=== PATIENT | female | born 1975 | race Caucasian/White ===

== ENCOUNTER 2016-11-08 09:23 | Emergency (ER) | payer MEDICAID ==
[~2016-11-08] VITALS: Ht 160 cm; Wt 104.8 kg
[~2016-11-08 09:23] MED LIST: ACTOS 15MG TABL15 MG PO; ACTOS30 MG PO; AMITRIPTYLINE 225 MG PO; AUGMENTIN XR 101 TER PO; AUGMENTIN1 TA2 PO; AVPAK AZITHROM250 MG PO; BACTRIM DS 8001 TA1 PO; BACTRIM DS 8001 TAB PO; BACTROBAN2% TP; BACTROBAN23 TP; CIPRO 500MG TA500 MG PO; CYCLOBENZAPRINE10 M2 OR; CYCLOBENZAPRINE10 MG PO; CYMBALTA30 MG PO; DICLOFENAC 50MG50 MG PO; DIPHENHYDRAMINE TP; DOXYCYCLINE HY100 M4 PO; ETODOLAC400 MG PO; FLEXERIL10 MG PO; FUROSEMIDE 20MG20 MG PO; GABAPENTIN300 MG PO; HUMALOG MIX75/253 ML SC; HUMULIN R100 UNITS/ SC; HYDROCODONE BIT PO; HYDROCODONE-APA1 TA1 PO; IBU800 M1 PO; K-DUR 20MEQ TA20 MEQ PO; LANTUS INS100 UNITS/ SC; LASIX20 MG PO; LEVAQUIN 750 M750 MG PO; LEVOTHYROXIN0.125 M2 PO; LEVOTHYROXIN0.125 MG PO; LEVOTHYROXINE0.05 MG PO; LIDOCAINE51 TP; LIDODERM 5% PA1 EACH TD; LIPITOR20 MG PO; LISINOPRIL 10MG10 MG PO; LYRICA50 MG PO; MINOCYCLINE 10100 MG PO; NAPROSYN500 M1 PO; NATURE'S BLEND160 MG PO; NICOTINE21 MG/24 H TD; NOVOLIN 70/30 710 ML SC; NOVOLOG MIX 70/10 M1 SC; NYSTATIN SU60 ML/BOT PO; OMEPRAZOLE40 MG PO; PANTOPRAZOLE SO40 M1 PO; PHENERGAN W/CO473 ML PO; POTASSIUM CHLO20 ME2 PO; PRAVACHOL 40MG40 MG PO; PRAVASTATIN 20M20 MG PO; PREDNISONE 20MG20 MG PO; PRILOSEC20 M1 PO; PROTONIX 40MG T40 MG PO; ROBAXIN-750750 MG PO; SEPTRA DS 800 M1 TAB PO; SULFACETAMI15 ML/BO1 OP; TESSALON PERLE100 M1 PO; TOPIRAMATE 100100 M1 PO; TOPIRAMATE100 MG PO; TORADOL10 M2 PO; TYLENOL W/CODEI1 TA2 PO; ULTRAM50 MG PO; VIGAMOX 5 ML5 ML OP; VISTARIL25 MG PO; VISTARIL50 MG PO; ZINC SULFATE 2220 MG PO; ZITHROMAX Z-PA250 M2 PO; ZOFRAN ODT4 MG PO; ZOFRAN4 MG PO; [UNRECOGNIZED DRUG - OTHER] TP
[2016-11-08 09:57] LABS: URINE BILIRUBIN - DIPSTICK NEGATIVE (NEG)
[2016-11-08 09:58] LABS: URINE BLOOD MODERATE (NEG)
[2016-11-08] MEDS ORDERED: PYRIDIUM200 M2 PO (10:01)
[2016-11-08] MEDS ORDERED: BACTRIM DS 8001 TA1 PO (10:01)
--- NOTE | 2016-11-08 10:03 | [facility]gent Treatment Center Report ---
History of Present Issue Date/Time Seen by Provider 11/08/16 0949 Visit Reason Pt arrived:Walked Presenting Problem:PT STATES FLANK PAIN, FREQUENT URINATION, URINARY PRESSURE, URGE TO VOID WHEN FINISHED, AND ODOR TO URINE FOR PAST COUPLE OF DAYS. STATES HISTORY OF UTI/BLADDER INFECTIONS Location if Accident: Onset of symptoms date/time:/ or onset unknown for:MEDICAL HX UNKNOWN Have you (or family members/close friends) recently traveled outside the [place]? N If Yes, where/when: Have you had exposure to infectious disease within the past month? TB? Other? Specify: c/o "I know I have a UTI". Started w/ dysuria and frequency 4 days ago. Since then that has worsened and now low back pain bilaterally, bladder pressure, urgency, hesitancy, nausea, urine darker and cloudier w/ foul odor. Denies fevers, chills, vomiting, vaginal discharge or pain other than burning while urinating. Hasn't taken or tried anything for symptoms. Hx of UTIs but last one last year. "I get one a year". Hx of DM. Not sure of A1C. Reporting [facility]SB[facility] "are good. Around 130-[address] Zabala. Does take insulin. Source patient Exam Limitations no limitations ALLERGIES Coded Allergies: cephalexin (From KEFLEX) (Intermediate, I-HIVES 04/05/16) erythromycin base (Intermediate, I-HIVES 04/05/16) butorphanol (From STADOL) (11/08/16) metformin (NA-DIARRHEA 04/05/16) Home Medications Active Scripts Pantoprazole Sodium (Protonix 40MG TAB) 40 MG PO DAILY #30 TAB Prov: 04/30/14 Cyclobenzaprine Hcl (Flexeril) 10 MG PO TID #30 TAB Prov: 04/05/16 Reported Medications DULOXETINE HCL (Cymbalta 30MG) 60 MG PO QHS POTASSIUM CHL (Potassium Chloride) 20 MEQ PO DAILY Hydroxyzine Pamoate (Vistaril) 50 MG PO QHSP PRN ANXIETY Atorvastatin Calcium (Lipitor 20MG) 20 MG PO DAILY Levothyroxine Sodium (Levothyroxine 0.125MG) 0.125 MG PO DAILY Amitriptyline Hcl (Amitriptyline) 25 MG PO QHS Furosemide (Lasix) 40 MG PO DAILYP PRN FLUID Gabapentin (Gabapentin 300MG) 600 MG PO TID INSULIN NPL/INSULIN LISPRO (Humalog Mix 75-25 Kwikpen) 76 UNITS SC AC History Medical History General CAD? No Angina: No PR: No Hypertension? Yes Hyperlipidemia? Yes CHF? No DVT? No PE? No COPD? No Asthma? Yes Anemia? No GERD? Yes Gastric ulcers? No GI Bleed? No Hernia? No Thyroid Problems? Yes Hypothyroidism? Yes CVA? No Seizures? No Diabetes? Yes Insulin Dependent: Yes Insulin Pump: No Home FSBS? Yes Renal Insuffiency? No UTI? Yes Stones? No BPH? No GB Disease: Yes Nephritic Syndrome? No Asplenia? No Hepatitis? No Sickle Cell Disease? No Arthritis? Yes Migraines? No Cataracts? No Glaucoma? No MRSA? Yes HIV? No TB? No Anxiety? Yes Depression? Yes Cancer? No More? 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 Psychiatric/Neurological denies headache Physical Exam Vital Signs Vital Signs Date Time Temp Pulse Resp B/P Pulse O2 O2 Flow FiO2 Ox Delivery Rate 11/08 937 98.1 85 18 121/83 99 General Appearance no apparent distress, obese Respiratory Status No: respiratory distress. Cardiovascular no peripheral edema Gastrointestinal normal bowel sounds, non tender, soft, no bladder distention, moderate suprapubic bladder pressure Back CVA tenderness (R), CVA tenderness (L) Neurologic alert Skin normal color, warm/dry Medical Decision Making LABS/Meds/Orders Pt receiving controlled substance in ED? No Results/Orders Laboratory Tests 11/08/16 0942: Urine Color YELLOW, Urine Appearance CLEAR, Urine pH 6.0, Ur Specific [place] 1.015, Urine Protein 30, Urine Ketones NEGATIVE, Urine Blood MODERATE, Urine Nitrate POSITIVE H, Urine Bilirubin NEGATIVE, Urine Urobilinogen 0.2, Ur Leukocyte Esterase TRACE H, Urine Glucose 1000 Orders Procedure Date/time Status CULTURE, URINE 11/08 1002 Active [facility] URINE DIPSTICK 11/08 0942 Complete Departure Departure Time of Disposition 0955 Disposition DC Home or Self Care(routine) Clinical Impression Primary Impression: UTI (urinary tract infection) Qualifiers: Urinary tract infection type: site unspecified Hematuria presence: with hematuria Qualified Code: N39.0 - Urinary tract infection, site not specified Secondary Impressions: Diabetes Qualifiers: Diabetes mellitus type: type 2 Diabetes mellitus complication status: with unspecified complications 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 You have too much glucose in your urine to suspect your DM is not well controlled OR no noticeable improvement over the next 48-72 hours. Be sure to let him know we sent a urine culture so he can review those results AND 10-14 days for repeat U/A to ensure blood and infection resolved Patient Instructions DI for Hematuria, DI for Urinary Tract Infection (UTI), Urine Glucose Additional Instructions increase fluids. Water and NOT soda or tea Start antibiotic pyridium as needed, Remember this will turn your urine ORANGE, this is normal but will stain whatever it gets on You should not need the pyridium longer than 48 hours. If so, follow up with primary care to review urine culture and ensure antibiotic is adequate Be SURE to follow up anytime for new or worsening symptoms, if no improvement in 48 hours AND in 10-14 days to repeat UA and ensure infection resolved and blood no longer present. Be sure to let your PCP (or whoever you follow up with) know we sent urine culture so they can request records and ensure you are on the appropriate antbiotic if you are not getting better or getting worse!!!!!!!!!!!!! Discharge Counseling Counseled pt/family regarding diagnosis, test results, medications/RX, home care, follow up needs Prescriptions Current Visit Scripts SULFAMETHOXAZOLE W/TRIMETHOPRI (Bactrim Ds Tab) 1 TABLET PO BID #14 TAB Phenazopyridine HCl (Pyridium) 200 MG PO TIDP PRN dysuria #6 TAB at 1007
[2016-11-08 10:07] VITALS: BP 121/83
== END 2016-11-08 10:07 | disposition home or self-care (01) ==
LOC: UTC 09:23
PROVIDERS: Nurse Practitioner Family
DX: N39.0 Urinary tract infection, site not specified (principal); E11.8 Type 2 diabetes mellitus with unspecified complications; Z79.4 Long term (current) use of insulin; I10 Essential (primary) hypertension; K21.9 Gastro-esophageal reflux disease without esophagitis

== ENCOUNTER 2017-01-27 15:31 | Emergency (ER) | payer MEDICAID ==
[~2017-01-27] VITALS: Ht 160 cm; Wt 93.0 kg
[~2017-01-27 15:31] MED LIST changes: +NAPROXEN250 MG PO; +PENICILLIN VK500 M1 PO; +PYRIDIUM200 M2 PO
--- OUTSIDE RECORDS SUMMARY | 2017-01-27 16:32 | External Medical Summary Rpt ---
Author Author , Organization [employer] Address Unknown Phone Unavailable Care Team Providers Care Receivable Manager Name Role Phone LIDIA, LIDIA Unavailable Unavailable [employer] Unavailable Unavailable INC, [employer] Unavailable Unavailable INC, [employer] ALFARIS MOH, ALFARIS Unavailable Unavailable MOH JOSE M FELIX MD, PSC, Unavailable Unavailable JOSE M FELIX MD, PSC ARNOLD, ARNNURY Unavailable Unavailable JAIN BRO, JAIN Unavailable Unavailable BRO JOY FRA, JOY Unavailable Unavailable FRA BEINEKE NARINDER, BEINEKE Unavailable Unavailable NARINDER BEAU, YANEZ Unavailable Unavailable BESSON WILMER, BESSON Unavailable Unavailable WILMER HERNÁNDEZ ALL, HERNÁNDEZ ALL Unavailable Unavailable [facility] Unavailable Unavailable HOSPITAL, [facility] [employer] Unavailable Unavailable BRIDGES, BRIDGES Unavailable Unavailable [facility] Unavailable Unavailable SERVICE, [facility] Unavailable Unavailable SERVICE, [facility] ABIMAEL KAYODE, ABIMAEL Unavailable Unavailable KAYODE CASE JUS, CASE JUS Unavailable Unavailable TAINA RYA, TAINA Unavailable Unavailable RYA CELLAROSI - YORBA Unavailable Unavailable PAT, CELLAROSI - YORBA PAT CELLAROSI - YORBA Unavailable Unavailable PAT, CELLAROSI - YORBA [facility] Un[facility] CHANDEL, CHANDEL Unavailable Unavailable LUTZ, LUTZ Unavailable Unavailable ONEILL, ONEILL Unavailable Unavailable [facility], Unavailable Unavailable [facility] JAMIE GAR, JAMIE Unavailable Unavailable GAR COLTON SHAYNE, Unavailable Unavailable [facility] SH[facility] # [id number], Unavailable Unavailable [facility] # [id number] [place] [facility] TENORIO MAT, TENORIO Unavailable Unavailable MAT [facility], [facility] Unavailable Unavailable [facility], [facility] Unavailable Unavailable DUFF, DUFF Unavailable Unavailable DUFF MARIJA, DUFF MARIJA Unavailable Unavailable FARAGASSO DEV, Unavailable Unavailable FARAGASSO DEV FAUGHN DEL VALLE, FAUGHN Unavailable Unavailable [facility] FEE DOM, FEE DOM Unavailable Unavailable PIÑA MATI, PIÑA Unavailable Unavailable MATI PIÑA MATI, PIÑA Unavailable Unavailable MATI FRYMAN, FRYMAN Unavailable Unavailable FRYMAN EUG, FRYMAN Unavailable Unavailable EUG ELSIE MERARY, ELSIE Unavailable Unavailable MERARY [facility] Unavailable Unavailable HOSPITA, [facility] Unavailable Unavailable HOSPITA, [facility] Unavailable Unavailable PHYS PSC, [facility] PSC [facility] Unavailable Unavailable PRACTICE, [facility], Unavailable Unavailable [facility] GINGER, GINGER Unavailable Unavailable TELLEZ MERARY, TELLEZ Unavailable Unavailable MERARY JAMES, JAMES Unavailable Unavailable JAMES RHO, JAMES Unavailable Unavailable RHO GROVES MATI, GROVES Unavailable Unavailable MATI CARPIO, CARPIO Unavailable Unavailable FORBES GAR, FORBES Unavailable Unavailable GAR FORBES GAR, FORBES Unavailable Unavailable GAR [facility] Unavailable Unavailable INC, [facility] Unavailable Unavailable HOSPITAL, [facility] Unavailable Unavailable HOSPITAL P, [facility] P [facility], Unavailable Unavailable [facility] BOWIE AMA, BOWIE Unavailable Unavailable AMA ALDANA ROSALINA, ALDANA ROSALINA Unavailable Unavailable TEE TRA, TEE TRA Unavailable Unavailable [facility] Unavailable Unavailable E[facility], [facility] RENE III NORMA, Unavailable Unavailable RENE III NORMA [facility] Unavailable GROUP PS, [facility] Unavailable Unavailable [facility], [facility] Unavailable Unavailable MEDICAL G, [facility] G [facility] NURSE Unavailable Unavailable PRACTITIONER GR, [facility] NURSE PRACTITIONER GR KOSTELIC, KOSTELIC Unavailable Unavailable KOSTELIC YEN, Unavailable Unavailable KOSTELIC YEN [facility], [facility] Unavailable Unavailable HOLDINGS, [facility], Unavailable Unavailable [facility], Unavailable Unavailable [facility] DENA CRI, DENA CRI Unavailable Unavailable KATHRYN JR DWI, KATHRYN Unavailable Unavailable JR DWI [facility] Unavailable Unavailable INTER[facility] MED, [facility] ELIOT WILMER, ELIOT WILMER Unavailable Unavailable TIAN GRUPO, TIAN Unavailable Unavailable GRUPO DORINDA GRE, Unavailable Unavailable DORINDA GRE DORINDA GRE, Unavailable Unavailable DORINDA GRE [facility] Unavailable Unavailable SERVICES, [facility] Unavailable [facility] Unavailable Unavailable [facility], Unavailable Unavailable PLLC, [facility] PETTEY JAM, PETTEY Unavailable Unavailable JAM PICKLESIMER JR BARBARA, Unavailable Unavailable PICKLESIMER JR BARBARA MARGARETTE HEN, MARGARETTE Unavailable Unavailable HEN [facility], Unavailable Unavailable [facility], Unavailable Unavailable [facility], Unavailable Unavailable [facility] RADMANESH, RADMANESH Unavailable Unavailable RADMANESH SHA, Unavailable Unavailable RADMANESH SHA RECHTIN COMMUTATOR OPERATOR, RECHTIN Unavailable Unavailable COMMUTATOR OPERATOR NIHARIKA TOD, Unavailable Unavailable NIHARIKA TOD NIHARIKA TOD, Unavailable Unavailable NIHARIKA TOD RENUSCH CLARICE, RENUSCH Unavailable Unavailable CLARICE [facility], Unavailable Unavailable [facility], Unavailable Unavailable [facility] ROME C, ROME C Unavailable Unavailable SADEK MOH, SADEK MOH Unavailable Unavailable FLORES MEHTA, FLORES Unavailable Unavailable MEHTA GILBERT, GILBERT Unavailable Unavailable LAM ANAIS, LAM ANAIS Unavailable Unavailable [facility] Unavailable Unavailable [facility], [facility] Unavailable Unavailable EQUIPME, [facility] SOTINGEANU NARINDER, Unavailable Unavailable SOTINGEANU NARINDER [facility], Unavailable Unavailable [facility], Unavailable Unavailable [facility] MONTILLA, MONTILLA Unavailable Unavailable [facility], Unavailable Unavailable [facility], [facility]ERY AND Unavailable Unavailable LUKAS WILMER, LUKAS Unavailable Unavailable WILMER [id number] # Unavailable Unavailable [id number], [id number] # [id number] WALKER FOR, WALKER Unavailable Unavailable FOR [place], [place] Unavailable Unavailable WECHMAN JR RAY, Unavailable Unavailable WECHMAN JR RAY WEHRMAN III DUANE, Unavailable Unavailable WEHRMAN III DUANE WELLS SHA, WELLS SHA Unavailable Unavailable BRAD ELIAS, BRAD Unavailable Unavailable ELIAS EM DUANE, EM DUANE Unavailable Unavailable BAILEY MAT, BAILEY MAT Unavailable Unavailable Purpose Continuity of Care Document - 03-05-2010 through 2016 Problems Code Diagnosis DOS Provider Status E039 HYPOTHYROID 12-25-2016 [facility] ISM PHYSICIANS UNSPECIFIED GROUP E119 TYPE 2 12-25-2016 [facility] DIABETES PHYSICIANS MELLITUS GROUP WITHOUT COMPLICATIO NS E785 HYPERLIPIDE 12-25-2016 [facility] REBECCA PHYSICIANS UNSPECIFIED GROUP G629 POLYNEUROPA 12-25-2016 [facility] THY PHYSICIANS UNSPECIFIED GROUP I10 ESSENTIAL 12-25-2016 [facility] PRIMARY PHYSICIANS HYPERTENSIO GROUP N I639 CEREBRAL 12-25-2016 [facility] INFARCTION PHYSICIANS UNSPECIFIED GROUP J449 CHRONIC 12-25-2016 [facility] OBSTRUCTIVE PHYSICIANS PULMONARY GROUP DISEASE UNS L239 ALLERGIC 12-25-2016 [facility] CONTACT PHYSICIANS DERMATITIS GROUP UNSPECIFIED CAUSE L602 ONYCHOGRYPH 11-27-2016 [facility] OSIS PHYSICIANS GROUP G459 TRANSIENT 11-23-2016 [facility] CEREBRAL [facility] ISCHEMIC MEDICAL G ATTACK UNSPECIFIED Z9282 S/P ADMN 11-23-2016 [facility] TPA DIFF HEALTH FACL LAST MEDICAL G 24 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 G8191 HEMIPLEGIA 11-22-2016 [facility] AFFECTING RIGHT DOMINANT SIDE R200 ANESTHESIA 11-22-2016 [facility] OF SKIN [facility] R4781 SLURRED 11-22-2016 [facility] SPEECH [facility] R531 WEAKNESS 11-22-2016 [facility] [employer] MEDICAL G Z8673 PERSONAL HX 11-22-2016 [facility] TIA & HEALTH CEREB MEDICAL G INFARCT NO RESID DEFICIT E1122 TYPE 2 11-21-2016 [facility] MELLITUS W/DIAB CHRON KIDNEY DZ E1142 TYPE 2 11-21-2016 [facility] MELLITUS W/DIAB POLYNEUROPA THY E1165 TYPE 2 11-21-2016 [facility] MELLITUS [place]PERGLYCEM IA E6601 MORBID 11-21-2016 [facility] OBESITY DUE TO EXCESS CALORIES E871 HYPO-OSMOLA 11-21-2016 [facility] HYPONATREMI A M6281 MUSCLE 11-21-2016 [facility] WEAKNESS N EMERGENCY GENERALIZED PHYS 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 R0789 OTHER CHEST 11-21-2016 [facility] PAIN N EMERGENCY PHYS R209 UNSPECIFIED 11-21-2016 [facility] DISTURBANCE MEDICAL G S OF SKIN SENSATION R9431 ABNORMAL 11-21-2016 [facility] [employer] [facility] IOGRAM MEDICAL G E118 TYPE 2 11-08-2016 [facility]ES [facility] MELLITUS INC W/UNS COMPLICATIO NS K219 GASTRO-ESOP 11-08-2016 [facility] H REFLUX [facility] DISEASE INC WITHOUT ESOPHAGITIS N390 URINARY 11-08-2016 [facility] TRACT [facility] INFECTION INC SITE NOT SPECIFIED Z794 PENITENTIARY 11-08-2016 [facility] CURRENT USE [facility] OF INSULIN INC E07.9 DISORDER OF 11-05-2016 THYROID, UNSPECIFIED E10.40 TYPE 1 11-05-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, UNSPECIFIED F17.210 NICOTINE 11-05-2016 DEPENDENCE, CIGARETTES, UNCOMPLICAT ED G89.29 OTHER 11-05-2016 CHRONIC PAIN M79.671 PAIN IN 11-05-2016 RIGHT FOOT M79.672 PAIN IN 11-05-2016 LEFT FOOT Z79.4 PENITENTIARY 11-05-2016 (CURRENT) USE OF INSULIN Z79.899 OTHER LONG 11-05-2016 TERM (CURRENT) DRUG THERAPY Z88.1 ALLERGY 11-05-2016 STATUS TO OTHER ANTIBIOTIC AGENTS STATUS Z88.8 ALLERGY 11-05-2016 STATUS TO OTHER DRUGS, MEDICAMENTS AND BIOLOGICAL SUBSTANCES STATUS E1121 TYPE 2 11-02-2016 [facility] DIABETES N EMERGENCY MELLITUS PHYS W/DIABETIC NEPHROPATHY O04694 PAIN IN 11-02-2016 [facility] RIGHT FOOT N EMERGENCY PHYS W42345 PAIN IN 11-02-2016 [facility] LEFT FOOT N EMERGENCY PHYS L600 INGROWING 09-09-2016 [facility] NAIL PHYSICIANS GROUP J9811 ATELECTASIS 08-30-2016 [facility] M940 CHONDROCOST 08-30-2016 [facility] AL JUNCTION N EMERGENCY SYNDROME PHYS TIETZE R079 CHEST PAIN 08-30-2016 [facility] [place] UNSPECIFIED RADIOLOGY Z94970 PAIN IN 08-07-2016 [facility] LEFT TOES N EMERGENCY PHYS J069 ACUTE UPPER 07-08-2016 [facility] N EMERGENCY RESPIRATORY PHYS INFECTION UNSPECIFIED R51 HEADACHE 07-08-2016 [facility] N EMERGENCY PHYS E079 DISORDER OF 07-05-2016 [facility] U[facility]PEC[facility] J209 ACUTE 07-05-2016 [facility] BRONCHITIS N EMERGENCY UNSPECIFIED PHYS V34027 OTHER LONG 07-05-2016 [facility] TERM [facility] CURRENT HOSPITAL DRUG THERAPY Z881 ALLERGY 07-05-2016 [facility] STATUS TO COMMUNITY OTHER HOSPITAL ANTIBIOTIC AGENTS STATUS I872 VENOUS 05-13-2016 [facility] CY CHRONIC MEDICAL G PERIPHERAL R609 EDEMA 05-13-2016 [facility] UNSPECIFIED HEALTH MEDICAL G Y65560 SPONDYLOSIS 05-07-2016 JOSE M FELIX, W/O , PSC MYELOPATH/R ADICULOPATH Y LUMB RGN M5136 OTH 05-07-2016 ISADORA SELBY MD, PSC RAL DISC DEGEN LUMBAR REGION R0600 DYSPNEA 04-23-2016 [facility] UNSPECIFIED HEALTH MEDICAL G E1140 TYPE 2 DM 04-19-2016 [facility] NURSE WITH PRACTITIONE DIABETIC R GR NEUROPATHY UNSPECIFIED M5406 PANNICULITI 04-16-2016 [facility] S AFFCT [facility] REGIONS NCK INC BACK LUMB REGION I350 NONRHEUMATI 04-08-2016 [facility] AORTIC [place] [facility]UMAN RESOURCE SSD VALVE STENOSIS I5189 OTHER 04-08-2016 [facility] DISEASES M545 LOW BACK 04-08-2016 [facility] PAIN [facility] INC Q311 CONGENITAL 04-08-2016 [facility] STENOSIS M542 CERVICALGIA 04-05-2016 [facility] H08076 OTHER 04-05-2016 [facility] MUSCLE PHYSICIANS, SPASM PLLC M5417 RADICULOPAT 04-03-2016 [facility] VENEGAS CHIROPRACT[facility] LUMBOSACRAL C CENTE REGION C69897 MIGRAINE 03-26-2016 [place] W/O AURA NEUROLOGY INTRACT W/O STAT MIGRAINOSUS G7864HV CONTUSION 03-24-2016 [facility] OF RIGHT PHYSICIANS, FOREARM PLLC INITIAL ENCOUNTER W57608E CONTUSION 03-24-2016 [facility] OF RIGHT PHYSICIANS, WRIST PLLC INITIAL ENCOUNTER V41841 PAIN IN 03-21-2016 [facility]ICAL FOREARM IMAGING ASS C85875 PAIN IN 03-21-2016 [place] HAND [facility]ICAL [facility] R42 DIZZINESS 03-21-2016 [place] AND MEDICAL GIDDINESS IMAGING ASS Q31378W UNSPECIFIED 03-21-2016 [place] INJURY MEDICAL RIGHT IMAGING ASS FOREARM INITIAL ENCNTR S0662XS UNSPECIFIED 03-21-2016 [place] INJURY RT MEDICAL WRIST HAND IMAGING ASS FINGERS INITIAL T41458 MIGRAINE 03-19-2016 [facility] INTRACT W/O HOSPITAL STATUS MIGRAINOSUS M4726 OTH 03-12-2016 [facility] SPONDYLOSIS [facility] INC W/RADICULOP ATHY LUMBAR REGION R202 PARESTHESIA 02-29-2016 [place] OF SKIN MEDICAL IMAGING ASS M5126 OTH 02-27-2016 ISADORA SELBY MD, PSC RAL DISC DISPLACEMEN T LUMBAR RGN M5416 RADICULOPAT 02-27-2016 [facility] LUMBAR MEM HOSP REGION INC Z0100 ENCOUNTER 02-23-2016 [place] EXAM EYES & GRE VISION W/O ABNORMAL FIND M5116 INTERVERTEB 02-02-2016 [facility] RAL DISC [facility] D/O INC W/RADICULOP ATHY LUMB RGN E876 HYPOKALEMIA 01-19-2016 [facility] PHYSICIANS GROUP E1065 TYPE 1 01-18-2016 [place] DIABETES MEDICAL MELLITUS IMAGING ASS WITH HYPERGLYCEM IA E1100 TYPE 2 DM 01-18-2016 [facility] W/HYPEROSMO PHYSICIANSBRIDGET W/O PLLC NKHC Q34568 TYPE 2 01-18-2016 [facility] P W/HYPOGLYCE REBECCA W/O COMA Z1231 ENCOUNTER 01-17-2016 [place] SCREENING MEDICAL MAMMO MALIG IMAGING ASS NEOPLASM BREAST E669 OBESITY 01-04-2016 [facility] L259 UNSPECIFIED 01-04-2016 [facility]TACT [facility] UNSPECIFIED CAUSE Z1239 ENCOUNTER 12-21-2015 PSYCHIATRIC MALIG NEOPLASM BREAST H9209 OTALGIA 12-11-2015 [facility] E1151 TYPE 2 DM 12-07-2015 [facility] W/DIAB PODIATRY PERIPH ANGIOPATHY W/O GANGRENE M2570 OSTEOPHYTE 12-07-2015 PRO[facility] UNSPECIFIED PODIATRY JOINT R05 COUGH 2015 [facility] R1084 GENERALIZED 2015 [place] ABDOMINAL MEDICAL PAIN IMAGING ASS R109 UNSPECIFIED 2015 [facility] ABDOMINAL PHYSICIANS, PAIN PLLC R319 HEMATURIA 2015 [place] UNSPECIFIED MEDICAL IMAGING ASS R509 FEVER 2015 [place] UNSPECIFIED MEDICAL IMAGING ASS Z720 TOBACCO USE 2015 [facility] INC B370 CANDIDAL 11-30-2015 [facility] STOMATITIS [facility] I739 PERIPHERAL 10-27-2015 [facility] DISEASE MEDICAL UNSPECIFIED EQUIPME M179 OSTEOARTHRI 08-11-2015 [facility] TIS OF KNEE [facility] UNSPECIFIED M549 DORSALGIA 07-31-2015 [facility] M5127 OTH 07-07-2015 [place] INTERVERTEB MEDICAL RAL DISC IMAGING ASS DISPLACEMEN T LS REGION N764 ABSCESS OF 07-07-2015 [facility] VULVA PHYSICIANS GROUP X91860 CUTANEOUS 07-06-2015 [facility] ABSCESS OF MEM HOSP TRUNK INC UNSPECIFIED W19306 CELLULITIS 07-04-2015 [facility] OF OTHER PHYSICIANS, SITES [facility] K35779 ENCOUNTER 06-19-2015 [facility] CREATIVE SERVICES WR[employer]AM [facility] GENERAL RTN W/O ABNORMAL FIND M1612 UNILATERAL 06-13-2015 [place] PRIMARY MEDICAL OSTEOARTHRI IMAGING ASS TIS LEFT HIP L67943 PAIN IN 06-13-2015 [place] LEFT HIP MEDICAL IMAGING ASS U60726 HORDEOLUM 05-15-2015 [facility] EXTERNUM PHYSICIANS, RIGHT UPPER [facility] EYELID 462 ACUTE 04-12-2015 [facility] PHARYNGITIS PHYSICIANS, [facility] 7862 COUGH 04-12-2015 [facility] 83166 DIAB W/O 03-23-[address] [facility] [address] [facility] II/UNS NOT HOSPITAL STATED UNCNTRL 3559 MONONEURITI 03-23-2015 [facility] S [facility] SITE 05012 OTHER SIGN 03-09-2015 [facility] AND SYMPTOM [facility] IN BREAST INC 2724 OTHER AND 02-28-2015 [facility] UNSPECIFIED HEALTH MEDICAL G HYPERLIPIDE REBECCA 66723 MASTODYNIA 02-01-2015 [facility] 65967 LUMP OR 02-01-2015 [place] MASS IN MEDICAL BREAST IMAGING ASS 72257 DIAB W/OTH 01-12-2015 [facility] MANIFESTS PHYSICIANS, TYPE II/UNS [facility] NOT UNCNTRL 67622 PRESSURE 01-12-2015 [facility] ULCER OTHER PHYSICIANS, SITE [facility] 6822 CELLULITIS 12-25-2014 [facility] AND ABSCESS PHYSICIANS, OF TRUNK PLL 4660 ACUTE 12-18-2014 [facility] BRONCHITIS PHYSICIANS, [facility] 7869 OTH 12-18-2014 [place] SYMPTOMS MEDICAL INVOLVING IMAGING ASS RESPIRATORY SYSTEM&CHES T 39958 CHRONIC 11-23-2014 [facility] VENOUS HEALTH HYPERTENSIO MEDICAL G N WITHOUT COMPS 7823 EDEMA 11-23-2014 [facility] HEALTH MEDICAL G 38924 OBESITY, 11-15-2014 [facility] 37658 CHRONIC 11-15-2014 [facility] VENOUS HEALTH HYPERTENSIO MEDICAL G N WITH INFLAMMATIO N 4019 UNSPECIFIED 11-11-2014 [facility] HYPERTENSIO HOSPITAL P N 41013 ASTHMA, 11-11-2014 [facility] P UNSPECIFIED STATUS 6110 INFLAMMATOR 11-11-2014 [facility] DISEASE [facility] [place] HUMAN RESOURCE SSD P 98556 SHORTNESS 11-04-2014 [facility] MEDICAL G 13074 OSTEOARTHRO 11-02-2014 [facility] SIS UNSPEC PHYSICIANS WHETHER GROUP GEN/LOC LOWER LEG V7612 OTHER 11-02-2014 [place] SCREENING COMMUNTIY MAMMOGRAM HOSPITA 2768 HYPOPOTASSE 10-24-2014 [facility] P V5869 LONG-TERM 10-24-2014 [facility] (CURRENT) [facility] USE OF HOSPITAL P OTHER MEDICATIONS 5693 HEMORRHAGE 10-17-2014 [place] OF RECTUM COMMUNTIY AND ANUS HOSPITA 5789 UNSPECIFIED 10-17-2014 [facility] HEMORRHAGE ANESTHESIA OF GROUP PS GASTROINTES TINAL TRACT V7651 SPECIAL 10-17-2014 [facility] S[facility] FOR MALIGNANT NEOPLASMS COLON 68978 PAIN IN 09-30-2014 [place] JOINT, MEDICAL LOWER LEG IMAGING ASS V571 OTHER 09-25-2014 [facility] PHYSICAL [facility] THERAPY INC 35591 OTHER 09-22-2014 [place] [facility]AISE AND FAMILY FATIGUE PRACTICE 61197 MORBID 09-15-2014 [place]ESITY [facility] INTERNAL MED 2449 UNSPECIFIED 09-14-2014 [facility] HYPOTHYROID INC ISM 496 CHRONIC 09-14-2014 [facility]WAY [facility] OBSTRUCTION INC NEC 5718 OTHER 09-14-2014 [place] CHRONIC MEDICAL NONALCOHOLI IMAGING ASS C LIVER DISEASE 64167 DIARRHEA 09-14-2014 [facility] 25754 ABDOMINAL 09-14-2014 [place] PAIN, MEDICAL UNSPECIFIED IMAGING ASS SITE 7891 HEPATOMEGAL 09-14-2014 [place] Y MEDICAL IMAGING ASS V8542 BODY MASS 09-14-2014 [facility] 45.0-49.9 HOSPITAL P ADULT 97186 UNSPECIFIED 08-27-2014 [place] SLEEP COMMUNTIY APNEA HOSPITA 7177 CHONDROMALA 08-19-2014 [facility] SHAY OF PHYSICIANS PATELLA GROUP 14749 OTHER 08-19-2014 [facility] SYNOVITIS PHYSICIANS AND GROUP TENOSYNOVIT IS V4589 OTHER 08-19-2014 [facility] POSTSURGICA PHYSICIANS L STATUS GROUP OTHER 14489 EFFUSION OF 08-12-2014 [facility] LOWER LEG MEDICAL JOINT IMAGING ASS 26209 PATELLAR 08-12-2014 [facility] TENDINITIS MEDICAL IMAGING ASS 8363 CLOSED 08-12-2014 [facility] DISLOCATION MEDICAL OF PATELLA IMAGING ASS 31270 PRIMARY 07-26-2014 [facility] LOCALIZED TECHNOLOGIE OSTEOARTHRO S INC SIS LOWER LEG 52235 EFFUSION OF 07-26-2014 [facility] JOINT, TECHNOLOGIE SITE S INC UNSPECIFIED 42115 SWELLING OF 07-20-2014 [facility] [place] MEDICAL IMAGING ASS 60874 OTHER 06-28-2014 [facility] DISORDER OF MEM HOS[facility] MUSCLE INC LIGAMENT AND FASCIA 76779 HYPERSOMNIA 06-28-2014 [facility] UNSPECIFIED PRACTICE 72949 OTHER 06-24-2014 [place] DISEASES OF MEDICAL LUNG NOT IMAGING ASS ELSEWHERE CLASSIFIED 486 PNEUMONIA, 06-22-2014 [facility] ORGANISM N EMERGENCY UNSPECIFIED PHYS 87204 ABDOMINAL 06-21-2014 [place] PAIN OTHER MEDICAL SPECIFIED IMAGING ASS SITE 22244 MIGRAINE 06-16-2014 [facility] UNSP W/O DIAGNOSTICS INTRACT W/O STATUS MIGRAINOSUS 7079 CHRONIC 06-16-2014 [place] ULCER OF FAMILY UNSPECIFIED PRACTICE SITE 2469 UNSPECIFIED 06-06-2014 [place] DISORDER COMMUNITY OF THYROID HOSPITA 2720 PURE 06-06-2014 [place] HYPERCHOLES [facility] TEROLEMIA HOSPITA 55845 OTHER ACUTE 06-06-2014 [place] PAIN [facility] HOSPITA 7840 HEADACHE 06-06-2014 [facility] N EMERGENCY PHYS 93227 NAUSEA 06-06-2014 [place] ALONE [facility] HOSPITA V5867 LONG-TERM 06-06-2014 [place] USE OF [facility] INSULIN HOSPITA 4241 AORTIC 05-30-2014 [facility] DISORD[facility] MEDICAL G 5180 PULMONARY 05-30-2014 [facility] 43325 DIAB 05-20-2014 [place] W/[facility] MANIFESTS PRACTICE TYPE II/UNS NOT UNCNTRL 32611 ESOPHAGEAL 05-20-2014 [place] [facility] 56354 CHEST PAIN 04-30-2014 [facility] UNSPEC[facility] EMERGENCY PHYS 7464 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 [facility] CY OF AORTIC VALVE 34676 PRECORDIAL 04-26-2014 [facility] 4139 OTHER AND 04-25-2014 [facility] UNSPECIFIED N EMERGENCY ANGINA PHYS [place] 07975 UNSPECIFIED 04-18-2014 [facility] [place]IVI [place]YS [place] 81629 HORDEOLUM 04-16-2014 [facility] INTERNUM N EMERGENCY PHYS 4611 ACUTE 04-15-2014 [facility] 7812 ABNORMALITY 04-05-2014 [facility] 35693 PAIN IN 03-28-2014 [place] [facility] FOOT 7295 PAIN IN 03-28-2014 [place] [facility] TISSUES OF IMAGING ASS LIMB 8449 SPRAIN&STRA 03-28-2014 [facility] IN OF N EMERGENCY UNSPECIFIED PHYS SITE OF KNEE&LEG E9279 UNS 03-28-2014 [facility] OVEREXERT& N EMERGENCY STRENUOUS&R PHYS EPETITIVE MVMNTS/LOAD S 2722 MIXED 03-10-2014 [facility] 4011 ESSENTIAL 03-10-2014 [place] [facility] N, BENIGN PRACTICE 7242 LUMBAGO 03-10-2014 [facility] 7213 LUMBOSACRAL 02-21-2014 [facility] SPONDYLOS[facility] FOUNDATIO WITHOUT MYELOPATHY 7292 UNSPECIFIED 02-21-2014 [facility] NEURITIS FOUNDATIO AND RADICULITIS 3572 POLYNEUROPA 02-20-2014 [facility] THY IN N EMERGENCY DIABETES PHYS 7820 DISTURBANCE 02-20-2014 [facility] OF [facility] N EMERGENCY SENSATION PHYS 3569 UNSPEC 02-08-2014 [facility] OPATHI PERIPHERAL NEUROPATHY 46866 DEHYDRATION 01-12-2014 [facility] PHYS 5589 OTH&UNSPEC 01-12-2014 [facility] NONINFECTIO N EMERGENCY US PHYS [facility] ITIS&COLITI S 7906 OTHER 01-12-2014 [facility] ABNORMAL N EMERGENCY BLOOD PHYS CHEMISTRY 2440 POSTSURGICA 01-11-2014 [facility] HYPOTHYROID PRACTICE ISM 26962 OTHER 12-29-2013 [facility] PAIN 7379 UNSPECIFIED 12-16-2013 [facility] SPINE 41401 DIAB W/O 11-18-2013 [facility] MENTION N EMERGENCY COMP TYPE PHYS II/UNS TYPE UNCNTRL 7804 DIZZINESS 11-18-2013 [facility] EMERGENCY GIDDINESS PHYS 7245 UNSPECIFIED 11-17-2013 [place] PRACTICE 7821 RASH AND 10-07-2013 [facility] NONSPECIFIC INC SKIN ERUPTION 4658 ACUTE URIS 12-04-2011 [facility] OF OTHER TOD MULTIPLE SITES 8472 LUMBAR 11-01-2011 [facility] [place] SPRAIN AND STRAIN E8889 UNSPECIFIED 11-01-2011 [facility] [place] FALL 65784 UNSPECIFIED 08-09-2011 [facility] DRAPER SITE OF ANKLE SPRAIN AND STRAIN 9597 INJURY 08-09-2011 [facility] [place] OTHER&UNSPE RADIOLOGY CIFIED KNEE LEG ANKLE&FOOT E9270 OVEREXERTIO 08-09-2011 [facility] DRAPER N FROM SUDDEN STRENUOUS MOVEMENT 4619 ACUTE 08-08-2011 [facility] SINUSITIS, TOD UNSPECIFIED 59971 OTHER CHEST 06-01-2011 [facility] - PAIN YORBA PAT 22410 GENERALIZED 05-01-2011 [facility] DISORDER PSC 7241 PAIN IN 05-01-2011 [facility] SPINE PSC 5259 UNSPECIFIED 02-19-2011 [facility] EMERGENCY TEETH&SUPPO SERVICES RTING STRUCTURES 41168 TOOTH 02-19-2011 [facility] BROKEN FX EMERGENCY DUE TO SERVICES TRAUMA W/O MENTION COMP 6926 CONTACT 02-14-2011 [facility] OTHER PSC ECZEMA DUE TO PLANTS 6929 CONTACT 11-19-2010 [place] OTHER PSC ECZEMA DUE UNSPEC CAUSE 7291 UNSPECIFIED 11-19-2010 [facility] [facility]ALGIA [facility] AND PSC MYOSITIS 52323 UNSPECIFIED 10-10-2010 [facility] [place] [facility] FRACTURE S [facility] LOWER END FOREARM 99767 SLOWING OF 10-09-2010 [facility] URINARY [place] [facility] STREAM 2448 OTHER 10-05-2010 [facility] SPECIFIED [place] [facility] ACQUIRED HYPOTHYROID ISM 82278 CLOSED 09-10-2010 [place] [facility] HEAD OF HOSPITA RADIUS 76868 PAIN IN 08-27-2010 [facility] JOINT, SHOULDER REGION 9249 CONTUSION 08-27-2010 [place] OF FAMILY PHYS UNSPECIFIED PSC SITE E8881 FALL 08-25-2010 [facility] RESULTING EMERGENCY IN STRIKING SERVICES AGAINST OTHER OBJECT 8474 SPRAIN AND 07-06-2010 [place] STRAIN OF FAMILY PHYS COCCYX PSC 3671 MYOPIA 05-10-2010 [facility] 54006 OTHER 05-10-2010 [facility] CHRONIC [facility] ALLERGIC CONJUNCTIVI TIS 78389 OPTIC NERVE 05-10-2010 [facility] HYPOPLASIA [facility] 34512 MONOCULAR 05-10-2010 [facility] EXOTROPIA [facility] 6959 UNSPECIFIED 05-04-2010 [facility] S CONDITION 9995 OTHER SERUM 05-04-2010 [place] [facility] NOT SERVICES ELSEWHERE CLASSIFIED V0382 NEED PROPH 05-03-2010 [place] VACCINATION [facility] AGAINST PSC STREP PNEUMONE 6278 OTHER SPEC 03-22-2010 [place] [facility]ENOPAUSAL& [facility]ILY PHYS POSTMENOPAU PSC [place] DISORDER 36586 ACUT 03-19-2010 [place] SUPPRATV [facility] PHYS OTITIS PSC MEDIA W/O SPONT RUP EARDRUM E11.00 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-HYP ROS COMA ([facility]) E11.40 TYPE 2 DIABETES MELLITUS WITH DIABETIC NEUROPATHY, UNSP E11.42 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 THY E11.65 TYPE 2 DIABETES MELLITUS WITH HYPERGLYCEM IA E11.9 TYPE 2 DIABETES MELLITUS WITHOUT COMPLICATIO NS E86.0 DEHYDRATION E87.6 HYPOKALEMIA G62.9 POLYNEUROPA THY, UNSPECIFIED H00.019 HORDEOLUM EXTERNUM UNSPECIFIED EYE, UNSPECIFIED EYELID H00.029 HORDEOLUM INTERNUM UNSPECIFIED EYE, UNSPECIFIED EYELID H10.9 UNSPECIFIED CONJUNCTIVI TIS I20.9 ANGINA PECTORIS, UNSPECIFIED J02.9 ACUTE PHARYNGITIS , UNSPECIFIED J18.9 PNEUMONIA, UNSPECIFIED ORGANISM J20.9 ACUTE BRONCHITIS, UNSPECIFIED J40 BRONCHITIS, NOT SPECIFIED ACUTE OR CHRONIC K52.9 NONINFECTIV E [facility]ENTER ITIS AND COLITIS, UNSPECIFIED K92.2 GASTROINTES TINAL HEMORRHAGE, UNSPECIFIED L03.90 CELLULITIS, UNSPECIFIED L73.2 HIDRADENITI S SUPPURATIVA L89.95 PRESSURE ULCER OF UNSPECIFIED SITE, UNSTAGEABLE M25.569 PAIN IN UNSPECIFIED KNEE M54.2 CERVICALGIA M62.838 OTHER MUSCLE SPASM M77.52 OTHER ENTHESOPATH Y OF LEFT FOOT N39.0 URINARY TRACT INFECTION, SITE NOT SPECIFIED N61.0 MASTITIS WITHOUT ABSCESS N62 HYPERTROPHY OF BREAST N64.4 MASTODYNIA R07.9 CHEST PAIN, UNSPECIFIED R10.9 UNSPECIFIED ABDOMINAL PAIN R11.0 NAUSEA R20.2 PARESTHESIA OF SKIN R21 RASH AND OTHER NONSPECIFIC SKIN ERUPTION R42 DIZZINESS AND GIDDINESS R51 HEADACHE R60.9 EDEMA, UNSPECIFIED R73.9 HYPERGLYCEM IA, UNSPECIFIED R94.5 ABNORMAL RESULTS OF LIVER FUNCTION STUDIES S39.012A STRAIN OF MUSCLE, FASCIA AND TENDON OF LOWER BACK, INIT S50.11XA CONTUSION OF RIGHT FOREARM, INITIAL ENCOUNTER S60.221A CONTUSION OF RIGHT HAND, INITIAL ENCOUNTER S83.90XA SPRAIN OF UNSPECIFIED SITE OF UNSPECIFIED KNEE, INIT ENCNTR Allergies, Adverse Reactions, Alerts Clinical Alert Notifications Alert 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 30 00 KE Ac OA 31 -3 -2 50 00 NT ti IR 00 1- 3- 0 01 UC ve 57 20 20 03 [place] HF 92 17 17 31 A 2 68 CV 90 S PH MC AR G MA IN CY ROBB LE LL R C, DB A CV S PH AR MA CY #3 01 6 TR 45 05 06 15 15 00 KE Ac IA 80 -3 -2 .0 00 NT ti MC 20 1- 3- 00 01 UC ve IN 06 20 20 03 [place] OL 33 17 17 31 ON 5 69 CV E S 0. PH 02 AR 5% MA CY CR EA LL M C, DB A CV S PH AR MA CY #3 01 6 AT 00 05 06 30 30 00 KE Ac OR 37 -3 -2 .0 00 NT ti VA 83 1- 3- [address] 95 20 20 03 [place] AT 27 17 17 31 IN 7 70 CV S 40 PH AR MG MA CY TA BL LL ET C, DB A CV S PH AR MA CY #3 01 6 LI 68 05 06 30 30 00 KE Ac SI 18 -3 -2 .0 00 NT ti NO 00 1- 3- 00 01 UC ve AL 51 20 20 03 [place] 20 17 17 31 1 71 CV 2. S 5 PH MG AR MA TA CY BL ET LL C, DB A CV S PH AR MA CY #3 01 6 DU 66 05 06 30 30 00 KE Ac LO 99 -3 -2 .0 00 NT ti XE 30 1- 3- 00 01 UC ve TI 66 20 20 03 [place] NE 43 17 17 30 0 13 CV HC S L PH DR AR MA 60 CY MG LL C, CA P DB A CV S PH AR MA CY #3 01 6 HU 00 05 06 10 30 00 KE Ac MU 00 -3 -2 .0 00 NT ti LI 28 0- 3- 00 01 UC ve N 21 20 20 02 [place] R 50 17 17 52 10 1 89 CV 0 S UN PH IT AR S/ MA ML CY LL AL C, DB A CV S PH AR MA CY #3 01 6 AC 65 05 06 10 25 00 KE Ac CU 70 -2 -2 0. 00 NT ti -C 20 6- 3- 00 01 UC ve HE 40 20 20 0 03 [place] K 81 17 17 20 AV 0 73 CV IV S A PH PL AR US MA CY TE ST LL C, ST RP DB A CV S PH AR ROMAN CY #3 01 6 PA 59 05 06 30 30 00 KE Ac NT 74 -2 -1 .0 00 NT ti OP 60 1- 6- 00 01 UC ve RA 28 20 20 02 [place] ZO 49 17 17 39 LE 0 04 CV S SO PH D AR DR ROMAN CY 40 LL MG C, TA DB B A CV S PH AR ROMAN CY #3 01 6 CA 00 05 06 60 30 00 KE Ac RV 37 -1 -0 .0 00 NT ti ED 83 4- 9- 00 01 UC ve IL 63 20 20 00 [place] OL 20 17 17 92 5 53 CV 6. S 25 PH AR MG MA CY TA BL LL ET C, DB A CV S PH AR MA CY #3 01 6 GA 69 05 06 18 30 00 KE Ac BA 09 -1 -0 0. 00 NT ti PE 70 0- 2- 00 01 UC ve NT 81 20 20 0 02 [place] IN 41 17 17 70 2 79 CV 30 S 0 PH MG AR MA CA CY PS UL LL E C, DB A CV S PH AR MA CY #3 01 6 AM 00 05 06 30 30 00 KE Ac IT 37 -0 -0 .0 00 NT ti RI 82 9- 2- 00 01 UC ve PT 65 20 20 02 [place] YL 00 17 17 74 IN 1 27 CV E S HC PH L AR 50 MA CY MG LL TA C, B DB A CV S PH AR MA CY #3 01 6 DU 66 05 06 30 30 00 KE Ac LO 99 -0 -0 .0 00 NT ti XE 30 4- 2- 00 01 UC ve TI 66 20 20 02 [place] NE 43 17 17 62 0 66 CV HC S L PH DR AR MA 60 CY MG LL C, CA P DB A CV S PH AR MA CY #3 01 6 AC 65 05 06 10 25 00 KE Ac CU 70 -0 -0 0. 00 NT ti -C 20 5- 2- 00 01 UC ve HE 40 20 20 0 02 [place] K 81 17 17 13 AV 0 23 CV IV S A PH PL AR US MA CY TE ST LL C, ST RP DB A CV S PH AR MA CY #3 01 6 HU 00 05 05 10 30 00 KE Ac MU 00 -0 -2 .0 00 NT ti LI 28 1- 6- 00 01 UC ve N 21 20 20 02 [place] R 50 17 17 52 10 1 89 CV 0 S UN PH IT AR S/ MA ML CY LL AL C, DB A CV S PH AR MA CY #3 01 6 LE 00 05 05 30 30 00 KE Ac VO 37 -0 -2 .0 00 NT ti TH 81 3- 6- 00 01 UC ve YR 81 20 20 02 [place] OX 37 17 17 61 IN 7 47 CV E S 12 PH 5 AR MC MA G CY TA BL LL ET C, DB A CV S PH AR MA CY #3 01 6 AL 59 05 05 8. 30 00 KE Ac OA 31 -0 -2 50 00 NT ti IR 00 3- 6- 0 01 UC ve 57 20 20 02 [place] HF 92 17 17 61 A 2 49 CV 90 S PH MC AR G MA IN CY ROBB LE LL R C, DB A CV S PH AR MA CY #3 01 6 LI 68 05 05 30 30 00 KE Ac SI 18 -0 -2 .0 00 NT ti NO 00 3- 6- 00 01 UC ve AL 51 20 20 02 [place] IL 20 17 17 61 1 51 CV 2. S 5 PH MG AR MA TA CY BL ET LL C, DB A CV S PH AR MA CY #3 01 6 TR 45 05 05 15 14 00 KE Ac IA 80 -0 -2 .0 00 NT ti MC 20 3- 6- 00 01 UC ve IN 05 20 20 02 [place] OL 43 17 17 61 ON 5 53 CV E S 0. PH 02 AR 5% MA CY OI NT LL C, DB A CV S PH AR MA CY #3 01 6 FU 00 05 05 30 30 00 KE Ac RO 37 -0 -2 .0 00 NT ti SE 80 3- 6- 00 01 UC ve OR 21 20 20 02 [place] DE 61 17 17 61 0 54 CV 40 S PH MG AR MA TA CY BL ET LL C, DB A CV S PH AR ROMAN CY #3 01 6 AT 00 05 05 30 30 00 KE Ac OR 37 -0 -2 .0 00 NT ti VA 83 3- 6- [address] 95 20 20 02 [place] AT 27 17 17 61 IN 7 55 CV S 40 PH AR MG MA CY TA BL LL ET C, DB A CV S PH AR ROMAN CY #3 01 6 PA 59 04 05 30 30 00 KE Ac NT 74 -2 -1 .0 00 NT ti OP 60 5- 9- 00 01 UC ve RA 28 20 20 02 KY ZO 49 17 17 39 LE 0 04 CV S SO PH D AR DR MA CY 40 LL MG C, TA DB B A CV S PH AR ROMAN CY #3 01 6 AT 00 04 05 30 30 00 KE Ac OR 37 -2 -1 .0 00 NT ti VA 83 5- 9- [address] 95 20 20 99 [place] AT 17 17 17 41 IN 7 41 CV S 20 PH AR MG MA CY TA BL LL ET C, DB A CV S PH AR ROMAN CY #3 01 6 CA 00 04 05 60 30 00 KE Ac RV 37 -1 -1 .0 00 NT ti ED 83 7- 2- 00 01 UC ve IL 63 20 20 00 [place] OL 20 17 17 92 5 53 CV 6. S 25 PH AR MG MA CY TA BL LL ET C, DB A CV S PH AR ROMAN CY #3 01 6 LE 00 04 05 30 30 00 KE Ac VO 37 -1 -1 .0 00 NT ti TH 81 8- 2- 00 01 UC ve YR 81 20 20 00 [place] OX 51 17 17 72 IN 0 20 CV E S 15 PH 0 AR MC MA G CY TA BL LL ET C, DB A CV S PH AR MA CY #3 01 6 DIMAS 65 04 05 14 7 00 KE Ac LF 86 -1 -1 .0 00 NT ti AM 20 4- 2- 00 01 UC ve ET 42 20 20 02 [place] HO 00 17 17 13 XA 5 40 CV ZO S LE PH -T AR MP MA CY DS LL TA C, BL ET DB A CV S PH AR MA CY #3 01 6 PH 75 04 05 6. 2 00 KE Ac EN 82 -1 -1 00 00 NT ti AZ 60 4- 2- 0 01 UC ve OP 11 20 20 02 KY YR 51 17 17 13 ID 0 41 CV IN S E PH 20 AR 0 MA MG CY TA LL B C, DB A CV S PH AR MA CY #3 01 6 AC 65 04 05 10 25 00 KE Ac CU 70 -1 -1 0. 00 NT ti -C 20 4- 2- 00 01 UC ve HE 40 20 20 0 02 KY K 81 17 17 13 AV 0 23 CV IV S A PH PL AR US MA CY TE ST LL C, ST RP DB A CV S PH AR MA CY #3 01 6 AM 00 04 05 30 30 00 KE Ac IT 37 -1 -0 .0 00 NT ti RI 82 2- 5- 00 01 UC ve PT 65 20 20 02 [place] YL 00 17 17 07 IN 1 16 CV E S HC PH L AR 50 MA CY MG LL TA C, B DB A CV S PH AR MA CY #3 01 6 GA 69 04 05 18 30 00 KE Ac BA 09 -1 -0 0. 00 NT ti PE 70 1- 5- 00 01 UC ve NT 81 20 20 0 01 [place] IN 41 17 17 21 2 27 CV 30 S 0 PH MG AR MA CA CY PS UL LL E C, DB A CV S PH AR MA CY #3 01 6 AC 65 03 04 10 25 00 KE Ac CU 70 -2 -2 0. 00 NT ti -C 20 3- 8- 00 01 UC ve HE 40 20 20 0 00 [place] K 81 17 17 84 AV 0 92 CV IV S A PH PL AR US MA CY TE ST LL C, ST RP DB A CV S PH AR MA CY #3 01 6 LI 68 04 04 30 30 00 KE Ac SI 18 -0 -2 .0 00 NT ti NO 00 3- 8- 00 01 UC ve AL 51 20 20 01 [place] IL 20 17 17 81 1 98 CV 2. S 5 PH MG AR MA TA CY BL ET LL C, DB A CV S PH AR MA CY #3 01 6 DU 66 04 04 30 30 00 KE Ac LO 99 -0 -2 .0 00 NT ti XE 30 3- 8- 00 01 UC ve TI 66 20 20 01 [place] NE 43 17 17 81 0 99 CV HC S L PH DR AR MA 60 CY MG LL C, CA P DB A CV S PH AR MA CY #3 01 6 HU 00 04 04 10 30 00 KE Ac MU 00 -0 -2 .0 00 NT ti LI 28 1- 8- 00 01 UC ve N 21 20 20 00 [place] R 50 17 17 84 10 1 98 CV 0 S UN PH IT AR S/ MA ML CY LL AL C, DB A CV S PH AR MA CY #3 01 6 AT 00 03 04 30 30 00 KE Ac OR 37 -2 -2 .0 00 NT ti VA 83 8- 1- [address] 95 20 20 99 [place] AT 17 17 17 41 IN 7 41 CV S 20 PH AR MG MA CY TA BL LL ET C, DB A CV S PH AR MA CY #3 01 6 PA 59 03 04 30 30 00 KE Ac NT 74 -2 -2 .0 00 NT ti OP 60 8- - 01 UC ve RA 28 20 20 00 [place] ZO 49 17 17 92 LE 0 39 CV S SO PH D AR DR MA CY 40 LL MG C, TA DB B A CV S PH AR MA CY #3 01 6 LE 00 03 04 30 30 00 KE Ac VO 37 -2 -1 .0 00 NT ti TH 81 0- 4- 00 01 UC ve YR 81 20 20 00 [place] OX 51 17 17 72 IN 0 20 CV E S 15 PH 0 AR MC MA G CY TA BL LL ET C, DB A CV S PH AR MA CY #3 01 6 AM 00 03 04 30 30 00 KE Ac IT 37 -1 -0 .0 00 NT ti RI 82 3- 7- 00 01 UC ve PT 65 20 20 01 [place] YL 00 17 17 21 IN 1 26 CV E S HC PH L AR 50 MA CY MG LL TA C, B DB A CV S PH AR MA CY #3 01 6 GA 69 03 04 18 30 00 KE Ac BA 09 -1 -0 0. 00 NT ti PE 70 3- 7- 00 01 UC ve NT 81 20 20 0 01 [place] IN 41 17 17 21 2 27 CV 30 S 0 PH MG AR MA CA CY PS UL LL E C, DB A CV S PH AR MA CY #3 01 6 NA 65 03 04 30 15 00 KE Ac AL 16 -1 -0 .0 00 NT ti OX 20 3- 7- 00 01 UC ve EN 18 20 20 01 [place] 81 17 17 21 25 0 28 CV 0 S MG PH AR TA MA BL CY ET LL C, DB A CV S PH AR ROMAN CY #3 01 6 FU 00 03 04 30 30 00 KE Ac RO 37 -1 -0 .0 00 NT ti SE 80 1- 7- 00 00 UC ve OR 21 20 20 99 [place] DE 61 17 17 74 0 32 CV 40 S PH MG AR MA TA CY BL ET LL C, DB A CV S PH AR ROMAN CY #3 01 6 DU 66 03 03 30 30 00 KE Ac LO 99 -0 -3 .0 00 NT ti XE 30 6- 1- 00 01 UC ve TI 66 20 20 01 [place] NE 43 17 17 00 0 87 CV HC S L PH DR AR MA 60 CY MG LL C, CA P DB A CV S PH AR ROMAN CY #3 01 6 LI 68 03 03 30 30 00 KE Ac SI 18 -0 -3 .0 00 NT ti NO 00 2- 1- 00 UC ve AL 51 20 20 99 [place] IL 20 17 17 74 1 31 CV 2. S 5 PH MG AR MA TA CY BL ET LL C, DB A CV S PH AR ROMAN CY #3 01 6 PA 59 03 03 30 30 00 KE Ac NT 74 -0 -3 .0 00 NT ti OP 60 2- 1- 00 01 UC ve RA 28 20 20 00 [place] ZO 49 17 17 92 LE 0 39 CV S SO PH D AR DR MA CY 40 LL MG C, TA DB B A CV S PH AR ROMAN CY #3 01 6 CA 00 03 03 60 30 00 KE Ac RV 37 -0 -3 .0 00 NT ti ED 83 2- 1- 00 01 UC ve IL 63 20 20 00 [place] OL 20 17 17 92 5 53 CV 6. S 25 PH AR MG MA CY TA BL LL ET C, DB A CV S PH AR ROMAN CY #3 01 6 AT 00 03 03 30 30 00 KE Ac OR 37 -0 -2 .0 00 NT ti VA 83 2- 4- [address] 95 20 20 99 [place] AT 17 17 17 41 IN 7 41 CV S 20 PH AR MG MA CY TA BL LL ET C, DB A CV S PH AR ROMAN CY #3 01 6 AC 65 02 03 10 25 00 KE Ac CU 70 -2 -2 0. 00 NT ti -C 20 7- 4- 01 UC ve HE 40 20 20 0 00 [place] K 81 17 17 84 AV 0 92 CV IV S A PH PL AR US MA CY TE ST LL C, ST RP DB A CV S PH AR MA CY #3 01 6 HU 00 02 03 10 30 00 KE Ac MU 00 -2 -2 .0 00 NT ti LI 28 7- 4- 00 01 UC ve N 21 20 20 00 [place] R 50 17 17 84 10 1 98 CV 0 S UN PH IT AR S/ MA ML CY LL AL C, DB A CV S PH AR MA CY #3 01 6 DIMAS 86 02 03 10 30 00 KE Ac RE 22 -2 -2 0. 00 NT ti 70 7- 4- 00 01 UC ve CO 90 20 20 0 00 [place] MF 10 17 17 84 OR 5 99 CV T S 1 PH ML AR MA SY CY RI NG LL E C, DB A CV S PH AR MA CY #3 01 6 NA 65 03 03 30 15 00 KE Ac AL 16 -0 -2 .0 00 NT ti OX 20 1- 4- 00 01 UC ve EN 18 20 20 00 [place] 81 17 17 89 25 0 63 CV 0 S MG PH AR TA MA BL CY ET LL C, DB A CV S PH AR MA CY #3 01 6 KL 66 03 03 30 15 00 KE Ac OR 75 -0 -2 .0 00 NT ti -C 80 1- 4- 00 01 UC ve ON 16 20 20 00 [place] 00 17 17 89 10 5 64 CV S ME PH Q AR TA MA BL CY ET LL C, DB A CV S PH AR MA CY #3 01 6 LE 00 02 03 30 30 00 KE Ac VO 37 -2 -1 .0 00 NT ti TH 81 2- 7- 00 01 UC ve YR 81 20 20 00 [place] OX 51 17 17 72 IN 0 20 CV E S 15 PH 0 AR MC MA G CY TA BL LL ET C, DB A CV S PH AR MA CY #3 01 6 VE 00 02 03 18 25 00 KE Ac NT 17 -1 -1 .0 00 NT ti OL 30 3- 0- 00 01 UC ve IN 68 20 20 00 [place] 22 17 17 44 HF 0 62 CV A S 90 PH AR MC MA G CY IN ROBB LL LE C, R DB A CV S PH AR MA CY #3 01 6 BE 67 02 03 6. 3 00 KE Ac NZ 87 -1 -1 00 00 NT ti ON 70 3- 0- 0 01 UC ve AT 10 20 20 00 [place] AT 50 17 17 44 E 5 01 CV 10 S 0 PH MG AR MA CA CY PS UL LL E C, DB A CV S PH AR MA CY #3 01 6 DIMAS 65 02 03 20 10 00 KE Ac LF 86 -1 -1 .0 00 NT ti AM 20 3- 0- 00 01 UC ve ET 42 20 20 00 [place] HO 00 17 17 43 XA 5 99 CV ZO S LE PH -T AR MP MA CY DS LL TA C, BL ET DB A CV S PH AR MA CY #3 01 6 FU 00 02 03 30 30 00 KE Ac RO 37 -1 -1 .0 00 NT ti SE 80 3- 0- 00 00 UC ve OR 21 20 20 99 [place] DE 61 17 17 74 0 32 CV 40 S PH MG AR MA TA CY BL ET LL C, DB A CV S PH AR MA CY #3 01 6 AM 00 02 03 30 30 00 KE Ac IT 37 -1 -1 .0 00 NT ti RI 82 3- 0- 00 01 UC ve PT 65 20 20 00 [place] YL 00 17 17 43 IN 1 91 CV E S HC PH L AR 50 MA CY MG LL TA C, B DB A CV S PH AR MA CY #3 01 6 LE 00 02 03 30 30 00 KE Ac VO 37 -1 -1 .0 00 NT ti TH 81 3- 0- 00 01 UC ve YR 81 20 20 00 [place] OX 37 17 17 43 IN 7 90 CV E S 12 PH 5 AR MC MA G CY TA BL LL ET C, DB A CV S PH AR MA CY #3 01 6 GA 69 02 03 18 30 00 KE Ac BA 09 -1 -1 0. 00 NT ti PE 70 1- 0- 00 00 UC ve NT 81 20 20 0 99 [place] IN 41 17 17 47 2 62 CV 30 S 0 PH MG AR MA CA CY PS UL LL E C, DB A CV S PH AR MA CY #3 01 6 NA 65 02 03 30 15 00 KE Ac AL 16 -0 -0 .0 00 NT ti OX 20 4- 3- 00 01 UC ve EN 18 20 20 00 [place] 81 17 17 21 25 0 06 CV 0 S MG PH AR TA MA BL CY ET LL C, DB A CV S PH AR MA CY #3 01 6 KL 66 02 03 30 15 00 KE Ac OR 75 -0 -0 .0 00 NT ti -C 80 4- 3- 00 01 UC ve ON 16 20 20 00 [place] 00 17 17 21 10 5 07 CV S ME PH Q AR TA MA BL CY ET LL C, DB A CV S PH AR MA CY #3 01 6 AC 65 01 02 10 25 00 KE Ac CU 70 -2 -2 0. 00 NT ti -C 20 8- 4- 00 00 UC ve HE 40 20 20 0 99 [place] K 81 17 17 41 AV 0 39 CV IV S A PH PL AR US MA CY TE ST LL C, ST RP DB A CV S PH AR MA CY #3 01 6 PA 59 02 02 30 30 00 KE Ac NT 74 -0 -2 .0 00 NT ti OP 60 2- 4- 00 00 UC ve RA 28 20 20 99 [place] ZO 49 17 17 41 LE 0 38 CV S SO PH D AR DR MA CY 40 LL MG C, TA DB B A CV S PH AR ROMAN CY #3 01 6 AT 00 02 02 30 30 00 KE Ac OR 37 -0 -2 .0 00 NT ti VA 83 2- 4- [address] 95 20 20 99 [place] AT 17 17 17 41 IN 7 41 CV S 20 PH AR MG MA CY TA BL LL ET C, DB A CV S PH AR ROMAN CY #3 01 6 LI 68 02 02 30 30 00 KE Ac SI 18 -0 -2 .0 00 NT ti NO 00 2- 4- 00 00 UC ve AL 51 20 20 99 [place] 20 17 17 41 1 40 CV 2. S 5 PH MG AR MA TA CY BL ET LL C, DB A CV S PH AR MA CY #3 01 6 CA 00 02 02 60 30 00 KE Ac RV 37 -0 -2 .0 00 NT ti ED 83 2- 4- 00 00 UC ve IL 63 20 20 99 [place] OL 20 17 17 40 5 72 CV 6. S 25 PH AR MG MA CY TA BL LL ET C, DB A CV S PH AR MA CY #3 01 6 HU 00 01 02 30 30 00 KE Ac MA 00 -2 -1 .0 00 NT ti LO 28 3- 7- 00 00 UC ve G 79 20 20 99 [place] OR 75 17 17 87 X 9 10 CV 75 S -2 PH 5 AR KW MA IK CY PE N LL C, DB A CV S PH AR MA CY #3 01 6 VE 00 01 02 18 25 00 KE Ac NT 17 -1 -1 .0 00 NT ti OL 30 8- 0- 00 00 UC ve IN 68 20 20 99 [place] 22 17 17 74 HF 0 65 CV A S 90 PH AR MC MA G CY IN ROBB LL LE C, R DB A CV S PH AR ROMAN CY #3 01 6 DIMAS 65 01 02 20 10 00 KE Ac LF 86 -1 -1 .0 00 NT ti AM 20 8- 0- 00 00 UC ve ET 42 20 20 99 [place] HO 00 17 17 74 XA 5 33 CV ZO S LE PH -T AR MP MA CY DS LL TA C, BL ET DB A CV S PH AR ROMAN CY #3 01 6 FU 00 01 02 30 30 00 KE Ac RO 37 -1 -1 .0 00 NT ti SE 80 8- 0- 00 00 UC ve OR 21 20 20 99 [place] DE 61 17 17 74 0 32 CV 40 S PH MG AR MA TA CY BL ET LL C, DB A CV S PH AR ROMAN CY #3 01 6 AM 00 01 02 30 30 00 KE Ac IT 37 -1 -1 .0 00 NT ti RI 82 8- 0- 00 00 UC ve PT 65 20 20 99 [place] YL 00 17 17 59 IN 1 11 CV E S HC PH L AR 50 MA CY MG LL TA C, B DB A CV S PH AR ROMAN CY #3 01 6 LE 00 01 02 30 30 00 KE Ac VO 37 -1 -1 .0 00 NT ti TH 81 8- 0- 00 00 UC ve YR 81 20 20 98 [place] OX 37 17 17 99 IN 7 91 CV E S 12 PH 5 AR MC MA G CY TA BL LL ET C, DB A CV S PH AR ROMAN CY #3 01 6 CA 00 01 02 60 30 00 KE Ac RV 37 -0 -0 .0 00 NT ti ED 83 6- 3- 00 00 UC ve IL 63 20 20 99 [place] OL 20 17 17 40 5 72 CV 6. S 25 PH AR MG MA CY TA BL LL ET C, DB A CV S PH AR MA CY #3 01 6 BD 08 01 02 10 30 00 KE Ac 29 -0 -0 0. 00 NT ti UL 03 6- 3- 00 00 UC ve TR 20 20 20 0 99 [place] A- 12 17 17 41 FI 2 37 CV NE S PH PE AR N MA ND CY L 4M LL MX C, 32 G DB A CV S PH AR MA CY #3 01 6 PA 59 01 02 30 30 00 KE Ac NT 74 -0 -0 .0 00 NT ti OP 60 6- 3- 00 00 UC ve RA 28 20 20 99 [place] ZO 49 17 17 41 LE 0 38 CV S SO PH D AR DR MA CY 40 LL MG C, TA DB B A CV S PH AR MA CY #3 01 6 AC 65 01 02 10 25 00 KE Ac CU 70 -0 -0 0. 00 NT ti -C 20 6- 3- 00 00 UC ve HE 40 20 20 0 99 [place] K 81 17 17 41 AV 0 39 CV IV S A PH PL AR US MA CY TE ST LL C, ST RP DB A CV S PH AR MA CY #3 01 6 LI 68 01 02 30 30 00 KE Ac SI 18 -0 -0 .0 00 NT ti NO 00 6- 3 00 UC ve AL 51 20 20 99 [place] IL 20 17 17 41 1 40 CV 2. S 5 PH MG AR MA TA CY BL ET LL C, DB A CV S PH AR MA CY #3 01 6 AT 00 01 02 30 30 00 KE Ac OR 37 -0 -0 .0 00 NT ti VA 83 6- [address] 95 20 20 99 [place] AT 17 17 17 41 IN 7 41 CV S 20 PH AR MG MA CY TA BL LL ET C, DB A CV S PH AR MA CY #3 01 6 GA 69 01 02 18 30 00 KE Ac BA 09 -0 -0 0. 00 NT ti PE 70 9- 3- 00 00 UC ve NT 81 20 20 0 99 [place] IN 41 17 17 47 2 62 CV 30 S 0 PH MG AR MA CA CY PS UL LL E C, DB A CV S PH AR MA CY #3 01 6 DU 66 01 02 30 30 00 KE Ac LO 99 -0 -0 .0 00 NT ti XE 30 9- 3- 00 00 UC ve TI 66 20 20 99 [place] NE 43 17 17 47 0 63 CV HC S L PH DR AR MA 60 CY MG LL C, CA P DB A CV S PH AR MA CY #3 01 6 AM 00 12 01 30 30 00 KE Ac IT 37 -1 -1 .0 00 NT ti RI 82 8- 3- 00 00 UC ve PT 65 20 20 98 [place] YL 00 16 17 87 IN 1 98 CV E S HC PH L AR 50 MA CY MG LL TA C, B DB A CV S PH AR MA CY #3 01 6 LE 00 12 01 30 30 00 KE Ac VO 37 -2 -1 .0 00 NT ti TH 81 1- 3- 00 00 UC ve YR 81 20 20 98 KY OX 37 16 17 99 IN 7 91 CV E S 12 PH 5 AR MC MA G CY TA BL LL ET C, DB A CV S PH AR MA CY #3 01 6 AZ 00 12 01 4. 4 00 RI Ac IT 09 -1 -0 00 00 TE ti HR 37 0- 9- 0 00 ve OM 14 20 20 74 AI YC 65 16 17 58 D IN 6 79 PH AR 25 M 0 #3 MG 91 4 TA BL ET VE 00 12 01 18 25 00 RI Ac NT 17 -1 -0 .0 00 TE ti OL 30 0- 9- 00 00 ve IN 68 20 20 74 AI 22 16 17 58 D HF 0 80 PH A AR 90 M #3 MC 91 G 4 IN ROBB LE R AL 00 12 01 15 5 00 KE Ac ED 14 -1 -0 .0 00 NT ti NI 39 2- 9- 00 00 UC ve SO 73 20 20 98 [place] NE 80 16 17 70 5 25 CV 20 S PH MG AR MA TA CY BL ET LL C, DB A CV S PH AR MA CY #3 01 6 LE 65 12 01 7. 7 00 KE Ac VO 86 -1 -0 00 00 NT ti FL 20 2- 9- 0 00 UC ve OX 53 20 20 98 [place] AC 75 16 17 70 IN 0 23 CV S 50 PH 0 AR MG MA CY TA BL LL ET C, DB A CV S PH AR MA CY #3 01 6 PA 65 12 01 30 30 00 RI Ac NT 86 -1 -0 .0 00 TE ti OP 20 2- 9- 00 00 ve RA 56 20 20 74 AI ZO 09 16 17 61 D LE 0 01 PH AR SO M D #3 DR 91 4 40 MG TA B AC 65 12 01 10 25 00 RI Ac CU 70 -0 -0 0. 00 TE ti -C 20 8- 9- 00 00 ve HE 40 20 20 0 74 AI K 81 16 17 55 D AV 0 79 PH IV AR A M PL #3 US [address] RP HU 00 12 01 45 28 00 RI Ac MA 00 -0 -0 .0 00 TE ti LO 28 7- 9- 00 00 ve G 79 20 20 74 AI OR 75 16 17 56 D X 9 15 PH 75 AR -2 M 5 #3 KW 91 IK 4 PE N ME 68 10 10 0 30 30 CV 54 RE Ac LO 18 -2 -2 .0 S 71 IN ti XI 00 7- 7- 00 PH 16 ROBB ve CA 50 20 20 AR RT M 20 11 11 MA 15 1 CY TO # DD MG D 02 TA 33 BL 2 ET CY 00 10 10 1 30 30 CV 54 RE Ac CL 37 -2 -2 .0 S 73 IN ti OB 80 7- 7- 00 PH 00 ROBB ve EN 75 20 20 AR RT ZA 11 11 11 MA AL 0 CY TO IN # DD E D 10 02 33 MG 2 TA BL ET CI 13 08 10 2 15 30 CV 52 RE Ac TA 66 -2 -2 .0 S 31 IN ti LO 80 2- 1- 00 PH 66 ROBB ve AL 01 20 20 AR RT AM 10 11 11 MA 5 CY TO HB # DD R D 40 02 33 MG 2 TA BL ET LI 68 09 10 2 30 30 CV 53 RE Ac SI 18 -1 -1 .0 S 21 IN ti NO 00 6- 8- 00 PH 11 ROBB ve AL 52 20 20 AR RT IL 00 11 11 MA -H [address] # DD Z D 20 02 -2 33 5 2 MG TA B AL 00 09 10 2 30 30 CV 53 RE Ac AV 09 -1 -1 .0 S 21 IN ti 37 6- 8- 00 PH 12 ROBB ve TA 20 20 20 AR RT TI 29 11 11 MA N 8 CY TO SO # DD DI D UM 02 33 40 2 MG TA B LE 00 09 10 2 30 30 CV 53 RE Ac VO 37 -1 -1 .0 S 21 IN ti TH 81 6- 8- 00 PH 13 ROBB ve YR 81 20 20 AR RT OX 30 11 11 MA IN 1 CY TO E # DD 12 D 5 02 MC 33 G 2 TA BL ET AL 00 10 10 2 30 30 CV 54 RE Ac EM 04 -1 -1 .0 S 37 IN ti AR 61 8- 8- 00 PH 53 ROBB ve IN 10 20 20 AR RT 08 11 11 MA 0. 1 CY TO 3 # DD MG D 02 TA 33 BL 2 ET AT 68 08 10 2 30 30 CV 52 RE Ac EN 38 -1 -0 .0 S 04 IN ti OL 20 5- 5- 00 PH 18 ROBB ve OL 02 20 20 AR RT 21 11 11 MA 25 0 CY TO # DD MG D 02 TA 33 BL 2 ET CI 13 08 10 0 15 30 CV 52 RE Ac TA 66 -2 -0 .0 S 55 IN ti LO 80 9- 5- 00 PH 35 ROBB ve AL 01 20 20 AR RT AM 00 11 11 MA 5 CY TO HB # DD R D 20 02 33 MG 2 TA BL ET ME 59 10 10 0 21 6 CV 53 RE Ac TH 74 -0 -0 .0 S 92 IN ti YL 60 5- 5- 00 PH 24 ROBB ve AL 00 20 20 AR RT ED 10 11 11 MA NI 3 CY TO SO # DD LO D NE 02 4 33 2 MG DO SE PK AC 00 10 10 0 12 6 CV 53 RE Ac ET 09 -0 -0 .0 S 92 IN ti AM 30 5- 5- 00 PH 25 ROBB ve IN 15 20 20 AR RT OP 01 11 11 MA HE 0 CY TO N- # DD CO D D 02 #3 33 2 TA BL ET ME 68 06 09 3 30 30 CV 50 RE Ac LO 18 -2 -2 .0 S 45 IN ti XI 00 4- 8- 00 PH 05 ROBB ve CA 50 20 20 AR RT M 20 11 11 MA 15 1 CY TO # DD MG D 02 TA 33 BL 2 ET RA 68 09 09 2 60 30 CV 53 RE Ac NI 46 -2 -2 .0 S 63 IN ti TI 20 8- 8- 00 PH 30 ROBB ve DI 24 20 20 AR RT NE 80 11 11 MA 5 CY TO 15 # DD 0 D MG 02 33 TA 2 BL ET CY 00 09 09 0 21 21 CV 53 RE Ac CL 37 -2 -2 .0 S 43 IN ti OB 80 2- 2- 00 PH 28 ROBB ve EN 75 20 20 AR RT ZA 11 11 11 MA AL 0 CY TO IN # DD E D 10 02 33 MG 2 TA BL ET AL 00 07 09 2 30 30 CV 51 RE Ac EM 04 -2 -2 .0 S 39 IN ti AR 61 5- 0- 00 PH 98 ROBB ve IN 10 20 20 AR RT 08 11 11 MA 0. 1 CY TO 3 # DD MG D 02 TA 33 BL 2 ET LI 68 09 09 2 30 30 CV 53 RE Ac SI 18 -1 -1 .0 S 21 IN ti NO 00 6- 6- 00 PH 11 ROBB ve AL 52 20 20 AR RT IL 00 11 11 MA -H [address] # DD Z D 20 02 -2 33 5 2 MG TA B AL 00 09 09 2 30 30 CV 53 RE Ac AV 09 -1 -1 .0 S 21 IN ti 37 6- 6- 00 PH 12 ROBB ve TA 20 20 20 AR RT TI 29 11 11 MA N 8 CY TO SO # DD DI D UM 02 33 40 2 MG TA B LE 00 09 09 2 30 30 CV 53 RE Ac VO 37 -1 -1 .0 S 21 IN ti TH 81 6- 6- 00 PH 13 ROBB ve YR 81 20 20 AR RT OX 30 11 11 MA IN 1 CY TO E # DD 12 D 5 02 MC 33 G 2 TA BL ET GA 31 08 09 3 12 30 CV 51 RE Ac BA 72 -0 -1 0. S 81 IN ti PE 20 8- 1- 00 PH 05 ROBB ve NT 22 20 20 0 AR RT IN 20 11 11 MA 1 CY TO 30 # DD 0 D MG 02 33 CA 2 PS UL E RA 64 06 09 2 60 30 CV 50 RE Ac NI 67 -2 -0 .0 S 45 IN ti TI 90 4- 1- 00 PH 02 ROBB ve DI 90 20 20 AR RT NE 60 11 11 MA 3 CY TO 15 # DD 0 D MG 02 33 TA 2 BL ET HY 00 06 08 3 60 20 CV [address] 55 -2 -3 .0 S 31 IN ti OX 50 1- 1- 00 PH 61 ROBB ve YZ 30 20 20 AR RT IN 20 11 11 MA E 2 CY TO PA # DD M D 50 02 33 MG 2 CA P ME 68 06 08 3 30 30 CV 50 RE Ac LO 18 -2 -3 .0 S 45 IN ti XI 00 4- 1- 00 PH 05 ROBB ve CA 50 20 20 AR RT M 20 11 11 MA 15 1 CY TO # DD MG D 02 TA 33 BL 2 ET AL 00 07 08 2 30 30 CV 51 RE Ac EM 04 -2 -2 .0 S 39 IN ti AR 61 5- 2- 00 PH 98 ROBB ve IN 10 20 20 AR RT 08 11 11 MA 0. 1 CY TO 3 # DD MG D 02 TA 33 BL 2 ET CI 13 08 08 2 15 30 CV 52 RE Ac TA 66 -2 -2 .0 S 31 IN ti LO 80 2- 2- 00 PH 66 ROBB ve AL 01 20 20 AR RT AM 10 11 11 MA 5 CY TO HB # DD R D 40 02 33 MG 2 TA BL ET AT 68 08 08 2 30 30 CV 52 RE Ac EN 38 -1 -1 .0 S 04 IN ti OL 20 5- 5- 00 PH 18 ROBB ve OL 02 20 20 AR RT 21 11 11 MA 25 0 CY TO # DD MG D 02 TA 33 BL 2 ET CI 13 08 08 2 15 30 CV 52 RE Ac TA 66 -1 -1 .0 S 05 IN ti LO 80 5- 5- 00 PH 11 ROBB ve AL 01 20 20 AR RT AM 00 11 11 MA 5 CY TO HB # DD R D 20 02 33 MG 2 TA BL ET LI 68 06 08 2 30 30 CV 50 RE Ac SI 18 -1 -1 .0 S 03 IN ti NO 00 3- 4- 00 PH 26 ROBB ve AL 52 20 20 AR RT IL 00 11 11 MA -H [address] # DD Z D 20 02 -2 33 5 2 MG TA B AL 00 06 08 2 30 30 CV 50 RE Ac AV 09 -1 -1 .0 S 03 IN ti 37 3- 4- 00 PH 27 ROBB ve TA 20 20 20 AR RT TI 29 11 11 MA N 8 CY TO SO # DD DI D UM 02 33 40 2 MG TA B LE 00 06 08 2 30 30 CV 50 RE Ac VO 37 -1 -1 .0 S 03 IN ti TH 81 3- 4- 00 PH 28 ROBB ve YR 81 20 20 AR RT OX 30 11 11 MA IN 1 CY TO E # DD 12 D 5 02 MC 33 G 2 TA BL ET CY 00 08 08 0 30 30 CV 51 RE Ac CL 37 -1 -1 .0 S 90 IN ti OB 80 0- 0- 00 PH 88 ROBB ve EN 75 20 20 AR RT ZA 11 11 11 MA AL 0 CY TO IN # DD E D 10 02 33 MG 2 TA BL ET 55 06 08 0 9. 9 CV 50 RE Ac 25 -2 -0 00 S 45 IN ti 30 4- 9- 0 PH 01 ROBB ve 27 20 20 AR RT 66 11 11 MA 0 CY TO # DD D 02 33 2 GA 31 08 08 3 12 30 CV 51 RE Ac BA 72 -0 -0 0. S 81 IN ti PE 20 8- 8- 00 PH 05 ROBB ve NT 22 20 20 0 AR RT IN 20 11 11 MA 1 CY TO 30 # DD 0 D MG 02 33 CA 2 PS UL E 59 07 07 2 8. 25 CV 51 RE Ac 31 -2 -2 50 S 41 IN ti 00 6- 6- 0 PH 11 ROBB ve 57 20 20 AR RT 92 11 11 MA 0 CY TO # DD D 02 33 2 ET 51 07 07 0 20 5 CV 51 FA Ac OD 67 -2 -2 .0 S 43 RA ti OL 24 6- 6- 00 PH 34 GA ve AC 01 20 20 AR SS 60 11 11 MA O 20 1 CY DE 0 # MG N 02 CA 33 PS 2 UL E PE 00 07 07 0 40 10 CV 51 FA Ac NI 09 -2 -2 .0 S 43 RA ti CI 31 6- 6- 00 PH 35 GA ve LL 17 20 20 AR SS IN 41 11 11 MA O 0 CY DE VK # N 50 02 0 33 MG 2 TA BL ET TR 00 07 07 0 10 3 CV 51 RE Ac AM 09 -2 -2 .0 S 43 IN ti AD 30 6- 6- 00 PH 63 ROBB ve OL 05 20 20 AR RT 80 11 11 MA HC 5 CY TO L # DD 50 D 02 MG 33 2 TA BL ET GA 31 04 07 2 90 30 CV 47 RE Ac BA 72 -0 -2 .0 S 67 IN ti PE 20 4- 5- 00 PH 24 ROBB ve NT 22 20 20 AR RT IN 20 11 11 MA 1 CY TO 30 # DD 0 D MG 02 33 CA 2 PS UL E HY 00 06 07 3 60 20 CV [address] 55 -2 -2 .0 S 31 IN ti OX 50 1- 5- 00 PH 61 ROBB ve YZ 30 20 20 AR RT IN 20 11 11 MA E 2 CY TO PA # DD M D 50 02 33 MG 2 CA P RA 00 06 07 2 60 30 CV 50 RE Ac NI 78 -2 -2 .0 S 45 IN ti TI 11 4- 5- 00 PH 02 ROBB ve DI 88 20 20 AR RT NE 31 11 11 MA 0 CY TO 15 # DD 0 D MG 02 33 TA 2 BL ET ME 68 06 07 3 30 30 CV 50 RE Ac LO 18 -2 -2 .0 S 45 IN ti XI 00 4- 5- 00 PH 05 ROBB ve CA 50 20 20 AR RT M 20 11 11 MA 15 1 CY TO # DD MG D 02 TA 33 BL 2 ET AL 00 07 07 2 30 30 CV 51 RE Ac EM 04 -2 -2 .0 S 39 IN ti AR 61 5- 5- 00 PH 98 ROBB ve IN 10 20 20 AR RT 08 11 11 MA 0. 1 CY TO 3 # DD MG D 02 TA 33 BL 2 ET 55 06 07 0 9. 9 CV 50 RE Ac 25 -2 -2 00 S 45 IN ti 30 4- 5- 0 PH 01 ROBB ve 27 20 20 AR RT 66 11 11 MA 0 CY TO # DD D 02 33 2 AL 00 07 07 0 18 9 CV 51 AL Ac ED 59 -2 -2 .0 S 27 ES ti NI 15 1- 1- 00 PH 56 TO ve SO 44 20 20 AR N NE 30 11 11 MA HE 1 CY NR 20 # Y R MG 02 33 TA 2 BL ET AT 68 04 07 3 30 30 CV 48 RE Ac EN 38 -1 -1 .0 S 13 IN ti OL 20 8- 8- 00 PH 98 ROBB ve OL 02 20 20 AR RT 21 11 11 MA 25 0 CY TO # DD MG D 02 TA 33 BL 2 ET LI 68 06 07 2 30 30 CV 50 RE Ac SI 18 -1 -1 .0 S 03 IN ti NO 00 3- 8- 00 PH 26 ROBB ve AL 52 20 20 AR RT IL 00 11 11 MA -H [address] # DD Z D 20 02 -2 33 5 2 MG TA B AL 00 06 07 2 30 30 CV 50 RE Ac AV 09 -1 -1 .0 S 03 IN ti 37 3- 8- 00 PH 27 ROBB ve TA 20 20 20 AR RT TI 29 11 11 MA N 8 CY TO SO # DD DI D UM 02 33 40 2 MG TA B LE 00 06 07 2 30 30 CV 50 RE Ac VO 37 -1 -1 .0 S 03 IN ti TH 81 3- 8- 00 PH 28 ROBB ve YR 81 20 20 AR RT OX 30 11 11 MA IN 1 CY TO E # DD 12 D 5 02 MC 33 G 2 TA BL ET BU 00 07 07 0 60 30 CV 51 WE Ac AL 37 -1 -1 .0 S 13 CH ti OP 83 8- 8- 00 PH 76 MA ve IO 41 20 20 AR N N 20 11 11 MA JR HC 1 CY L # RA SR YM 02 ON 15 33 D 0 2 MG TA BL ET TR 45 04 07 2 15 10 CV 48 RE Ac IA 80 -2 -1 .0 S 39 IN ti MC 20 5- 7- 00 PH 39 ROBB ve IN 06 20 20 AR RT OL 43 11 11 MA ON 5 CY TO E # DD 0. D 1% 02 33 CR 2 EA M 55 06 06 0 12 12 CV 50 RE Ac 25 -2 -2 .0 S 45 IN ti 30 4- 9- 00 PH 01 ROBB ve 27 20 20 AR RT 66 11 11 MA 0 CY TO # DD D 02 33 2 AC 00 06 06 0 12 3 CV 50 RE Ac ET 09 -2 -2 .0 S 55 IN ti AM 30 8- 8- 00 PH 98 ROBB ve IN 15 20 20 AR RT OP 01 11 11 MA HE 0 CY TO N- # DD CO D D 02 #3 33 2 TA BL ET AL 00 06 06 0 18 9 CV 50 RE Ac ED 59 -2 -2 .0 S 44 IN ti NI 15 4- 4- 00 PH 99 ROBB ve SO 44 20 20 AR RT NE 30 11 11 MA 1 CY TO 20 # DD D MG 02 33 TA 2 BL ET RA 68 06 06 2 60 30 CV 50 RE Ac NI 46 -2 -2 .0 S 45 IN ti TI 20 4- 4- 00 PH 02 ROBB ve DI 24 20 20 AR RT NE 80 11 11 MA 5 CY TO 15 # DD 0 D MG 02 33 TA 2 BL ET ME 68 06 06 3 30 30 CV 50 RE Ac LO 18 -2 -2 .0 S 45 IN ti XI 00 4- 4- 00 PH 05 ROBB ve CA 50 20 20 AR RT M 20 11 11 MA 15 1 CY TO # DD MG D 02 TA 33 BL 2 ET AL 00 04 06 2 30 30 CV 48 RE Ac EM 04 -2 -2 .0 S 25 IN ti AR 61 1- 3- 00 PH 71 ROBB ve IN 10 20 20 AR RT 08 11 11 MA 0. 1 CY TO 3 # DD MG D 02 TA 33 BL 2 ET HY 00 06 06 3 60 20 CV [address] 55 -2 -2 .0 S 31 IN ti OX 50 1- 1- 00 PH 61 ORBB ve YZ 30 20 20 AR RT IN 20 11 11 MA E 2 CY TO PA # DD M D 50 02 33 MG 2 CA P 55 05 06 0 9. 9 CV 49 RE Ac 25 -1 -1 00 S 12 IN ti 30 6- 6- 0 PH 90 ROBB ve 27 20 20 AR RT 66 11 11 MA 0 CY TO # DD D 02 33 2 59 04 06 2 8. 25 CV 47 RE Ac 31 -0 -1 50 S 70 IN ti 00 4- 3- 0 PH 21 ROBB ve 57 20 20 AR RT 92 11 11 MA 0 CY TO # DD D 02 33 2 LI 68 06 06 2 30 30 CV 50 RE Ac SI 18 -1 -1 .0 S 03 IN ti NO 00 3- 3- 00 PH 26 ROBB ve AL 52 20 20 AR RT IL 00 11 11 MA -H [address] # DD Z D 20 02 -2 33 5 2 MG TA B AL 00 06 06 2 30 30 CV 50 RE Ac AV 09 -1 -1 .0 S 03 IN ti 37 3- 3- 00 PH 27 ROBB ve TA 20 20 20 AR RT TI 29 11 11 MA N 8 CY TO SO # DD DI D UM 02 33 40 2 MG TA B LE 00 06 06 2 30 30 CV 50 RE Ac VO 37 -1 -1 .0 S 03 IN ti TH 81 3- 3- 00 PH 28 ROBB ve YR 81 20 20 AR RT OX 30 11 11 MA IN 1 CY TO E # DD 12 D 5 02 MC 33 G 2 TA BL ET AT 68 04 06 3 30 30 CV 48 RE Ac EN 38 -1 -1 .0 S 13 IN ti OL 20 8- 2- 00 PH 98 ROBB ve OL 02 20 20 AR RT 21 11 11 MA 25 0 CY TO # DD MG D 02 TA 33 BL 2 ET TR 45 04 06 2 15 10 CV 48 RE Ac IA 80 -2 -1 .0 S 39 IN ti MC 20 5- 0- 00 PH 39 ROBB ve IN 06 20 20 AR RT OL 43 11 11 MA ON 5 CY TO E # DD 0. D 1% 02 33 CR 2 EA M BU 00 04 06 2 60 30 CV 47 RE Ac AL 37 -0 -0 .0 S 67 IN ti OP 83 4- 9- 00 PH 25 ROBB ve IO 41 20 20 AR RT N 20 11 11 MA HC 1 CY TO L # DD SR D 02 15 33 0 2 MG TA BL ET ME 68 04 05 1 30 30 CV 48 RE Ac LO 18 -2 -2 .0 S 35 IN ti XI 00 5- 7- 00 PH 89 ROBB ve CA 50 20 20 AR RT M 20 11 11 MA 15 1 CY TO # DD MG D 02 TA 33 BL 2 ET GA 31 04 05 2 90 30 CV 47 RE Ac BA 72 -0 -2 .0 S 67 IN ti PE 20 4- 1- 00 PH 24 ROBB ve NT 22 20 20 AR RT IN 20 11 11 MA 1 CY TO 30 # DD 0 D MG 02 33 CA 2 PS UL E AL 00 04 05 2 30 30 CV 48 RE Ac EM 04 -2 -2 .0 S 25 IN ti AR 61 1- 1- 00 PH 71 ROBB ve IN 10 20 20 AR RT 08 11 11 MA 0. 1 CY TO 3 # DD MG D 02 TA 33 BL 2 ET AM 63 05 05 0 21 21 CV 49 RE Ac RI 45 -1 -1 .0 S 12 IN ti X 90 6- 6- 00 PH 90 ROBB ve ER 70 20 20 AR RT 06 11 11 MA 15 0 CY TO # DD MG D 02 CA 33 PS 2 UL E LI 68 12 05 5 30 30 CV 43 RE Ac SI 18 -2 -1 .0 S 77 IN ti NO 00 0- 5- 00 PH 68 ROBB ve AL 52 20 20 AR RT IL 00 10 11 MA -H [address] # DD Z D 20 02 -2 33 5 2 MG TA B AL 00 12 05 5 30 30 CV 43 RE Ac AV 09 -2 -1 .0 S 77 IN ti 37 0- 5- 00 PH 70 ROBB ve TA 20 20 20 AR RT TI 29 10 11 MA N 8 CY TO SO # DD DI D UM 02 33 40 2 MG TA B LE 00 12 05 5 30 30 CV 43 RE Ac VO 37 -2 -1 .0 S 77 IN ti TH 81 0- 5- 00 PH 71 ROBB ve YR 81 20 20 AR RT OX 30 10 11 MA IN 1 CY TO E # DD 12 D 5 02 MC 33 G 2 TA BL ET AT 68 04 05 3 30 30 CV 48 RE Ac EN 38 -1 -1 .0 S 13 IN ti OL 20 8- 5- 00 PH 98 ROBB ve OL 02 20 20 AR RT 21 11 11 MA 25 0 CY TO # DD MG D 02 TA 33 BL 2 ET BU 00 04 05 2 60 30 CV 47 RE Ac AL 37 -0 -0 .0 S 67 IN ti OP 83 4- 7- 00 PH 25 ROBB ve IO 41 20 20 AR RT N 20 11 11 MA HC 1 CY TO L # DD SR D 02 15 33 0 2 MG TA BL ET 59 04 04 2 8. 25 CV 47 RE Ac 31 -0 -2 50 S 70 IN ti 00 4- 7- 0 PH 21 ROBB ve 57 20 20 AR RT 92 11 11 MA 0 CY TO # DD D 02 33 2 ME 68 04 04 1 30 30 CV 48 RE Ac LO 18 -2 -2 .0 S 35 IN ti XI 00 5- 5- 00 PH 89 ROBB ve CA 50 20 20 AR RT M 20 11 11 MA 15 1 CY TO # DD MG D 02 TA 33 BL 2 ET TR 00 04 04 0 15 7 CV 48 RE Ac AM 09 -2 -2 .0 S 39 IN ti AD 30 5- 5- 00 PH 38 ROBB ve OL 05 20 20 AR RT 80 11 11 MA HC 5 CY TO L # DD 50 D 02 MG 33 2 TA BL ET TR 45 04 04 2 15 10 CV 48 RE Ac IA 80 -2 -2 .0 S 39 IN ti MC 20 5- 5- 00 PH 39 ROBB ve IN 06 20 20 AR RT OL 43 11 11 MA ON 5 CY TO E # DD 0. D 1% 02 33 CR 2 EA M PA 00 01 04 2 5. 15 CV 45 RI Ac TA 06 -2 -2 00 S 06 CH ti NO 50 6- 3- 0 PH 39 AR ve L 27 20 20 AR DS 0. 10 11 11 MA ON 1% 5 CY # WI EY LL E [address] 33 M OP 2 W S CY 00 04 04 0 20 7 CV 48 CE Ac CL 37 -2 -2 .0 S 34 LL ti OB 80 3- 3- 00 PH 49 AR ve EN 75 20 20 AR OS ZA 11 11 11 MA I AL 0 CY - IN # YO E RB 10 02 A 33 PA MG 2 TR IC TA K BL M ET TR 00 04 04 0 12 2 CV 48 CE Ac AM 09 -2 -2 .0 S 34 LL ti AD 30 3- 3- 00 PH 50 AR ve OL 05 20 20 AR OS 80 11 11 MA I HC 5 CY - L # YO 50 RB 02 A MG 33 PA 2 TR TA IC BL K ET M AL 00 04 04 2 30 30 CV 48 RE Ac EM 04 -2 -2 .0 S 25 IN ti AR 61 1- 1- 00 PH 71 ROBB ve IN 10 20 20 AR RT 08 11 11 MA 0. 1 CY TO 3 # DD MG D 02 TA 33 BL 2 ET LI 68 12 04 5 30 30 CV 43 RE Ac SI 18 -2 -1 .0 S 77 IN ti NO 00 0- 8- 00 PH 68 ROBB ve AL 52 20 20 AR RT IL 00 10 11 MA -H [address] # DD Z D 20 02 -2 33 5 2 MG TA B AL 00 12 04 5 30 30 CV 43 RE Ac AV 09 -2 -1 .0 S 77 IN ti 37 0- 8- 00 PH 70 ROBB ve TA 20 20 20 AR RT TI 29 10 11 MA N 8 CY TO SO # DD DI D UM 02 33 40 2 MG TA B LE 00 12 04 5 30 30 CV 43 RE Ac VO 37 -2 -1 .0 S 77 IN ti TH 81 0- 8- 00 PH 71 ROBB ve YR 81 20 20 AR RT OX 30 10 11 MA IN 1 CY TO E # DD 12 D 5 02 MC 33 G 2 TA BL ET AT 68 04 04 3 30 30 CV 48 RE Ac EN 38 -1 -1 .0 S 13 IN ti OL 20 8- 8- 00 PH 98 ROBB ve OL 02 20 20 AR RT 21 11 11 MA 25 0 CY TO # DD MG D 02 TA 33 BL 2 ET GA 59 04 04 2 90 30 CV 47 RE Ac BA 76 -0 -0 .0 S 67 IN ti PE 25 4- 7- 00 PH 24 ROBB ve NT 02 20 20 AR RT IN 70 11 11 MA 1 CY TO 30 # DD 0 D MG 02 33 CA 2 PS UL E BU 00 04 04 2 60 30 CV 47 RE Ac AL 37 -0 -0 .0 S 67 IN ti OP 83 4- 4- 00 PH 25 ROBB ve IO 41 20 20 AR RT N 20 11 11 MA HC 1 CY TO L # DD SR D 02 15 33 0 2 MG TA BL ET 59 04 04 2 8. 25 CV 47 RE Ac 31 -0 -0 50 S 70 IN ti 00 4- 4- 0 PH 21 ROBB ve 57 20 20 AR RT 92 11 11 MA 0 CY TO # DD D 02 33 2 ME 68 11 03 5 30 30 CV 42 RE Ac LO 18 -0 -2 .0 S 11 IN ti XI 00 3- 8- 00 PH 25 ROBB ve CA 50 20 20 AR RT M 20 10 11 MA 15 1 CY TO # DD MG D 02 TA 33 BL 2 ET AT 68 10 03 5 30 30 CV 41 RE Ac EN 38 -1 -2 .0 S 44 IN ti OL 20 4- 2- 00 PH 41 ROBB ve OL 02 20 20 AR RT 21 10 11 MA 25 0 CY TO # DD MG D 02 TA 33 BL 2 ET LI 68 12 03 5 30 30 CV 43 RE Ac SI 18 -2 -2 .0 S 77 IN ti NO 00 0- 2- 00 PH 68 ROBB ve AL 52 20 20 AR RT IL 00 10 11 MA -H [address] # DD Z D 20 02 -2 33 5 2 MG TA B AL 00 12 03 5 30 30 CV 43 RE Ac AV 09 -2 -2 .0 S 77 IN ti 37 0- 2- 00 PH 70 ROBB ve TA 20 20 20 AR RT TI 29 10 11 MA N 8 CY TO SO # DD DI D UM 02 33 40 2 MG TA B LE 00 12 03 5 30 30 CV 43 RE Ac VO 37 -2 -2 .0 S 77 IN ti TH 81 0- 2- 00 PH 71 ROBB ve YR 81 20 20 AR RT OX 30 10 11 MA IN 1 CY TO E # DD 12 D 5 02 MC 33 G 2 TA BL ET AL 00 01 03 2 30 30 CV 44 RE Ac EM 04 -1 -2 .0 S 78 IN ti AR 61 8- 2- 00 PH 19 ROBB ve IN 10 20 20 AR RT 08 11 11 MA 0. 1 CY TO 3 # DD MG D 02 TA 33 BL 2 ET AC 00 03 03 0 40 8 CV 46 WI Ac ET 09 -1 -1 .0 S 96 LS ti AM 30 6- 6- 00 PH 58 ON ve IN 15 20 20 AR OP 01 11 11 MA TI HE 0 CY MO N- # TH CO Y D 02 C #3 33 2 TA BL ET AV 00 03 03 0 10 10 CV 46 RE Ac EL 08 -1 -1 .0 S 97 IN ti OX 51 6- 6- 00 PH 60 ROBB ve 73 20 20 AR RT 40 30 11 11 MA 0 1 CY TO MG # DD D TA 02 BL 33 ET 2 AL 00 03 03 0 10 5 CV 46 RE Ac ED 59 -1 -1 .0 S 94 IN ti NI 15 5- 5- 00 PH 24 ROBB ve SO 44 20 20 AR RT NE 30 11 11 MA 1 CY TO 20 # DD D MG 02 33 TA 2 BL ET 59 05 03 1 8. 25 CV 41 No Ac 31 -1 -1 50 S 13 t ti 00 3- 1- 0 PH 73 Av ve 57 20 20 AR ai 92 10 11 MA la 0 CY bl # e 02 33 2 GA 59 12 03 2 90 30 CV 43 RE Ac BA 76 -2 -1 .0 S 87 IN ti PE 25 2- 1- 00 PH 29 ROBB ve NT 02 20 20 AR RT IN 70 10 11 MA 1 CY TO 30 # DD 0 D MG 02 33 CA 2 PS UL E PA 00 01 03 2 5. 15 CV 45 RI Ac TA 06 -2 -1 00 S 06 CH ti NO 50 6- 1- 0 PH 39 AR ve L 27 20 20 AR DS 0. 10 11 11 MA ON 1% 5 CY # WI EY LL E [address] 33 M OP 2 W S AZ 59 03 03 0 6. 5 CV 46 RE Ac IT 76 -1 -1 00 S 78 IN ti HR 23 1- 1- 0 PH 59 ROBB ve OM 06 20 20 AR RT YC 00 11 11 MA IN 1 CY TO # DD 25 D 0 02 MG 33 2 TA BL ET BA 00 03 03 0 30 10 CV 46 RE Ac CL 60 -1 -1 .0 S 78 IN ti OF 32 1- 1- 00 PH 62 ROBB ve EN 40 20 20 AR RT 62 11 11 MA 10 8 CY TO # DD MG D 02 TA 33 BL 2 ET BU 00 12 02 2 60 30 CV 43 RE Ac AL 37 -0 -2 .0 S 13 IN ti OP 83 1- 7- 00 PH 37 ROBB ve IO 41 20 20 AR RT N 20 10 11 MA HC 1 CY TO L # DD SR D 02 15 33 0 2 MG TA BL ET ME 68 11 02 5 30 30 CV 42 RE Ac LO 18 -0 -2 .0 S 11 IN ti XI 00 3- 5- 00 PH 25 ROBB ve CA 50 20 20 AR RT M 20 10 11 MA 15 1 CY TO # DD MG D 02 TA 33 BL 2 ET 00 02 02 0 30 7 WA 99 WI Ac 59 -2 -2 .0 LG 24 LS ti 10 3- 3- 00 RE 4 ON ve 38 20 20 EN 50 11 11 S TI 5 #1 MO 20 TH 75 Y # C 12 07 5 AT 68 10 02 5 30 30 CV 41 RE Ac EN 38 -1 -1 .0 S 44 IN ti OL 20 4- 7- 00 PH 41 ROBB ve OL 02 20 20 AR RT 21 10 11 MA 25 0 CY TO # DD MG D 02 TA 33 BL 2 ET LI 68 12 02 5 30 30 CV 43 RE Ac SI 18 -2 -1 .0 S 77 IN ti NO 00 0- 7- 00 PH 68 ROBB ve AL 52 20 20 AR RT IL 00 10 11 MA -H [address] # DD Z D 20 02 -2 33 5 2 MG TA B AL 00 12 02 5 30 30 CV 43 RE Ac AV 09 -2 -1 .0 S 77 IN ti 37 0- 7- 00 PH 70 ROBB ve TA 20 20 20 AR RT TI 29 10 11 MA N 8 CY TO SO # DD DI D UM 02 33 40 2 MG TA B LE 00 12 02 5 30 30 CV 43 RE Ac VO 37 -2 -1 .0 S 77 IN ti TH 81 0- 7- 00 PH 71 ROBB ve YR 81 20 20 AR RT OX 30 10 11 MA IN 1 CY TO E # DD 12 D 5 02 MC 33 G 2 TA BL ET AL 00 01 02 2 30 30 CV 44 RE Ac EM 04 -1 -1 .0 S 78 IN ti AR 61 8- 7- 00 PH 19 ROBB ve IN 10 20 20 AR RT 08 11 11 MA 0. 1 CY TO 3 # DD MG D 02 TA 33 BL 2 ET AL 00 02 02 0 15 4 CV 45 RE Ac OM 78 -1 -1 .0 S 85 IN ti ET 11 5- 5- 00 PH 16 ROBB ve ROBB 83 20 20 AR RT ZI 00 11 11 MA NE 1 CY TO # DD 25 D 02 MG 33 2 TA BL ET GA 59 12 02 2 90 30 CV 43 RE Ac BA 76 -2 -1 .0 S 87 IN ti PE 25 2- 0- 00 PH 29 ROBB ve NT 02 20 20 AR RT IN 70 10 11 MA 1 CY TO 30 # DD 0 D MG 02 33 CA 2 PS UL E AL 00 01 01 0 20 5 CV 45 RE Ac OM 78 -3 -3 .0 S 22 IN ti ET 11 1- 1- 00 PH 27 ROBB ve ROBB 83 20 20 AR RT ZI 00 11 11 MA NE 1 CY TO # DD 25 D 02 MG 33 2 TA BL ET OX 00 01 01 0 40 10 CV 45 WI Ac YC 40 -3 -3 .0 S 24 LS ti OD 60 1- 1- 00 PH 42 ON ve ON 51 20 20 AR E- 20 11 11 MA TI AC 1 CY MO ET # TH AM Y IN 02 C OP 33 HE 2 N 5- 32 5 00 01 01 0 15 2 CV 45 SA Ac 40 -2 -2 .0 S 20 VA ti 60 9- 9- 00 PH 37 GE ve 35 20 20 AR 70 11 11 MA SA 5 CY ND # RA L 02 33 2 ME 68 11 01 5 30 30 CV 42 RE Ac LO 18 -0 -2 .0 S 11 IN ti XI 00 3- 8- 00 PH 25 ROBB ve CA 50 20 20 AR RT M 20 10 11 MA 15 1 CY TO # DD MG D 02 TA 33 BL 2 ET AM 00 01 01 0 20 10 CV 45 RE Ac OX 78 -2 -2 .0 S 16 IN ti -C 11 8- 8- 00 PH 76 ROBB ve LA 85 20 20 AR RT V 22 11 11 MA 87 0 CY TO 5- # DD 12 D 5 02 MG 33 2 TA BL ET ME 59 01 01 0 21 6 CV 45 RE Ac TH 74 -2 -2 .0 S 16 IN ti YL 60 8- 8- 00 PH 78 ROBB ve AL 00 20 20 AR RT ED 10 11 11 MA NI 3 CY TO SO # DD LO D NE 02 4 33 2 MG DO SE PK PA 00 01 01 2 5. 15 CV 45 RI Ac TA 06 -2 -2 00 S 06 CH ti NO 50 6- 6- 0 PH 39 AR ve L 27 20 20 AR DS 0. 10 11 11 MA ON 1% 5 CY # WI EY LL E [address] 33 M OP 2 W S ME 00 03 01 0 60 20 CV 45 No Ac TH 14 -1 -2 .0 S 05 t ti OC 31 8- 5- 00 PH 33 Av ve AR 29 20 20 AR ai BA 20 10 11 MA la MO 1 CY bl L # e 75 0 02 MG 33 2 TA BL ET AT 68 10 01 5 30 30 CV 41 RE Ac EN 38 -1 -1 .0 S 44 IN ti OL 20 4- 8- 00 PH 41 ROBB ve OL 02 20 20 AR RT 21 10 11 MA 25 0 CY TO # DD MG D 02 TA 33 BL 2 ET LI 68 12 01 5 30 30 CV 43 RE Ac SI 18 -2 -1 .0 S 77 IN ti NO 00 0- 8- 00 PH 68 ROBB ve AL 52 20 20 AR RT IL 00 10 11 MA -H [address] # DD Z D 20 02 -2 33 5 2 MG TA B AL 00 12 01 5 30 30 CV 43 RE Ac AV 09 -2 -1 .0 S 77 IN ti 37 0- 8- 00 PH 70 ROBB ve TA 20 20 20 AR RT TI 29 10 11 MA N 8 CY TO SO # DD DI D UM 02 33 40 2 MG TA B LE 00 12 01 5 30 30 CV 43 RE Ac VO 37 -2 -1 .0 S 77 IN ti TH 81 0- 8- 00 PH 71 ROBB ve YR 81 20 20 AR RT OX 30 10 11 MA IN 1 CY TO E # DD 12 D 5 02 MC 33 G 2 TA BL ET AL 00 01 01 2 30 30 CV 44 RE Ac EM 04 -1 -1 .0 S 78 IN ti AR 61 8- 8- 00 PH 19 ROBB ve IN 10 20 20 AR RT 08 11 11 MA 0. 1 CY TO 3 # DD MG D 02 TA 33 BL 2 ET GA 59 12 01 2 90 30 CV 43 RE Ac BA 76 -2 -0 .0 S 87 IN ti PE 25 2- 2- 00 PH 29 ROBB ve NT 02 20 20 AR RT IN 70 10 11 MA 1 CY TO 30 # DD 0 D MG 02 33 CA 2 PS UL E ME 68 11 12 5 30 30 CV 42 RE Ac LO 18 -0 -2 .0 S 11 IN ti XI 00 3- 9- 00 PH 25 ROBB ve CA 50 20 20 AR RT M 20 10 10 MA 15 1 CY TO # DD MG D 02 TA 33 BL 2 ET BA 00 12 12 0 90 30 CV 44 RE Ac CL 60 -2 -2 .0 S 09 IN ti OF 32 9- 9- 00 PH 88 ROBB ve EN 40 20 20 AR RT 62 10 10 MA 10 8 CY TO # DD MG D 02 TA 33 BL 2 ET BU 00 12 12 2 60 30 CV 43 RE Ac AL 37 -0 -2 .0 S 13 IN ti OP 83 1- 8- 00 PH 37 ROBB ve IO 41 20 20 AR RT N 20 10 10 MA HC 1 CY TO L # DD SR D 02 15 33 0 2 MG TA BL ET 59 11 12 1 8. 25 CV 42 No Ac 31 -1 -2 50 S 47 t ti 00 2- 6- 0 PH 61 Av ve 57 20 20 AR ai 92 10 10 MA la 0 CY bl # e 02 33 2 TR 00 12 12 0 30 8 CV 43 RE Ac AM 09 -2 -2 .0 S 87 IN ti AD 30 2- 2- 00 PH 31 ROBB ve OL 05 20 20 AR RT 80 10 10 MA HC 5 CY TO L # DD 50 D 02 MG 33 2 TA BL ET AT 68 10 12 5 30 30 CV 41 RE Ac EN 38 -1 -2 .0 S 44 IN ti OL 20 4- 0- 00 PH 41 ROBB ve OL 02 20 20 AR RT 21 10 10 MA 25 0 CY TO # DD MG D 02 TA 33 BL 2 ET AL 00 10 12 2 30 30 CV 41 RE Ac EM 04 -2 -2 .0 S 79 IN ti AR 61 5- 0- 00 PH 53 ROBB ve IN 10 20 20 AR RT 08 10 10 MA 0. 1 CY TO 3 # DD MG D 02 TA 33 BL 2 ET LI 68 12 12 5 30 30 CV 43 RE Ac SI 18 -2 -2 .0 S 77 IN ti NO 00 0- 0- 00 PH 68 ROBB ve AL 52 20 20 AR RT IL 00 10 10 MA -H [address] # DD Z D 20 02 -2 33 5 2 MG TA B AL 00 12 12 5 30 30 CV 43 RE Ac AV 09 -2 -2 .0 S 77 IN ti 37 0- 0- 00 PH 70 ROBB ve TA 20 20 20 AR RT TI 29 10 10 MA N 8 CY TO SO # DD DI D UM 02 33 40 2 MG TA B LE 00 12 12 5 30 30 CV 43 RE Ac VO 37 -2 -2 .0 S 77 IN ti TH 81 0- 0- 00 PH 71 ROBB ve YR 81 20 20 AR RT OX 30 10 10 MA IN 1 CY TO E # DD 12 D 5 02 MC 33 G 2 TA BL ET TR 00 12 12 0 30 7 CV 43 RE Ac AM 09 -1 -1 .0 S 48 IN ti AD 30 0- 0- 00 PH 64 ROBB ve OL 05 20 20 AR RT 80 10 10 MA HC 5 CY TO L # DD 50 D 02 MG 33 2 TA BL ET BA 00 11 12 1 90 30 CV 42 RE Ac CL 60 -0 -0 .0 S 11 IN ti OF 32 3- 2- 00 PH 28 ROBB ve EN 40 20 20 AR RT 62 10 10 MA 10 8 CY TO # DD MG D 02 TA 33 BL 2 ET ME 68 11 12 5 30 30 CV 42 RE Ac LO 18 -0 -0 .0 S 11 IN ti XI 00 3- 2- 00 PH 25 ROBB ve CA 50 20 20 AR RT M 20 10 10 MA 15 1 CY TO # DD MG D 02 TA 33 BL 2 ET GA 59 12 12 0 90 30 CV 43 RE Ac BA 76 -0 -0 .0 S 13 IN ti PE 25 1- 1- 00 PH 36 ROBB ve NT 02 20 20 AR RT IN 70 10 10 MA 1 CY TO 30 # DD 0 D MG 02 33 CA 2 PS UL E BU 00 12 12 2 60 30 CV 43 RE Ac AL 37 -0 -0 .0 S 13 IN ti OP 83 1- 1- 00 PH 37 ROBB ve IO 41 20 20 AR RT N 20 10 10 MA HC 1 CY TO L # DD SR D 02 15 33 0 2 MG TA BL ET LI 68 08 11 3 30 30 CV 39 RE Ac SI 18 -2 -2 .0 S 76 IN ti NO 00 6- 3- 00 PH 21 ROBB ve AL 52 20 20 AR RT IL 00 10 10 MA -H [address] # DD Z D 20 02 -2 33 5 2 MG TA B AL 00 08 11 3 30 30 CV 39 RE Ac AV 09 -2 -2 .0 S 76 IN ti 37 6- 3- 00 PH 22 ROBB ve TA 20 20 20 AR RT TI 29 10 10 MA N 8 CY TO SO # DD DI D UM 02 33 40 2 MG TA B LE 00 08 11 3 30 30 CV 39 RE Ac VO 37 -2 -2 .0 S 76 IN ti TH 81 6- 3- 00 PH 24 ROBB ve YR 81 20 20 AR RT OX 30 10 10 MA IN 1 CY TO E # DD 12 D 5 02 MC 33 G 2 TA BL ET AL 00 10 11 2 30 30 CV 41 RE Ac EM 04 -2 -2 .0 S 79 IN ti AR 61 5- 3- 00 PH 53 ROBB ve IN 10 20 20 AR RT 08 10 10 MA 0. 1 CY TO 3 # DD MG D 02 TA 33 BL 2 ET AT 68 10 11 5 30 30 CV 41 RE Ac EN 38 -1 -2 .0 S 44 IN ti OL 20 4- 0- 00 PH 41 ROBB ve OL 02 20 20 AR RT 21 10 10 MA 25 0 CY TO # DD MG D 02 TA 33 BL 2 ET AC 00 11 11 0 60 30 CV 42 RE Ac ET 09 -1 -1 .0 S 47 IN ti AM 30 2- 2- 00 PH 10 ROBB ve IN 15 20 20 AR RT OP 01 10 10 MA HE 0 CY TO N- # DD CO D D 02 #3 33 2 TA BL ET 59 11 11 1 8. 25 CV 42 No Ac 31 -1 -1 50 S 47 t ti 00 2- 2- 0 PH 61 Av ve 57 20 20 AR ai 92 10 10 MA la 0 CY bl # e 02 33 2 HY 00 09 11 1 60 20 CV [address] 55 -1 -0 .0 S 37 IN ti OX 50 4- 5- 00 PH 68 ROBB ve YZ 30 20 20 AR RT IN 20 10 10 MA E 2 CY TO PA # DD M D 50 02 33 MG 2 CA P ME 68 11 11 5 30 30 CV 42 RE Ac LO 18 -0 -0 .0 S 11 IN ti XI 00 3- 3- 00 PH 25 ROBB ve CA 50 20 20 AR RT M 20 10 10 MA 15 1 CY TO # DD MG D 02 TA 33 BL 2 ET BA 00 11 11 1 90 30 CV 42 RE Ac CL 60 -0 -0 .0 S 11 IN ti OF 32 3- 3- 00 PH 28 ROBB ve EN 40 20 20 AR RT 62 10 10 MA 10 8 CY TO # DD MG D 02 TA 33 BL 2 ET ME 68 10 10 2 30 30 CV 41 RE Ac LO 18 -2 -2 .0 S 83 IN ti XI 00 6- 6- 00 PH 43 ROBB ve CA 50 20 20 AR RT M 10 10 10 MA 7. 1 CY TO 5 # DD MG D 02 TA 33 BL 2 ET AL 00 10 10 2 30 30 CV 41 RE Ac EM 04 -2 -2 .0 S 79 IN ti AR 61 5- 5- 00 PH 53 ROBB ve IN 10 20 20 AR RT 08 10 10 MA 0. 1 CY TO 3 # DD MG D 02 TA 33 BL 2 ET LI 68 08 10 3 30 30 CV 39 RE Ac SI 18 -2 -2 .0 S 76 IN ti NO 00 6- 2- 00 PH 21 ROBB ve AL 52 20 20 AR RT IL 00 10 10 MA -H [address] # DD Z D 20 02 -2 33 5 2 MG TA B AL 00 08 10 3 30 30 CV 39 RE Ac AV 09 -2 -2 .0 S 76 IN ti 37 6- 2- 00 PH 22 ROBB ve TA 20 20 20 AR RT TI 29 10 10 MA N 8 CY TO SO # DD DI D UM 02 33 40 2 MG TA B LE 00 08 10 3 30 30 CV 39 RE Ac VO 37 -2 -2 .0 S 76 IN ti TH 81 6- 2- 00 PH 24 ROBB ve YR 81 20 20 AR RT OX 30 10 10 MA IN 1 CY TO E # DD 12 D 5 02 MC 33 G 2 TA BL ET AM 00 10 10 0 20 10 CV 41 RE Ac OX 78 -2 -2 .0 S 64 IN ti -C 11 0- 0- 00 PH 02 ROBB ve LA 85 20 20 AR RT V 22 10 10 MA 87 0 CY TO 5- # DD 12 D 5 02 MG 33 2 TA BL ET AT 68 10 10 5 30 30 CV 41 RE Ac EN 38 -1 -1 .0 S 44 IN ti OL 20 4- 4- 00 PH 41 ROBB ve OL 02 20 20 AR RT 21 10 10 MA 25 0 CY TO # DD MG D 02 TA 33 BL 2 ET DIMAS 53 10 10 0 20 3 CV 41 BU Ac LF 74 -0 -0 .0 S 24 LL ti AM 60 8- 8- 00 PH 55 OC ve ET 27 20 20 AR K HO 20 10 10 MA RA XA 5 CY CH ZO # EL LE -T 02 MP 33 2 DS TA BL ET 59 05 10 1 8. 25 CV 41 No Ac 31 -1 -0 50 S 13 t ti 00 3- 6- 0 PH 73 Av ve 57 20 20 AR ai 92 10 10 MA la 0 CY bl # e 02 33 2 BA 00 08 10 2 90 30 CV 39 RE Ac CL 60 -0 -0 .0 S 16 IN ti OF 32 9- 5- 00 PH 92 ROBB ve EN 40 20 20 AR RT 62 10 10 MA 10 8 CY TO # DD MG D 02 TA 33 BL 2 ET ME 68 08 10 2 30 30 CV 39 RE Ac LO 18 -0 -0 .0 S 16 IN ti XI 00 9- 5- 00 PH 93 ROBB ve CA 50 20 20 AR RT M 20 10 10 MA 15 1 CY TO # DD MG D 02 TA 33 BL 2 ET AC 00 07 10 2 90 30 CV 39 No Ac ET 09 -1 -0 .0 S 26 t ti AM 30 5- 5- 00 PH 29 Av ve IN 15 20 20 AR ai OP 01 10 10 MA la HE 0 CY bl N- # e CO D 02 #3 33 2 TA BL ET ME 59 09 09 0 21 6 CV 40 RE Ac TH 74 -2 -2 .0 S 87 IN ti YL 60 8- 8- 00 PH 48 ROBB ve AL 00 20 20 AR RT ED 10 10 10 MA NI 3 CY TO SO # DD LO D NE 02 4 33 2 MG DO SE PK AL 00 08 09 1 30 30 CV 39 RE Ac EM 04 -2 -2 .0 S 76 IN ti AR 61 6- 5- 00 PH 26 ROBB ve IN 10 20 20 AR RT 08 10 10 MA 0. 1 CY TO 3 # DD MG D 02 TA 33 BL 2 ET LE 00 08 09 3 30 30 CV 39 RE Ac VO 37 -2 -2 .0 S 76 IN ti TH 81 6- 5- 00 PH 24 ROBB ve YR 81 20 20 AR RT OX 30 10 10 MA IN 1 CY TO E # DD 12 D 5 02 MC 33 G 2 TA BL ET AL 00 08 09 3 30 30 CV 39 RE Ac AV 09 -2 -2 .0 S 76 IN ti 37 6- 5- 00 PH 22 ROBB ve TA 20 20 20 AR RT TI 29 10 10 MA N 8 CY TO SO # DD DI D UM 02 33 40 2 MG TA B LI 68 08 09 3 30 30 CV 39 RE Ac SI 18 -2 -2 .0 S 76 IN ti NO 00 6- 5- 00 PH 21 ROBB ve AL 52 20 20 AR RT IL 00 10 10 MA -H [address] # DD Z D 20 02 -2 33 5 2 MG TA B ME 59 09 09 0 21 6 CV 40 RE Ac TH 74 -1 -1 .0 S 37 IN ti YL 60 4- 4- 00 PH 69 ROBB ve AL 00 20 20 AR RT ED 10 10 10 MA NI 3 CY TO SO # DD LO D NE 02 4 33 2 MG DO SE PK HY 00 09 09 1 60 20 CV [address] 55 -1 -1 .0 S 37 IN ti OX 50 4- 4- 00 PH 68 ROBB ve YZ 30 20 20 AR RT IN 20 10 10 MA E 2 CY TO PA # DD M D 50 02 33 MG 2 CA P AC 00 07 09 2 90 30 CV 39 No Ac ET 09 -1 -0 .0 S 26 t ti AM 30 5- 7- 00 PH 29 Av ve IN 15 20 20 AR ai OP 01 10 10 MA la HE 0 CY bl N- # e CO D 02 #3 33 2 TA BL ET AT 68 04 09 1 30 30 CV 39 No Ac EN 38 -0 -0 .0 S 26 t ti OL 20 6- 7- 00 PH 28 Av ve OL 02 20 20 AR ai 21 10 10 MA la 25 0 CY bl # e MG 02 TA 33 BL 2 ET ME 68 08 09 2 30 30 CV 39 RE Ac LO 18 -0 -0 .0 S 16 IN ti XI 00 9- 7- PH 93 ROBB ve CA 50 20 20 AR RT M 20 10 10 MA 15 1 CY TO # DD MG D 02 TA 33 BL 2 ET BA 00 08 09 2 90 30 CV 39 RE Ac CL 60 -0 -0 .0 S 16 IN ti OF 32 9- 7- 00 PH 92 ROBB ve EN 40 20 20 AR RT 62 10 10 MA 10 8 CY TO # DD MG D 02 TA 33 BL 2 ET LI 68 08 08 3 30 30 CV 39 RE Ac SI 18 -2 -2 .0 S 76 IN ti NO 00 6- 6- 00 PH 21 ROBB ve AL 52 20 20 AR RT IL 00 10 10 MA -H [address] # DD Z D 20 02 -2 33 5 2 MG TA B AL 00 08 08 3 30 30 CV 39 RE Ac AV 09 -2 -2 .0 S 76 IN ti 37 6- 6- 00 PH 22 ROBB ve TA 20 20 20 AR RT TI 29 10 10 MA N 8 CY TO SO # DD DI D UM 02 33 40 2 MG TA B LE 00 08 08 3 30 30 CV 39 RE Ac VO 37 -2 -2 .0 S 76 IN ti TH 81 6- 6- 00 PH 24 ROBB ve YR 81 20 20 AR RT OX 30 10 10 MA IN 1 CY TO E # DD 12 D 5 02 MC 33 G 2 TA BL ET AL 00 08 08 1 30 30 CV 39 RE Ac EM 04 -2 -2 .0 S 76 IN ti AR 61 6- 6- 00 PH 26 ROBB ve IN 10 20 20 AR RT 08 10 10 MA 0. 1 CY TO 3 # DD MG D 02 TA 33 BL 2 ET LE 00 02 08 0 30 30 CV 39 No Ac VO 37 -2 -1 .0 S 26 t ti TH 81 5- 1- 00 PH 26 Av ve YR 80 20 20 AR ai OX 50 10 10 MA la IN 1 CY bl E # e 75 02 MC 33 G 2 TA BL ET AT 68 04 08 1 30 30 CV 39 No Ac EN 38 -0 -1 .0 S 26 t ti OL 20 6- 1- 00 PH 28 Av ve OL 02 20 20 AR ai 21 10 10 MA la 25 0 CY bl # e MG 02 TA 33 BL 2 ET AC 00 07 08 2 90 30 CV 39 No Ac ET 09 -1 -1 .0 S 26 t ti AM 30 5- 1- 00 PH 29 Av ve IN 15 20 20 AR ai OP 01 10 10 MA la HE 0 CY bl N- # e CO D 02 #3 33 2 TA BL ET BA 00 08 08 2 90 30 CV 39 RE Ac CL 60 -0 -0 .0 S 16 IN ti OF 32 9- 9- 00 PH 92 ROBB ve EN 40 20 20 AR RT 62 10 10 MA 10 8 CY TO # DD MG D 02 TA 33 BL 2 ET ME 68 08 08 2 30 30 CV 39 RE Ac LO 18 -0 -0 .0 S 16 IN ti XI 00 PH 93 ROBB ve CA 50 20 20 AR RT M 20 10 10 MA 15 1 CY TO # DD MG D 02 TA 33 BL 2 ET HY 00 08 08 0 30 10 CV [address] 55 -0 -0 .0 S 16 IN ti OX 50 9 9 PH 94 ROBB ve YZ 30 20 20 AR RT IN 20 10 10 MA E 2 CY TO PA # DD M D 50 02 33 MG 2 CA P Immunization Name Date Route CVX Reacti Commen Provid Is Given on t er Refuse d IIV3 FRYMAN No VACCIN 2017 E SPLIT VIRUS 0.5 ML DOSAGE IM USE Procedures Procedure DOS Code Location Performer Comment INJECTION J1100 [facility] 7 PHYSICIAN DEXAMETHO S GROUP SONE SODIUM PHOSPHATE 1 MG THERAPEUT 69850 [facility] IC 7 PHYSICIAN PROPHYLAC S GROUP TIC/DX INJECTION SUBQ/IM SBSQ 47540 [facility] 7 NE HEALTH CARE/DAY MEDICAL 25 G MINUTES DUPLEX 43677 [facility] SCAN 7 NE [facility] EXTRACRAN MEDICAL IAL ART G COMPL BI STUDY SBSQ 41770 [facility] 7 SD HEALTH CARE/[place] [address] [place] [address] [facility] [place] HEAD/BRAI 7 RADIOLOGY N W/O CONTRAST MATERIAL MRI BRAIN 91362 [facility] [place] CARPIO BRAIN 7 RADIOLOGY STEM W/[place] [address] [facility] [place] ANGIOGRAP 7 RADIOLOGY HY NECK W/CONTRAS T/[place] [address] [facility] [place] ANGIOGRAP 7 RADIOLOGY HY HEAD W/CONTRAS T/NONCONT RAST RADIOLOGI 10564 [facility] [place] KOSTELIC C 7 RADIOLOGY EXAMINATI [place] [address] [facility] [place] HEAD/BRAI 7 RADIOLOGY N W/O CONTRAST MATERIAL ECG 08993 [facility] GINGER ROUTINE 7 NE HEALTH ECG MEDICAL W/LEAST G 12 LDS I&R ONLY CRITICAL 36556 [facility] 7 NE HEALTH ILL/INJUR MEDICAL ED G PATIENT INIT 30-74 MIN SUSCEPTIB 84989 [facility] LTY STDY 7 [facility] ANTIMICRB INC INC IAL MICRO/AGA R DILUTJ URNLS DIP 72098 [facility] 7 [facility] STICK/TAB INC INC LET RGNT AUTO W/O MICROSCOP Y CULTURE 71714 [facility] BACTERIAL 7 [facility] INC INC QUANTTATI VE COLONY COUNT URINE CULTURE 75953 [facility] BCT 7 [facility] ISOL&PRSM INC INC PTV ID ISOLATE EA URINE LIPID 13290 [facility] PANEL 7 [facility] INC INC COLLECTIO 61432 [facility] N VENOUS 7 [facility] BLOOD INC INC VENIPUNCT URE COMPREHEN 83897 [facility] SIVE 7 [facility] METABOLIC INC INC PANEL CREATININ 20622 [facility] E OTHER 7 [facility] SOURCE INC INC ALBUMIN 48974 [facility] URINE 7 [facility] MICROALBU [place] [address] [facility] FREE 7 [facility] [place] [address] [facility] THYROID 7 [facility] STIMULATI INC INC NG HORMONE TSH HEMOGLOBI 61971 [facility] N 7 [facility] GLYCOSYLA INC INC MARCO A1C BLOOD 77399 [facility] COUNT 7 [facility] COMPLETE INC INC AUTO&AUTO DIFRNTL WBC IM ADM 40359 [facility] [place] PRQ ID 7 PHYSICIAN SUBQ/IM S GROUP NJXS 1 VACCINE IIV3 34277 [facility] [place] VACCINE 7 PHYSICIAN SPLIT S GROUP VIRUS 0.5 ML DOSAGE IM USE RADIOLOGI 00133 [facility] EXAM 7 RADIOLOGY CHEST 2 VIEWS FRONTAL&L ATERAL ECG 67181 [facility] ROUTINE 7 CJ ECG EMERGENCY W/LEAST PHYS 12 LDS I&R ONLY CT THORAX 70363 [facility] [place] 7 RADIOLOGY W/CONTRAS T MATERIAL RADEX 04732 [facility] [place] J[place] FOOT 7 RADIOLOGY COMPLETE MINIMUM 3 VIEWS ECG 79701 [facility] ELIOT WILMER ROUTINE 6 NE HEALTH ECG MEDICAL W/LEAST G 12 LDS W/I&R ECG 89095 [facility] ELIOT WILMER ROUTINE 6 NE HEALTH ECG MEDICAL W/LEAST G 12 LDS W/I&R ALBUMIN 95199 [facility] 6 Y Y [facility] MIN QUANTIATI VE HEMOGLOBI 64553 S [place] N 6 NURSE WILMER GLYCOSYLA PRACTITIO MARCO A1C NER GR CREATININ 72464 [facility] OTHER 6 Y [place] [facility] [place] [place] [address] JOSE M DUFF DX/THER 6 MD ELVIRA, AGT PVRT PSC FACET JT LMBR/SAC 3+ LEVEL GLUC BLD 60945 [facility] GLUC MNTR 6 [facility] DEV INC INC CLEARED FDA SPEC [place] USE NJX 86243 [facility] DX/THER 6 [facility] AGT PVRT INC INC FACET JT LMBR/SAC 1 LEVEL NJX 75344 [facility] DX/THER 6 [facility] AGT PVRT INC INC FACET JT LMBR/SAC 2ND LEVEL INJECTION Q9957 [address] PERFLUTRE N LIPID MICROSPHE RES PER ML ECHO 44908 [facility] TTHRC R-T [address] [place] [address] 2D W/WOM-MOD E COMPL SPEC&COLR D THERAPEUT 98033 RAMIR[facility] BOWIE IC PX 1/> 6 AMA AREAS CHIROPRAC EACH 15 TIC CENTE MIN EXERCISES APPL 03079 [facility] MODALITY 6 AMA 1/> AREAS CHIROPRAC TRACTION TIC CENTE MECHANICA L APPL 32127 [facility] B[facility] MODALITY 6 AMA 1/> AREAS CHIROPRAC ELEC TIC CENTE STIMJ UNATTENDE D CHIROPRAC 04963 [facility] B[facility] TIC 6 AMA MANIPULAT CHIROPRAC MATEO [place] TIC CENTE SPINAL 3-4 REGIONS APPL 80706 [place] MODALITY 6 AMA 1/> AREAS CHIROPRAC TIC CENTE ULTRASOUN D EA 15 MIN MANUAL 03150 [place] THERAPY 6 AMA TQS 1/> CHIROPRAC REGIONS TIC CENTE EACH 15 MINUTES RADEX 22998 [place] SPINE 6 AMA LUMBOSACR CHIROPRAC AL 2/3 TIC CENTE VIEWS APPL 66452 [place] MODALITY 6 AMA 1/> AREAS CHIROPRAC TRACTION TIC CENTE MECHANICA L APPL 33487 [place] MODALITY 6 AMA 1/> AREAS CHIROPRAC ELEC TIC CENTE STIMJ UNATTENDE D APPL 06697 [place] MODALITY 6 AMA 1/> AREAS CHIROPRAC TIC CENTE ULTRASOUN D EA 15 MIN MANUAL 90970 [place] THERAPY 6 AMA TQS 1/> CHIROPRAC REGIONS TIC CENTE EACH 15 MINUTES CHIROPRAC 50585 [place] TIC 6 AMA MANIPULAT CHIROPRAC MATEO TX TIC CENTE SPINAL 3-4 REGIONS RADEX 64861 [place] SPINE 6 AMA CERVICAL CHIROPRAC 2 OR 3 TIC CENTE VIEWS RADEX 55630 [place] [facility] HAND 2 6 MEDICAL VIEWS IMAGING ASS RADEX 55391 [place] [facility] ALL FOREARM 2 [address] [place] [address] [place] [facility] ALL HEAD/BRAI 6 MEDICAL N W/O IMAGING CONTRAST ASS MATERIAL INJECTION J1885 [facility]RAY 6 [facility] INE PER 15 MG THERAPEUT 15710 [facility] IC 6 [facility] TIC/DX INJECTION SUBQ/[place] NJX 82393 JOSE M DUFF DX/THER 6 MD ELVIRA, AGT PVRT PSC FACET JT LMBR/SAC 3+ [place] 62[address] JOSE M DUFF DX/THER 6 MD ELVIRA, AGT PVRT PSC FACET JT LMBR/SAC 1 [place] NJX [address]796 JOSE M DUFF DX/THER 6 MD ELVIRA, AGT PVRT PSC FACET JT LMBR/SAC 2ND LEVEL UNCLASSIF J3490 [facility] IED DRUGS 6 [facility] INC INC DRUG TST G0477 [facility] PRESUMP;C 6 [facility] PBL [place] [address] [place] [facility] ALL HEAD/BRAI 6 MEDICAL N W/O IMAGING CONTRAST ASS MATERIAL OPHTH 22449 [facility] 6 GRE GRE XM&EVAL COMPRHNSV ESTAB PT 1/> UNCLASSIF J3490 [facility] IED DRUGS 6 [facility] [place] [address] JOSE M DENA CRI DX/THER 6 MD ELVIRA, SBST PSC EPIDURAL/ SUBARACH LUMBAR/SA CRAL OBSERVATI 13428 [facility] ON/INPATI 6 PHYSICIAN [facility] ENT S GROUP [facility] CARE 50 MINUTES ECG 91316 [facility] MOBLEY ROUTINE 6 [facility] W/LEAST P 12 LDS I&R ONLY RADIOLOGI 86588 [place] C 6 MEDICAL SHAYNE EXAMINATI IMAGING ON CHEST ASS SINGLE VIEW FRONTAL SCREENING G0202 [place] [address] MEDICAL SHAYNE MAMMOGRAP IMAGING HY GOKUL ASS INCL CAD WHEN PERFORMD SCREENING 82944 [facility] 6 [facility] MAMMOGRAP INC INC HY BILATERAL COMPUTER- 61087 [facility] AIDED 6 MEDICAL SHAYNE DETECTION IMAGING [place] S[place] [address] [facility] THYROID 6 [facility] STIMULATI INC INC NG HORMONE TSH COMPREHEN 64723 [facility] SIVE 6 [facility] METABOLIC INC INC PANEL ALBUMIN 44511 [facility] URINE 6 [facility] MICROALBU INC INC MIN QUANTIATI VE BLOOD 36508 [facility] COUNT 6 [facility] COMPLETE INC INC AUTO&AUTO DIFRNTL WBC HEMOGLOBI 00305 [facility] N 6 [facility] GLYCOSYLA [place] [address] [facility] THYROXINE 6 [place] [address] MOISE [facility] INFUSION 6 [facility] THERAPY/P INC INC ROPHYLAXI S /DX 1ST TO 1 HR GLUC BLD 70469 [facility] GLUC MNTR 6 [facility] DEV INC INC CLEARED FDA SPEC HOME USE THERAPEUT 90974 [facility] IC 6 [facility] INJECTION INC INC IV PUSH EACH NEW DRUG UNCLASSIF J3490 [facility] IED DRUGS 6 [facility] INC INC INJECTION J2405 [facility] PHIPPS 6 [facility] ONDANSETR INC INC ON HCL PER 1 MG COMPREHEN 30414 MOISE MOISE SIVE 6 [facility] METABOLIC INC INC PANEL IAADI 81881 [facility] INFLUENZA 6 [facility] B VIRUS INC INC IAADI 07478 [facility] INFFLUENZ 6 [facility] [place] [address] MOISE CHASEON ABDOMEN & 6 [facility] PELVIS INC INC W/O CONTRAST MATERIAL RADIOLOGI 45031 [facility] C EXAM 6 [facility] CHEST 2 INC INC VIEWS FRONTAL&L ATERAL URNLS DIP 72554 MOISE MOISE 6 [facility] STICK/TAB INC INC LET REAGENT AUTO MICROSCOP Y BLOOD 46139 [facility] COUNT 6 [facility] COMPLETE INC INC AUTO&AUTO DIFRNTL WBC RADIOLOGI 09178 [place] VIV[place] C 6 MEDICAL NARINDER EXAMINATI IMAGING ON CHEST [place] NJX 15700 [facility] DX/THER 6 [facility] SBST INC INC EPIDURAL/ SUBARACH LUMBAR/SA CRAL INJECTION J1030 [facility] 6 [facility] METHYLPRE INC INC DNISOLONE ACETATE 40 MG UNCLASSIF J3490 [facility] IED DRUGS 6 [facility] INC INC LOCM Q9967 [facility] 300-399 6 [facility] MG/ML INC INC IODINE CONCENTRA TION PER ML STANDARD K0001 ISHMAEL ISHMAELNORM CONWAYI 6 HOME HOME R MEDICAL MEDICAL EQUIPME EQUIPME EXCISION 95887 PROGRESSI ABIMAEL NAIL 6 VE KAYODE MATRIX PODIATRY PERMANENT REMOVAL NON-INVAS 53931 [facility] MATEO 6 [facility] PHYSIOLOG INC INC IC STUDY EXTREMITY 3 LEVLS ECG 90002 [facility] ROUTINE 6 [facility] ECG MEDICAL W/LEAST G 12 LDS W/I&R STANDARD K0001 ISHMAEL CONWAYI 6 HOME HOME R MEDICAL MEDICAL EQUIPME EQUIPME DIAB ONLY A5500 J & L J & L FIT CSTM 6 HOME HOME PREP&SPL MEDICAL MEDICAL SHOE MX EQUIPMENT EQUIPMENT DNSITY INSRT FOR DIAB A5512 J & L J & L ONLY MX 6 HOME HOME DNSITY MEDICAL MEDICAL INSRT DIR EQUIPMENT EQUIPMENT FORMD PRFAB EA HEMOGLOBI 86486 [facility] N 6 [facility] GLYCOSYLA INC INC MARCO A1C BLOOD 27579 [facility] COUNT 6 [facility] COMPLETE INC INC AUTO&AUTO DIFRNTL WBC COLLECTIO 01337 [facility] N VENOUS 6 [facility] BLOOD INC INC VENIPUNCT URE COMPREHEN 78148 [facility] SIVE 6 [facility] METABOLIC INC INC PANEL ECG 37965 MOISE PERALTA JR ROUTINE 5 [facility] ECG HOSPITAL W/LEAST P 12 LDS I&R ONLY APPLICATI 21000 [facility] ON 5 [facility] MODALITY INC INC 1/> AREAS HOT/COLD PACKS THERAPEUT 09538 [facility] IC PX 1/> 5 [facility] AREAS INC INC EACH 15 MIN EXERCISES E-STIM G0283 [facility] 1/> AREAS 5 [facility] OTH THAN INC INC WND CARE PART TX PLAN E-STIM G0283 [facility] 1/> AREAS 5 [facility] OTH THAN INC INC WND CARE PART TX PLAN APPL 53939 [facility] MODALITY 5 [facility] 1/> AREAS INC INC TRACTION MECHANICA L THERAPEUT 36172 [facility] IC PX 1/> 5 [facility] AREAS INC INC EACH 15 MIN EXERCISES APPLICATI 52258 [facility] ON 5 [facility] MODALITY INC INC 1/> AREAS HOT/COLD PACKS MANUAL 81162 [facility] THERAPY 5 [facility] TQS 1/> INC INC REGIONS EACH 15 MINUTES APPLICATI 88900 [facility] ON 5 [facility] MODALITY INC INC 1/> AREAS HOT/COLD PACKS THERAPEUT 65215 [facility] IC PX 1/> 5 [facility] AREAS INC INC EACH 15 MIN EXERCISES E-STIM G0283 [facility] 1/> AREAS 5 [facility] OTH THAN INC INC WND CARE PART TX PLAN 3D 87035 [facility] RENDERING 5 [facility] W/INTERP INC INC & POSTPROCE SS SUPERVISI ON MRI 74763 [facility] SPINAL 5 [facility] CANAL INC INC LUMBAR W/O CONTRAST MATERIAL SUSCEPTIB 43826 [facility] LTY STDY 5 [facility] ANTIMICRB INC INC IAL MICRO/AGA R DILUTJ CUL BACT 18993 [facility] XCPT 5 [facility] URINE INC INC BLOOD/STO OL AEROBIC ISOL PHYSICAL 97674 [facility] THERAPY 5 [facility] EVALUATIO INC INC N CYTP C/V 47728 [facility], PICKLESIM AUTO THIN 5 LLC ER JR BARBARA LYR PREPJ SCR MNL RESCR PHYS RADEX HIP 80744 [facility] 5 [facility] UNILATERA INC INC L COMPLETE MINIMUM 2 VIEWS RADEX 23137 [facility] SPINE 5 [facility] LUMBOSACR INC INC AL MINIMUM 4 VIEWS RADIOLOGI 46493 WILLI H[facility]NDEZ ALL C EXAM 5 MEDICAL CHEST 2 IMAGING VIEWS ASS FRONTAL&L ATERAL SUSCEPTIB 96059 [facility] LTY STDY 5 [facility] ANTIMICRB INC INC IAL MICRO/AGA R DILUTJ CUL BACT 16077 [facility] AEROBIC 5 [facility] ADDL INC INC METHS DEFINITIV E EA ISOL CUL BACT 80493 [facility] XCPT 5 [facility] URINE INC INC BLOOD/STO OL AEROBIC ISOL ECG 67249 [facility] ROUTINE 5 [facility] ECG MEDICAL W/LEAST G 12 LDS W/I&R US BREAST 52698 WILLI HERNÁNDEZ ALL UNI REAL 5 MEDICAL TIME IMAGING WITH ASS IMAGE LIMITED US BREAST 36817 [facility] UNI REAL 5 [facility] TIME INC INC WITH IMAGE COMPLETE RADIOLOGI 06239 WILLI ZEPEDA C EXAM 5 MEDICAL CHEST 2 IMAGING VIEWS ASS FRONTAL&L ATERAL DUP-SCAN 01382 [facility] XTR VEINS [address] [place] [address] COMPLETE BILATERAL STUDY ECG 61614 LIN MCCABE WILMER ROUTINE 5 [facility] ECG MEDICAL W/LEAST G 12 LDS W/I&R SCREENING G0202 [facility] 5 N N MAMMOGRAP COMMUNTIY COMMUNTIY HY GOKUL HOSPITA HOSPITA INCL CAD WHEN PERFORMD 79063 [facility] AIDED 5 N N DETECTION COMMUNTIY COMMUNTIY HOSPITA HOSPITA SCREENING MAMMOGRAP HY ARTHROCEN 84726 [facility] ROYAL RHODES 5 PHYSICIAN JAM ASPIR&/IN S GROUP J MAJOR JT/BURSA W/O US INJECTION J2704 [facility] PROPOFOL 5 N N 10 MG COMMUNTIY COMMUNTIY HOSPITA HOSPITA GLUC BLD 26375 [facility] GLUC MNTR 5 N N DEV COMMUNTIY COMMUNTIY CLEARED HOSPITA HOSPITA FDA SPEC HOME USE [place] 33409 GASTROENT CASE JUS PY 5 EROLOGY W/BIOPSY AND SINGLE/MU HEPATOL LTIPLE ANES 74206 WILLI TELLEZ LOWER 5 ANESTHESI MERARY INTESTINE A GROUP [place] [address] [facility], [facility], SURG 5 [facility] PATHOLOGY GROSS&MERARY ROSCOPIC EXAM THERAPEUT 67626 [facility] IC PX 1/> 5 [facility] AREAS INC INC EACH 15 MIN EXERCISES APPL 79649 [facility] MODALITY 5 [facility] 1/> AREAS INC INC VASOPNEUM ATIC DEVICES APPL 24877 [facility] MODALITY 5 [facility] 1/> AREAS INC INC ELEC STIMJ UNATTENDE D RADIOLOGI 12942 [facility] C EXAM 5 [facility] KNEE INC INC COMPLETE 4/MORE VIEWS INJ J0702 [facility] BETAMETHA 5 PHYSICIAN FRANK SONE S GROUP ACETATE & PHOSPHATE 3 MG ARTHROCEN 29742 [facility] PETTEY TESIS 5 PHYSICIAN FRANK ASPIR&/IN S GROUP J MAJOR JT/BUR[place] W/[place] [address] LAB FOX LAB FOX FOLIC 5 JEFF JEFF ACID HOLDINGS HOLDINGS SERUM CYANOCOBA 28674 LAB [facility] FOX PJ 5 JEFF JEFF VITAMIN HOLDINGS HOLDINGS B-12 GENERAL 04126 LAB [facility] FOX HEALTH 5 JEFF JEFF PANEL HOLDINGS HOLDINGS OBSERVATI 13842 [facility] 5 VALLEY DISCHARGE INTERNAL MED MANAGEMEN T BASIC 62812 [facility] METABOLIC 5 [facility] PANEL INC INC CALCIUM TOTAL UNCLASSIF J3490 [facility] IED DRUGS 5 [facility] INC INC COLLECTIO 15280 [facility] N VENOUS 5 [facility] BLOOD INC INC VENIPUNCT [facility] G0378 [facility] OBSERVATI 5 [facility] ON INC INC SERVICE PER HOUR BLOOD 77156 [facility] COUNT 5 [facility] COMPLETE INC INC AUTO&AUTO DIFRNTL WBC BLOOD 37774 [facility] COUNT 5 [facility] COMPLETE INC INC AUTO&[place] [address] [facility] INFUSION 5 [facility] THERAPY/P INC INC ROPHYLAXI S /DX 1ST TO 1 HR INITIAL 59765 [facility] LEANDRA OBSERVATI 5 [facility] ON INTERNAL CARE/DAY MED 30 MINUTES HOSPITAL G0378 [facility] OBSERVATI 5 [facility] ON INC INC SERVICE PER HOUR IADNA NOS 65013 [facility] 5 [facility] AMPLIFIED INC INC PROBE TQ EACH ORGANISM COMPREHEN 56120 [facility] SIVE 5 [facility] METABOLIC INC INC PANEL COLLECTIO 87133 MOISEMIRIAM PHIP[facility] N VENOUS 5 [facility] BLOOD INC INC VENIPUNCT URE UNCLASSIF J3490 [facility] IED DRUGS 5 [facility] INC INC INF AGENT 22811 MOISE CHASEON DET 5 [facility] NUCLEIC INC [place] [address] [place] ABDOMEN & 5 MEDICAL SHAYNE PELVIS IMAGING W/O ASS CONTRAST MATERIAL PHYSICAL 57282 [facility] THERAPY 5 [facility] EVALUATIO INC INC N POLYSOM 24567 [facility] 6/>YRS 5 N N SLEEP 4/> COMMUNTIY COMMUNTIY ADDL HOSPITA HOSPITA SAWYER ATTND ARTHROCEN 64447 [facility] ROYAL TESIS 5 PHYSICIAN FRANK ASPIR&/IN S GROUP J MAJOR JT/BURSA W/O US INJ J0702 [facility] PETTEY BETAMETHA 5 PHYSICIAN FRANK SONE S GROUP ACETATE & PHOSPHATE 3 MG MRI ANY 77276 [facility] JT LOWER 5 [facility] EXTREM INC INC W/O CONTRAST MATRL UNCLASSIF J3490 [facility] IED DRUGS 4 [facility] INC INC RADIOLOGI 72650 [facility] C 4 [facility] EXAMINATI INC INC ON KNEE 3 VIEWS CRTCHS E0114 [facility] UNDARM 4 TECHNOLOG TECHNOLOG OTH THAN IES INC IES INC WOOD PAIR PAD TIP&HNDGR IP RADEX 20311 WILLI PAREKHUTCHER ANKLE 4 MEDICAL SHAYNE COMPLETE IMAGING MINIMUM 3 ASS VIEWS APPL 38413 [facility] MODALITY 4 [facility] 1/> AREAS INC INC ELEC STIMJ UNATTENDE D APPL 68864 [facility] MODALITY 4 [facility] 1/> AREAS INC INC IONTOPHOR ESIS EA 15 MIN THERAPEUT 90280 [facility] IC PX 1/> 4 [facility] AREAS INC INC EACH 15 MIN EXERCISES APPL 14600 [facility] MODALITY 4 [facility] 1/> AREAS INC INC VASOPNEUM ATIC DEVICES UNCLASSIF J3490 [facility] IED DRUGS 4 [facility] INC INC UNCLASSIF J3490 [facility] IED DRUGS 4 [facility] INC INC APPLICATI 87432 [facility] ON 4 [facility] MODALITY INC INC 1/> AREAS HOT/COLD PACKS APPL 03497 [facility] MODALITY 4 [facility] 1/> AREAS INC INC IONTOPHOR ESIS EA 15 MIN THERAPEUT 19920 [facility] IC PX 1/> 4 [facility] AREAS INC INC EACH 15 MIN EXERCISES APPL 03730 [facility] MODALITY 4 [facility] 1/> AREAS INC INC ELEC STIMJ UNATTENDE D APPL 73834 [facility] MODALITY 4 [facility] 1/> AREAS INC INC IONTOPHOR ESIS EA 15 MIN THERAPEUT 29657 [facility] IC PX 1/> 4 [facility] AREAS INC INC EACH 15 MIN EXERCISES APPLICATI 69481 [facility] ON 4 [facility] MODALITY INC INC 1/> AREAS HOT/COLD PACKS UNCLASSIF J3490 [facility] IED DRUGS 4 [facility] INC INC APPL 55426 [facility] MODALITY 4 [facility] 1/> AREAS INC INC ELEC STIMJ UNATTENDE D THERAPEUT 54552 [facility] IC PX 1/> 4 [facility] AREAS INC INC EACH 15 MIN EXERCISES APPLICATI 81469 [facility] ON 4 [facility] MODALITY INC INC 1/> AREAS HOT/COLD PACKS APPL 13519 [facility] MODALITY 4 [facility] 1/> AREAS INC INC ELEC STIMJ UNATTENDE D APPL 14734 [facility] MODALITY 4 [facility] 1/> AREAS INC INC ELEC STIMJ UNATTENDE D APPL 52724 [facility] MODALITY 4 [facility] 1/> AREAS INC INC IONTOPHOR ESIS EA 15 MIN THERAPEUT 73030 [facility] IC PX 1/> 4 [facility] AREAS INC INC EACH 15 MIN EXERCISES APPLICATI 01212 [facility] ON 4 [facility] MODALITY INC INC 1/> AREAS HOT/COLD PACKS UNCLASSIF J3490 [facility] IED DRUGS 4 [facility] INC INC UNCLASSIF J3490 [facility] IED DRUGS 4 [facility] INC INC APPLICATI 52146 [facility] ON 4 [facility] MODALITY INC INC 1/> AREAS HOT/COLD PACKS APPL 11477 [facility] MODALITY 4 [facility] 1/> AREAS INC INC IONTOPHOR ESIS EA 15 MIN THERAPEUT 94987 [facility] PX 1/> 4 [facility] AREAS INC INC EACH 15 MIN EXERCISES APPL 26135 [facility] MODALITY 4 [facility] 1/> AREAS INC INC ELEC STIMJ UNATTENDE D THERAPEUT 53216 [facility] IC PX 1/> 4 [facility] AREAS INC INC EACH 15 MIN EXERCISES PHYSICAL 62586 [facility] THERAPY 4 [facility] EVALUATIO INC INC N RAD[facility]OLOGI 65577 [facility] 4 MEDICAL SHAYNE CHEST 2 IMAGING VIEWS ASS FRONTAL&L ATERAL RADIOLOGI 62581 [facility] EX[facility] 4 RADIOLOGY RHO CHEST 2 VIEWS FRONTAL&[place] [address] [facility]OMEN & 4 MEDICAL SHAYNE PELVIS IMAGING W/O ASS CONTRAST MATERIAL LIPID 70361 [email or web address] QUEST PANEL 4 DIAGNOSTI DIAGNOSTI CS CS HEMOGLOBI 10206 [email or web address] QUEST N 4 DIAGNOSTI DIAGNOSTI GLYCOSYLA CS CS MARCO A1C GENERAL 49781 [employer] 4 DIAGNOSTI DIAGNOSTI PANEL CS CS INJECTION J1885 [facility] 4 N N [facility] HOSP[facility] TR[place] INE PER 15 MG THERAPEUT 65485 [facility] IC 4 N N PROPHYLAC [facility] TIC/DX HOSPITA HOSPITA INJECTION SUBQ/IM INJECTION J3030 [facility] 4 N N [facility] [facility] AN HOSPITA HOSPITA SUCCINATE 6 MG GLUC BLD 03839 [facility] GLUC MNTR 4 N N DEV [facility] CLEARED HOSPITA HOSPITA FDA SPEC HOME USE ECG 80919 [facility] WILMER ROUTINE 4 NE [facility]ALTH ECG MEDICAL W/LEAST G 12 LDS W/I&[place] [address] [facility] [place] [facility] ANGIOGRAP 4 RADIOLOGY YEN HY ABDOMEN W/CONTRAS T/[place] [address] [facility] ANGIOGRAP 4 RADIOLOGY YEN HY CHEST W/CONTRAS T/NONCONT RAST LOCM Q9967 [facility] [phone] [place] [address] MG/ML IODINE CONCENTRA TION PER ML CREATININ 03283 [facility] E BLOOD [address] [place] [address] ECG 52831 [facility]E ROUTINE 4 CJ MERARY ECG EMERGENCY W/LEAST PHYS 12 LDS I&R ONLY LIPID [address] CV STRS [address] XERS&/OR RX CONT ECG TRCG ONLY INJECTION [id number] [place] ON 0.1 MG UNCLASSIF J3490 [facility] IED DRUGS [address] [place] [address] TECHNETIU A9502 [facility] TC-99M [address] [place] [address] TETROFOSM IN DX PER STUDY DOSE GLUCOSE 66636 [facility] BLOOD [address] [place] [address] REAGENT STRIP AMB A0427 [facility] SERVICE 4 AMBULANCE AMBULANCE ALS SERVICE SERVICE EMERGENCY TRANSPORT LEVEL 1 CV STRS 53316 LIN MCCABE WILMER TST 4 NE [facility] XERS&/OR MEDICAL RX CONT G ECG I&R ONLY GROUND A0425 [facility] MILEAGE 4 AMBULANCE AMBULANCE PER SERVICE SERVICE STATUTE MILE MYOCARDIA 79736 LIN MCCABE WILMER L SPECT 4 NE [facility] MULTIPLE MEDICAL STUDIES G ECHO 10672 LIN MCCABE WILMER TTHRC R-T 4 NE [facility] 2D MEDICAL W/WOM-MOD G E COMPL SPEC&COLR D ECG 81883 [facility] ROUTINE 4 CJ MERARY ECG EMERGENCY W/LEAST PHYS 12 LDS I&R ONLY RADIOLOGI 19971 [place] C 4 MEDICAL SHAYNE EXAMINATI IMAGING ON CHEST ASS SINGLE VIEW FRONTAL CRITICAL 09106 [facility] CARE 4 CJ MERARY ILL/INJUR EMERGENCY ED PHYS PATIENT INIT 30-74 MIN RADIOLOGI 39898 [place] [facility] C 4 MEDICAL SHAYNE EXAMINATI IMAGING ON KNEE 3 ASS VIEWS RADIOLOGI 75396 [place] C 4 MEDICAL SHAYNE EXAMINATI IMAGING ON FEMUR ASS 2 VIEWS RADEX 76873 [place] ANKLE 4 MEDICAL SHAYNE COMPLETE IMAGING MINIMUM 3 ASS VIEWS KNEE L1830 [employer] ORTHOSIS 4 IMMOBLIZE R CANVAS LONGTUDNL PREFAB WALKER E0143 J & L J & L FOLDING 4 HOME HOME WHEELED MEDICAL MEDICAL ADJUSTABL EQUIPMENT EQUIPMENT E/FIXED HEIGHT SEAT E0156 J & L J & L ATTACHMEN 4 HOME HOME T WALKER MEDICAL MEDICAL EQUIPMENT EQUIPMENT COMPREHEN 00981 [facility] SIVE 4 DIAGNOSTI DIAGNOST[place] [address] [facility] THYROID 4 DIAGNOSTI DIAGNOSTI STIMULATI CS CS NG HORMONE TSH WRIST L3908 J & L J & L HAND 4 HOME HOME ORTHOSIS MEDICAL MEDICAL EXT EQUIPMENT EQUIPMENT CONTROL COCK-UP PREFAB LIPID 15928 [facility] PANEL 4 DIAGNOSTI DIAGNOSTI CS CS HEMOGLOBI 12003 [facility] N 4 DIAGNOSTI DIAGNOSTI GLYCOSYLA CS CS MARCO A1C NERVE 17781 [place] FEE DOM CONDUCTIO 4 MEDICAL N STUDIES SERV 9-10 F[facility] STUDIES N NEEDLE 33833 [place] FEE DOM EMG EA 4 MEDICAL EXTREMTY SERV W/PARASPI FOUNDATIO NL AREA N COMPLETE RADEX ABD 06943 [place] COMPL 4 MEDICAL SHAYNE AQT ABD IMAGING W/S/E/D ASS VIEWS 1 VIEW CH TECHNETIU A9561 [facility] TC-99M 4 Y Y [facility] E DX UP TO 30 MCI BONE 10185 [place] JAMIE &/JOINT 4 MEDICAL GAR IMAGING SERV TOMOGRAPH FOUNDATIO IC SPECT RADEX 94855 [place] JOY SPINE 4 MEDICAL FRA LUMBOSACR SERV AL 2/3 FOUNDATIO VIEWS ECG 22892 [facility] ROUTINE 4 CJ III DUANE ECG EMERGENCY W/LEAST PHYS 12 LDS I&R ONLY MRI 16329 [facility] SPINAL 4 N N CANAL COMMUNTIY COMMUNTIY LUMBAR HOSPITA HOSPITA W/O CONTRAST MATERIAL INJECTION J1885 [facility] 4 N FAMILY HEN KETOROLAC PRACTICE TROMETHAM INE PER 15 MG THERAPEUT 30226 [facility] IC 4 N FAMILY HEN PROPHYLAC PRACTICE TIC/DX INJECTION SUBQ/IM KNEE L1810 [facility] ORTHOSIS 2 ELIAS [place] ELASTIC ORTHOPAED JOINTS [facility] PREFAB CUSTOM FIT COLLECTIO 11143 [facility] N VENOUS 2 DIAGNOSTI DIAGNOST[place] [address] [facility] BLOOD/URI 2 DIAGNOSTI DIAGNOSTI C ACID CS CS RADIOLOGI 79292 [facility] [place] BAILEY MAT C 2 RADIOLOGY EXAMINATI ON KNEE 3 VIEWS GENERAL 84088 [facility] HEALTH 2 DIAGNOSTI DIAGNOSTI PANEL CS CS LIPID 01833 [facility] PANEL 2 DIAGNOSTI DIAGNOSTI CS CS HEMOGLOBI 77323 [facility] N 2 DIAGNOSTI DIAGNOSTI GLYCOSYLA CS CS MARCO A1C RADEX 56695 [facility] [place] RADMANESH SPINE 2 RADIOLOGY SHA LUMBOSACR AL 2/3 VIEWS RADEX 61484 [facility] [place] RENE ANKLE 2 RADIOLOGY III NORMA COMPLETE MINIMUM 3 VIEWS RADIOLOGI 59400 [facility] [place] ROME C C 1 RADIOLOGY EXAMINATI ON CHEST SINGLE VIEW FRONTAL ECG 84714 CELLAROSI CELLAROSI ROUTINE 1 - YORBA - YORBA ECG PAT PAT W/LEAST 12 LDS I&R ONLY RADEX 55593 [facility] ELBOW 2 1 [place] ELIAS VIEWS ORTHOPAED [facility] SUSCEPTIB 23529 [facility] LTY STDY 1 [facility] STAT-Diagnostica ANTIMICRB IAL MICRO/AGA R DILUTJ CUL BACT 52416 [facility] AEROBIC 1 [facility] ADDL METHS DEFINITIV E EA ISOL CULTURE 62851 [facility] BACTERIAL 1 [facility] [employer] [facility] QUANTTATI VE COLONY COUNT URINE CULTURE 71194 [facility] BCT 1 [facility] ISOL&PRSM PTV ID ISOLATE EA URINE IAADIADOO 91045 LAL[facility] BUNDY 1 N FAMILY TOD INFLUENZA PHYS PSC URINALYSI 98197 [facility] NIHARIKA S 1 N FAMILY TOD MICROSCOP PHYS PSC IC ONLY LIPID 93903 [facility] PANEL 1 [facility] [employer] [facility] THYROID 14688 [facility] HORM 1 [employer] [facility] UPTK/THYR OID HORMONE BINDING RATIO HEMOGLOBI 24739 [facility] N 1 [facility] [place] [address] [facility] THYROXINE 1 [facility] [employer] [facility] TOTAL COMPREHEN 40515 [facility] SIVE 1 [facility] [place] [address] [facility] THYROID 1 [facility] STIMULATI NG HORMONE TSH RADEX 00225 [facility] EL[facility]OW 2 1 [place] ELIAS VIEWS ORTHOPAED [facility]CS PLC THERAPEUT 16238 [facility] IC PX 1/> 1 N N [facility] HOSPITA HOSPITA MIN EXERCISES THERAPEUT 46281 [facility] IC PX 1/> 1 N N [facility] HOSPITA HOSPITA MIN EXERCISES THERAPEUT 11986 [facility] IC PX 1/> 1 N N [facility] 15 HOSPITA HOSPITA MIN EXERCISES PHYSICAL 19526 [facility] THERAPY 1 N N EVALUATIO [facility] N HOSPITA HOSPITA SLINGS A4565 [employer] 1 [place] [address] [facility] RADIAL 1 EMERGENCY MEHTA HEAD/NECK SERVICES FX W/O MANIPULAT ION RADEX 47346 [facility] [place] ROME C ELBOW 1 RADIOLOGY COMPLETE MINIMUM 3 VIEWS APPLICATI 17869 [facility] ON 0 N N SURFACE [facility] NEUROSTIM HOSPITA HOSPITA ULATOR SENSORMOT 35190 [place] XM 0 N DUANE N 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 OCULAR DEVIJ W/I&R SPX OPHTH 35543 [facility]ICH[facility] MEDICAL 0 N DUANE N DUANE XM&EVAL COMPRE NEW PT 1/> VST DETERMINA 60872 [facility] RICHAR[facility]O TION 0 N DUANE N DUANE REFRACTIV E STATE THERAPEUT 01059 [facility] IC PX 1/> 0 N N [facility] 15 HOSPITA HOSPITA MIN EXERCISES PHYSICAL 72552 [facility] THERAPY 0 N N EVALUATIO [facility] N HOSPITA HOSPITA APPL 42722 [facility] MODALITY 0 N N 1/> AREAS [facility] ELEC HOSPITA HOSPITA STIMJ UNATTENDE D LIPID 18308 [facility] PANEL 0 [facility] HEMOGLOBI 62139 [facility] N 0 [facility] GLYCOSYLA MARCO A1C GENERAL 38425 [facility] HEALTH 0 [facility] PANEL GENERAL 88322 [facility] HEALTH 0 [facility] PANEL LIPID 72458 [facility] PANEL 0 [facility] HEMOGLOBI 28146 [facility] N 0 [facility] GLYCOSYLA MARCO A1C Encounters Encounter Start End Date Code Location Performer Type Date OFFICE 74778 [facility] FRYMAN OUTPATIEN 7 7 PHYSICIAN T VISIT S GROUP 15 MINUTES OFFICE 31970 [facility] YMYENY OUTPATIEN 7 7 PHYSICIAN T VISIT S GROUP [address] INPATIENT EMERGENCY 78147 [facility] 7 7 CJ VISIT EMERGENCY HIGH PHYS SEVERITY& THREAT FUN [facility]OSP[facility] - 7 7 [facility] OUTPATIEN INC T OFFICE 38889 [facility] 7 7 [facility] T VISIT [address] EMER[address] 61853 [facility] 7 7 CJ DEPARTMEN EMERGENCY T VISIT PHYS HIGH/URGE NT SEVERITY OFFICE 83866 [facility] KATARINA OUTPATIEN 7 7 PHYSICIAN T VISIT S GROUP 25 MINUTES HOSPITAL MO[facility] - 7 7 [facility] OUTPATIEN INC T EMERGENCY 87976 [facility] DEPT 7 7 CJ VISIT EMERGENCY HIGH PHYS SEVERITY& THREAT FUNCJ OFFICE 53938 [facility] KATARINA OUTPATIEN 7 7 PHYSICIAN T VISIT S GROUP 25 MINUTES EMERGENCY 26248 [facility] 7 7 CJ DEPARTMEN EMERGENCY T VISIT PHYS MODERATE SEVERITY EMERGENCY 96730 [facility] 6 6 CJ DEPARTMEN EMERGENCY T VISIT PHYS HIGH/URGE NT SEVERITY [facility] [place] - 6 6 [facility] T EMERGENCY 54402 [place] 6 6 [facility] T VISIT MODERATE SEVERITY OFFICE 78370 [facility] ELIOT WILMER OUTPATIEN 6 6 [facility] T VISIT MEDICAL 25 G MINUTES OFFICE 71339 JOSE M BREWER OUTPATIEN 6 6 MD ELVIRA, T VISIT PSC 15 MINUTES OFFICE 24765 [facility] M[facility]AB[facility] OUTPATIEN 6 6 [facility] T VISIT MEDICAL 25 G MINUTES OFFICE 26458 [facility] 6 6 NURSE WILMER T VISIT PRACTITIO 15 NER GR MINUTES HOSPITAL UNIVERSIT - 6 6 [facility] MOISE - 6 6 [facility] OUTPATIEN INC T OFFICE 65389 JOSE M BREWER OUTPATIEN 6 6 MD ELVIRA, T VISIT PSC 15 MINUTES OFFICE 73883 [facility] 6 6 [facility] T VISIT INC 10 MINUTES HOSPITAL [facility] 6 6 [facility] T EMERGENCY 59769 BRITTANY CADENA 6 6 PHYSICIAN U [facility] T VISIT HIGH/URGE NT SEVERITY OFFICE 49489 RAMIRO BOWIE OUTPATIEN 6 6 AMA T NEW 30 CHIROPRAC MINUTES TIC CENTE OFFICE 80609 [facility] 6 6 N T VISIT NEUROLOGY 25 MINUTES EMERGENCY 44136 BRITTANY ZIMMERMAN 6 6 PHYSICIAN [facility]ARY [facility] VIS[facility] HIGH/URGE NT SEVERITY EMERGENCY 26248 BRITTANY ZIMMERMAN 6 6 PHYSICIAN MERARY [facility] T VISIT HIGH/URGE NT SEVERITY OFFICE 88454 [facility] BRAY OUTPATIEN 6 6 [facility] T VISIT HOSPITAL 15 MINUTES EMERGENCY 45868 [facility] 6 6 CJ MATI [facility] T VISIT PHYSI HIGH/URGE NT SEVERITY EMERGENCY 44235 BRITTANY ZIMMERMAN 6 6 PHYSICIAN MERARY [facility], [facility] T VISIT HIGH/URGE NT SEVERITY HOSPITAL [facility] - 6 6 [facility] OUTPATIEN INC T HOSPITAL [facility] - 6 6 [facility] OUTPATIEN INC T OFFICE 11698 [facility] [place] OUTPATIEN 6 6 PHYSICIAN EUG T VISIT S GROUP 15 MINUTES OFFICE 47181 JOSE M DUTTON OUTPATIEN 6 6 MD ELVIRA, T VISIT [facility] 15 MINUTES HOSPITAL [facility] - 6 6 [facility] OUTPATIEN INC T OFFICE 05200 [facility] OUTPATIEN 6 6 [facility] T VISIT INC 10 MINUTES OFFICE 70039 [facility] 6 6 NURSE WILMER JAUREGUI/ESTAB NER GR PATIENT 60 MIN HOSPITAL [facility] - 6 6 [facility] OUTPATIEN INC T OFFICE 17516 JOSE M DUTTON OUTPATIEN 6 6 MD ELVIRA, T VISIT [facility] 15 MINUTES HOSPITAL MOISE - 6 6 [facility] OUTPATIEN INC T OFFICE 99407 [facility] OUTPATIEN 6 6 [facility] T VISIT INC 10 MINUTES EMERGENCY 30325 BRITTANY ROMANO DEPT 6 6 PHYSICIAN VISIT S, [facility] HIGH SEVERITY& THREAT [facility] - 6 6 [facility] OUTPATIEN INC [facility] MOISE - 6 6 [facility] OUTPATIEN INC T OFFICE 16217 [facility] BRAY OUTPATIEN 6 6 [facility] T VISIT HOSPITAL 15 MINUTES OFFICE 00994 [facility] YMAN OUTPATIEN [address] [facility] EUG T VISIT HOSPITAL 15 MINUTES EMERGENCY 44248 BRITTANY COBIAN [facility] 6 6 PHYSICIAN DEPARTMEN [facility] T VISIT HIGH/URGE NT SEVERITY OFFICE 01523 [facility] CAMERONYMAN OUTPATIEN 6 6 [facility] T VISIT HOSPITAL 10 MINUTES OFFICE 34749 [facility] CAMERONYMAN OUTPATIEN 6 6 [facility] T VISIT HOSPITAL 15 MINUTES EMERGENCY 25356 BRITTANY ZIMMERMAN 6 6 PHYSICIAN [facility] T VISIT HIGH/URGE NT SEVERITY OFFICE 58874 PROGRESSI ABIMAEL OUTPATIEN 6 6 VE KAYODE T VISIT PODIATRY 15 MINUTES EMERGENCY 65616 BRITTANY IRENE DEPT 6 6 PHYSICIAN CLARICE VISIT [facility] HIGH SEVERITY& THREAT [facility] - 6 6 [facility] OUTPATIEN INC T EMERGENCY 40376 [facility] 6 6 [facility] DEPARTMEN INC T VISIT HIGH/URGE NT SEVERITY OFFICE 90350 [facility] CAMERONYMAN OUTPATIEN 6 6 [facility] T VISIT HOSPITAL 15 MINUTES HOSPITAL MOISE - 6 6 [facility] OUTPATIEN INC T [facility]OSPITAL [facility] - 6 6 [facility] OUTPATIEN INC T OFFICE 15253 [facility] OUTPATIEN 6 6 [facility] T VISIT INC 10 MINUTES OFFICE 14380 JOSE M FERNANDES CRI OUTPATIEN 6 6 MD ELVIRA, T NEW 30 PSC MINUTES OFFICE 16428 PROGRESSI ABIMAEL OUTPATIEN 6 6 VE KAYODE T VISIT PODIATRY 15 MINUTES HOSPITAL [facility] - 6 6 [facility] OUTPATIEN INC T OFFICE 39758 [facility] ELIOT WILMER OUTPATIEN 6 6 [facility] T VISIT MEDICAL 25 G MINUTES OFFICE 15878 PROGRESSI ABIMAEL OUTPATIEN 6 6 VE KAYODE T NEW 30 PODIATRY MINUTES HOSPITAL [facility] - 6 6 [facility] OUTPATIEN INC T OFFICE 85166 [facility] KATARINA OUTPATIEN 6 6 [facility]ISIT [facility]OSPITAL 15 MINUTES OFFICE 17735 [facility] YMAN OUTPATIEN 6 6 [facility] 15 MINUTES OFFICE 15238 [facility] TRA OUTPATIEN 6 6 [place] T NEW 30 ORTHOPAED MINUTES ICS PLC OFFICE 99481 [facility] BRAY OUTPATIEN 6 6 [facility] 15 MINUTES EMERGENCY 67418 BRITTANY TENORIO 5 5 PHYSICIAN WILLIE PEREZMEN S, PLLC T VISIT HIGH/URGE NT SEVERITY OFFICE 25415 [facility] NINO LIGHT 5 5 PHYSICIAN T NEW 30 S GROUP MINUTES HOSPITAL [facility] - 5 5 [facility] OUTPATIEN INC T HOSPITAL [facility] - 5 5 [facility] OUTPATIEN INC T EMERGENCY 21748 BRITTANY ZIMMERMAN 5 5 PHYSICIAN MERARY PEREZMEN S, PLLC T VISIT MODERATE SEVERITY HOSPITAL [facility] - 5 5 [facility] OUTPATIEN INC T HOSPITAL [facility] - 5 5 [facility] OUTPATIEN INC T EMERGENCY 10505 BRITTANY ROACH 5 5 PHYSICIAN NANCY DEPARTMEN S, PLLC T VISIT LOW/MODER SEVERITY EMERGENCY 83383 BRITTANY OVERTON 5 5 PHYSICIAN [facility] S, PLLC T VISIT MODERATE SEVERITY OFFICE 46261 [facility] LIGHT [address] [facility] EUG T VISIT HOSPITAL 15 MINUTES HOSPITAL MOISE Chávez 5 5 [facility] OUTPATIEN INC T OFFICE 38111 LIN MCCABE WILMER OUTPATIEN 5 5 [facility] T VISIT MEDICAL 15 G MINUTES HOSPITAL [facility] - 5 5 [facility] OUTPATIEN INC T EMERGENCY 11991 BRITTANY ZIMMERMAN 5 5 PHYSICIAN [facility] DEPARTMEN S, PLLC T VISIT MODERATE SEVERITY EMERGENCY 04701 BRITTANY OROURKE 5 5 PHYSICIAN DEPARTMEN S, PLLC T VISIT MODERATE SEVERITY EMERGENCY 67472 BRITTANY ZIMMERMAN 5 5 PHYSICIAN [facility] DEPARTMEN S, PLLC T VISIT MODERATE SEVERITY EMERGENCY 78091 BRITTANY MO 5 5 PHYSICIAN [facility] T VISIT HIGH/URGE NT SEVERITY OFFICE 84905 LIN MCCABE WILMER OUTPATIEN 5 5 [facility] T VISIT MEDICAL 15 G MINUTES [facility]PITAL [place] [address] 5 HOSPITAL OUTPATIEN T EMERGENCY 91700 MO[facility] ZIMMERMAN 5 5 [facility] T VISIT P LOW/MODER SEVERITY OFFICE 42174 LIN MCCABE WILMER OUTPATIEN 5 5 [facility] T VISIT MEDICAL 25 G MINUTES HOSPITAL [facility] - 5 5 N OUTPATIEN COMMUNTIY T HOSPITA EMERGENCY 24891 MO[facility] ZIMMERMAN 5 5 [facility] T VISIT P MODERATE SEVERITY OFFICE 61061 [facility] OUTPATIEN 5 5 N FAMILY TOD T VISIT PRACTICE 15 MINUTES HOSPITAL [facility] - 5 5 N OUTPATIEN COMMUNTIY T HOSPITA OFFICE 13981 [facility] PH[facility] JAM T VISIT S GROUP 15 MINUTES HOSPITAL [facility] - 5 5 [facility] OUTPATIEN INC T HOSPITAL [facility] - 5 5 [facility] OUTPATIEN INC T OFFICE 39104 LALADorcas LARAT OUTPATIEN 5 5 N FAMILY TOD T VISIT PRACTICE 25 MINUTES EMERGENCY 34177 MOISE OVERTON 5 5 [facility] T VISIT P HIGH/URGE NT SEVERITY HOSPITAL [facility] - 5 5 [facility] OUTPATIEN [facility] MOISE - 5 5 [facility] OUTPATIEN [facility] - 5 5 N OUTPATIEN COMMUNTIY T HOSPITA OFFICE 18405 [facility] PETTEY OUTPATIEN 5 5 PHYSICIAN JAM T VISIT S GROUP 15 MINUTES HOSPITAL [facility] - 5 5 [facility] OUTPATIEN [facility] OFFICE 17615 [facility] PETTEY OUTPATIEN 5 5 PHYSICIAN FRANK T VISIT S GROUP 15 MINUTES HOSPITAL [facility] - 4 4 [facility] OUTPATIEN [facility] EMERGENCY 40801 MO[facility] 4 4 [facility] T VISIT LOW/MODER SEVERITY OFFICE 39403 [facility] MARGARETTE OUTPATIEN 4 4 N FAMILY HEN T VISIT PRACTICE 15 MINUTES HOSPITAL [facility] - 4 4 [facility] OUTPATIEN [facility] EMERGENCY 47316 JORGE PIÑA 4 4 CJ [facility] EMERGENCY T VISIT PHYS HIGH/URGE NT SEVERITY OFFICE 64075 [facility] NIHARIKA OUTPATIEN 4 4 N FAMILY TOD T VISIT PRACTICE 25 MINUTES OFFICE 25690 [facility] PETTEY OUTPATIEN 4 4 PHYSICIAN JAM T NEW 30 S GROUP MINUTES HOSPITAL JAMIL - 4 4 N OUTPATIEN COMMUNITY T HOSPITA EMERGENCY 44997 [facility] 4 4 [facility] EMERGENCY T VISIT PHYS HIGH/URGE NT SEVERITY EMERGENCY 42939 [facility] 4 4 N DEPARTMEN COMMUNITY T VISIT HOSPITA MODERATE SEVERITY HOSPITAL [facility] - 4 4 HOSPITAL OUTPATIEN T OFFICE 53891 LIN MCCABE WILMER OUTPATIEN 4 4 [facility] T VISIT MEDICAL 15 G MINUTES OFFICE 11250 [facility] NIHARIKA OUTPATIEN 4 4 N FAMILY TOD T VISIT PRACTICE 25 MINUTES EMERGENCY 06074 [facility] DEPT 4 4 CJ MERARY VISIT EMERGENCY HIGH PHYS SEVERITY& THREAT [facility] - 4 4 HOSPITAL OUTPATIEN T OFFICE 60750 LIN MCCABE [facility] 4 4 [facility] T NEW 60 MEDICAL MINUTES G [facility]GENCY 26646 [facility] DEPARTMEN EMERGENCY T VISIT PHYS MODERATE SEVERITY EMERGENCY 87624 [facility] 4 4 CJ DEPARTMEN EMERGENCY T VISIT PHYS MODERATE SEVERITY OFFICE 46304 LALADorcas BUNDY OUTPATIEN 4 4 N FAMILY TOD T VISIT PRACTICE 25 MINUTES OFFICE 45581 JAMIL MANZO CONSULTAT 4 4 N ION NEUROLOGY NEW/ESTAB PATIENT 60 MIN EMERGENCY 47340 [facility] 4 4 CJ DEPARTMEN EMERGENCY T VISIT PHYS HIGH/URGE NT SEVERITY OFFICE 71695 JAMIL LARAT OUTPATIEN 4 4 N FAMILY TOD T VISIT PRACTICE 25 MINUTES OFFICE 57465 JAMIL GARNERMAN OUTPATIEN 4 4 N FAMILY JR RAY T VISIT PRACTICE 15 MINUTES OFFICE 39451 TEJAS HER OUTPATIEN 4 4 MEDICAL RYA T VISIT SERV 15 FOUNDATIO MINUTES EMERGENCY 21840 [facility] DEPARTMEN EMERGENCY T VISIT PHYS MODERATE SEVERITY OFFICE 36658 JAMIL GRAHAM OUTPATIEN 4 4 N FAMILY JR RAY T VISIT PRACTICE 15 MINUTES EMERGENCY 27572 [facility] 4 4 [facility] DEPARTMEN EMERGENCY T VISIT PHYS MODERATE SEVERITY HOSPITAL [facility] - 4 4 Y [facility] HOSPITAL T EMERGENCY 55394 [facility] DEPT 4 4 CJ BRO VISIT EMERGENCY HIGH PHYS SEVERITY& THREAT FUNCJ OFFICE 01303 [facility] NIHARIKA OUTPATIEN 4 4 N FAMILY TOD T VISIT PRACTICE 25 MINUTES EMERGENCY 73756 [facility] 4 4 CJ [facility] DEPARTMEN EMERGENCY T VISIT PHYSI HIGH/URGE NT SEVERITY HOSPITAL UNIVERSIT - 4 4 Y [facility] UNIVERSIT - 4 4 Y [facility] T OFFICE 81751 [place] [facility] 4 4 MEDICAL RYA ION SERV NEW/ESTAB FOUNDATIO PATIENT 40 MIN EMERGENCY 65563 [facility] DEPT 4 4 CJ III DUANE VISIT EMERGENCY HIGH PHYS SEVERITY& THREAT FUNCJ OFFICE 91527 [facility] OUTPATI[facility] 4 4 N FAMILY TOD T VISIT PRACTICE 15 MINUTES [facility] 98816 [facility] OUTPATI[facility] 4 4 N FAMILY TOD T VISIT PRACTICE 15 MINUTES OFFICE 27887 [facility] M[place]AR[place] OUTPATIEN 4 4 N FAMILY HEN T VISIT PRACTICE 15 MINUTES EMERGENCY 23929 [facility] 4 4 [facility] DEPARTMEN INC T VISIT LIMITED/M [facility] MOISE - 4 4 [facility] OUTPATIEN INC T OFFICE 97520 [facility] SALINAS OUTPATIEN 2 2 ELIAS ELIAS T VISIT 15 MINUTES OFFICE 63829 [facility] NIHAR[facility]A OUTPATIEN 2 2 TOD TOD T VISIT 15 MINUTES OFFICE 24033 [facility] BRAD OUTPATIEN 2 2 ELIAS ELIAS T VISIT 15 MINUTES OFFICE 16404 [facility] ANGELON OUTPATIEN 2 2 HEN HEN T VISIT 15 MINUTES EMERGENCY 56732 DORINDA DEL TORO 2 2 EMERGENCY MATI DEPARTMEN SERVICES T VISIT MODERATE SEVERITY EMERGENCY 24911 RECHTIN RECHTIN 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 T VISIT MODERATE SEVERITY OFFICE 55478 [facility] OUTPATIEN 2 2 TOD TOD T VISIT 15 MINUTES OFFICE 21851 [facility]ARIKA OUTPATIEN 2 2 TOD TOD T VISIT 25 MINUTES OFFICE 61781 [facility] NIHARIKA OUTPATIEN 2 2 TOD TOD T VISIT 25 MINUTES OFFICE 65439 [facility] NIHARIKA OUTPATIEN 2 2 TOD TOD T VISIT 15 MINUTES EMERGENCY 04417 WANG PIÑA 2 2 MATI MATI DEPARTMEN T VISIT MODERATE SEVERITY OFFICE 14775 [facility] NIHARIKA OUTPATIEN 2 2 TOD TOD T VISIT 15 MINUTES EMERGENCY 90635 ANDREI FORBES 2 2 GAR GAR DEPARTMEN T VISIT MODERATE SEVERITY OFFICE 18099 [facility] NIHARIKA OUTPATIEN 2 2 TOD TOD T VISIT 25 MINUTES OFFICE 52528 [facility] NIHARIKA OUTPATIEN 1 1 TOD TOD T VISIT 15 MINUTES OFFICE 46358 [facility] NIHARIKA OUTPATIEN 1 1 TOD TOD T VISIT 15 MINUTES EMERGENCY 59731 [facility] CELLAROSI DEPT 1 1 - YORBA - YORBA VISIT PAT PAT HIGH SEVERITY& THREAT FUNCJ OFFICE 11001 [facility] NIHARIKA OUTPATIEN 1 1 TOD TOD T VISIT 15 MINUTES OFFICE 15033 GE[facility]AR[facility]A OUTPATIEN 1 1 N FAMILY TOD T VISIT PHYS PSC 25 MINUTES OFFICE 13025 GEORGETOW NIHARIKA OUTPATIEN 1 1 N FAMILY TOD T VISIT PHYS PSC 15 MINUTES EMERGENCY 52061 [facility]ATE SEVERITY OFFICE 12912 GEORGETOW MARGARETTE OUTPATIEN 1 1 N FAMILY HEN T VISIT PHYS PSC 15 MINUTES OFFICE 92283 GEORGETOW NIHARIKA OUTPATIEN 1 1 N FAMILY TOD T VISIT PHYS PSC 15 MINUTES OFFICE 95730 GEORGETOW NIHARIKA OUTPATIEN 1 1 N FAMILY TOD T VISIT PHYS PSC 15 MINUTES OFFICE 34038 GEORGETOW NIHARIKA OUTPATIEN 1 1 N FAMILY TOD T VISIT PHYS PSC 25 MINUTES EMERGENCY 71770 [facility]ATE SEVERITY OFFICE 81685 [facility] NIHARIKA OUTPATIEN 1 1 N FAMILY TOD T VISIT PHYS PSC 15 MINUTES OFFICE 98201 GEORGETOW NIHARIKA OUTPATIEN 1 1 N FAMILY TOD T VISIT PHYS PSC 15 MINUTES OFFICE 83663 [facility] OUTPAT[place] 1 1 [place] ELIAS T VISIT ORTHOPAED [facility] MINUTES OFFICE 46317 GEORGETOW NIHARIKA OUTPATIEN 1 1 N FAMILY TOD T VISIT PHYS PSC 15 MINUTES OFFICE 15032 [facility] [place]PATI[place] 1 1 [place] ELIAS T VISIT ORTHOPAED [facility] MIN[facility]ES [facility] - 1 1 N OUTPATIEN COMMUNITY T HOSPITA OFFICE 03244 GE[facility] NIHARIKA OUTPATIEN 1 1 N FAMILY TOD T VISIT PHYS PSC 15 MINUTES OFFICE 32883 KENMORE [facility] 1 1 [place] [facility]AED NEW/ESTAB [facility] PATIENT 40 MIN EMERGENCY [id number] DORINDA FLORES 1 1 EMERGENCY [facility] T VISIT HIGH/URGE NT SEVERITY OFFICE [id number] [facility] OUTPATIEN 1 1 N FAMILY TOD T VISIT PHYS PSC 15 MINUTES OFFICE [id number] [facility] OUTPATIEN 0 0 N FAMILY TOD T VISIT PHYS PSC 15 MINUTES OFFICE 38400 [facility] OUTPATIEN 0 0 N FAMILY TOD T VISIT PHYS PSC 25 MINUTES OFFICE 66625 [facility] OUTPATIEN 0 0 N FAMILY TOD T VISIT PHYS PSC 15 MINUTES [facility]OSP[facility] - 0 0 N [facility] 0 0 N OUTPATIEN COMM[facility] T HOSPITA EMERGENCY [id number] [facility] 0 0 N [facility] COMM[facility] T VISIT [facility] MODERATE SEVERITY OFFICE 06896 [facility]ARIKA OUTPATIEN 0 0 N FAMILY TOD T VISIT PHYS PSC 25 MINUTES OFFICE [id number] [facility] OUTPATIEN 0 0 N FAMILY TOD T VISIT PHYS PSC 15 MINUTES OFFICE 96158 [facility] OUTPATIEN 0 0 N FAMILY TOD T VISIT PHYS PSC 25 MINUTES OFFICE 21149 [facility] OUTPATIEN 0 0 N FAMILY TOD T VISIT PHYS PSC 25 MINUTES OFFICE 95867 [facility] OUTPATIEN 0 0 N FAMILY TOD T VISIT PHYS PSC 15 MINUTES OFFICE 50581 [facility] OUTPATIEN 0 0 N FAMILY TOSaira JAUREGUI 30 PHYS PSC MINUTES
--- OUTSIDE RECORDS SUMMARY | 2017-01-27 16:32 | External Medical Summary Rpt ---
Author Author , Organization [employer] Address Unknown Phone Unavailable Care Team Providers Care Software Business Analyst Name Role Phone LIDIA, LIDIA Unavailable Unavailable [...] WILMER HERNÁNDEZ ALL, HERNÁNDEZ ALL Unavailable Unavailable [facility] Unavailable Unavailable HOSPITAL, [facility] Unavailable Unavailable BRIDGES, BRIDGES Unavailable [facility]available [facility] Unavailable Unavailable SERVICE, [facility] Unavailable Unavailable SERVICE, [facility] ABIMAEL KAYODE, ABIMAEL Unavailable Unavailable KAYODE CASE JUS, CASE JUS Unavailable Unavailable TAINA RYA, TAINA Unavailable Unavailable RYA CELLAROSI - YORBA Unavailable Unavailable PAT, CELLAROSI - YORBA PAT CELLAROSI - YORBA Unavailable Unavailable PAT, CELLAROSI - YORBA [facility] Un[facility] Un[facility], [facility] CHANDEL, CHANDEL Unavailable Unavailable LUTZ, LUTZ Unavailable Unavailable ONEILL, ONEILL Unavailable Unavailable [facility], Unavailable Unavailable [facility] JAMIE GAR, JAMIE Unavailable Unavailable GAR [facility], Unavailable Unavailable [facility] # [id number], Unavailable Unavailable [facility] # [id number] [place] [facility] [...] ELSIE MERARY, ELSIE Unavailable Unavailable MERARY [facility] Unavailable Unavailable HOSPITA, [facility] Unavailable Unavailable HOSPITA, [facility] Unavailable Unavailable PHYS PSC, [facility] Unavailable Unavailable PRACTICE, [facility], Unavailable Unavailable [facility] GINGER, GINGER Unavailable Unavailable TELLEZ MERARY, TELLEZ Unavailable Unavailable MERARY JAMES, JAMES Unavailable Unavailable JAMES RHO, JAMES Unavailable Unavailable RHO GROVES MATI, GROVES Unavailable Unavailable MATI CARPIO, CARPIO Unavailable Unavailable FORBES GAR, FORBES Unavailable Unavailable GAR FORBES GAR, FORBES Unavailable Unavailable GAR [facility] Unavailable Unavailable INC, [facility] Unavailable Unavailable HOSPITAL, [facility] Unavailable Unavailable HOSPITAL P, [facility] P [facility], Unavailable Unavailable [facility] BOWIE AMA, BOWIE Unavailable Unavailable AMA ALDANA ROSALINA, ALDANA ROSALINA Unavailable Unavailable TEE TRA, TEE TRA Unavailable Unavailable [facility] Unavailable Unavailable [facility], [facility] RENE III NORMA, Unavailable Unavailable RENE III NORMA [facility] Un[facility] Unavailable GROUP PS, [facility] Unavailable Unavailable [facility], [facility] Unavailable Unavailable MEDICAL G, [facility] MEDICAL G [facility] Unavailable Unavailable PRACTITIONER GR, [facility] KOSTELIC, KOSTELIC Unavailable Unavailable [...] [facility] [place] Unavailable Unavailable [facility], [facility] ELIOT WILMER, ELIOT WILMER Unavailable Unavailable TIAN GRUPO, TIAN Unavailable Unavailable GRUPO [facility], Unavailable Unavailable DORINDA GRE [facility], Unavailable Unavailable DORINDA [facility] Unavailable Unavailable SERVICES, [facility] Unavailable [...] RADMANESH SHA, Unavailable Unavailable RADMANESH SHA RECHTIN FIRE SUPERVISOR, RECHTIN Unavailable Unavailable FIRE SUPERVISOR NIHARIKA TOD, Unavailable Unavailable NIHARIKA TOD NIHARIKA [...] Unavailable Unavailable [facility], [facility], Unavailable Unavailable [facility], Unavailable Unavailable [facility] MONTILLA, MONTILLA Unavailable Unavailable [facility], Unavailable Unavailable [facility]ERY AND, USERY AND Unavailable Unavailable LUKAS WILMER, LUKAS Unavailable Unavailable WILMER [id number] # Unavailable Unavailable [id number], [id number] # [id number] WALKER FOR, WALKER Unavailable Unavailable FOR [place], [...] Diagnosis DOS Provider Status E039 HYPOTHYROID 12-25-2016 [facility] ISM PHYSICIANS UNSPECIFIED GROUP E119 TYPE 2 12-25-2016 [facility] DIABETES PHYSICIANS MELLITUS GROUP WITHOUT COMPLICATIO NS E785 HYPERLIPIDE 12-25-2016 [facility] REBECCA PHYSICIANS UNSPECIFIED GROUP G629 POLYNEUROPA 12-25-2016 [facility] THY PHYSICIANS UNSPECIFIED GROUP I10 ESSENTIAL 12-25-2016 [facility] PRIMARY PHYSICIANS HYPERTENSIO GROUP N I639 CEREBRAL 12-25-2016 [facility] INFARCTION PHYSICIANS UNSPECIFIED GROUP J449 CHRONIC 12-25-2016 [facility] OBSTRUCTIVE PHYSICIANS PULMONARY GROUP DISEASE UNS L239 ALLERGIC 12-25-2016 [facility] CONTACT PHYSICIANS DERMATITIS GROUP UNSPECIFIED CAUSE L602 ONYCHOGRYPH 11-27-2016 [facility] OSIS PHYSICIANS GROUP G459 TRANSIENT 11-23-2016 [facility] CEREBRAL [facility] ISCHEMIC MEDICAL G ATTACK UNSPECIFIED Z9282 S/P ADMN 11-23-2016 [facility] TPA DIFF HEALTH FACL LAST MEDICAL G 24 HR 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 CURR FACL G8191 HEMIPLEGIA 11-22-2016 [facility] AFFECTING RIGHT DOMINANT SIDE R200 ANESTHESIA 11-22-2016 [facility] OF SKIN [facility] R4781 SLURRED 11-22-2016 [facility] SPEECH [facility] R531 WEAKNESS 11-22-2016 [facility] ON [employer] MEDICAL G Z8673 PERSONAL HX 11-22-2016 [facility] TIA & HEALTH CEREB MEDICAL G INFARCT NO RESID DEFICIT E1122 TYPE 2 11-21-2016 [facility] MELLITUS W/DIAB CHRON KIDNEY DZ E1142 TYPE 2 11-21-2016 [facility] MELLITUS W/DIAB POLYNEUROPA THY E1165 TYPE 2 11-21-2016 [facility] MELLITUS [place] HYPERGLYCEM IA E6601 MORBID 11-21-2016 [facility] OBESITY DUE TO EXCESS CALORIES E871 HYPO-OSMOLA 11-21-2016 [facility] HYPONATREMI A M6281 MUSCLE 11-21-2016 [facility] WEAKNESS N EMERGENCY GENERALIZED PHYS 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 R0789 OTHER CHEST 11-21-2016 [facility] PAIN N EMERGENCY PHYS R209 UNSPECIFIED 11-21-2016 [facility] DISTURBANCE MEDICAL G S OF SKIN SENSATION R9431 ABNORMAL 11-21-2016 [facility] [employer] [facility] IOGRAM MEDICAL G E118 TYPE 2 11-08-2016 [facility]ES [facility] MELLITUS INC W/UNS COMPLICATIO NS K219 GASTRO-ESOP 11-08-2016 [facility] H RE[facility]UX [facility] DISEASE INC WITHOUT ESOPHAGITIS N390 URINARY 11-08-2016 [facility] TRACT [facility] INFECTION INC SITE NOT SPECIFIED Z794 SENIOR CARE 11-08-2016 [facility] CURRENT USE [facility] OF INSULIN INC E07.9 DISORDER OF 11-05-2016 THYROID, UNSPECIFIED E10.40 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-05-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, UNSPECIFIED F17.210 NICOTINE 11-05-2016 DEPENDENCE, CIGARETTES, UNCOMPLICAT ED G89.29 OTHER 11-05-2016 CHRONIC PAIN M79.671 PAIN IN 11-05-2016 RIGHT FOOT M79.672 PAIN IN 11-05-2016 LEFT FOOT Z79.4 SENIOR CARE 11-05-2016 (CURRENT) USE OF INSULIN Z79.899 OTHER LONG 11-05-2016 TERM (CURRENT) DRUG THERAPY Z88.1 ALLERGY 11-05-2016 STATUS TO OTHER ANTIBIOTIC AGENTS STATUS Z88.8 ALLERGY 11-05-2016 STATUS TO OTHER DRUGS, MEDICAMENTS AND BIOLOGICAL SUBSTANCES STATUS E1121 TYPE 2 11-02-2016 [facility] DIABETES N EMERGENCY MELLITUS PHYS W/DIABETIC NEPHROPATHY I34474 PAIN IN 11-02-2016 [facility] RIGHT FOOT N EMERGENCY PHYS X43405 PAIN IN 11-02-2016 [facility] LEFT FOOT N EMERGENCY PHYS L600 INGROWING 09-09-2016 [facility] NAIL PHYSICIANS GROUP J9811 ATELECTASIS 08-30-2016 [facility] M940 CHONDROCOST 08-30-2016 [facility] AL JUNCTION N EMERGENCY SYNDROME PHYS TIETZE R079 CHEST PAIN 08-30-2016 [facility] [place] UNSPECIFIED RADIOLOGY T79570 PAIN IN 08-07-2016 [facility] LEFT TOES N EMERGENCY PHYS J069 ACUTE UPPER 07-08-2016 [facility] N EMERGENCY RESPIRATORY PHYS INFECTION UNSPECIFIED R51 HEADACHE 07-08-2016 [facility] N EMERGENCY PHYS E079 DISORDER OF 07-05-2016 [facility] U[facility]PEC[facility]PITAL J209 ACUTE 07-05-2016 [facility] BRONCHITIS N EMERGENCY UNSPECIFIED PHYS J66752 OTHER LONG 07-05-2016 [facility] TERM [facility] CURRENT HOSPITAL DRUG THERAPY Z881 ALLERGY 07-05-2016 [facility] STATUS TO COMMUNITY OTHER HOSPITAL ANTIBIOTIC AGENTS STATUS I872 VENOUS 05-13-2016 [facility] CY CHRONIC MEDICAL G PERIPHERAL R609 EDEMA 05-13-2016 [facility] UNSPECIFIED HEALTH MEDICAL G N90368 SPONDYLOSIS 05-07-2016 JOSE M FELIX, W/O , PSC MYELOPATH/R ADICULOPATH Y LUMB RGN M5136 OTH 05-07-2016 ISADORA SELBY MD, PSC RAL DISC DEGEN LUMBAR REGION R0600 DYSPNEA 04-23-2016 [facility] UNSPECIFIED HEALTH MEDICAL G E1140 TYPE 2 DM 04-19-2016 [facility] NURSE WITH PRACTITIONE DIABETIC R GR NEUROPATHY UNSPECIFIED M5406 PANNICULITI 04-16-2016 [facility] S AFFCT [facility] REGIONS NCK INC BACK LUMB REGION I350 NONRHEUMATI 04-08-2016 [facility] AORTIC [facility] VALVE STENOSIS I5189 OTHER 04-08-2016 [facility] HEART DISEASES M545 LOW BACK 04-08-2016 [facility] PAIN [facility] INC Q311 CONGENITAL 04-08-2016 [facility] STENOSIS M542 CERVICALGIA 04-05-2016 [facility], PLLC R95221 OTHER 04-05-2016 [facility] MUSCLE PHYSICIANS, SPASM PLLC M5417 RADICULOPAT 04-03-2016 RAMIRO VENEGAS CHIROPRACTI LUMBOSACRAL C CENTE REGION N83508 MIGRAINE 03-26-2016 [facility] W/O AURA NEUROLOGY INTRACT W/O STAT MIGRAINOSUS G3620LB CONTUSION 03-24-2016 [facility] OF RIGHT PHYSICIANS, FOREARM PLLC INITIAL ENCOUNTER C98455R CONTUSION 03-24-2016 [facility] OF RIGHT PHYSICIANS, WRIST PLLC INITIAL ENCOUNTER V58488 PAIN IN 03-21-2016 [place] RIGHT MEDICAL FOREARM IMAGING ASS T81274 PAIN IN 03-21-2016 [place] RIGHT HAND MEDICAL IMAGING ASS R42 DIZZINESS 03-21-2016 [place] AND MEDICAL GIDDINESS IMAGING ASS [id number] UNSPECIFIED 03-21-2016 [place] INJURY MEDICAL RIGHT IMAGING ASS FOREARM INITIAL ENCNTR U0267NI UNSPECIFIED 03-21-2016 [place] INJURY RT MEDICAL WRIST HAND IMAGING ASS FINGERS INITIAL G57733 MIGRAINE 03-19-2016 [facility] INTRACT W/O HOSPITAL STATUS MIGRAINOSUS M4726 OTH 03-12-2016 [facility] SPONDYLOSIS [facility] INC W/RADICULOP ATHY LUMBAR REGION R202 PARESTHESIA 02-29-2016 [place] OF SKIN MEDICAL IMAGING ASS M5126 OTH 02-27-2016 ISADORA SELBY MD, PSC RAL DISC DISPLACEMEN T LUMBAR RGN M5416 RADICULOPAT 02-27-2016 [facility] LUMBAR MEM HOS[facility] REGION INC Z0100 ENCOUNTER 02-23-2016 [place] EXAM EYES & GRE VISION W/O ABNORMAL FIND M5116 INTERVERTEB 02-02-2016 [facility] RAL DISC MEM HOSP D/O INC W/RADICULOP ATHY LUMB RGN E876 HYPOKALEMIA 01-19-2016 [facility] PHYSICIANS GROUP E1065 TYPE 1 01-18-2016 [place] DIABETES MEDICAL MELLITUS IMAGING ASS WITH HYPERGLYCEM IA E1100 TYPE 2 DM 01-18-2016 [facility] W/HYPEROSMO PHYSICIANSBRIDGET W/O PLLC NKHC I88592 TYPE 2 01-18-2016 [facility] P W/HYPOGLYCE REBECCA W/O COMA Z1231 ENCOUNTER 01-17-2016 [place] SCREENING MEDICAL MAMMO MALIG IMAGING ASS NEOPLASM BREAST E669 OBESITY 01-04-2016 [facility] L259 UNSPECIFIED 01-04-2016 [facility] UNSPECIFIED CAUSE Z1239 ENCOUNTER 12-21-2015 [facility] MALIG NEOPLASM BREAST H9209 OTALGIA 12-11-2015 [facility] E1151 TYPE 2 DM 12-07-2015 [facility] W/DIAB PODIATRY PERIPH ANGIOPATHY W/O GANGRENE M2570 OSTEOPHYTE 12-07-2015 [facility] UNSPECIFIED PODIATRY JOINT R05 COUGH 2015 [place] [facility] R1084 GENERALIZED 2015 [place] ABDOMINAL MEDICAL PAIN IMAGING ASS R109 UNSPECIFIED 2015 [facility] ABDOMINAL PHYSICIANS, PAIN PLLC R319 HEMATURIA 2015 [place] UNSPECIFIED MEDICAL IMAGING ASS R509 FEVER 2015 [place] UNSPECIFIED MEDICAL IMAGING ASS Z720 TOBACCO USE 2015 [facility] INC B370 CANDIDAL 11-30-2015 [place] STOMATITIS [facility] I739 PERIPHERAL 10-27-2015 [facility] DISEASE MEDICAL UNSPECIFIED EQUIPME M179 OSTEOARTHRI 08-11-2015 [place] TIS OF KNEE [facility] UNSPECIFIED M549 DORSALGIA 07-31-2015 [facility] M5127 OTH 07-07-2015 [place] INTERVERTEB MEDICAL RAL DISC IMAGING ASS DISPLACEMEN T LS REGION N764 ABSCESS OF 07-07-2015 [facility] VULVA PHYSICIANS GROUP T43492 CUTANEOUS 07-06-2015 [facility] ABSCESS OF MEM HOSP TRUNK INC UNSPECIFIED T99351 CELLULITIS 07-04-2015 [facility] OF OTHER PHYSICIANS, SITES [facility] P26880 ENCOUNTER 06-19-2015 [facility]FF[facility] CLEANER EX[facility] GENERAL RTN W/O ABNORMAL FIND M1612 UNILATERAL 06-13-2015 [place] PRIMARY MEDICAL OSTEOARTHRI IMAGING ASS TIS LEFT HIP S19486 PAIN IN 06-13-2015 [place] LEFT HIP MEDICAL IMAGING ASS M09483 HORDEOLUM 05-15-2015 [facility] EXTERNUM PHYSICIANS, RIGHT UPPER [facility] EYELID 462 ACUTE 04-12-2015 [facility] PHARYNGITIS PHYSICIANS, [facility] 7862 COUGH 04-12-2015 [place] [facility] 77263 DIAB W/O 03-23-2015 [facility] COMP TYPE [facility] II/UNS NOT HOSPITAL STATED UNCNTRL 3559 MONONEURITI 03-23-2015 [facility] S [facility] SITE 08610 OTHER SIGN 03-09-2015 [facility] AND SYMPTOM [facility] IN BREAST INC 2724 OTHER AND 02-28-2015 [facility] UNSPECIFIED HEALTH MEDICAL G HYPERLIPIDE REBECCA 67594 MASTODYNIA 02-01-2015 [place] [facility] 48365 LUMP OR 02-01-2015 [place] MASS IN MEDICAL BREAST IMAGING ASS 91061 DIAB W/OTH 01-12-2015 [facility] MANIFESTS PHYSICIANS, TYPE II/UNS [facility] NOT UNCNTRL 23326 PRESSURE 01-12-2015 [facility] ULCER OTHER PHYSICIANS, SITE [facility] 6822 CELLULITIS 12-25-2014 [facility] AND ABSCESS PHYSICIANS, OF TRUNK PLL 4660 ACUTE 12-18-2014 [facility] BRONCHITIS PHYSICIANS, [facility] 7869 OTH 12-18-2014 [place] SYMPTOMS MEDICAL INVOLVING IMAGING ASS RESPIRATORY SYSTEM&CHES T 63739 CHRONIC 11-23-2014 [facility] VENOUS HEALTH HYPERTENSIO MEDICAL G N WITHOUT COMPS 7823 EDEMA 11-23-2014 [facility] HEALTH MEDICAL G 02612 OBESITY, 11-15-2014 [facility] 75907 CHRONIC 11-15-2014 [facility] VENOUS HEALTH HYPERTENSIO MEDICAL G N WITH INFLAMMATIO N 4019 UNSPECIFIED 11-11-2014 [facility] HYPERTENSIO HOSPITAL P N 91956 ASTHMA, 11-11-2014 [facility] P UNSPECIFIED STATUS 6110 INFLAMMATOR 11-11-2014 [facility] DISEASE [facility] P 89649 SHORTNESS 11-04-2014 [facility] 06209 OSTEOARTHRO 11-02-2014 [facility] SIS UNSPEC PHYSICIANS WHETHER GROUP GEN/LOC LOWER LEG V7612 OTHER 11-02-2014 [facility] SCREENING COMMUNTIY MAMMOGRAM HOSPITA 2768 HYPOPOTASSE 10-24-2014 [facility] P V5869 LONG-TERM 10-24-2014 [facility] (CURRENT) [facility] USE OF HOSPITAL P OTHER MEDICATIONS 5693 HEMORRHAGE 10-17-2014 [facility] OF RECTUM COMMUNTIY AND ANUS HOSPITA 5789 UNSPECIFIED 10-17-2014 [place] HEMORRHAGE ANESTHESIA OF GROUP PS GASTROINTES TINAL TRACT V7651 SPECIAL 10-17-2014 [facility] SCREENING LLC FOR MALIGNANT NEOPLASMS COLON 91536 PAIN IN 09-30-2014 [place] JOINT, MEDICAL LOWER LEG IMAGING ASS V571 OTHER 09-25-2014 [facility] PHYSICAL MEM H[facility] THERAPY INC 44937 OTHER 09-22-2014 [facility] MALAISE AND FAMILY FATIGUE PRACTICE 72204 MORBID 09-15-2014 [facility] OBESITY [facility] INTERNAL MED 2449 UNSPECIFIED 09-14-2014 [facility] HOSP HYPOTHYROID INC ISM 496 CHRONIC 09-14-2014 [facility] AIRWAY [facility] OBSTRUCTION INC NEC 5718 OTHER 09-14-2014 [place] CHRONIC MEDICAL NONALCOHOLI IMAGING ASS C LIVER DISEASE 84247 DIARRHEA 09-14-2014 [place] MEDICAL [facility] 88454 ABDOMINAL 09-14-2014 [place] PAIN, MEDICAL UNSPECIFIED IMAGING ASS SITE 7891 HEPATOMEGAL 09-14-2014 [place] Y MEDICAL IMAGING ASS V8542 BODY MASS 09-14-2014 [facility] 45.0-49.9 HOSPITAL P ADULT 67787 UNSPECIFIED 08-27-2014 [facility] SLEEP COMMUNTIY APNEA HOSPITA 7177 CHONDROMALA 08-19-2014 [facility] SHAY OF PHYSICIANS PATELLA GROUP 91938 OTHER 08-19-2014 [facility] SYNOVITIS PHYSICIANS AND GROUP TENOSYNOVIT IS V4589 OTHER 08-19-2014 [facility] POSTSURGICA PHYSICIANS L STATUS GROUP OTHER 70591 EFFUSION OF 08-12-2014 [facility] LOWER LEG MEDICAL JOINT IMAGING ASS 14934 PATELLAR 08-12-2014 [facility] TENDINITIS MEDICAL IMAGING ASS 8363 CLOSED 08-12-2014 [facility] DISLOCATION MEDICAL OF [place] IMAGING ASS 50134 PRIMARY 07-26-2014 [facility] LOCALIZED TECHNOLOGIE OSTEOARTHRO S INC SIS LOWER LEG 12401 EFFUSION OF 07-26-2014 [facility] JOINT, TECHNOLOGIE SITE S INC UNSPECIFIED 52535 SWELLING OF 07-20-2014 [facility] LIMB MEDICAL IMAGING ASS 84551 OTHER 06-28-2014 [facility] DISORDER OF MEM HOS[facility] MUSCLE INC LIGAMENT AND FASCIA 99508 HYPERSOMNIA 06-28-2014 [facility] UNSPECIFIED PRACTICE 57312 OTHER 06-24-2014 [place] DISEASES OF MEDICAL LUNG NOT IMAGING ASS ELSEWHERE CLASSIFIED 486 PNEUMONIA, 06-22-2014 [facility] ORGANISM N EMERGENCY UNSPECIFIED PHYS 14540 ABDOMINAL 06-21-2014 [place] PAIN OTHER MEDICAL SPECIFIED IMAGING ASS SITE 86609 MIGRAINE 06-16-2014 [facility] UNSP W/O DIAGNOSTICS INTRACT W/O STATUS MIGRAINOSUS 7079 CHRONIC 06-16-2014 [facility] ULCER OF FAMILY UNSPECIFIED PRACTICE SITE 2469 UNSPECIFIED 06-06-2014 [facility] DISORDER COMMUNITY OF THYROID HOSPITA 2720 PURE 06-06-2014 [facility] HYPERCHOLES [facility] TEROLEMIA HOSPITA 04592 OTHER ACUTE 06-06-2014 [facility] PAIN [facility] HOSPITA 7840 HEADACHE 06-06-2014 [facility] N EMERGENCY PHYS 95047 NAUSEA 06-06-2014 [facility] ALONE [facility] HOSPITA V5867 LONG-TERM 06-06-2014 [facility] USE OF [facility] INSULIN HOSPITA 4241 AORTIC 05-30-2014 [facility] VALVE HEALTH DISORDERS MEDICAL G 5180 PULMONARY 05-30-2014 [facility] 09518 DIAB 05-20-2014 [facility] W/NEURO FAMILY MANIFESTS PRACTICE TYPE II/UNS NOT UNCNTRL 84049 ESOPHAGEAL 05-20-2014 [facility] REFLUX FAMILY PRACTICE 28841 CHEST PAIN 04-30-2014 [facility] UNSPECIFIED N EMERGENCY PHYS 7464 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 [facility] CY OF AORTIC VALVE 44448 PRECORDIAL 04-26-2014 [facility] 4139 OTHER AND 04-25-2014 [facility] UNSPECIFIED N EMERGENCY ANGINA PHYS PECTORIS 72256 UNSPECIFIED 04-18-2014 [facility] CONJUNCTIVI PHYS TIS 01669 HORDEOLUM 04-16-2014 [facility] INTERNUM N EMERGENCY PHYS 4611 ACUTE 04-15-2014 [facility] SINUSITIS PRACTICE 7812 ABNORMALITY 04-05-2014 [facility] NEUROLOGY 39835 PAIN IN 03-28-2014 [place] JOINT, MEDICAL ANKLE AND IMAGING ASS FOOT 7295 PAIN IN 03-28-2014 [place] SOFT MEDICAL TISSUES OF IMAGING ASS LIMB 8449 SPRAIN&STRA 03-28-2014 [facility] OF N EMERGENCY UNSPECIFIED PHYS SITE OF KNEE&LEG E9279 UNS 03-28-2014 [facility] OVEREXERT& N EMERGENCY STRENUOUS&R PHYS EPETITIVE MVMNTS/LOAD S 2722 MIXED 03-10-2014 [facility] HYPERLIPIDE DIAGNOSTICS REBECCA 4011 ESSENTIAL 03-10-2014 [facility] HYPERTENSIO [facility] N, BENIGN PRACTICE 7242 LUMBAGO 03-10-2014 [facility] 7213 LUMBOSACRAL 02-21-2014 [facility] SPONDYLOSIS FOUNDATIO WITHOUT MYELOPATHY 7292 UNSPECIFIED 02-21-2014 [place] [facility] NEURALGIA SERV NEURITIS FOUNDATIO AND RADICULITIS 3572 POLYNEUROPA 02-20-2014 [facility] THY IN N EMERGENCY DIABETES PHYS 7820 DISTURBANCE 02-20-2014 [facility] OF SKIN N EMERGENCY SENSATION PHYS 3569 UNSPEC 02-08-2014 [facility] OPATHI PERIPHERAL NEUROPATHY 21002 DEHYDRATION 01-12-2014 [facility] EMERGENCY PHYS 5589 OTH&UNSPEC 01-12-2014 [facility] NONINFECTIO N EMERGENCY US PHYS GASTROENTER ITIS&COLITI S 7906 OTHER 01-12-2014 [facility] ABNORMAL N EMERGENCY BLOOD PHYS CHEMISTRY 2440 POSTSURGICA 01-11-2014 [facility] HYPOTHYROID PRACTICE ISM 66191 OTHER 12-29-2013 [facility] PAIN 7379 UNSPECIFIED 12-16-2013 [facility] SPINE 25902 DIAB W/O 11-18-2013 [facility] MENTION N EMERGENCY COMP TYPE PHYS II/UNS TYPE UNCNTRL 7804 DIZZINESS 11-18-2013 [facility] GIDDINESS PHYS 7245 UNSPECIFIED 11-17-2013 [facility] BACKACHE [facility] PRACTICE 7821 RASH AND 10-07-2013 [facility] NONSPECIFIC INC SKIN ERUPTION 4658 ACUTE URIS 12-04-2011 NIHAR[facility] OF OTHER TOD MULTIPLE SITES 8472 LUMBAR 11-01-2011 [facility] SPRAIN AND STRAIN E8889 UNSPECIFIED 11-01-2011 [facility] [place] FALL 03624 UNSPECIFIED 08-09-2011 ANDRE[facility] DRAPER SITE OF ANKLE SPRAIN AND STRAIN 9597 INJURY 08-09-2011 [facility] [place] OTHER&UNSPE RADIOLOGY CIFIED KNEE LEG ANKLE&FOOT E9270 OVEREXERTIO 08-09-2011 ANDREI DRAPER N FROM SUDDEN STRENUOUS MOVEMENT 4619 ACUTE 08-08-2011 NIHARIKA SINUSITIS, TOD UNSPECIFIED 68046 OTHER CHEST 06-01-2011 CE[facility] - PA[place] PAT 52928 GENERALIZED 05-01-2011 [facility] ANXIETY FAMILY PHYS DISORDER PSC 7241 PAIN IN 05-01-2011 [facility] THORACIC FAMILY PHYS SPINE PSC 5259 UNSPECIFIED 02-19-2011 [facility]ORDER EMERGENCY TEETH&SUPPO SERVICES RTING STRUCTURES 22531 TOOTH 02-19-2011 [facility] BROKEN FX EMERGENCY DUE TO SERVICES TRAUMA W/O MENTION COMP 6926 CONTACT 02-14-2011 [facility] DERMATITIS& FAMILY PHYS OTHER PSC ECZEMA DUE TO PLANTS 6929 CONTACT 11-19-2010 [facility] DERMATITIS& FAMILY PHYS OTHER PSC ECZEMA DUE UNSPEC CAUSE 7291 UNSPECIFIED 11-19-2010 [facility] MYALGIA FAMILY PHYS AND PSC MYOSITIS 70435 UNSPECIFIED 10-10-2010 [facility] [place] [facility] S [facility] LOWER END FOREARM 53130 SLOWING OF 10-09-2010 [facility] URINARY [place] [facility] STREAM 2448 OTHER 10-05-2010 [facility] SPECIFIED [place] INC ACQU[place] HYPOTHYROID ISM 35538 CLOSED 09-10-2010 [facility] FRACTURE OF COMMUNITY HEAD OF HOSPITA RADIUS 57609 PAIN IN 08-27-2010 [employer] JOINT, SHOULDER REGION 9249 CONTUSION 08-27-2010 [facility] OF FAMILY PHYS UNSPECIFIED PSC SITE E8881 FALL 08-25-2010 [facility] RESULTING EMERGENCY IN STRIKING SERVICES AGAINST OTHER OBJECT 8474 SPRAIN AND 07-06-2010 [facility] STRAIN OF FAMILY PHYS COCCYX PSC 3671 MYOPIA 05-10-2010 [facility] 85567 OTHER 05-10-2010 [facility] CHRONIC [facility] ALLERGIC CONJUNCTIVI TIS 86340 OPTIC NERVE 05-10-2010 [facility] HYPOPLASIA [facility] 60462 MONOCULAR 05-10-2010 [facility] EXOTROPIA [facility] 6959 UNSPECIFIED 05-04-2010 [facility] COMMUNITY ERYTHEMATOU HOSPITA S CONDITION 9995 OTHER SERUM 05-04-2010 [place] [facility] EM[facility]Y NOT SERVICES ELSEWHERE CLASSIFIED [id number] NEED PROPH 05-03-2010 [facility] VACCINATION FAMILY PHYS AGAINST PSC STREP PNEUMONE 6278 OTHER SPEC 03-22-2010 [facility] MENOPAUSAL& FAMILY PHYS POSTMENOPAU PSC [place] DISORDER [id number] ACUT 03-19-2010 [facility] SUPPRATV FAMILY PHYS OTITIS PSC MEDIA W/O SPONT RUP EARDRUM E11.00 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-HYP ROS COMA ([facility]) E11.40 TYPE 2 DIABETES MELLITUS WITH DIABETIC [...] PH AR MA CY #3 01 6 NM 59 05 06 8. 30 00 KE [...] 00 1- 3- 00 01 UC ve NM 51 20 20 03 [place] 20 [...] PH AR MA CY #3 01 6 NM 59 05 05 8. 30 00 KE [...] 00 3- 6- 00 01 UC ve NM 51 20 20 02 [place] 20 [...] 80 3- 6- 00 01 UC ve WA 21 20 20 02 [place] DE 61 [...] 00 3- 8- 00 01 UC ve NM 51 20 20 01 [place] 20 [...] 03 04 30 15 00 KE Ac NM 16 -1 -0 .0 00 NT ti [...] 80 1- 7- 00 00 UC ve WA 21 20 20 99 [place] DE 61 [...] NO 00 2- 1- 00 UC ve NM 51 20 20 99 [place] 20 [...] 03 03 30 15 00 KE Ac NM 16 -0 -2 .0 00 NT ti [...] 80 3- 0- 00 00 UC ve WA 21 20 20 99 [place] DE 61 [...] 02 03 30 15 00 KE Ac NM 16 -0 -0 .0 00 NT ti [...] 00 2- 4- 00 00 UC ve NM 51 20 20 99 [place] 20 [...] ve G 79 20 20 99 [place] 75 17 17 87 X 9 10 [...] 80 8- 0- 00 00 UC ve WA 21 20 20 99 [place] 61 [...] NO 00 6- 3 00 UC ve NM 51 20 20 99 [place] 20 [...] 91 G 4 IN ROBB LE R NM 00 12 01 15 5 00 KE [...] ve G 79 20 20 74 AI WA 75 16 17 56 D X 9 [...] AR RT ZA 11 11 11 MA NM 0 CY TO IN # DD E D 10 02 33 MG 2 TA BL ET CI 13 08 10 2 15 30 CV 52 RE Ac TA 66 -2 -2 .0 S 31 IN ti LO 80 2- 1- 00 PH 66 ROBB ve NM 01 20 20 AR RT AM 10 11 11 MA 5 CY TO HB # DD R D 40 02 33 MG 2 TA BL ET LI 68 09 10 2 30 30 CV 53 RE Ac SI 18 -1 -1 .0 S 21 IN ti NO 00 6- 8- 00 PH 11 ROBB ve NM 52 20 20 AR RT IL 00 11 11 MA -H [address] # DD Z D 20 02 -2 33 5 2 MG TA B NM 00 09 10 2 30 30 CV [...] MC 33 G 2 TA BL ET NM 00 10 10 2 30 30 CV [...] 9- 5- 00 PH 35 ROBB ve NM 01 20 20 AR RT AM 00 11 11 MA 5 CY TO HB # DD R D 20 02 33 MG 2 TA BL ET ME 59 10 10 0 21 6 CV 53 RE Ac TH 74 -0 -0 .0 S 92 IN ti YL 60 5- 5- 00 PH 24 ROBB ve NM 00 20 20 AR RT ED 10 [...] AR RT ZA 11 11 11 MA NM 0 CY TO IN # DD E D 10 02 33 MG 2 TA BL ET NM 00 07 09 2 30 30 CV [...] 6- 6- 00 PH 11 ROBB ve NM 52 20 20 AR RT IL 00 11 11 MA -H [address] # DD Z D 20 02 -2 33 5 2 MG TA B NM 00 09 09 2 30 30 CV [...] D 02 TA 33 BL 2 ET NM 00 07 08 2 30 30 CV [...] 2- 2- 00 PH 66 ROBB ve NM 01 20 20 AR RT AM 10 [...] 5- 5- 00 PH 11 ROBB ve NM 01 20 20 AR RT AM 00 11 11 MA 5 CY TO HB # DD R D 20 02 33 MG 2 TA BL ET LI 68 06 08 2 30 30 CV 50 RE Ac SI 18 -1 -1 .0 S 03 IN ti NO 00 3- 4- 00 PH 26 ROBB ve NM 52 20 20 AR RT IL 00 11 11 MA -H [address] # DD Z D 20 02 -2 33 5 2 MG TA B NM 00 06 08 2 30 30 CV [...] AR RT ZA 11 11 11 MA NM 0 CY TO IN # DD E [...] D 02 TA 33 BL 2 ET NM 00 07 07 2 30 30 CV [...] TO # DD D 02 33 2 NM 00 07 07 0 18 9 CV 51 NM Ac ED 59 -2 -2 .0 S [...] 3- 8- 00 PH 26 ROBB ve NM 52 20 20 AR RT IL 00 11 11 MA -H [address] # DD Z D 20 02 -2 33 5 2 MG TA B NM 00 06 07 2 30 30 CV [...] 0 60 30 CV 51 WE Ac NM 37 -1 -1 .0 S 13 CH [...] 02 #3 33 2 TA BL ET NM 00 06 06 0 18 9 CV [...] D 02 TA 33 BL 2 ET NM 00 04 06 2 30 30 CV [...] 3- 3- 00 PH 26 ROBB ve NM 52 20 20 AR RT IL 00 11 11 MA -H [address] # DD Z D 20 02 -2 33 5 2 MG TA B NM 00 06 06 2 30 30 CV [...] 2 60 30 CV 47 RE Ac NM 37 -0 -0 .0 S 67 IN [...] 02 33 CA 2 PS UL E NM 00 04 05 2 30 30 CV [...] 0- 5- 00 PH 68 ROBB ve NM 52 20 20 AR RT IL 00 10 11 MA -H [address] # DD Z D 20 02 -2 33 5 2 MG TA B NM 00 12 05 5 30 30 CV [...] 2 60 30 CV 47 RE Ac NM 37 -0 -0 .0 S 67 IN [...] OS ZA 11 11 11 MA I NM 0 CY - IN # YO E [...] TR TA IC BL K ET M NM 00 04 04 2 30 30 CV [...] 0- 8- 00 PH 68 ROBB ve NM 52 20 20 AR RT IL 00 10 11 MA -H [address] # DD Z D 20 02 -2 33 5 2 MG TA B NM 00 12 04 5 30 30 CV [...] 2 60 30 CV 47 RE Ac NM 37 -0 -0 .0 S 67 IN [...] 0- 2- 00 PH 68 ROBB ve NM 52 20 20 AR RT IL 00 10 11 MA -H [address] # DD Z D 20 02 -2 33 5 2 MG TA B NM 00 12 03 5 30 30 CV [...] MC 33 G 2 TA BL ET NM 00 01 03 2 30 30 CV [...] D TA 02 BL 33 ET 2 NM 00 03 03 0 10 5 CV [...] 2 60 30 CV 43 RE Ac NM 37 -0 -2 .0 S 13 IN [...] 0- 7- 00 PH 68 ROBB ve NM 52 20 20 AR RT IL 00 10 11 MA -H [address] # DD Z D 20 02 -2 33 5 2 MG TA B NM 00 12 02 5 30 30 CV [...] MC 33 G 2 TA BL ET NM 00 01 02 2 30 30 CV 44 RE Ac EM 04 -1 -1 .0 S 78 IN ti AR 61 8- 7- 00 PH 19 ROBB ve IN 10 20 20 AR RT 08 11 11 MA 0. 1 CY TO 3 # DD MG D 02 TA 33 BL 2 ET NM 00 02 02 0 15 4 CV [...] 02 33 CA 2 PS UL E NM 00 01 01 0 20 5 CV [...] 8- 8- 00 PH 78 ROBB ve NM 00 20 20 AR RT ED 10 [...] 0- 8- 00 PH 68 ROBB ve NM 52 20 20 AR RT IL 00 10 11 MA -H [address] # DD Z D 20 02 -2 33 5 2 MG TA B NM 00 12 01 5 30 30 CV [...] MC 33 G 2 TA BL ET NM 00 01 01 2 30 30 CV [...] 2 60 30 CV 43 RE Ac NM 37 -0 -2 .0 S 13 IN [...] D 02 TA 33 BL 2 ET NM 00 10 12 2 30 30 CV [...] 0- 0- 00 PH 68 ROBB ve NM 52 20 20 AR RT IL 00 10 10 MA -H [address] # DD Z D 20 02 -2 33 5 2 MG TA B NM 00 12 12 5 30 30 CV [...] 2 60 30 CV 43 RE Ac NM 37 -0 -0 .0 S 13 IN [...] 6- 3- 00 PH 21 ROBB ve NM 52 20 20 AR RT IL 00 10 10 MA -H [address] # DD Z D 20 02 -2 33 5 2 MG TA B NM 00 08 11 3 30 30 CV [...] MC 33 G 2 TA BL ET NM 00 10 11 2 30 30 CV [...] D 02 TA 33 BL 2 ET NM 00 10 10 2 30 30 CV [...] 6- 2- 00 PH 21 ROBB ve NM 52 20 20 AR RT IL 00 10 10 MA -H [address] # DD Z D 20 02 -2 33 5 2 MG TA B NM 00 08 10 3 30 30 CV [...] 8- 8- 00 PH 48 ROBB ve NM 00 20 20 AR RT ED 10 10 10 MA NI 3 CY TO SO # DD LO D NE 02 4 33 2 MG DO SE PK NM 00 08 09 1 30 30 CV [...] MC 33 G 2 TA BL ET NM 00 08 09 3 30 30 CV [...] 6- 5- 00 PH 21 ROBB ve NM 52 20 20 AR RT IL 00 10 10 MA -H [address] # DD Z D 20 02 -2 33 5 2 MG TA B ME 59 09 09 0 21 6 CV 40 RE Ac TH 74 -1 -1 .0 S 37 IN ti YL 60 4- 4- 00 PH 69 ROBB ve NM 00 20 20 AR RT ED 10 [...] 6- 6- 00 PH 21 ROBB ve NM 52 20 20 AR RT IL 00 10 10 MA -H [address] # DD Z D 20 02 -2 33 5 2 MG TA B NM 00 08 08 3 30 30 CV [...] MC 33 G 2 TA BL ET NM 00 08 08 1 30 30 CV [...] DOS Code Location Performer Comment INJECTION J1100 [facility] [place] 7 PHYSICIAN DEXAMETHO S GROUP SONE SODIUM PHOSPHATE 1 MG THERAPEUT 16146 [facility] [place] IC 7 PHYSICIAN PROPHYLAC S GROUP TIC/DX INJECTION SUBQ/IM SBSQ 04206 [facility]/DAY MEDICAL 25 G MINUTES DUPLEX 91420 [facility] SCAN 7 NE [facility] EXTRACRAN MEDICAL IAL ART G COMPL BI STUDY SBSQ 82240 [facility] 7 DE HEALTH CARE/[place] [place] [address] [facility] [place] HEAD/BRAI 7 RADIOLOGY N W/O CONTRAST MATERIAL MRI BRAIN 58291 [facility] [place] CARP[place] BRAIN 7 RADIOLOGY STEM W/[place] [address] [facility] [place] ANGIOGRAP 7 RADIOLOGY HY NECK W/CONTRAS T/[place] [address] [facility] [place] ANGIOGRAP 7 RADIOLOGY HY HEAD W/CONTRAS T/NONCONT RAST RADIOLOGI 07816 [facility] [place] KOSTELIC C 7 RADIOLOGY EXAMINAT[place] [address] [facility] [place] HEAD/BRAI 7 RADIOLOGY N W/O CONTRAST MATERIAL ECG 56176 [facility] GINGER ROUTINE 7 NE HEALTH ECG MEDICAL W/LEAST G 12 LDS I&R ONLY CRITICAL 40847 [facility] 7 NE HEALTH ILL/INJUR MEDICAL ED G PATIENT INIT 30-74 MIN SUSCEPTIB 08025 [facility] LTY STDY 7 [facility] ANTIMICRB INC INC IAL MICRO/AGA R DILUTJ URNLS DIP 13109 [facility] STICK/TAB INC INC LET RGNT AUTO W/O MICROSCOP Y CULTURE 45044 [facility] BACTERIAL 7 [facility] INC INC QUANTTATI VE COLONY COUNT URINE CULTURE 66383 [facility] BCT 7 [facility] ISOL&PRSM INC INC PTV ID ISOLATE EA URINE LIPID 18613 [facility] PANEL 7 [facility] INC INC COLLECTIO 71210 [facility] N VENOUS 7 [facility] BLOOD INC INC VENIPUNCT URE COMPREHEN 35783 [facility] SIVE 7 [facility] METABOLIC INC INC PANEL CREATININ 72798 [facility] E OTHER 7 [facility] SOURCE INC INC ALBUMIN 15034 [facility] URINE 7 [facility] MICROALBU [place] [address] [facility] FREE 7 [facility] [place] [address] [facility] THYROID 7 [facility] STIMULATI INC INC NG HORMONE TSH HEMOGLOBI 53406 [facility] N 7 [facility] GLYCOSYLA INC INC MARCO A1C BLOOD 33065 [facility] COUNT 7 [facility] COMPLETE INC INC AUTO&AUTO DIFRNTL WBC IM ADM 03864 [facility] [place] PRQ ID 7 PHYSICIAN SUBQ/IM S GROUP NJXS 1 VACCINE IIV3 51267 [facility] [place] VACCINE 7 PHYSICIAN SPLIT S GROUP VIRUS 0.5 ML DOSAGE IM USE RADIOLOGI 00754 [facility] [place] [facility] 7 RADIOLOGY CHEST 2 VIEWS FRONTAL&L ATERAL ECG 26388 [facility] ROUTINE 7 CJ ECG EMERGENCY W/LEAST PHYS 12 LDS I&R ONLY CT THORAX 08084 [facility] [place] 7 RADIOLOGY W/CONTRAS T MATERIAL RADEX 23339 [facility] [place] J[place] FOOT 7 RADIOLOGY COMPLETE MINIMUM 3 VIEWS ECG 03393 [facility] ELIOT WILMER ROUTINE 6 NE HEALTH ECG MEDICAL W/LEAST G 12 LDS W/I&R ECG 11872 [facility] ELIOT WILMER ROUTINE 6 NE [facility]ALTH ECG MEDICAL W/LEAST G 12 LDS W/I&R ALBUMIN 33398 [facility] 6 Y Y [facility] MIN QUANTIATI VE HEMOGLOBI 26980 S [place] N 6 NURSE WILMER GLYCOSYLA PRACTITIO MARCO A1C NER GR CREATININ 04005 [facility] OTHER 6 Y Y [facility] [place] [address] JOSE M DUFF DX/THER 6 MD ELVIRA, AGT PVRT PSC FACET JT LMBR/SAC 3+ LEVEL GLUC BLD 56878 [facility] GLUC MNTR 6 [facility] DEV INC INC CLEARED FDA SPEC [place] USE NJX [address] [facility] DX/THER 6 [facility] AGT PVRT INC INC FACET JT LMBR/SAC 1 LEVEL NJX 88772 [facility] DX/THER 6 [facility] AGT PVRT INC INC FACET JT LMBR/SAC 2ND LEVEL INJECTION Q[address]57 [address] PERFLUTRE N LIPID MICROSPHE RES PER ML ECHO 41910 [facility] TTHRC R-T [address] [place] [address] 2D W/WOM-MOD E COMPL SPEC&COLR D THERAPEUT 46759 [facility] BOWIE IC PX 1/> 6 AMA AREAS CHIROPRAC EACH 15 TIC CENTE MIN EXERCISES APPL 52256 [facility] MODALITY 6 AMA 1/> AREAS CHIROPRAC TRACTION TIC CENTE MECHANICA L APPL 22517 [facility] B[facility] MODALITY 6 AMA 1/> AREAS CHIROPRAC ELEC TIC CENTE STIMJ UNATTENDE D CHIROPRAC 40983 [facility] B[facility] TIC 6 AMA MANIPULAT CHIROPRAC MATEO TX TIC CENTE SPINAL 3-4 REGIONS APPL 88881 [place] MODALITY 6 AMA 1/> AREAS CHIROPRAC TIC CENTE ULTRASOUN D EA 15 MIN MANUAL 57263 [place] THERAPY 6 AMA TQS 1/> CHIROPRAC REGIONS TIC CENTE EACH 15 MINUTES RADEX 16587 [place] SPINE 6 AMA LUMBOSACR CHIROPRAC AL 2/3 TIC CENTE VIEWS APPL 64859 [place] MODALITY 6 AMA 1/> AREAS CHIROPRAC TRACTION TIC CENTE MECHANICA L APPL 65697 [place] MODALITY 6 AMA 1/> AREAS CHIROPRAC ELEC TIC CENTE STIMJ UNATTENDE D APPL 01184 [place] MODALITY 6 AMA 1/> AREAS CHIROPRAC TIC CENTE ULTRASOUN D EA 15 MIN MANUAL 02261 [place] THERAPY 6 AMA TQS 1/> CHIROPRAC REGIONS TIC CENTE EACH 15 MINUTES CHIROPRAC 25151 [place] TIC 6 AMA MANIPULAT CHIROPRAC MATEO TX TIC CENTE SPINAL 3-4 REGIONS RADEX 50554 [place] SPINE 6 AMA CERVICAL CHIROPRAC 2 OR 3 TIC CENTE VIEWS RADEX 01553 [place] [facility] ALL HAND 2 6 MEDICAL VIEWS IMAGING ASS RADEX 81471 [place] [facility] ALL FOREARM 2 [address] [place] [address] [place] [facility] ALL HEAD/BRAI 6 MEDICAL N W/O IMAGING CONTRAST ASS MATERIAL INJECTION J1885 [facility] 6 [facility] INE PER 15 MG THERAPEUT 72921 [facility] IC 6 [facility] TIC/DX INJECTION SUBQ/[place]X [address] JOSE M DUFF DX/THER 6 MD ELVIRA, AGT PVRT PSC FACET JT LMBR/SAC 3+ [place] NJX [address] JOSE M DUFF DX/THER 6 MD ELVIRA, AGT PVRT PSC FACET JT LMBR/SAC 1 [place] NJX [address]672 JOSE M DUFF DX/THER 6 MD ELVIRA, AGT PVRT PSC FACET JT LMBR/SAC 2ND LEVEL UNCLASSIF J3490 [facility] IED DRUGS 6 [facility] INC INC DRUG TST G0477 [facility] PRESUMP;C 6 [facility] PBL [place] [address] [place] ALL HEAD/BRAI 6 MEDICAL N W/O IMAGING CONTRAST ASS MATERIAL OPHTH 25470 [facility] 6 GRE GRE XM&EVAL COMPRHNSV ESTAB PT 1/> UNCLASSIF J3490 [facility] IED DRUGS 6 [facility] [place] [address] JOSE M DENA CRI DX/THER 6 MD ELVIRA, SBST PSC EPIDURAL/ SUBARACH LUMBAR/SA CRAL OBSERVATI 43436 [facility] ON/INPATI 6 PHYSICIAN [facility] CARE 50 MINUTES ECG 70538 [facility] ROUTINE 6 [facility] W/LEAST P 12 LDS I&R ONLY RADIOLOGI 56799 [place] C 6 MEDICAL SHAYNE EXAMINATI IMAGING ON CHEST ASS SINGLE VIEW FRONTAL SCREENING G0202 [place] [address] MEDICAL SHAYNE MAMMOGRAP IMAGING HY GOKUL ASS INCL CAD WHEN PERFORMD SCREENING 34675 [facility] 6 [facility] MAMMOGRAP INC INC HY BILATERAL COMPUTER- 42618 [facility] AIDED 6 MEDICAL SHAYNE DETECTION IMAGING [place] S[place] [address] [facility] THYROID 6 [facility] STIMULATI INC INC NG HORMONE TSH COMPREHEN 65940 [facility] SIVE 6 [facility] METABOLIC INC INC PANEL ALBUMIN 23752 [facility] URINE 6 [facility] MICROALBU INC INC MIN QUANTIATI VE BLOOD 02859 [facility] COUNT 6 [facility] COMPLETE INC INC AUTO&AUTO DIFRNTL WBC HEMOGLOBI 56917 [facility] N 6 [facility] GLYCOSYLA [place] [address] [facility] THYROXINE 6 [place] [address] MOISE [facility] INFUSION 6 [facility] THERAPY/P INC INC ROPHYLAXI S /DX 1ST TO 1 HR GLUC BLD 17254 [facility] GLUC MNTR 6 [facility] DEV INC INC CLEARED FDA SPEC HOME USE THERAPEUT 43110 [facility] IC 6 [facility] INJECTION INC INC IV PUSH EACH NEW DRUG UNCLASSIF J3490 [facility] IED DRUGS 6 [facility] INC INC INJECTION J2405 [facility] 6 [facility] ONDANSETR INC INC ON HCL PER 1 MG COMPREHEN 44039 MOISE [facility]ISE SIVE 6 [facility] METABOLIC INC INC PANEL IAADI 50097 [facility] INFLUENZA 6 [facility] B VIRUS INC INC IAADI 18013 [facility] INFFLUENZ 6 [facility] [place] [address] MO[facility] [place] ABDOMEN & 6 [facility] PELVIS INC INC W/O CONTRAST MATERIAL RADIOLOGI 02114 [facility] C EXAM 6 [facility] CHEST 2 INC INC VIEWS FRONTAL&L ATERAL URNLS DIP 61382 MO[facility] MOISE 6 [facility] STICK/TAB INC INC LET REAGENT AUTO MICROSCOP Y BLOOD 09945 [facility] COUNT 6 [facility] COMPLETE INC INC AUTO&AUTO DIFRNTL WBC RADIOLOGI 01134 [place] VIVIANA C 6 MEDICAL NARINDER EXAMINATI IMAGING ON [place]ST [place] NJX [address] [facility] DX/THER 6 [facility] SBST INC INC EPIDURAL/ SUBARACH LUMBAR/SA CRAL INJECTION J1030 [facility] 6 [facility] METHYLPRE INC INC DNISOLONE ACETATE 40 MG UNCLASSIF J3490 [facility] IED DRUGS 6 [facility] INC INC LOCM Q9967 [facility] [phone] 6 [facility] MG/ML INC INC IODINE CONCENTRA TION PER ML STANDARD K0001 ISHMAEL ISHMAELNORM CONWAYI 6 HOME HOME R MEDICAL MEDICAL EQUIPME EQUIPME EXCISION 61113 PROGRESSI ABIMAEL NAIL 6 VE KAYODE MATRIX PODIATRY PERMANENT REMOVAL NON-INVAS 20249 [facility] MATEO 6 [facility] PHYSIOLOG INC INC IC STUDY EXTREMITY 3 LEVLS ECG 25779 [facility] ROUTINE 6 [facility] ECG MEDICAL W/LEAST G 12 LDS W/I&R [...] DIR EQUIPMENT EQUIPMENT FORMD PRFAB EA HEMOGLOBI 49993 [facility] N 6 [facility] GLYCOSYLA INC INC MARCO A1C BLOOD 95480 [facility] COUNT 6 [facility] COMPLETE INC INC AUTO&AUTO DIFRNTL WBC COLLECTIO 28088 [facility] N VENOUS 6 [facility] BLOOD INC INC VENIPUNCT URE COMPREHEN 38943 [facility] SIVE 6 [facility] METABOLIC INC INC PANEL ECG 76961 [facility] PERALTA JR ROUTINE [address] [facility] ECG HOSPITAL W/LEAST P 12 LDS I&R ONLY APPLICATI 99241 [facility] ON 5 [facility] MODALITY INC INC 1/> AREAS HOT/COLD PACKS THERAPEUT 17177 [facility] IC PX 1/> 5 [facility] AREAS INC INC EACH 15 MIN EXERCISES E-STIM G0283 [facility] 1/> AREAS 5 [facility] OTH THAN INC INC WND CARE PART TX PLAN E-STIM G0283 [facility] 1/> AREAS 5 [facility] OTH THAN INC INC WND CARE PART TX PLAN APPL 46850 [facility] MODALITY 5 [facility] 1/> AREAS INC INC TRACTION MECHANICA L THERAPEUT 25845 [facility] IC PX 1/> 5 [facility] AREAS INC INC EACH 15 MIN EXERCISES APPLICATI 30397 [facility] ON 5 [facility] MODALITY INC INC 1/> AREAS HOT/COLD PACKS MANUAL 78508 [facility] THERAPY 5 [facility] TQS 1/> INC INC REGIONS EACH 15 MINUTES APPLICATI 98261 [facility] ON 5 [facility] MODALITY INC INC 1/> AREAS HOT/COLD PACKS THERAPEUT 97824 [facility] IC PX 1/> 5 [facility] AREAS INC INC EACH 15 MIN EXERCISES E-STIM G0283 [facility] 1/> AREAS 5 [facility] OTH THAN INC INC WND CARE PART TX PLAN 3D 08262 [facility] RENDERING 5 [facility] W/INTERP INC INC & POSTPROCE SS SUPERVISI ON MRI 22792 [facility] SPINAL 5 [facility] CANAL INC INC LUMBAR W/O CONTRAST MATERIAL SUSCEPTIB 76011 [facility] LTY STDY 5 [facility] ANTIMICRB INC INC IAL MICRO/AGA R DILUTJ CUL BACT 99286 [facility] XCPT 5 [facility] URINE INC INC BLOOD/STO OL AEROBIC ISOL PHYSICAL 24369 [facility] THERAPY 5 [facility] EVALUATIO INC INC N CYTP C/V 11154 [facility], PICKLESIM AUTO THIN 5 LLC ER JR BARBARA LYR PREPJ SCR MNL RESCR PHYS RADEX HIP 48634 [facility] UNILATERA INC INC L COMPLETE MINIMUM 2 VIEWS RADEX 66983 [facility] SPINE 5 [facility] LUMBOSACR INC INC AL MINIMUM 4 VIEWS RADIOLOGI 10186 [facility] HERN[facility]NDE[facility] ALL C EXAM 5 MEDICAL CHEST 2 IMAGING VIEWS ASS FRONTAL&L ATERAL SUSCEPTIB 66929 [facility] LTY STDY 5 [facility] ANTIMICRB INC INC IAL MICRO/AGA R DILUTJ CUL BACT 52262 [facility] AEROBIC 5 [facility] ADDL INC INC METHS DEFINITIV E EA ISOL CUL BACT 78727 [facility] XCPT 5 [facility] URINE INC INC BLOOD/STO OL AEROBIC ISOL ECG 80261 [facility] R[facility] 5 [facility] ECG MEDICAL W/LEAST G 12 LDS W/I&R US BREAST 10447 WILLI HERN[facility] ALL UNI REAL 5 MEDICAL TIME IMAGING WITH ASS IMAGE LIMITED US BREAST 54204 [facility] UNI REAL 5 [facility] TIME INC INC WITH IMAGE COMPLETE RADIOLOGI 45889 WILLI ZEPEDA C EXAM 5 MEDICAL CHEST 2 IMAGING VIEWS ASS FRONTAL&L ATERAL DUP-SCAN 12258 [facility] XTR VEINS [address] [place] [address] COMPLETE BILATERAL STUDY ECG 50889 LIN MCCABE WILMER ROUTINE 5 [facility] ECG MEDICAL W/LEAST G 12 LDS W/I&R SCREENING G0202 [facility] 5 N N MAMMOGRAP COMMUNTIY COMMUNTIY HY [facility] HOSPITA HOSPITA INCL CAD WHEN PERFORMD 30991 [facility] AIDED 5 N N DETECTION COMMUNTIY COMMUNTIY HOSPITA HOSPITA SCREENING MAMMOGRAP HY ARTHROCEN 92100 [facility] ROYAL RHODES 5 PHYSICIAN JAM ASPIR&/IN S GROUP J MAJOR JT/BURSA W/O US INJECTION J2704 [facility] PROPOFOL 5 N N 10 MG COMMUNTIY COMMUNTIY HOSPITA HOSPITA GLUC BLD 36115 [facility] GLUC MNTR 5 N N DEV COMMUNTIY COMMUNTIY CLEARED HOSPITA HOSPITA FDA SPEC HOME USE COLONOSCO 89048 GASTROENT CASE JUS PY 5 EROLOGY W/BIOPSY AND SINGLE/MU HEPATOL LTIPLE ANES 68734 WILLI TELLEZ LOWER 5 ANESTHESI MERARY INTESTINE A GROUP [place] [address] [facility], [facility], SURG 5 [facility] PATHOLOGY GROSS&MERARY ROSCOPIC EXAM THERAPEUT 40795 [facility] IC PX 1/> 5 [facility] AREAS INC INC EACH 15 MIN EXERCISES APPL 11776 [facility] MODALITY 5 [facility] 1/> AREAS INC INC VASOPNEUM ATIC DEVICES APPL 44094 [facility] MODALITY 5 [facility] 1/> AREAS INC INC ELEC STIMJ UNATTENDE D RADIOLOGI 44408 [facility] C EXAM 5 [facility] KNEE INC INC COMPLETE 4/MORE VIEWS INJ J0702 [facility] BETAMETHA 5 PHYSICIAN FRANK SONE S GROUP ACETATE & PHOSPHATE 3 MG ARTHROCEN 29819 [facility] TESIS 5 PHYSICIAN FRANK ASPIR&/IN S GROUP J MAJOR JT/BUR[place] W/[place] [address] [facility] FOX FOLIC 5 JEFF JEFF ACID [facility]INGS HOLDINGS SERUM CYANOCOBA 46249 LAB [facility] FOX PJ 5 JEFF JEFF VITAMIN HOLDINGS HOLDINGS B-12 GENERAL 60688 LAB [facility] 5 JEFF JEFF PANEL [facility] HOLDINGS OBSERVATI 31473 [facility] AND ON CARE 5 VALLEY DISCHARGE INTERNAL MED MANAGEMEN T BASIC 07956 [facility] METABOLIC 5 [facility] PANEL INC INC CALCIUM TOTAL UNCLASSIF J3490 [facility] IED DRUGS 5 [facility] INC INC COLLECTIO 51262 [facility] N VENOUS 5 [facility] BLOOD INC INC VENIPUNCT [facility] G0378 [facility] OBSERVATI 5 [facility] ON INC INC SERVICE PER HOUR BLOOD 26454 [facility] COUNT 5 [facility] COMPLETE INC INC AUTO&AUTO DIFRNTL WBC BLOOD 06695 [facility] COUNT 5 [facility] COMPLETE INC INC AUTO&[place] [address] [facility] INFUSION 5 [facility] THERAPY/P INC INC ROPHYLAXI S /DX 1ST TO 1 HR INITIAL 19227 [facility] LEANDRA OBSERVATI 5 [facility] ON INTERNAL CARE/DAY MED 30 MINUTES HOSPITAL G0378 [facility] OBSERVATI 5 [facility] ON INC INC SERVICE PER HOUR IADNA NOS 81938 [facility] AMPLIFIED INC INC PROBE TQ EACH ORGANISM COMPREHEN 95141 [facility] SIVE 5 [facility] METABOLIC INC INC PANEL COLLECTIO 74683 [facility] N VENOUS 5 [facility] BLOOD INC INC VENIPUNCT URE UNCLASSIF J3490 [facility] IED DRUGS 5 [facility] INC INC INF AGENT 44044 [facility] CHASEON DET 5 [facility] NUCLEIC INC [place] [address] [place] ABDOMEN & 5 MEDICAL SHAYNE PELVIS IMAGING W/O ASS CONTRAST MATERIAL PHYSICAL 95537 [facility] THERAPY 5 [facility] EVALUATIO INC INC N POLYSOM 83780 [facility] 6/>YRS 5 N N SLEEP 4/> COMMUNTIY COMMUNTIY ADDL HOSPITA HOSPITA [facility] ATTND ARTHROCEN 98499 [facility] ROYAL TESIS 5 PHYSICIAN FRANK ASPIR&/IN S GROUP J MAJOR JT/BURSA W/O US INJ J0702 [facility] PETTEY BETAMETHA 5 PHYSICIAN FRANK SONE S GROUP ACETATE & PHOSPHATE 3 MG MRI ANY 50855 [facility] JT LOWER 5 [facility] EXTREM INC INC W/O CONTRAST MATRL UNCLASSIF J3490 [facility] IED DRUGS 4 [facility] INC INC RADIOLOGI 73868 [facility] C 4 [facility] EXAMINATI INC INC ON KNEE 3 VIEWS CRTCHS E0114 ADV[facility]ED ADVANCED UNDARM 4 TECHNOLOG TECHNOLOG OTH THAN IES INC IES INC WOOD PAIR PAD TIP&HNDGR IP RADEX 42633 WILLI PAREKHUTCHER ANKLE 4 MEDICAL SHAYNE COMPLETE IMAGING MINIMUM 3 ASS VIEWS APPL 41654 [facility] MODALITY 4 [facility] 1/> AREAS INC INC ELEC STIMJ UNATTENDE D APPL 02276 [facility] MODALITY 4 [facility] 1/> AREAS INC INC IONTOPHOR ESIS EA 15 MIN THERAPEUT 50617 [facility] IC PX 1/> 4 [facility] AREAS INC INC EACH 15 MIN EXERCISES APPL 12884 [facility] MODALITY 4 [facility] 1/> AREAS INC INC VASOPNEUM ATIC DEVICES UNCLASSIF J3490 [facility] IED DRUGS 4 [facility] INC INC UNCLASSIF J3490 [facility] IED DRUGS 4 [facility] INC INC APPLICATI 69802 [facility] ON 4 [facility] MODALITY INC INC 1/> AREAS HOT/COLD PACKS APPL 95424 [facility] MODALITY 4 [facility]/> AREAS INC INC IONTOPHOR ESIS EA 15 MIN THERAPEUT 26084 [facility] IC PX 1/> 4 [facility] AREAS INC INC EACH 15 MIN EXERCISES APPL 29485 [facility] MODALITY 4 [facility]/> AREAS INC INC ELEC STIMJ UNATTENDE D APPL 55641 [facility] MODALITY 4 [facility] 1/> AREAS INC INC IONTOPHOR ESIS EA 15 MIN THERAPEUT 28485 [facility] IC PX 1/> 4 [facility] AREAS INC INC EACH 15 MIN EXERCISES APPLICATI 32944 [facility] ON 4 [facility] MODALITY INC INC 1/> AREAS HOT/COLD PACKS UNCLASSIF J3490 [facility] IED DRUGS 4 [facility] INC INC APPL 28927 [facility] MODALITY 4 [facility] 1/> AREAS INC INC ELEC STIMJ UNATTENDE D THERAPEUT 14387 [facility] IC PX 1/> 4 [facility] AREAS INC INC EACH 15 MIN EXERCISES APPLICATI 39990 [facility] ON 4 [facility] MODALITY INC INC 1/> AREAS HOT/COLD PACKS APPL 07245 [facility] MODALITY 4 [facility] 1/> AREAS INC INC ELEC STIMJ UNATTENDE D APPL 54320 [facility] MODALITY 4 [facility] 1/> AREAS INC INC ELEC STIMJ UNATTENDE D APPL 87834 [facility] MODALITY 4 [facility] 1/> AREAS INC INC IONTOPHOR ESIS EA 15 MIN THERAPEUT 92187 [facility] IC PX 1/> 4 [facility] AREAS INC INC EACH 15 MIN EXERCISES APPLICATI 85781 [facility] ON 4 [facility] MODALITY INC INC 1/> AREAS HOT/COLD PACKS UNCLASSIF J3490 [facility] IED DRUGS 4 [facility] INC INC UNCLASSIF J3490 [facility] IED DRUGS 4 [facility] INC INC APPLICATI 34977 [facility] ON 4 [facility] MODALITY INC INC 1/> AREAS HOT/COLD PACKS APPL 89432 [facility] MODALITY 4 [facility] 1/> AREAS INC INC IONTOPHOR ESIS EA 15 MIN THERAPEUT 05830 [facility] IC PX 1/> 4 [facility] AREAS INC INC EACH 15 MIN EXERCISES APPL 02853 [facility] MODALITY 4 [facility] 1/> AREAS INC INC ELEC STIMJ UNATTENDE D THERAPEUT 21906 [facility] IC PX 1/> 4 [facility] AREAS INC INC EACH 15 MIN EXERCISES PHYSICAL 50993 [facility] THERAPY 4 [facility] EVALUATIO INC INC N RADIOLOGI 64105 [facility] [place] C EXAM 4 MEDICAL SHAYNE CHEST 2 IMAGING VIEWS ASS FRONTAL&L ATERAL RADIOLOGI 91515 [facility] EX[facility] 4 RADIOLOGY RHO CHEST 2 VIEWS FRONTAL&[place] [address] [facility] PAREK[facility]OL[facility] ABDOMEN & 4 MEDICAL SHAYNE PELVIS IMAGING W/O ASS CONTRAST MATERIAL LIPID 23859 Hydra Dx QUEST PANEL 4 DIAGNOSTI DIAGNOSTI CS CS HEMOGLOBI 31232 Hydra Dx QUEST N 4 DIAGNOSTI DIAGNOSTI GLYCOSYLA CS CS MARCO A1C GENERAL 29354 Meetup 4 DIAGNOSTI DIAGNOSTI PANEL CS CS INJECTION J1885 [facility] 4 N N KETOROLAC [facility] HOSPITA HOSPITA TROMETHAM INE PER 15 MG THERAPEUT 54057 [facility] IC 4 N N PROPHYLAC [facility] TIC/DX HOSPITA HOSPITA INJECTION SUBQ/IM INJECTION J3030 [facility] 4 N N SUMATRIPT [facility] AN HOSPITA HOSPITA SUCCINATE 6 MG GLUC BLD 03722 [facility] GLUC MNTR 4 N N DEV [facility] CLEARED HOSPITA HOSPITA FDA SPEC HOME USE ECG 52353 [facility] ROUTINE 4 [facility] ECG MEDICAL W/LEAST G 12 LDS W/I&[place] [address] [facility] [place] KOST[place] ANGIOGRAP 4 RADIOLOGY YEN HY ABDOMEN W/CONTRAS T/[place] [address] [facility] [place] ANGIOGRAP 4 RADIOLOGY YEN HY CHEST W/CONTRAS T/NONCONT RAST LOCM Q9967 [facility] [phone] [place] [address] MG/ML IODINE CONCENTRA TION PER ML CREATININ 87662 [facility] E BLOOD [address] [place] [address] ECG 45784 [facility] EL[facility]E ROUTINE 4 CJ MERARY ECG EMERGENCY W/LEAST PHYS 12 LDS I&R ONLY LIPID [address] CV STRS [address] XERS&/OR RX CONT ECG TRCG ONLY INJECTION J[address]85 [address] REGADENOS ON 0.1 MG UNCLASSIF J3490 [facility] IED DRUGS [address] [place] [address] TECHNETIU A9502 [facility] TC-99M [address] [place] [address] TETROFOSM IN DX PER STUDY DOSE GLUCOSE 47126 [facility] BLOOD [address] [place] [address] REAGENT STRIP AMB A0427 [facility] SERVICE 4 AMBULANCE AMBULANCE ALS SERVICE SERVICE EMERGENCY TRANSPORT LEVEL 1 CV STRS 16836 LIN MCCABE [facility]ILMER TST 4 [facility] XERS&/OR MEDICAL RX CONT G ECG I&R ONLY GROUND A0425 [facility] MILEAGE 4 AMBULANCE AMBULANCE PER SERVICE SERVICE STATUTE MILE MYOCARDIA 93213 LIN MCC[facility]E [facility] L SPECT 4 NE [facility] MULTIPLE MEDICAL STUDIES G ECHO 16381 LIN MCCABE [facility] TTHRC R-T 4 NE [facility] 2D MEDICAL W/WOM-MOD G E COMPL SPEC&COLR D ECG 98679 [facility] ROUTINE 4 CJ MERARY ECG EMERGENCY W/LEAST PHYS 12 LDS I&R ONLY RADIOLOGI 47930 [place] C 4 MEDICAL SHAYNE EXAMINATI IMAGING ON CHEST ASS SINGLE VIEW FRONTAL CRITICAL 72587 [facility] CARE 4 CJ MERARY ILL/INJUR EMERGENCY ED PHYS PATIENT INIT 30-74 MIN RADIOLOGI 32677 [place] C 4 MEDICAL SHAYNE EXAMINATI IMAGING ON KNEE 3 ASS VIEWS RADIOLOGI 83855 [place] C 4 MEDICAL SHAYNE EXAMINATI IMAGING ON FEMUR ASS 2 VIEWS RADEX 39984 [place] ANKLE 4 MEDICAL SHAYNE COMPLETE IMAGING MINIMUM 3 ASS VIEWS KNEE L1830 [employer] ORTHOSIS 4 IMMOBLIZE R CANVAS LONGTUDNL PREFAB WALKER E0143 J & L J & L FOLDING 4 HOME HOME WHEELED MEDICAL MEDICAL ADJUSTABL EQUIPMENT EQUIPMENT E/FIXED HEIGHT SEAT E0156 J & L J & L ATTACHMEN 4 HOME HOME T WALKER MEDICAL MEDICAL EQUIPMENT EQUIPMENT COMPREHEN 14964 [facility] QUEST SIVE 4 DIAGNOSTI DIAGNOST[place] [address] QUEST QUEST THYROID 4 DIAGNOSTI DIAGNOSTI STIMULATI CS CS NG HORMONE TSH WRIST L3908 J & L J & L HAND 4 HOME HOME ORTHOSIS MEDICAL MEDICAL EXT EQUIPMENT EQUIPMENT CONTROL COCK-UP PREFAB LIPID 93455 QUEST QUEST PANEL 4 DIAGNOSTI DIAGNOSTI CS CS HEMOGLOBI 34414 QUEST QUEST N 4 DIAGNOSTI DIAGNOSTI GLYCOSYLA CS CS MARCO A1C NERVE 44982 [place] FEE DOM CONDUCTIO 4 MEDICAL N STUDIES SERV 9-10 FOUNDATIO STUDIES N NEEDLE 23580 [place] FEE DOM EMG EA 4 MEDICAL EXTREMTY SERV W/PARASPI FOUNDATIO NL AREA N COMPLETE RADEX ABD 44969 [place] COMPL 4 MEDICAL SHAYNE AQT ABD IMAGING W/S/E/D ASS VIEWS 1 VIEW CH TECHNETIU A9561 [facility] TC-99M 4 Y Y [facility] E DX UP TO 30 MCI BONE 22928 [place] JAMIE &/JOINT 4 MEDICAL GAR IMAGING SERV TOMOGRAPH FOUNDATIO IC SPECT RADEX 91230 [place] JOY SPINE 4 MEDICAL FRA LUMBOSACR SERV AL 2/3 FOUNDATIO VIEWS ECG 08365 [facility] ROUTINE 4 CJ III DUANE ECG EMERGENCY W/LEAST PHYS 12 LDS I&R ONLY MRI 87451 [facility] SPINAL 4 N N CANAL COMMUNTIY COMMUNTIY LUMBAR HOSPITA HOSPITA W/O CONTRAST MATERIAL INJECTION J1885 [facility] 4 N FAMILY HEN KETOROLAC PRACTICE TROMETHAM INE PER [address] [facility] IC 4 N FAMILY HEN PROPHYLAC PRACTICE TIC/DX INJECTION SUBQ/IM KNEE L1810 [facility] ORTHOSIS 2 ELIAS [place] ELASTIC ORTHOPAED JOINTS [facility]CS [facility] PREFAB CUSTOM FIT COLLECTIO 23013 QUEST QUEST N VENOUS 2 DIAGNOSTI DIAGNOSTI [place] [address] [employer] BLOOD/URI 2 DIAGNOSTI DIAGNOSTI C ACID CS CS RADIOLOGI 62250 [facility] [place] BAILEY MAT C 2 RADIOLOGY EXAMINATI ON KNEE 3 VIEWS GENERAL 02142 [facility] HEALTH 2 DIAGNOSTI DIAGNOSTI PANEL CS CS LIPID 58372 QUEST QUEST PANEL 2 DIAGNOSTI DIAGNOSTI CS CS HEMOGLOBI 14502 QUEST QUEST N 2 DIAGNOSTI DIAGNOSTI GLYCOSYLA CS CS MARCO A1C RADEX 39956 [facility] [place] RADMANESH SPINE 2 RADIOLOGY SHA LUMBOSACR AL 2/3 VIEWS RADEX 10562 [facility] [place] RENE ANKLE 2 RADIOLOGY III NORMA COMPLETE MINIMUM 3 VIEWS RADIOLOGI 79902 [facility] [place] ROME C C 1 RADIOLOGY EXAMINATI ON CHEST SINGLE VIEW FRONTAL ECG 54179 CELLAROSI CELLAROSI ROUTINE 1 - YORBA - YORBA ECG PAT PAT W/LEAST 12 LDS I&R ONLY RADEX 61325 [facility]AD ELBOW 2 1 [place] ELIAS VIEWS ORTHOPAED [facility] SUSCEPTIB 03081 [facility] LTY STDY 1 [facility] [place] [employer] ANTIMICRB IAL MICRO/AGA R DILUTJ CUL BACT 45821 [facility] AEROBIC 1 [facility] ADDL METHS DEFINITIV E EA ISOL CULTURE 93192 [facility] BACTERIAL 1 [facility] QUANTTATI VE COLON[place] COUNT URINE CULTURE 84731 [facility] BCT 1 [facility] ISOL&PRSM PTV ID ISOLATE EA URINE IAADIADOO 67414 LALADorcas BUNDY 1 N FAMILY TOD INFLUENZA PHYS PSC URINALYSI 59372 [facility] NIHARIKA S 1 N FAMILY TOD MICROSCOP PHYS PSC IC ONLY LIPID 31456 [facility] PANEL 1 [facility] THYROID 85927 [facility] HORM 1 [facility] UPTK/THYR OID HORMONE BINDING RATIO HEMOGLOBI 42405 [facility] N 1 [facility] [place] [address] [facility] THYROXINE 1 [facility] TOTAL COMPREHEN 54640 [facility] SIVE 1 [facility] [place] [address] [facility] THYROID 1 [facility] STIMULATI NG HORMONE TSH RADEX 37643 [facility] ELBOW 2 1 [place] ELIAS VIEWS ORTHOPAED [facility] THERAPEUT 78781 [facility] IC PX 1/> 1 N N [facility] EACH 15 HOSPITA HOSPITA MIN EXERCISES THERAPEUT 42637 [facility] IC PX 1/> 1 N N [facility] EACH 15 HOSPITA HOSPITA MIN EXERCISES THERAPEUT 36732 [facility] IC PX 1/> 1 N N [facility] EACH 15 HOSPITA HOSPITA MIN EXERCISES PHYSICAL 74221 [facility] THERAPY 1 N N EVALUATIO [facility] N HOSPITA HOSPITA SLINGS A4565 [employer] 1 [place] [address] [facility] RADIAL 1 EMERGENCY MEHTA HEAD/NECK SERVICES FX W/O MANIPULAT ION RADEX 66398 [facility] [place] ROME C ELBOW 1 RADIOLOGY COMPLETE MINIMUM 3 VIEWS APPLICATI 73353 [facility] ON 0 N N SURFACE [facility] NEUROSTIM HOSPITA HOSPITA ULATOR SENSORMOT 87030 RICHARDSO RICHARDSO OR XM 0 N DUANE N DUANE W/LINEN ROOM ATTENDANT TIFFANIE OCULAR DEVIJ W/I&R SPX OPHTH 05668 RICHARDSO RICHARDSO MEDICAL 0 N DUANE N DUANE XM&EVAL COMPRE NEW PT 1/> VST DETERMINA 94033 RICHARDSO RICHARDSO TION 0 N DUANE N DUANE REFRACTIV E STATE THERAPEUT 15491 [facility] IC PX 1/> 0 N N [facility] EACH 15 HOSPITA HOSPITA MIN EXERCISES PHYSICAL 48898 [facility] THERAPY 0 N N EVALUATIO [facility] N HOSPITA HOSPITA APPL 66388 [facility] MODALITY 0 N N 1/> AREAS [facility] ELEC HOSPITA HOSPITA STIMJ UNATTENDE D LIPID 15964 [facility] PANEL 0 [facility] HEMOGLOBI 01457 [facility] N 0 [facility] GLYCOSYLA MARCO A1C GENERAL 10883 [facility] HEALTH 0 [facility] PANEL GENERAL 54411 [facility]ALTH 0 [facility] PANEL LIPID 18442 [facility] PANEL 0 [facility] HEMOGLOBI 35657 [facility] N 0 [facility] GLYCOSYLA MARCO A1C Encounters Encounter Start End Date Code Location Performer Type Date OFFICE 53598 [facility] FRYMAN OUTPATIEN 7 7 PHYSICIAN T VISIT S GROUP 15 MINUTES OFFICE 97851 [facility] YMYENY OUTPATIEN 7 7 PHYSICIAN T VISIT S GROUP [address] INPATIENT EMERGENCY [address] [facility] 7 7 CJ VISIT EMERGENCY HIGH PHYS SEVERITY& THREAT FUN HOSPITAL [facility] - 7 7 [facility] OUTPATIEN INC T OFFICE 94230 [place] [facility] 7 7 [facility] T VISIT 5 INC MINUTES EMERGENCY 37507 [facility] 7 7 CJ DEPARTMEN EMERGENCY T VISIT PHYS HIGH/URGE NT SEVERITY OFFICE 51259 [facility] [place]INA OUTPATIEN 7 7 PHYSICIAN T VISIT S GROUP 25 MINUTES HOSPITAL MOISE - 7 7 [facility] OUTPATIEN INC T EMERGENCY 63614 [facility] DEPT 7 7 CJ VISIT EMERGENCY HIGH PHYS SEVERITY& THREAT FUNCJ OFFICE 72019 [facility] [place] OUTPATIEN 7 7 PHYSICIAN T VISIT S GROUP 25 MINUTES EMERGENCY 39061 [facility] 7 7 CJ DEPARTMEN EMERGENCY T VISIT PHYS MODERATE SEVERITY EMERGENCY 51068 [facility] 6 6 CJ DEPARTMEN EMERGENCY T VISIT PHYS HIGH/URGE NT SEVERITY [facility]OSP[facility] - 6 6 [facility] T EMERGENCY 41236 [facility] 6 6 [facility] T VISIT MODERATE SEVERITY OFFICE 88830 [facility] 6 6 [facility] T VISIT MEDICAL 25 G MINUTES OFFICE 25584 JOSE M BREWER OUTPATIEN 6 6 MD ELVIRA, T VISIT PSC 15 MINUTES OFFICE 23218 [facility] MCCABE [facility] OUTPATIEN 6 6 [facility] T VISIT MEDICAL 25 G MINUTES OFFICE 19543 [facility] 6 6 NURSE WILMER T VISIT PRACTITIO 15 NER GR MINUTES HOSPITAL [facility] - 6 6 [facility] MOISE - 6 6 MEM H[facility] OUTPATIEN INC T OFFICE 98632 JOSE M BREWER OUTPATIEN 6 6 MD ELVIRA, T VISIT PSC 15 MINUTES OFFICE 52170 [facility] T VISIT INC 10 MINUTES HOSPITAL [facility] 6 6 [facility] T EMERGENCY 82335 BRITTANY CADENA 6 6 PHYSICIAN U [facility] T VISIT HIGH/URGE NT SEVERITY OFFICE 70750 RAMIRO BOWIE OUTPATIEN 6 6 AMA T NEW 30 CHIROPRAC MINUTES TIC CENTE OFFICE 58880 [facility] 6 6 N T VISIT NEUROLOGY 25 MINUTES EMERGENCY 05421 BRITTANY ZIMMERMAN 6 6 [facility]YSICIAN [facility] HIGH/URGE NT SEVERITY EMERGENCY 85988 BRITTANY ZIMMERMAN 6 6 PHYSICIAN [facility] VISIT HIGH/URGE NT SEVERITY OFFICE 93782 [facility] BRAY OUTPATIEN 6 6 [facility] T VISIT HOSPITAL 15 MINUTES EMERGENCY 97258 [facility] 6 6 [facility]J [facility] T VISIT PHYSI HIGH/URGE NT SEVERITY EMERGENCY 85166 BRITTANY ZIMMERMAN 6 6 PHYSICIAN MERARY [facility] T VISIT HIGH/URGE NT SEVERITY HOSPITAL [facility] - 6 6 [facility] OUTPATIEN INC T HOSPITAL MO[facility] - 6 6 [facility] OUTPATIEN INC T OFFICE 02083 [facility] [place] OUTPATIEN 6 6 PHYSICIAN EUG T VISIT S GROUP 15 MINUTES OFFICE 62562 JOSE M DUTTON OUTPATIEN 6 6 MD ELVIRA, T VISIT [facility] 15 MINUTES HOSPITAL MOISE - 6 6 [facility] OUTPATIEN INC T OFFICE 61563 [facility] OUTPATIEN 6 6 [facility] T VISIT INC 10 MINUTES OFFICE 67731 [facility] 6 6 NURSE WILMER JAUREGUI/ESTAB NER GR PATIENT 60 MIN HOSPITAL [facility] - 6 6 [facility] OUTPATIEN INC T OFFICE 57987 JOSE M DUTTON OUTPATIEN 6 6 MD ELVIRA, T VISIT [facility] 15 MINUTES HOSPITAL MOISE - 6 6 [facility] OUTPATIEN INC T OFFICE 20756 [facility] OUTPATIEN 6 6 [facility] T VISIT INC 10 MINUTES EMERGENCY 27698 BRITTANY ROMANO DEPT 6 6 PHYSICIAN VISIT S, [facility] HIGH SEVERITY& THREAT [facility] - 6 6 [facility] OUTPATIEN INC [facility] MOISE - 6 6 [facility] OUTPATIEN INC T OFFICE 26513 [facility] BRAY OUTPATIEN 6 6 [facility] VISIT HOSPITAL 15 MINUTES OFFICE 58649 [facility] YMAN OUTPATIEN 6 6 [facility] EUG T VISIT HOSPITAL 15 MINUTES EMERGENCY 82237 [facility] 6 6 PHYSICIAN DEPARTMEN [facility] T VISIT HIGH/URGE NT SEVERITY OFFICE 66191 MO[facility] CAMERONYMAN OUTPATIEN 6 6 [facility]IS[facility]OSPITAL 10 MINUTES OFFICE 03244 MO[facility] CAMERONYMAN OUTPATIEN 6 6 [facility]IS[facility]OSPITAL 15 MINUTES EMERGENCY 76436 BRITTANY ZIMMERMAN 6 6 PHYSICIAN [facility] T VISIT HIGH/URGE NT SEVERITY OFFICE 26042 PROGRESSI ABIMAEL OUTPATIEN 6 6 VE KAYODE T VISIT PODIATRY 15 MINUTES EMERGENCY 85608 BRITTANY IRENE DEPT 6 6 PHYSICIAN CLARICE VISIT [facility] HIGH SEVERITY& THREAT [facility] - 6 6 [facility] OUTPATIEN INC T EMERGENCY 02057 [facility] 6 6 [facility] DEPARTMEN INC T VISIT HIGH/URGE NT SEVERITY OFFICE 82774 [facility] CAMERONYMAN OUTPATIEN 6 6 [facility] VIS[facility]OSPITAL 15 MINUTES HOSPITAL MO[facility] - 6 6 [facility] OUTPATIEN INC T HOSPITAL [facility] - 6 6 [facility] OUTPATIEN INC T OFFICE 21685 [facility] OUTPATIEN 6 6 [facility] T VISIT INC 10 MINUTES OFFICE 55023 JOSE M FERNANDES CRI OUTPATIEN 6 6 MD ELVIRA, T NEW 30 PSC MINUTES OFFICE 77894 PROGRESSI ABIMAEL OUTPATIEN 6 6 VE KAYODE T VISIT PODIATRY 15 MINUTES HOSPITAL MO[facility] - 6 6 [facility] OUTPATIEN INC T OFFICE 31367 [facility] ELIOT WILMER OUTPATIEN 6 6 [facility] T VISIT MEDICAL 25 G MINUTES OFFICE 84479 PROGRESSI ABIMAEL OUTPATIEN 6 6 VE KAYODE T NEW 30 PODIATRY MINUTES HOSPITAL MO[facility] - 6 6 [facility] OUTPATIEN INC T OFFICE 71983 MO[facility] KATARINA OUTPATIEN 6 6 [facility] T VISIT HOSPITAL 15 MINUTES OFFICE 24667 [facility] YMAN OUTPATIEN 6 6 [facility] 15 MINUTES OFFICE 25300 [facility] OUTPATIEN 6 6 [place] T NEW 30 ORTHOPAED MINUTES ICS PLC OFFICE 28613 [facility] BRAY OUTPATIEN 6 6 [facility] 15 MINUTES EMERGENCY 47188 BRITTANY TENORIO 5 5 PHYSICIAN WILLIE PEREZMEN S, PLLC T VISIT HIGH/URGE NT SEVERITY OFFICE 20863 [facility] NINO LIGHT 5 5 PHYSICIAN T NEW 30 S GROUP MINUTES HOSPITAL [facility] - 5 5 [facility] OUTPATIEN INC T HOSPITAL MO[facility] - 5 5 [facility] OUTPATIEN INC T EMERGENCY 34742 BRITTANY ZIMMERMAN 5 5 PHYSICIAN MERARY PEREZ[facility] T VISIT MODERATE SEVERITY HOSPITAL [facility] - 5 5 [facility] OUTPATIEN INC T HOSPITAL MO[facility] - 5 5 [facility] OUTPATIEN INC T EMERGENCY 58744 BRITTANY ROACH 5 5 PHYSICIAN NANCY DEPARTMEN S, PLLC T VISIT LOW/MODER SEVERITY EMERGENCY 05642 BRITTANY OVERTON 5 5 PHYSICIAN [facility] S, PLLC T VISIT MODERATE SEVERITY OFFICE 99275 [facility] LIGHT 5 5 [facility] EUG T VISIT HOSPITAL 15 MINUTES HOSPITAL MO[facility] Chávez 5 5 [facility] OUTPATIEN INC T OFFICE 93970 LIN MCCABE WILMER OUTPATIEN 5 5 [facility] T VISIT MEDICAL 15 G MINUTES HOSPITAL MO[facility] - 5 5 [facility] OUTPATIEN INC T EMERGENCY 64966 BRITTANY ZIMMERMAN 5 5 PHYSICIAN [facility] DEPARTMEN S, PLLC T VISIT MODERATE SEVERITY EMERGENCY 47600 BRITTANY OROURKE 5 5 PHYSICIAN DEPARTMEN S, PLLC T VISIT MODERATE SEVERITY EMERGENCY 88072 BRITTANY ZIMMERMAN 5 5 PHYSICIAN [facility] DEPARTMEN S, PLLC T VISIT MODERATE SEVERITY EMERGENCY 93372 BRITTANY MO 5 5 PHYSICIAN [facility] T VISIT HIGH/URGE NT SEVERITY OFFICE 96568 LIN MCCABE WILMER OUTPATIEN 5 5 [facility] T VISIT MEDICAL 15 G MINUTES [facility] [place] [address] 5 HOSPITAL OUTPATIEN T EMERGENCY 95977 [facility] ZIMMERMAN 5 5 [facility] T VISIT P LOW/MODER SEVERITY OFFICE 71448 LIN MCCABE WILMER OUTPATIEN 5 5 [facility] T VISIT MEDICAL 25 G MINUTES HOSPITAL [facility] - 5 5 N OUTPATIEN COMMUNTIY T HOSPITA EMERGENCY 80797 [facility] ZIMMERMAN 5 5 [facility] T VISIT P MODERATE SEVERITY OFFICE 22332 [facility] OUTPATIEN 5 5 N FAMILY TOD T VISIT PRACTICE 15 MINUTES [facility]OS[facility] - 5 5 N OUTPATIEN COMMUNTIY T HOSPITA OFFICE 21284 [facility] JAM T VISIT S GROUP 15 MINUTES HOSPITAL [facility] - 5 5 [facility] OUTPATIEN INC T HOSPITAL [facility] - 5 5 [facility] OUTPATIEN INC T OFFICE 79972 LALADorcas LARAT OUTPATIEN 5 5 N FAMILY TOD T VISIT PRACTICE 25 MINUTES EMERGENCY 30585 [facility] [place] 5 5 [facility] T VISIT P HIGH/URGE NT SEVERITY HOSPITAL MO[facility] - 5 5 [facility] OUTPATIEN [facility] MOISE - 5 5 [facility] - 5 5 N OUTPATIEN COMMUNTIY T HOSPITA OFFICE 18425 [facility] OUTPATIEN 5 5 PHYSICIAN JAM T VISIT S GROUP 15 MINUTES [facility] - 5 5 [facility] OFFICE 83211 [facility] OUTPATIEN 5 5 PHYSICIAN FRANK T VISIT S GROUP 15 MINUTES [facility] - [facility] 4 [facility] EMERGENCY 40903 [facility] 4 4 [facility] T VISIT LOW/MODER SEVERITY OFFICE 27963 [facility] [place]ARGARETTE OUTPATIEN 4 4 N FAMILY HEN T VISIT PRACTICE 15 MINUTES [facility]OSP[facility] - 4 4 [facility] EMERGENCY 46964 JORGE PIÑA 4 4 [facility] EMERGENCY T VISIT PHYS HIGH/URGE NT SEVERITY OFFICE 02777 [facility] NIHARIKA OUTPATIEN 4 4 N FAMILY TOD T VISIT PRACTICE 25 MINUTES OFFICE 43530 [facility] OUTPATIEN 4 4 PHYSICIAN JAM T NEW 30 S GROUP MINUTES HOSPITAL JAMIL - 4 4 N OUTPATIEN COMMUNITY T HOSPITA EMERGENCY 93188 [facility] 4 4 [facility] EMERGENCY T VISIT PHYS HIGH/URGE NT SEVERITY EMERGENCY 16349 [facility] 4 4 N DEPARTMEN COMMUNITY T VISIT HOSPITA MODERATE SEVERITY [facility]OSPITAL [facility] - 4 4 HOSPITAL OUTPATIEN T OFFICE 93731 LIN MCCABE WILMER OUTPATIEN 4 4 NE [facility]ALTH T VISIT MEDICAL 15 G MINUTES OFFICE 63243 [facility] NIHARIKA OUTPATIEN 4 4 N FAMILY TOD T VISIT PRACTICE 25 MINUTES EMERGENCY 61581 [facility] DEPT 4 4 CJ MERARY VISIT EMERGENCY HIGH PHYS SEVERITY& THREAT [facility] - 4 4 HOSPITAL OUTPATIEN T OFFICE 25446 LIN MCCABE [facility] OUTPATI[facility] 4 4 NE HEALTH T NEW 60 MEDICAL MINUTES G EMERGENCY 31348 [facility] DEPARTMEN EMERGENCY T VISIT PHYS MODERATE SEVERITY EMERGENCY 40578 [facility] 4 4 CJ DEPARTMEN EMERGENCY T VISIT PHYS MODERATE SEVERITY OFFICE 35328 L[facility]AD[facility]cas BUNDY OUTPATIEN 4 4 N FAMILY TOD T VISIT PRACTICE 25 MINUTES OFFICE 97306 JAMIL MANZO CONSULTAT 4 4 N ION NEUROLOGY NEW/ESTAB PATIENT [address] [facility] 4 4 CJ DEPARTMEN EMERGENCY T VISIT PHYS HIGH/URGE NT SEVERITY OFFICE 52229 JAMIL LARAT OUTPATIEN 4 4 N FAMILY TOD T VISIT PRACTICE 25 MINUTES OFFICE 19456 JAMIL GARNERMAN OUTPATIEN 4 4 N FAMILY JR RAY T VISIT PRACTICE 15 MINUTES OFFICE 60123 TEJAS HER OUTPATIEN 4 4 MEDICAL RYA T VISIT SERV 15 FOUNDATIO MINUTES EMERGENCY 90739 [facility] DEPARTMEN EMERGENCY T VISIT PHYS MODERATE SEVERITY OFFICE 33118 JAMIL GRAHAM OUTPATIEN 4 4 N FAMILY JR RAY T VISIT PRACTICE 15 MINUTES EMERGENCY 76447 [facility] DEPARTMEN EMERGENCY T VISIT PHYS MODERATE SEVERITY [facility]OSPITAL [facility] - [address] [facility] T EMERGENCY 33761 [facility] DEPT 4 4 CJ BRO VISIT EMERGENCY HIGH PHYS SEVERITY& THREAT FUNCJ OFFICE 66625 [facility] NIHARIKA OUTPATIEN 4 4 N FAMILY TOD T VISIT PRACTICE 25 MINUTES EMERGENCY 58795 [facility] 4 4 [facility] DEPARTMEN EMERGENCY T VISIT PHYSI HIGH/URGE NT SEVERITY [facility]OSPITAL [facility] - 4 4 [facility] [facility] [address]153 [place] CONSULTAT 4 4 MEDICAL RYA ION SERV NEW/ESTAB FOUNDATIO PATIENT 40 MIN EMERGENCY 01462 [facility] DEPT 4 4 CJ III DUANE VISIT EMERGENCY HIGH PHYS SEVERITY& THREAT FUNCJ OFFICE 44450 [facility] OUTPATIEN 4 4 N FAMILY TOD T VISIT PRACTICE 15 MINUTES [facility] 36436 [place] OUTPATIEN 4 4 N FAMILY TOD T VISIT PRACTICE 15 MINUTES OFFICE 39833 [facility] MARGARETTE OUTPATIEN 4 4 N FAMILY HEN T VISIT PRACTICE 15 MINUTES EMERGENCY 00580 MOISE 4 4 [facility] DEPARTMEN INC T VISIT LIMITED/M [facility] MOISE - 4 4 [facility] OUTPATIEN INC T OFFICE 68470 BRAD SALINAS OUTPATIEN 2 2 ELIAS ELIAS T VISIT 15 MINUTES OFFICE 81605 NIHARIKA NIHARIKA OUTPATIEN 2 2 TOD TOD T VISIT 15 MINUTES OFFICE 30237 BRAD BRAD OUTPATIEN 2 2 ELIAS ELIAS T VISIT 15 MINUTES OFFICE 10223 [facility] DEL ANGELON OUTPATIEN 2 2 HEN HEN T VISIT 15 MINUTES EMERGENCY 32764 DORINDA DEL TORO 2 2 EMERGENCY MATI DEPARTMEN SERVICES T VISIT MODERATE SEVERITY EMERGENCY 40340 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 T VISIT MODERATE SEVERITY OFFICE 72931 NIHARIKA NIHARIKA OUTPATIEN 2 2 TOD TOD T VISIT 15 MINUTES OFFICE 20485 NIHARIKA NIHARIKA OUTPATIEN 2 2 TOD TOD T VISIT 25 MINUTES OFFICE 86207 NIHARIKA NIHARIKA OUTPATIEN 2 2 TOD TOD T VISIT 25 MINUTES OFFICE 26147 NIHARIKA NIHARIKA OUTPATIEN 2 2 TOD TOD T VISIT 15 MINUTES EMERGENCY 59714 WANG PIÑA 2 2 MATI MATI DEPARTMEN T VISIT MODERATE SEVERITY OFFICE 67501 NIHARIKA NIHARIKA OUTPATIEN 2 2 TOD TOD T VISIT 15 MINUTES EMERGENCY 46977 ANDREI FORBES 2 2 GAR GAR DEPARTMEN T VISIT MODERATE SEVERITY OFFICE 58730 NIHARIKA NIHARIKA OUTPATIEN 2 2 TOD TOD T VISIT 25 MINUTES OFFICE 33149 NIHARIKA NIHARIKA OUTPATIEN 1 1 TOD TOD T VISIT 15 MINUTES OFFICE 26972 NIHARIKA NIHARIKA OUTPATIEN 1 1 TOD TOD T VISIT 15 MINUTES EMERGENCY 49806 CELLAROSI CELLAROSI DEPT 1 1 - YORBA - YORBA VISIT PAT PAT HIGH SEVERITY& THREAT FUNCJ OFFICE 93571 NIHARIKA NIHARIKA OUTPATIEN 1 1 TOD TOD T VISIT 15 MINUTES OFFICE 62175 GEORGETOW NIHARIKA OUTPATIEN 1 1 N FAMILY TOD T VISIT PHYS PSC 25 MINUTES OFFICE 88664 GEORGETOW NIHARIKA OUTPATIEN 1 1 N FAMILY TOD T VISIT PHYS PSC 15 MINUTES EMERGENCY 48122 DORINDA BROCK 1 1 [facility] MODERATE SEVERITY OFFICE 53117 GEORGETOW MARGARETTE OUTPATIEN 1 1 N FAMILY HEN T VISIT PHYS PSC 15 MINUTES OFFICE 91051 GEORGETOW NIHARIKA OUTPATIEN 1 1 N FAMILY TOD T VISIT PHYS PSC 15 MINUTES OFFICE 84301 GEORGETOW NIHARIKA OUTPATIEN 1 1 N FAMILY TOD T VISIT PHYS PSC 15 MINUTES OFFICE 83886 GEORGETOW NIHARIKA OUTPATIEN 1 1 N FAMILY TOD T VISIT PHYS PSC 25 MINUTES EMERGENCY 90461 DORINDA FLORES 1 1 [facility] MODERATE SEVERITY OFFICE 44514 [place] NIHARIKA OUTPATIEN 1 1 N FAMILY TOD T VISIT PHYS PSC 15 MINUTES OFFICE 89370 GEORGETOW NIHARIKA OUTPATIEN 1 1 N FAMILY TOD T VISIT PHYS PSC 15 MINUTES OFFICE 85278 [facility] OUTPATIEN 1 1 [place] ELIAS T VISIT ORTHOPAED 15 [facility] MINUTES OFFICE 13683 GEORGETOW NIHARIKA OUTPATIEN 1 1 N FAMILY TOD T VISIT PHYS PSC 15 MINUTES OFFICE 30088 [facility] OUTPATIEN 1 1 [place] ELIAS T VISIT ORTHOPAED 15 [facility] MINUTES [facility] - 1 1 N OUTPATIEN COMMUNITY T HOSPITA OFFICE 14688 GEOR[facility] NIHARIKA OUTPATIEN 1 1 N FAMILY TOD T VISIT PHYS PSC 15 MINUTES OFFICE 90530 [facility] CONSULTAT 1 1 [place] ELIAS ION ORTHOPAED NEW/ESTAB [facility] PATIENT 40 MIN EMERGENCY 50361 DORINDA FLORES 1 1 EMERGENCY [facility] T VISIT HIGH/URGE NT SEVERITY OFFICE 86345 GEORGETOW NIHARIKA OUTPATIEN 1 1 N FAMILY TOD T VISIT PHYS PSC 15 MINUTES OFFICE 17753 GEORGETOW NIHARIKA OUTPATIEN 0 0 N FAMILY TOD T VISIT PHYS PSC 15 MINUTES OFFICE 77990 GE[facility]GET[facility] NIHARIKA OUTPATIEN 0 0 N FAMILY TOD T VISIT PHYS PSC 25 MINUTES OFFICE 99567 [facility] NIHARIKA OUTPATIEN 0 0 N FAMILY TOD T VISIT PHYS PSC 15 MINUTES HOSPITAL [facility] - 0 0 N [facility] 0 0 N OUTPATIEN COMMUNITY T HOSPITA EMERGENCY 24981 [facility] 0 0 N [facility] COMMUNITY T VISIT [facility] MODERATE SEVERITY OFFICE 14325 GEORGETOW NIHARIKA OUTPATIEN 0 0 N FAMILY TOD T VISIT PHYS PSC 25 MINUTES OFFICE 44494 GE[facility]GET[facility] NIHARIKA OUTPATIEN 0 0 N FAMILY TOD T VISIT PHYS PSC 15 MINUTES OFFICE 25863 GEORGETOW NIHARIKA OUTPATIEN 0 0 N FAMILY TOD T VISIT PHYS PSC 25 MINUTES OFFICE 92590 GE[facility]GET[facility] NIHARIKA OUTPATIEN 0 0 N FAMILY TOD T VISIT PHYS PSC 25 MINUTES OFFICE 92097 [facility] NIHARIKA OUTPATIEN 0 0 N FAMILY TOD T VISIT PHYS PSC 15 MINUTES OFFICE 03353 [facility] NIHARIKA OUTPATIEN 0 0 N FAMILY TOSaira JAUREGUI 30 PHYS PSC MINUTES
--- OUTSIDE RECORDS SUMMARY | 2017-01-27 16:49 | External Medical Summary Rpt ---
Author Author , Organization [employer] Address Unknown Phone Unavailable Care Team Providers Care Ent Nurse Name Role Phone LIDIA, LIDIA Unavailable Unavailable [employer] Unavailable Unavailable INC, [employer] Unavailable Unavailable INC, [employer] ALFARIS MOH, ALFARIS Unavailable Unavailable MOH JOSE M FELIX MD, PSC, Unavailable Unavailable JOSE M FELIX MD, PSC JOSE D JEFFERY Unavailable Unavailable JAIN BRO, JAIN Unavailable Unavailable BRO BEINEKE NARINDER, BEINEKE Unavailable Unavailable NARINDER YANEZ, YANEZ Unavailable Unavailable BESSON WILMER, BESSON Unavailable Unavailable WILMER HERNÁNDEZ ALL, HERNÁNDEZ ALL Unavailable Unavailable [facility] Unavailable Unavailable HOSPITAL, [facility] Unavailable Unavailable BRIDGES, BRIDGES Unavailable Unavailable [facility] Unavailable Unavailable SERVICE, [facility] Unavailable Unavailable SERVICE, [facility] ABIMAEL KAYODE, ABIMAEL Unavailable Unavailable KAYODE CASE JUS, CASE JUS Unavailable Unavailable TAINA RYA, TAINA Unavailable Unavailable RYA CELLAROSI - YORBA Unavailable Unavailable PAT, CELLAROSI - YORBA PAT CELLAROSI - YORBA Unavailable Unavailable PAT, CELLAROSI - YORBA PAT [facility] Un[facility] CHANDEL, CHANDEL Unavailable Unavailable LUTZ, LUTZ Unavailable Unavailable ONEILL, ONEILL Unavailable Unavailable [facility], Unavailable Unavailable [facility] COLTON SHAYNE, Unavailable Unavailable COLTON SHAYNE [facility] # [id number], Unavailable Unavailable [facility] # [id number] [place] Un[facility] [place] [facility] [...] EUG ELSIE MERARY, ELSIE Unavailable Unavailable MERARY [facility] Unavailable Unavailable HOSPITA, [facility] Unavailable Unavailable HOSPITA, [facility] Unavailable [facility]available PHYS PSC, [facility] Unavailable Unavailable PRACTICE, [facility], Unavailable Unavailable [facility] GINGER, GINGER Unavailable Unavailable TELLEZ MERARY, TELLEZ Unavailable Unavailable MERARY JAMES, JAMES Unavailable Unavailable JAMES RHO, JAMES Unavailable Unavailable RHO GROVES MATI, GROVES Unavailable Unavailable MATI CARPIO, CARPIO Unavailable Unavailable FORBES GAR, FORBES Unavailable Unavailable GAR FORBES GAR, FORBES Unavailable Unavailable GAR [facility] Unavailable Unavailable INC, [facility] INC [facility] Unavailable Unavailable HOSPITAL, [facility] Unavailable Unavailable HOSPITAL P, [facility] P [facility], Unavailable Unavailable [facility] BOWIE AMA, BOWIE Unavailable Unavailable AMA ALDANA ROSALINA, ALDANA ROSALINA Unavailable Unavailable TEE TRA, TEE TRA Unavailable Unavailable [facility] Unavailable Unavailable [facility], [facility] RENE III NORMA, Unavailable Unavailable RENE III NORMA [facility] Un[facility] Unavailable GROUP PS, [facility] Unavailable [facility]available [facility], [facility] Unavailable Unavailable MEDICAL G, [facility] Unavailable Unavailable PRACTITIONER GR, [facility] PRACTITIONER GR KOSTELIC, KOSTELIC Unavailable [facility]available [facility], [facility] Unavailable Unavailable HOLDINGS, [facility], Unavailable Unavailable [facility], Unavailable Unavailable [facility] DENA CRI, DENA CRI Unavailable Unavailable KATHRYN JR DWI, KATHRYN Unavailable Unavailable JR DWI [place] Unavailable Unavailable [facility], [facility] ELIOT WILMER, ELIOT WILMER Unavailable Unavailable TIAN GRUPO, TIAN Unavailable Unavailable GRUPO DORINDA GRE, Unavailable Unavailable DORINDA GRE DORINDA GRE, Unavailable Unavailable DORINDA GRE [facility] Unavailable Unavailable SERVICES, [facility] Unavailable [...] RADMANESH SHA, Unavailable Unavailable RADMANESH SHA RECHTIN [facility], RECHTIN Unavailable Unavailable [facility] NIHARIKA TOD, Unavailable Unavailable NIHARIKA TOD NIHARIKA TOD, Unavailable Unavailable NIHARIKA TOD RENUSCH CLARICE, RENUSCH Unavailable Unavailable CLARICE [facility], Unavailable Unavailable [facility], Unavailable Unavailable [facility] ROME C, ROME C Unavailable Unavailable SADEK MOH, SADEK MOH Unavailable Unavailable FLORES MEHTA, FLORES Unavailable Unavailable MEHTA SCALF LETY, SCALF LETY Unavailable Unavailable GILBERT, GILBERT Unavailable Unavailable LAM ANAIS, LAM ANAIS Unavailable Unavailable [facility] Unavailable Unavailable [facility], [facility] Unavailable Unavailable [facility], [facility] SOTINGEANU NARINDER, Unavailable Unavailable SOTINGEANU NARINDER [facility], Unavailable Unavailable [facility], [facility]available Unavailable [facility] MONTILLA, MONTILLA Unavailable Unavailable [facility], Unavailable Unavailable [facility] USERY AND, USERY AND Unavailable Unavailable LUKAS WILMER, LUKAS Unavailable Unavailable WILMER [id number] # Unavailable Unavailable [id number], [id number] # [id number] WALKER FOR, WALKER Unavailable Unavailable FOR [place], [...] Diagnosis DOS Provider Status E039 HYPOTHYROID 12-25-2016 [facility] ISM PHYSICIANS UNSPECIFIED GROUP E119 TYPE 2 12-25-2016 [facility] DIABETES PHYSICIANS MELLITUS GROUP WITHOUT COMPLICATIO NS E785 HYPERLIPIDE 12-25-2016 [facility] REBECCA PHYSICIANS UNSPECIFIED GROUP G629 POLYNEUROPA 12-25-2016 [facility] THY PHYSICIANS UNSPECIFIED GROUP I10 ESSENTIAL 12-25-2016 [facility] PRIMARY PHYSICIANS HYPERTENSIO GROUP N I639 CEREBRAL 12-25-2016 [facility] INFARCTION PHYSICIANS UNSPECIFIED GROUP J449 CHRONIC 12-25-2016 [facility] OBSTRUCTIVE PHYSICIANS PULMONARY GROUP DISEASE UNS L239 ALLERGIC 12-25-2016 [facility] CONTACT PHYSICIANS DERMATITIS GROUP UNSPECIFIED CAUSE L602 ONYCHOGRYPH 11-27-2016 [facility] OSIS PHYSICIANS GROUP G459 TRANSIENT 11-23-2016 [facility] ISCHEMIC MEDICAL G ATTACK UNSPECIFIED Z9282 S/P ADMN 11-23-2016 [facility] TPA DIFF HEALTH FACL LAST MEDICAL G 24 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 MELLITUS W/DIAB CHRON KIDNEY DZ E1142 TYPE 2 11-21-2016 [facility] MELLITUS W/DIAB POLYNEUROPA THY E1165 TYPE 2 11-21-2016 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 R0789 OTHER CHEST 11-21-2016 [facility] PAIN N EMERGENCY PHYS R209 UNSPECIFIED 11-21-2016 [facility] DISTURBANCE MEDICAL G S OF SKIN SENSATION R9431 ABNORMAL 11-21-2016 [facility] G E118 TYPE 2 11-08-2016 [facility] MELLITUS INC W/UNS COMPLICATIO NS K219 GASTRO-ESOP 11-08-2016 [facility] H RE[facility]UX [facility] DISEASE INC WITHOUT ESOPHAGITIS N390 URINARY 11-08-2016 [facility] TRACT [facility] INFECTION INC SITE NOT SPECIFIED 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 [facility] CURRENT USE [facility] OF INSULIN INC E1121 TYPE 2 11-02-2016 [facility] DIABETES N EMERGENCY MELLITUS PHYS W/DIABETIC NEPHROPATHY G15697 PAIN IN 11-02-2016 [facility] RIGHT FOOT N EMERGENCY PHYS G29870 PAIN IN 11-02-2016 [facility] LEFT FOOT N EMERGENCY PHYS L600 INGROWING 09-09-2016 [facility] NAIL PHYSICIANS GROUP J9811 ATELECTASIS 08-30-2016 [facility] M940 CHONDROCOST 08-30-2016 [facility] AL JUNCTION N EMERGENCY SYNDROME PHYS TIETZE R079 CHEST PAIN 08-30-2016 [facility] [place] UNSPECIFIED RADIOLOGY T56960 PAIN IN 08-07-2016 [facility] LEFT TOES N EMERGENCY PHYS J069 ACUTE UPPER 07-08-2016 [facility] N EMERGENCY RESPIRATORY PHYS INFECTION UNSPECIFIED R51 HEADACHE 07-08-2016 [facility] N EMERGENCY PHYS E079 DISORDER OF 07-05-2016 [facility] J209 ACUTE 07-05-2016 [facility] BRONCHITIS N EMERGENCY UNSPECIFIED PHYS P90960 OTHER LONG 07-05-2016 [facility] CURRENT HOSPITAL DRUG THERAPY Z881 ALLERGY 07-05-2016 [facility] OTHER HOSPITAL ANTIBIOTIC AGENTS STATUS I872 VENOUS 05-13-2016 [facility] CY CHRONIC MEDICAL G PERIPHERAL R609 EDEMA 05-13-2016 [facility] UNSPECIFIED HEALTH MEDICAL G U65150 SPONDYLOSIS 05-07-2016 JOSE M FELIX, W/O , PSC MYELOPATH/R ADICULOPATH Y LUMB RGN M5136 OTH 05-07-2016 ISADORA SELBY MD, PSC RAL DISC DEGEN LUMBAR REGION R0600 DYSPNEA 04-23-2016 [facility] UNSPECIFIED HEALTH MEDICAL G E1140 TYPE 2 DM 04-19-2016 [facility] NURSE WITH PRACTITIONE DIABETIC R GR NEUROPATHY UNSPECIFIED M5406 PANNICULITI 04-16-2016 [facility] S AFFCT [facility] REGIONS NCK INC BACK LUMB REGION I350 NONRHEUMATI 04-08-2016 [facility] STENOSIS I5189 OTHER 04-08-2016 [facility] HEART DISEASES M545 LOW BACK 04-08-2016 [facility] PAIN [facility] INC Q311 CONGENITAL 04-08-2016 [facility] STENOSIS M542 CERVICALGIA 04-05-2016 [facility] PLLC V20244 OTHER 04-05-2016 [facility] MUSCLE PHYSICIANS, SPASM PLLC M5417 RADICULOPAT 04-03-2016 [facility] VENEGAS CHIROPRACTI LUMBOSACRAL C CENTE REGION R98844 MIGRAINE 03-26-2016 [place] W/O AURA NEUROLOGY INTRACT W/O STAT MIGRAINOSUS W0740LL CONTUSION 03-24-2016 [facility] OF RIGHT PHYSICIANS, FOREARM PLLC INITIAL ENCOUNTER E70173I CONTUSION 03-24-2016 [facility] OF RIGHT PHYSICIANS, WRIST PLLC INITIAL ENCOUNTER U16178 PAIN IN 03-21-2016 [place] [facility] MEDICAL FOREARM IMAGING ASS B83155 PAIN IN 03-21-2016 [place] [facility] HAND [facility]ICAL [facility] ASS R42 DIZZINESS 03-21-2016 [place] AND MEDICAL GIDDINESS IMAGING ASS Q68852B UNSPECIFIED 03-21-2016 [place] INJURY MEDICAL RIGHT IMAGING ASS FOREARM INITIAL ENCNTR A3983AX UNSPECIFIED 03-21-2016 [place] INJURY RT MEDICAL WRIST HAND IMAGING ASS FINGERS INITIAL W82136 MIGRAINE 03-19-2016 [facility] INTRACT W/O HOSPITAL STATUS MIGRAINOSUS M4726 OTH 03-12-2016 [facility] SPONDYLOSIS [facility] INC W/RADICULOP ATHY LUMBAR REGION R202 PARESTHESIA 02-29-2016 [place] OF SKIN MEDICAL IMAGING ASS M5126 OTH 02-27-2016 ISADORA SELBY MD, PSC RAL DISC DISPLACEMEN T LUMBAR RGN M5416 RADICULOPAT 02-27-2016 [facility] HY LUMBAR MEM [facility] REGION INC Z0100 ENCOUNTER 02-23-2016 D[facility] EXAM EYES & GRE VISION W/O ABNORMAL FIND M5116 INTERVERTEB 02-02-2016 [facility] RAL DISC [facility] D/O INC W/RADICULOP ATHY LUMB RGN E876 HYPOKALEMIA 01-19-2016 [facility] PHYSICIANS GROUP E1065 TYPE 1 01-18-2016 [place] DIABETES MEDICAL MELLITUS IMAGING ASS WITH HYPERGLYCEM IA E1100 TYPE 2 DM 01-18-2016 [facility] W/HYPEROSMO PHYSICIANS, LARDAVID W/[facility] E70712 TYPE 2 01-18-2016 [facility] P W/HYPOGLYCE REBECCA W/O COMA Z1231 ENCOUNTER 01-17-2016 [place] SCREENING MEDICAL MAMMO MALIG IMAGING ASS NEOPLASM BREAST E669 OBESITY 01-04-2016 [facility] UNSPECIFIED [place] L259 UNSPECIFIED 01-04-2016 [place] CONTACT [facility] UNSPECIFIED CAUSE Z1239 ENCOUNTER 12-21-2015 [place] OTHER [facility] HOSPITAL MALIG NEOPLASM BREAST H9209 OTALGIA 12-11-2015 [facility] E1151 TYPE 2 DM 12-07-2015 [facility] W/DIAB PODIATRY PERIPH ANGIOPATHY W/O GANGRENE M2570 OSTEOPHYTE 12-07-2015 [facility] UNSPECIFIED PODIATRY JOINT R05 COUGH 2015 [facility] R1084 GENERALIZED 2015 [place] ABDOMINAL MEDICAL PAIN IMAGING ASS R109 UNSPECIFIED 2015 [facility] ABDOMINAL PHYSICIANS, PAIN PLLC R319 HEMATURIA 2015 [place] UNSPECIFIED MEDICAL IMAGING ASS R509 FEVER 2015 [place] UNSPECIFIED MEDICAL IMAGING ASS Z720 TOBACCO USE 2015 [facility] INC B370 CANDIDAL 11-30-2015 [place] STOMATITIS [place] I739 PERIPHERAL 10-27-2015 [facility] DISEASE MEDICAL UNSPECIFIED EQUIPME M179 OSTEOARTHRI 08-11-2015 [place] TIS OF KNEE [place] UNSPECIFIED M549 DORSALGIA 07-31-2015 [facility] M5127 OTH 07-07-2015 [place] INTERVERTEB MEDICAL RAL DISC IMAGING ASS DISPLACEMEN T LS REGION N764 ABSCESS OF 07-07-2015 [facility] VULVA PHYSICIANS GROUP Q70541 CUTANEOUS 07-06-2015 [place] ABSCESS OF [facility] TR[facility]K INC UNSPECIFIED X06573 CELLULITIS 07-04-2015 [facility] OF OTHER PHYSICIANS, SITES [facility] P55823 ENCOUNTER 06-19-2015 [facility] SUPERINTENDENT STEVEDORING EXAM LLC GENERAL RTN W/O ABNORMAL FIND M1612 UNILATERAL 06-13-2015 [place] PRIMARY MEDICAL OSTEOARTHRI IMAGING ASS TIS LEFT HIP R79621 PAIN IN 06-13-2015 [place] LEFT HIP MEDICAL IMAGING ASS D62954 HORDEOLUM 05-15-2015 [facility] EXTERNUM PHYSICIANS, RIGHT UPPER PLLC EYELID 462 ACUTE 04-12-2015 [facility] PHARYNGITIS PHYSICIANS, PLLC 7862 COUGH 04-12-2015 [facility] 84017 DIAB W/O 03-23-2015 [facility] COMP TYPE [facility] II/UNS NOT HOSPITAL STATED UNCNTRL 3559 MONONEURITI 03-23-2015 [facility] HOSPITAL SITE 10094 OTHER SIGN 03-09-2015 [facility] AND SYMPTOM MEM [facility] IN BREAST INC 2724 OTHER AND 02-28-2015 [facility] HEALTH MEDICAL G HYPERLIPIDE REBECCA 76391 MASTODYNIA 02-01-2015 [facility] 84130 LUMP OR 02-01-2015 [place] MASS IN MEDICAL BREAST IMAGING ASS 08334 DIAB W/OTH 01-12-2015 [facility] MANIFESTS PHYSICIANS, TYPE II/UNS PLLC NOT UNCNTRL 29411 PRESSURE 01-12-2015 [facility] ULCER OTHER PHYSICIANS, SITE [facility] 6822 CELLULITIS 12-25-2014 [facility] AND ABSCESS PHYSICIANS, OF TRUNK PLL 4660 ACUTE 12-18-2014 [facility] BRONCHITIS PHYSICIANS, [facility] 7869 OTH 12-18-2014 [place] SYMPTOMS MEDICAL INVOLVING IMAGING ASS RESPIRATORY SYSTEM&CHES T 71757 CHRONIC 11-23-2014 [facility] VENOUS HEALTH HYPERTENSIO MEDICAL G N WITHOUT COMPS 7823 EDEMA 11-23-2014 [facility] MEDICAL G 98367 OBESITY, 11-15-2014 [facility] 23953 CHRONIC 11-15-2014 [facility] VENOUS HEALTH HYPERTENSIO MEDICAL G N WITH INFLAMMATIO N 4019 UNSPECIFIED 11-11-2014 [facility] P N 94782 ASTHMA, 11-11-2014 [facility] P UNSPECIFIED STATUS 6110 INFLAMMATOR 11-11-2014 [place] Y DISEASE [facility] P 40777 SHORTNESS 11-04-2014 [facility] G 89866 OSTEOARTHRO 11-02-2014 [facility] SIS UNSPEC PHYSICIANS WHETHER GROUP GEN/LOC LOWER LEG V7612 OTHER 11-02-2014 [place] SCREENING COMMUNTIY MAMMOGRAM HOSPITA 2768 HYPOPOTASSE 10-24-2014 [facility] P V5869 LONG-TERM 10-24-2014 [place] (CURRENT) [facility] USE OF HOSPITAL P OTHER MEDICATIONS 5693 HEMORRHAGE 10-17-2014 [place] OF RECTUM COMMUNTIY AND ANUS HOSPITA 5789 UNSPECIFIED 10-17-2014 [place] HEMOR[facility] ANESTHESIA OF GROUP PS GASTROINTES TINAL TRACT V7651 SPECIAL 10-17-2014 [facility], SCREENING LLC FOR MALIGNANT NEOPLASMS COLON 45021 PAIN IN 09-30-2014 [place] JOINT, MEDICAL LOWER LEG IMAGING ASS V571 OTHER 09-25-2014 [facility] PH[facility]ICAL [facility] THERAPY INC 40324 OTHER 09-22-2014 [facility] FATIGUE PRACTICE 38875 MORBID 09-15-2014 [facility] [place] INTERNAL MED 2449 UNSPECIFIED 09-14-2014 [facility] HYPOTHYROID INC ISM 496 CHRONIC 09-14-2014 [facility] AIRWAY [facility] OBSTRUCTION INC NEC 5718 OTHER 09-14-2014 [place] CHRONIC MEDICAL NONALCOHOLI IMAGING ASS C LIVER DISEASE 10196 DIARRHEA 09-14-2014 [facility] 59040 ABDOMINAL 09-14-2014 [place] PAIN, MEDICAL UNSPECIFIED IMAGING ASS SITE 7891 HEPATOMEGAL 09-14-2014 [place] Y MEDICAL IMAGING ASS V8542 BODY MASS 09-14-2014 [facility].0[facility]49[facility] HOSP[facility] P ADULT 08183 UNSPECIFIED 08-27-2014 [place] SLEEP COMMUNTIY APNEA HOSPITA 7177 CHONDROMALA 08-19-2014 [facility] SHAY OF PHYSICIANS PATELLA GROUP 28225 OTHER 08-19-2014 [facility] SYNOVITIS PHYSICIANS AND GROUP TENOSYNOVIT IS V4589 OTHER 08-19-2014 [facility] POSTSURGICA PHYSICIANS L STATUS GROUP OTHER 47531 EFFUSION OF 08-12-2014 [place] LOWER LEG MEDICAL JOINT IMAGING ASS 46098 PATELLAR 08-12-2014 [place] TENDINITIS MEDICAL IMAGING ASS 8363 CLOSED 08-12-2014 [place] DISLOCATION MEDICAL OF PATELLA IMAGING ASS 02019 PRIMARY 07-26-2014 [facility] LOCALIZED TECHNOLOGIE OSTEOARTHRO S INC SIS LOWER LEG 48038 EFFUSION OF 07-26-2014 [facility] JOINT, TECHNOLOGIE SITE S INC UNSPECIFIED 32051 SWELLING OF 07-20-2014 [place] LIMB MEDICAL IMAGING ASS 93359 OTHER 06-28-2014 [facility] DISORDER OF MEM HOS[facility] MUSCLE INC LIGAMENT AND FASCIA 95533 HYPERSOMNIA 06-28-2014 [facility] UNSPECIFIED PRACTICE 46387 OTHER 06-24-2014 [place] DISEASES OF MEDICAL LUNG NOT IMAGING ASS ELSEWHERE CLASSIFIED 486 PNEUMONIA, 06-22-2014 [facility] ORGANISM N EMERGENCY UNSPECIFIED PHYS 66601 ABDOMINAL 06-21-2014 [place] PAIN OTHER MEDICAL SPECIFIED IMAGING ASS SITE 68546 MIGRAINE 06-16-2014 [facility] UNSP W/O DIAGNOSTICS INTRACT W/O STATUS MIGRAINOSUS 7079 CHRONIC 06-16-2014 [place] ULCER OF FAMILY UNSPECIFIED PRACTICE SITE 2469 UNSPECIFIED 06-06-2014 [place] DISORDER COMMUNITY OF THYROID HOSPITA 2720 PURE 06-06-2014 [place] HYPERCHOLES [facility] TEROLEMIA HOSPITA 40447 OTHER ACUTE 06-06-2014 [place] PAIN [facility] HOSPITA 7840 HEADACHE 06-06-2014 [facility] N EMERGENCY PHYS 85093 NAUSEA 06-06-2014 [place] ALONE [facility] HOSPITA V5867 LONG-TERM 06-06-2014 [place] USE OF [facility] INSULIN HOSPITA 4241 AORTIC 05-30-2014 [facility] VALVE HEALTH DISORDERS MEDICAL G 5180 PULMONARY 05-30-2014 [facility] 74315 DIAB 05-20-2014 [place] W/NEURO FAMILY MANIFESTS PRACTICE TYPE II/UNS NOT UNCNTRL 63560 ESOPHAGEAL 05-20-2014 [place] REFLUX FAMILY PRACTICE 22580 CHEST PAIN 04-30-2014 [facility] UNSPECIFIED N EMERGENCY PHYS 7464 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 [facility] CY OF AORTIC VALVE 85348 PRECORDIAL 04-26-2014 [facility] 4139 OTHER AND 04-25-2014 [facility] UNSPECIFIED N EMERGENCY ANGINA PHYS PECTORIS 01254 UNSPECIFIED 04-18-2014 [facility] N EMERGENCY CONJUNCTIVI PHYS TIS 03382 HORDEOLUM 04-16-2014 [facility] 4611 ACUTE 04-15-2014 [place] FRONTAL [facility] SINUSITIS PRACTICE 7812 ABNORMALITY 04-05-2014 [place] OF GAIT NEUROLOGY 51573 PAIN IN 03-28-2014 [place] JOINT, MEDICAL ANKLE AND IMAGING ASS FOOT 7295 PAIN IN 03-28-2014 [place] SOFT MEDICAL TISSUES OF IMAGING ASS LIMB 8449 SPRAIN&STRA 03-28-2014 [facility] IN OF N EMERGENCY UNSPECIFIED PHYS SITE OF KNEE&LEG E9279 UNS 03-28-2014 [facility] OVEREXERT& N EMERGENCY STRENUOUS&R PHYS EPETITIVE MVMNTS/LOAD S 2722 MIXED 03-10-2014 [facility] HYPERLIPIDE DIAGNOSTICS REBECCA 4011 ESSENTIAL 03-10-2014 [place] HYPERTENSIO [facility] N, BENIGN PRACTICE 7242 LUMBAGO 03-10-2014 [facility] 7213 LUMBOSACRAL 02-21-2014 [facility] SPONDYLOSIS FOUNDATIO WITHOUT MYELOPATHY 7292 UNSPECIFIED 02-21-2014 [facility] NEURALGIA [facility] NEURITIS FOUNDATIO AND RADICULITIS 3572 POLYNEUROPA 02-20-2014 [facility] IN N EMERGENCY DIABETES PHYS 7820 DISTURBANCE 02-20-2014 [facility] SKIN N EMERGENCY SENSATION PHYS 3569 UNSPEC 02-08-2014 [facility] OPATHIC PERIPHERAL NEUROPATHY 42310 DEHYDRATION 01-12-2014 [facility] N EMERGENCY PHYS 5589 OTH&UNSPEC 01-12-2014 [facility] NONINFECTIO N EMERGENCY US PHYS GASTROENTER ITIS&COLITI S 7906 OTHER 01-12-2014 [facility] ABNORMAL N EMERGENCY BLOOD PHYS CHEMISTRY 2440 POSTSURGICA 01-11-2014 [facility] HYPOTHYROID PRACTICE ISM 81133 OTHER 12-29-2013 [facility] PAIN 7379 UNSPECIFIED 12-16-2013 [facility] 48131 DIAB W/O 11-18-2013 [facility] MENTION N EMERGENCY COMP TYPE PHYS II/UNS TYPE UNCNTRL 7804 DIZZINESS 11-18-2013 [facility] AND N EMERGENCY GIDDINESS PHYS 7245 UNSPECIFIED 11-17-2013 [place] [facility] PRACTICE 7821 RASH AND 10-07-2013 [facility] NONSPECIFIC INC SKIN ERUPTION 4658 ACUTE URIS 12-04-2011 [facility] OF OTHER TOD MULTIPLE SITES 8472 LUMBAR 11-01-2011 [facility]I SPRAIN AND STRAIN E8889 UNSPECIFIED 11-01-2011 [facility] FALL 12608 UNSPECIFIED 08-09-2011 [facility] SITE OF ANKLE SPRAIN AND STRAIN 9597 INJURY 08-09-2011 [facility] [place] OTHER&UNSPE RADIOLOGY CIFIED KNEE LEG ANKLE&FOOT E9270 OVEREXERTIO 08-09-2011 [facility] N FROM SUDDEN STRENUOUS MOVEMENT 4619 ACUTE 08-08-2011 [facility] SINUSITIS, TOD UNSPECIFIED 85481 OTHER CHEST 06-01-2011 [facility] - PAIN YORBA PAT 87315 GENERALIZED 05-01-2011 [place] ANXI[facility]Y [facility] PHYS DISORDER PSC 7241 PAIN IN 05-01-2011 [place] THORACIC [facility] PHYS SPINE PSC 5259 UNSPECIFIED 02-19-2011 [facility] EMERGENCY TEETH&SUPPO SERVICES RTING STRUCTURES 79164 TOOTH 02-19-2011 [facility] BROKEN FX EMERGENCY DUE TO SERVICES TRAUMA W/O MENTION COMP 6926 CONTACT 02-14-2011 [place] DERMATITIS& FAMILY PHYS OTHER PSC ECZEMA DUE TO PLANTS 6929 CONTACT 11-19-2010 [place] DERMATITIS& FAMILY PHYS OTHER PSC ECZEMA DUE UNSPEC CAUSE 7291 UNSPECIFIED 11-19-2010 [place] MYALGIA FAM[facility] PHYS AND PSC MYOSITIS 78161 UNSPECIFIED 10-10-2010 [facility] [place] [facility] S [facility] LOWER END FOREARM 83924 SLOWING OF 10-09-2010 [facility] URINARY [place] [facility] STREAM 2448 OTHER 10-05-2010 [facility] SPECIFIED [place] [facility] ACQUIRED HYPOTHYROID ISM 95340 CLOSED 09-10-2010 [place] FRA[facility]URE OF COMM[facility]ITY HEAD OF HOSPITA RADIUS 93427 PAIN IN 08-27-2010 JILLIAN RAMOS JOINT, SHOULDER REGION 9249 CONTUSION 08-27-2010 [place] OF FAMILY PHYS UNSPECIFIED PSC SITE E8881 FALL 08-25-2010 [facility] RESULTING EMERGENCY IN STRIKING SERVICES AGAINST OTHER OBJECT 8474 SPRAIN AND 07-06-2010 [place] COCCYX PSC 3671 MYOPIA 05-10-2010 POST DUANE 88612 OTHER 05-10-2010 POST CHRONIC [facility]ANE ALLERGIC CONJUNCTIVI TIS 50821 OPTIC NERVE 05-10-2010 POST HYPOPLASIA DUANE 20382 MONOCULAR 05-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 30 00 KE [...] 00 1- 3- 00 01 UC ve OH 51 20 20 03 [place] 20 [...] MA CY #3 01 6 PA 59 05 [...] MA CY #3 01 6 CA 00 05 [...] PH AR MA CY #3 01 6 OH 59 05 05 8. 30 00 KE [...] 00 3- 6- 00 01 UC ve OH 51 20 20 02 [place] 20 [...] 80 3- 6- 00 01 UC ve IN 21 20 20 02 [place] DE 61 [...] MA CY #3 01 6 AT 00 04 [...] MA CY #3 01 6 PA 59 04 [...] MA CY #3 01 6 LE 00 04 [...] MA CY #3 01 6 CA 00 04 [...] .0 00 NT ti NO 00 3- 01 UC ve OH 51 20 20 01 [place] 20 17 17 81 1 98 CV 2. S 5 PH MG AR MA TA CY BL ET LL C, DB A CV S PH AR MA CY #3 01 6 DU 66 04 04 30 30 00 KE Ac LO 99 -0 -2 .0 00 NT ti XE 30 3 8- 01 UC ve TI 66 20 20 01 [place] NE 43 17 17 81 0 99 CV HC S L PH DR AR MA 60 CY MG LL C, CA P DB A CV S PH AR MA CY #3 01 6 HU 00 04 04 10 30 00 KE Ac MU 00 -0 -2 .0 00 NT ti LI 28 8- 01 UC ve N 21 20 20 [...] .0 00 NT ti OP 60 8- 1- 00 01 UC ve RA 28 [...] MA CY #3 01 6 FU 00 03 04 30 30 00 KE Ac RO 37 -1 -0 .0 00 NT ti SE 80 1- 7- 00 00 UC ve IN 21 20 20 99 [place] DE 61 [...] 03 04 30 15 00 KE Ac OH 16 -1 -0 .0 00 NT ti OX 20 3- 7- 00 01 UC ve EN 18 20 20 01 [place] 81 17 17 21 25 0 28 CV 0 S MG PH AR TA MA BL CY ET LL C, DB A CV S PH AR MA CY #3 01 6 LI 68 03 03 30 30 00 KE Ac SI 18 -0 -3 .0 00 NT ti NO 00 2- 1- 00 UC ve OH 51 20 20 99 [place] 20 17 17 74 1 31 CV 2. S 5 PH MG AR MA TA CY BL ET LL C, DB A CV S PH AR MA CY #3 01 6 PA 59 03 03 30 30 00 KE Ac NT 74 -0 -3 .0 00 NT ti OP 60 2- 1- 01 UC ve RA 28 20 20 [...] PH AR ROMAN CY #3 01 6 KL 66 03 [...] MA CY #3 01 6 AC 65 02 03 10 25 00 KE Ac CU 70 -2 -2 0. 00 NT ti -C 20 7- 4- 00 01 UC ve HE 40 20 [...] 03 03 30 15 00 KE Ac OH 16 -0 -2 .0 00 NT ti [...] 80 3- 0- 00 00 UC ve IN 21 20 20 99 [place] DE 61 [...] PH AR ROMAN CY #3 01 6 BE 67 02 [...] PH AR ROMAN CY #3 01 6 VE 00 02 03 18 25 00 KE Ac NT 17 -1 -1 .0 00 NT ti OL 30 3- 0- 00 01 UC ve IN 68 20 20 00 [place] 22 17 17 44 HF 0 62 CV A S 90 PH AR MC ROMAN G CY IN ROBB LL LE C, R DB A CV S PH AR ROMAN CY #3 01 6 NA 65 02 03 30 15 00 KE Ac OH 16 -0 -0 .0 00 NT ti [...] ROMAN CY #3 01 6 PA 59 02 [...] MA CY #3 01 6 AT 00 02 [...] 00 2- 4- 00 00 UC ve OH 51 20 20 99 [place] 20 17 17 41 1 40 CV 2. S 5 PH MG AR MA TA CY BL ET LL C, DB A CV S PH AR ROMAN CY #3 01 6 CA 00 02 [...] ROMAN CY #3 01 6 AC 65 01 [...] PH AR ROMAN CY #3 01 6 HU 00 01 02 30 30 00 KE Ac MA 00 -2 -1 .0 00 NT ti LO 28 3- 7- 00 00 UC ve G 79 20 20 99 [place] IN 75 17 17 87 X 9 10 [...] MA CY #3 01 6 FU 00 01 02 30 30 00 KE Ac RO 37 -1 -1 .0 00 NT ti SE 80 8- 0- 00 00 UC ve IN 21 20 20 99 [place] DE 61 [...] PH AR ROMAN CY #3 01 6 VE 00 01 02 18 25 00 KE Ac NT 17 -1 -1 .0 00 NT ti OL 30 8- 0- 00 00 UC ve IN 68 20 20 99 [place] 22 17 17 74 HF 0 65 CV A S 90 PH AR MC ROMAN G CY IN ROBB LL LE C, [...] PH AR ROMAN CY #3 01 6 BD 08 01 [...] G DB A CV S PH AR ROMAN CY #3 01 6 PA 59 01 [...] .0 00 NT ti NO 00 6- 3- 00 00 UC ve OH 51 20 20 99 [place] 20 17 17 41 1 40 CV 2. S 5 PH MG AR MA TA CY BL ET LL C, DB A CV S PH AR MA CY #3 01 6 AT 00 01 02 30 30 00 KE Ac OR 37 -0 -0 .0 00 NT ti VA 83 6- 3- [address] 95 20 [...] ROMAN CY #3 01 6 DU 66 01 [...] ROMAN CY #3 01 6 AM 00 12 [...] 91 G 4 IN ROBB LE R OH 00 12 01 15 5 00 KE [...] MA CY #3 01 6 AC 65 12 01 10 25 00 [...] ve G 79 20 20 74 AI IN 75 16 17 56 D X 9 15 PH 75 AR -2 M 5 #3 KW 91 IK 4 PE N PA 65 12 01 30 30 00 RI Ac NT 86 -1 -0 .0 00 TE ti OP 20 2- 9- 00 00 ve RA 56 20 20 74 AI ZO 09 16 17 61 D LE 0 01 PH AR SO M D #3 DR 91 4 40 MG TA B ME 68 10 10 0 30 30 [...] AR RT ZA 11 11 11 MA OH 0 CY TO IN # DD E D 10 02 33 MG 2 TA BL ET CI 13 08 10 2 15 30 CV 52 RE Ac TA 66 -2 -2 .0 S 31 IN ti LO 80 2- 1- 00 PH 66 ROBB ve OH 01 20 20 AR RT AM 10 11 11 MA 5 CY TO HB # DD R D 40 02 33 MG 2 TA BL ET LI 68 09 10 2 30 30 CV 53 RE Ac SI 18 -1 -1 .0 S 21 IN ti NO 00 6- 8- 00 PH 11 ROBB ve OH 52 20 20 AR RT IL 00 11 11 MA -H [address] # DD Z D 20 02 -2 33 5 2 MG TA B OH 00 09 10 2 30 30 CV [...] MC 33 G 2 TA BL ET OH 00 10 10 2 30 30 CV [...] 9- 5- 00 PH 35 ROBB ve OH 01 20 20 AR RT AM 00 11 11 MA 5 CY TO HB # DD R D 20 02 33 MG 2 TA BL ET ME 59 10 10 0 21 6 CV 53 RE Ac TH 74 -0 -0 .0 S 92 IN ti YL 60 5- 5- 00 PH 24 ROBB ve OH 00 20 20 AR RT ED 10 [...] AR RT ZA 11 11 11 MA OH 0 CY TO IN # DD E D 10 02 33 MG 2 TA BL ET OH 00 07 09 2 30 30 CV [...] 6- 6- 00 PH 11 ROBB ve OH 52 20 20 AR RT IL 00 11 11 MA -H [address] # DD Z D 20 02 -2 33 5 2 MG TA B OH 00 09 09 2 30 30 CV [...] D 02 TA 33 BL 2 ET OH 00 07 08 2 30 30 CV [...] 2- 2- 00 PH 66 ROBB ve OH 01 20 20 AR RT AM 10 [...] 5- 5- 00 PH 11 ROBB ve OH 01 20 20 AR RT AM 00 11 11 MA 5 CY TO HB # DD R D 20 02 33 MG 2 TA BL ET LI 68 06 08 2 30 30 CV 50 RE Ac SI 18 -1 -1 .0 S 03 IN ti NO 00 3- 4- 00 PH 26 ROBB ve OH 52 20 20 AR RT IL 00 11 11 MA -H [address] # DD Z D 20 02 -2 33 5 2 MG TA B OH 00 06 08 2 30 30 CV [...] AR RT ZA 11 11 11 MA OH 0 CY TO IN # DD E [...] D 02 TA 33 BL 2 ET OH 00 07 07 2 30 30 CV [...] TO # DD D 02 33 2 OH 00 07 07 0 18 9 CV 51 OH Ac ED 59 -2 -2 .0 S [...] 3- 8- 00 PH 26 ROBB ve OH 52 20 20 AR RT IL 00 11 11 MA -H [address] # DD Z D 20 02 -2 33 5 2 MG TA B OH 00 06 07 2 30 30 CV [...] 0 60 30 CV 51 WE Ac OH 37 -1 -1 .0 S 13 CH [...] 02 #3 33 2 TA BL ET OH 00 06 06 0 18 9 CV [...] D 02 TA 33 BL 2 ET OH 00 04 06 2 30 30 CV [...] 3- 3- 00 PH 26 ROBB ve OH 52 20 20 AR RT IL 00 11 11 MA -H [address] # DD Z D 20 02 -2 33 5 2 MG TA B OH 00 06 06 2 30 30 CV [...] 2 60 30 CV 47 RE Ac OH 37 -0 -0 .0 S 67 IN [...] 02 33 CA 2 PS UL E OH 00 04 05 2 30 30 CV [...] 0- 5- 00 PH 68 ROBB ve OH 52 20 20 AR RT IL 00 10 11 MA -H [address] # DD Z D 20 02 -2 33 5 2 MG TA B OH 00 12 05 5 30 30 CV [...] 2 60 30 CV 47 RE Ac OH 37 -0 -0 .0 S 67 IN [...] OS ZA 11 11 11 MA I OH 0 CY - IN # YO E [...] TR TA IC BL K ET M OH 00 04 04 2 30 30 CV [...] 0- 8- 00 PH 68 ROBB ve OH 52 20 20 AR RT IL 00 10 11 MA -H [address] # DD Z D 20 02 -2 33 5 2 MG TA B OH 00 12 04 5 30 30 CV [...] 2 60 30 CV 47 RE Ac OH 37 -0 -0 .0 S 67 IN [...] 0- 2- 00 PH 68 ROBB ve OH 52 20 20 AR RT IL 00 10 11 MA -H [address] # DD Z D 20 02 -2 33 5 2 MG TA B OH 00 12 03 5 30 30 CV [...] MC 33 G 2 TA BL ET OH 00 01 03 2 30 30 CV [...] D TA 02 BL 33 ET 2 OH 00 03 03 0 10 5 CV [...] 2 60 30 CV 43 RE Ac OH 37 -0 -2 .0 S 13 IN [...] 0- 7- 00 PH 68 ROBB ve OH 52 20 20 AR RT IL 00 10 11 MA -H [address] # DD Z D 20 02 -2 33 5 2 MG TA B OH 00 12 02 5 30 30 CV [...] MC 33 G 2 TA BL ET OH 00 01 02 2 30 30 CV 44 RE Ac EM 04 -1 -1 .0 S 78 IN ti AR 61 8- 7- 00 PH 19 ROBB ve IN 10 20 20 AR RT 08 11 11 MA 0. 1 CY TO 3 # DD MG D 02 TA 33 BL 2 ET OH 00 02 02 0 15 4 CV [...] 02 33 CA 2 PS UL E OH 00 01 01 0 20 5 CV [...] 8- 8- 00 PH 78 ROBB ve OH 00 20 20 AR RT ED 10 [...] 0- 8- 00 PH 68 ROBB ve OH 52 20 20 AR RT IL 00 10 11 MA -H [address] # DD Z D 20 02 -2 33 5 2 MG TA B OH 00 12 01 5 30 30 CV [...] MC 33 G 2 TA BL ET OH 00 01 01 2 30 30 CV [...] 2 60 30 CV 43 RE Ac OH 37 -0 -2 .0 S 13 IN [...] D 02 TA 33 BL 2 ET OH 00 10 12 2 30 30 CV [...] 0- 0- 00 PH 68 ROBB ve OH 52 20 20 AR RT IL 00 10 10 MA -H [address] # DD Z D 20 02 -2 33 5 2 MG TA B OH 00 12 12 5 30 30 CV [...] MG 33 2 TA BL ET ME 68 11 12 5 30 30 CV 42 RE Ac LO 18 -0 -0 .0 S 11 IN ti XI 00 3- 2- 00 PH 25 ROBB ve CA 50 20 20 AR RT M 20 10 10 MA 15 1 CY TO # DD MG D 02 TA 33 BL 2 ET BA 00 11 12 1 90 [...] 2 60 30 CV 43 RE Ac OH 37 -0 -0 .0 S 13 IN ti OP 83 1- 1- 00 PH 37 ROBB ve IO 41 20 20 AR RT N 20 10 10 MA HC 1 CY TO L # DD SR D 02 15 33 0 2 MG TA BL ET OH 00 10 11 2 30 30 CV 41 RE Ac EM 04 -2 -2 .0 S 79 IN ti AR 61 5- 3- 00 PH 53 ROBB ve IN 10 20 20 AR RT 08 10 10 MA 0. 1 CY TO 3 # DD MG D 02 TA 33 BL 2 ET LI 68 08 11 3 30 30 CV 39 RE Ac SI 18 -2 -2 .0 S 76 IN ti NO 00 6- 3- 00 PH 21 ROBB ve OH 52 20 20 AR RT IL 00 10 10 MA -H [address] # DD Z D 20 02 -2 33 5 2 MG TA B OH 00 08 11 3 30 30 CV [...] G 2 TA BL ET AT 68 10 11 5 30 [...] D 02 TA 33 BL 2 ET OH 00 10 10 2 30 30 CV [...] 6- 2- 00 PH 21 ROBB ve OH 52 20 20 AR RT IL 00 10 10 MA -H [address] # DD Z D 20 02 -2 33 5 2 MG TA B OH 00 08 10 3 30 30 CV [...] 8- 8- 00 PH 48 ROBB ve OH 00 20 20 AR RT ED 10 10 10 MA NI 3 CY TO SO # DD LO D NE 02 4 33 2 MG DO SE PK LI 68 08 09 3 30 30 CV 39 RE Ac SI 18 -2 -2 .0 S 76 IN ti NO 00 6- 5- 00 PH 21 ROBB ve OH 52 20 20 AR RT IL 00 10 10 MA -H [address] # DD Z D 20 02 -2 33 5 2 MG TA B OH 00 08 09 3 30 30 CV 39 RE Ac AV 09 -2 -2 .0 S 76 IN ti 37 6- 5- 00 PH 22 ROBB ve TA 20 20 20 AR RT TI 29 10 10 MA N 8 CY TO SO # DD DI D UM 02 33 40 2 MG TA B LE 00 08 09 3 30 30 CV 39 RE Ac VO 37 -2 -2 .0 S 76 IN ti TH 81 6- 5- 00 PH 24 ROBB ve YR 81 20 20 AR RT OX 30 10 10 MA IN 1 CY TO E # DD 12 D 5 02 MC 33 G 2 TA BL ET OH 00 08 09 1 30 30 CV 39 RE Ac EM 04 -2 -2 .0 S 76 IN ti AR 61 6- 5- 00 PH 26 ROBB ve IN 10 20 20 AR RT 08 10 10 MA 0. 1 CY TO 3 # DD MG D 02 TA 33 BL 2 ET HY 00 09 09 1 60 [address] 55 -1 -1 .0 S 37 IN ti OX 50 4- 4- 00 PH 68 ROBB ve YZ 30 20 20 AR RT IN 20 10 10 MA E 2 CY TO PA # DD M D 50 02 33 MG 2 CA P ME 59 09 09 0 21 6 CV 40 RE Ac TH 74 -1 -1 .0 S 37 IN ti YL 60 4- 4- 00 PH 69 ROBB ve OH 00 20 20 AR RT ED 10 10 10 MA NI 3 CY TO SO # DD LO D NE 02 4 33 2 MG DO SE PK BA 00 08 09 2 90 30 [...] 16 IN ti XI 00 9- 7- 00 PH 93 ROBB ve CA 50 20 20 AR RT M 20 10 10 MA 15 1 CY TO # DD MG D 02 TA 33 BL 2 ET AT 68 04 09 1 30 30 CV 39 No Ac EN 38 -0 -0 .0 S 26 t ti OL 20 6- 7- 00 PH 28 Av ve OL 02 20 20 AR ai 21 10 10 MA la 25 0 CY bl # e MG 02 TA 33 BL 2 ET AC 00 07 09 2 90 30 CV 39 No Ac ET 09 -1 -0 .0 S 26 t ti AM 30 5- 7- 00 PH 29 Av ve IN 15 20 20 AR ai OP 01 10 10 MA la HE 0 CY bl N- # e CO D 02 #3 33 2 TA BL ET LI 68 08 08 3 30 30 CV 39 RE Ac SI 18 -2 -2 .0 S 76 IN ti NO 00 6- 6- 00 PH 21 ROBB ve OH 52 20 20 AR RT IL 00 10 10 MA -H [address] # DD Z D 20 02 -2 33 5 2 MG TA B OH 00 08 08 3 30 30 CV [...] MC 33 G 2 TA BL ET OH 00 08 08 1 30 30 CV [...] S 16 IN ti XI 00 9- 9- 00 PH 93 ROBB ve CA 50 20 20 AR RT M 20 10 10 MA 15 1 CY TO # DD MG D 02 TA 33 BL 2 ET HY 00 08 08 0 30 [address] 55 -0 -0 .0 S 16 IN ti OX 50 9- 9- 00 PH 94 ROBB ve YZ 30 20 [...] DOS Code Location Performer Comment INJECTION J1100 [facility] 7 PHYSICIAN DEXAMETHO S GROUP SONE SODIUM PHOSPHATE 1 MG THERAPEUT 81280 [facility] IC 7 PHYSICIAN PROPHYLAC S GROUP TIC/DX INJECTION SUBQ/IM SBSQ 13686 [facility] 7 NE HEALTH CARE/[place] [place] [address] [facility] [place] ANGIOGRAP 7 RADIOLOGY HY NECK W/CONTRAS T/NONCONT RAST DUPLEX 13203 [facility] GINGER SCAN 7 NE HEALTH EXTRACRAN MEDICAL [place] [address] [facility] [place] HEAD/BRAI 7 RADIOLOGY N W/O CONTRAST MATERIAL MRI BRAIN 83597 [facility] [place] CARPIO BRAIN 7 RADIOLOGY STEM W/[place] [address] [facility] [place] ANGIOGRAP 7 RADIOLOGY HY HEAD W/CONTRAS T/NONCONT RAST SBSQ 52737 [place] [address] [facility]ALTH CARE/DAY MEDICAL 35 G MINUTES RADIOLOGI 19999 [facility] [place] KOSTELIC C 7 RADIOLOGY EXAMINATI [place] [address] [facility] [place] HEAD/BRAI 7 RADIOLOGY N W/O CONTRAST MATERIAL ECG 89081 [facility] ROUTINE 7 CJ ECG EMERGENCY W/LEAST PHYS 12 LDS I&R ONLY CRITICAL [address] HEALTH ILL/INJUR MEDICAL ED G PATIENT INIT 30-74 MIN SUSCEPTIB 10902 [facility] LTY STDY 7 [facility] ANTIMICRB INC INC IAL MICRO/AGA R DILUTJ URNLS DIP 75736 [facility] 7 [facility] STICK/TAB INC INC LET RGNT AUTO W/O MICROSCOP Y CULTURE 58471 [facility] BACTERIAL 7 [facility] INC INC QUANTTATI VE COLONY COUNT URINE CULTURE 26657 [facility] BCT 7 [facility] ISOL&PRSM INC INC PTV ID ISOLATE EA URINE ALBUMIN 12642 [facility] URINE 7 [facility] MICROALBU INC INC MIN QUANTIATI VE IM ADM 86337 [facility] PRQ ID 7 PHYSICIAN SUBQ/IM S GROUP NJXS 1 VACCINE COLLECTIO 08239 [facility] N VENOUS 7 [facility] BLOOD INC INC VENIPUNCT URE COMPREHEN 46663 [facility] SIVE 7 [facility] METABOLIC INC INC PANEL CREATININ 53647 [facility] E OTHER 7 [place] [address] [facility] FREE 7 [facility] [place] [address] [facility] THYROID 7 [facility] STIMULATI INC INC NG HORMONE TSH LIPID 59765 [facility] PANEL 7 [facility] INC INC HEMOGLOBI 97015 [facility] N 7 [facility] GLYCOSYLA INC INC MARCO A1C BLOOD 44828 [facility] COUNT 7 [facility] COMPLETE INC INC AUTO&AUTO DIFRNTL WBC IIV3 64231 [facility] VACCINE 7 PHYSICIAN SPLIT S GROUP VIRUS 0.5 ML DOSAGE IM USE ECG [address] [facility] ROUTINE 7 CJ ECG EMERGENCY W/LEAST PHYS 12 LDS I&R ONLY RADIOLOGI 39629 [facility] [place] RADKINGESH C EXAM 7 RADIOLOGY CHEST 2 VIEWS FRONTAL&L ATERAL CT THORAX 17099 [facility] [place] 7 RADIOLOGY W/CONTRAS T MATERIAL RADEX 55598 [facility] [place] JAMES FOOT 7 RADIOLOGY COMPLETE MINIMUM 3 VIEWS ECG 77810 [facility] ROUTINE 6 NE HEALTH ECG MEDICAL W/LEAST G 12 LDS W/I&R ECG 80338 [facility] ROUTINE 6 NE HEALTH ECG MEDICAL W/LEAST G 12 LDS W/I&R ALBUMIN 80729 [facility] URINE 6 Y Y [facility] MIN QUANTIATI VE CREATININ 86564 [facility] E OTHER 6 Y Y [facility] HEMOGLOBI 65861 [facility] N 6 NURSE [place] GLYCOSYLA [place]ACTIT[place] A1[place] [address] JOSE M BREWER DX/THER 6 MD ELVIRA, AGT PVRT PSC FACET JT LMBR/SAC 3+ LEVEL GLUC BLD 87256 [facility] GLUC MNTR 6 [facility] DEV INC INC CLEARED FDA [place]X [address] [facility] DX/THER 6 [facility] AGT PVRT INC INC FACET JT LMBR/SAC 1 LEVEL NJX 04402 [facility] DX/THER 6 [facility] AGT PVRT INC INC FACET JT LMBR/SAC 2ND LEVEL ECHO 43765 [facility] [address] [place] [address] 2D W/WOM-MOD E COMPL SPEC&COLR D INJECTION Q9957 [address] PERFLUTRE N LIPID MICROSPHE RES PER ML APPL 12787 [facility] BOWIE MODALITY 6 AMA 1/> AREAS CHIROPRAC TRACTION TIC CENTE MECHANICA L APPL 26883 RAMIRO HERNADEZELL MODALITY 6 AMA 1/> AREAS CHIROPRAC ELEC TIC CENTE STIMJ UNATTENDE D THERAPEUT 89921 RAMIRO BOWIE IC PX 1/> 6 AMA AREAS CHIROPRAC EACH 15 TIC CENTE MIN EXERCISES CHIROPRAC 30165 RAMIRO HERNADEZELL TIC 6 AMA MANIPULAT CHIROPRAC MATEO TX TIC CENTE SPINAL 3-4 REGIONS APPL 53100 RAMIRO BOWIE MODALITY 6 AMA 1/> AREAS CHIROPRAC TIC CENTE ULTRASOUN D EA 15 MIN MANUAL 97617 RAMIRO HERNADEZELL THERAPY 6 AMA TQS 1/> CHIROPRAC REGIONS TIC CENTE EACH 15 MINUTES RADEX 82465 RAMIRO HERNADEZELL SPINE 6 AMA LUMBOSACR CHIROPRAC AL 2/3 TIC CENTE VIEWS APPL 46029 [facility] BOWIE MODALITY 6 AMA 1/> AREAS CHIROPRAC TRACTION TIC CENTE MECHANICA L APPL 20036 [facility] HERNADEZELL MODALITY 6 AMA 1/> AREAS CHIROPRAC ELEC TIC CENTE STIMJ UNATTENDE D CHIROPRAC 28490 RAMIRO BOWIE TIC 6 AMA MANIPULAT CHIROPRAC MATEO TX TIC CENTE SPINAL 3-4 REGIONS RADEX 10316 RAMIRO BOWIE SPINE 6 AMA CERVICAL CHIROPRAC 2 OR 3 TIC CENTE VIEWS APPL 04120 RAMIRO BOWIE MODALITY 6 AMA 1/> AREAS CHIROPRAC TIC CENTE ULTRASOUN D EA 15 MIN MANUAL 72906 RAMIRO BOWIE THERAPY 6 AMA TQS 1/> CHIROPRAC REGIONS TIC CENTE EACH 15 MINUTES RADEX 41191 [place] [facility] HAND 2 6 MEDICAL VIEWS IMAGING ASS RADEX 50330 [place] [facility] ALL FOREARM 2 [address] [place] [address] [place] [facility] ALL HEAD/BRAI 6 MEDICAL N W/O IMAGING CONTRAST ASS MATERIAL INJECTION J1885 [facility] 6 [facility] INE PER 15 MG THERAPEUT 74949 [facility] IC 6 [facility] TIC/DX INJECTION SUBQ/IM UNCLASSIF J3490 [facility] IED DRUGS 6 [facility] INC [place] NJX 55460 JOSE M DUFF DX/THER 6 MD ELVIRA, AGT PVRT PSC FACET JT LMBR/SAC 1 L[place]EL NJX 98771 JOSE M DUFF DX/THER 6 MD ELVIRA, AGT PVRT PSC FACET JT LMBR/SAC 2ND [place]EL NJX 37178 JOSE M DUFF DX/THER 6 MD ELVIRA, AGT PVRT PSC FACET JT LMBR/SAC 3+ LEVEL DRUG TST G0477 [facility] PRESUMP;C 6 [facility] PBL BEING [place] [address] [place] [facility] ALL HEAD/BRAI 6 MEDICAL N W/O IMAGING CONTRAST ASS MATERIAL OPHTH 48544 [facility] 6 GRE GRE XM&EVAL COMPRHNSV ESTAB PT 1/> UNCLASSIF J3490 [facility] IED DRUGS 6 [facility] [place] NJX [address] JOSE M DENA CRI DX/THER 6 MD ELVIRA, SBST PSC EPIDURAL/ SUBARACH LUMBAR/SA CRAL OBSERVATI 41993 [facility] ELSIE ON/INPATI 6 PHYSICIAN [facility] 50 MINUTES ECG 82517 [facility] ROUTINE 6 [facility] W/LEAST P 12 LDS I&R ONLY RADIOLOGI 77517 [place] 6 MEDICAL SHAYNE EXAMINATI IMAGING ON CHEST ASS SINGLE VIEW FRONTAL SCREENING 40335 [facility] 6 [facility] MAMMOGRAP INC INC HY BILATERAL SCREENING G0202 [place] 6 MEDICAL SHAYNE MAMMOGRAP IMAGING HY GOKUL ASS INCL CAD WHEN PERFORMD COMPUTER- 54651 [facility] AIDED 6 [facility] DETECTION INC [place] [address] [facility] THYROXINE 6 [facility] TOTAL INC INC COMPREHEN 19918 [facility] SIVE 6 [facility] [place] [address] [facility] THYROID 6 [facility] STIMULATI INC INC NG HORMONE TSH HEMOGLOBI 25583 [facility] N 6 [facility] GLYCOSYLA INC INC MARCO A1C BLOOD 90133 [facility] COUNT 6 [facility] COMPLETE INC INC AUTO&AUTO DIFRNTL WBC ALBUMIN 57671 [facility] URINE 6 [facility] MICROALBU INC INC MIN QUANTIATI VE UNCLASSIF J3490 [facility] IED DRUGS 6 [facility] INC INC INJECTION J2405 [facility] 6 [facility] ONDANSETR INC INC ON HCL PER 1 [place] [address] [facility] INFUSION 6 [facility] THERAPY/P INC INC ROPHYLAXI S /DX 1ST TO 1 HR GLUC BLD 41963 [facility] GLUC MNTR 6 [facility] DEV INC INC CLEARED FDA SPEC HOME USE THERAPEUT 34138 [facility] IC 6 [facility] INJECTION INC INC IV PUSH EACH NEW DRUG RADIOLOGI 62384 [facility] C EXAM 6 [facility] CHEST 2 INC INC VIEWS FRONTAL&L ATERAL URNLS DIP 41657 [facility] 6 [facility] STICK/TAB INC INC LET REAGENT AUTO MICROSCOP Y BLOOD 83320 [facility] COUNT 6 [facility] COMPLETE INC INC AUTO&AUTO DIFRNTL WBC COMPREHEN 42510 [facility] SIVE 6 [facility] METABOLIC INC INC PANEL IAADI 89302 [facility] INFLUENZA 6 [facility] B VIRUS INC INC IAADI 65835 [facility] INFFLUENZ 6 [facility] [place] [address] [facility] ABDOMEN & 6 [facility] PELVIS INC INC W/O CONTRAST MATERIAL RADIOLOGI 64962 [place] [facility] 6 MEDICAL NARINDER EXAMINATI IMAGING ON CHEST ASS SINGLE VIEW FRONTAL LOCM Q9967 [facility] [phone] 6 [facility] MG/ML INC INC IODINE CONCENTRA [place]ION [place] NJX 49791 [facility] DX/THER 6 [facility] SBST INC INC EPIDURAL/ SUBARACH LUMBAR/SA CRAL INJECTION J1030 [facility] 6 [facility] METHYLPRE INC INC DNISOLONE ACETATE 40 MG UNCLASSIF J3490 [facility] IED DRUGS 6 [facility] INC INC STANDARD K0001 ISHMAEL MARINO 6 HOME HOME R MEDICAL MEDICAL EQUIPME EQUIPME EXCISION 09917 PROGRESSI ABIMAEL NAIL 6 VE KAYODE MATRIX PODIATRY PERMANENT REMOVAL NON-INVAS 39674 [facility] MATEO 6 [facility] PHYSIOLOG INC INC IC STUDY EXTREMITY 3 LEVLS ECG 74876 [facility] ROUTINE 6 NE HEALTH ECG MEDICAL W/LEAST G 12 LDS W/I&R STANDARD K0001 ISHMAEL MARINO 6 HOME HOME R MEDICAL MEDICAL EQUIPME EQUIPME DIAB ONLY A5500 J & L J & L FIT CSTM 6 HOME HOME PREP&SPL MEDICAL MEDICAL SHOE MX EQUIPMENT EQUIPMENT DNSITY INSRT FOR DIAB A5512 J & L J & L ONLY MX 6 HOME HOME DNSITY MEDICAL MEDICAL INSRT DIR EQUIPMENT EQUIPMENT FORMD PRFAB EA COLLECTIO 52610 [facility] N VENOUS 6 [facility] BLOOD INC INC VENIPUNCT URE COMPREHEN 51645 [facility] SIVE 6 [facility] METABOLIC INC INC PANEL HEMOGLOBI 84530 [facility] N 6 [facility] GLYCOSYLA INC INC MARCO A1C BLOOD 81305 [facility] COUNT 6 [facility] COMPLETE INC INC AUTO&AUTO DIFRNTL WBC ECG 21011 [facility] PERALTA JR ROUTINE [address] [facility] W/LEAST P 12 LDS I&R ONLY E-STIM G0283 [facility] 1/> AREAS 5 [facility] OTH THAN INC INC WND CARE PART TX PLAN THERAPEUT 00895 [facility] IC PX 1/> 5 [facility] AREAS INC INC EACH 15 MIN EXERCISES APPLICATI 09880 [facility] ON 5 [facility] MODALITY INC INC 1/> AREAS HOT/COLD PACKS APPLICATI 08400 [facility] ON 5 [facility] MODAL[facility] INC INC 1/> AREAS HOT/COLD PACKS THERAPEUT 22602 [facility] IC PX 1/> 5 [facility] AREAS INC INC EACH 15 MIN EXERCISES E-STIM G0283 [facility] 1/> AREAS 5 [facility] OTH THAN INC INC WND CARE PART TX PLAN APPL 13582 [facility] MODALITY 5 [facility] 1/> AREAS INC INC TRACTION MECHANICA L E-STIM G0283 [facility] 1/> AREAS 5 [facility] OTH THAN INC INC WND CARE PART TX PLAN THERAPEUT 63002 [facility] IC PX 1/> 5 [facility] AREAS INC INC EACH 15 MIN EXERCISES MANUAL 45304 [facility] THERAPY 5 [facility] TQS 1/> INC INC REGIONS EACH 15 MINUTES APPLICATI 76381 [facility] ON 5 [facility] MODALITY INC INC 1/> AREAS HOT/COLD [facility]ACKS MRI 89941 [facility] SPINAL 5 [facility] CANAL INC INC LUMBAR W/O CONTRAST MATERIAL 3D 29711 [facility] RENDERING 5 [facility] W/INTERP INC INC & POSTPROCE SS SUPERVISI ON SUSCEPTIB 71194 [facility] LTY STDY 5 [facility] ANTIMICRB INC INC IAL MICRO/AGA R DILUTJ CUL BACT 98874 [facility] XCPT 5 [facility] URINE INC INC BLOOD/STO OL AEROBIC ISOL PHYSICAL 19814 [facility] THERAPY 5 [facility] EVALUATIO INC INC N CYTP C/V 91331 [facility], PICKLESIM AUTO THIN 5 [facility] ER JR BARBARA LYR PREPJ SCR MNL RESCR PHYS RADEX HIP 28155 [facility] 5 [facility] UNILATERA INC INC L COMPLETE MINIMUM 2 VIEWS RADEX 05823 [facility] SPINE 5 [facility] LUMBOSACR INC INC AL MINIMUM 4 VIEWS RADIOLOGI 80350 [place] [facility] C EXAM 5 MEDICAL CHEST 2 IMAGING VIEWS ASS FRONTAL&L ATERAL SUSCEPTIB 17855 [facility] LTY STDY 5 [facility] ANTIMICRB INC INC IAL MICRO/AGA R DILUTJ CUL BACT 98340 [facility]PS XCPT 5 [facility] URINE INC INC BLOOD/STO OL AEROBIC ISOL CUL BACT 57390 [facility] PHIPPS AEROBIC 5 [facility] ADDL INC INC METHS DEFINITIV E EA ISOL ECG 91392 [facility] WILMER ROUTINE 5 [facility] ECG MEDICAL W/LEAST G 12 LDS W/I&R US BREAST 64280 [place] HERN[place]NDEZ ALL UNI REAL 5 MEDICAL TIME IMAGING WITH ASS IMAGE LIMITED US BREAST 88763 [facility] PHIPPS UNI REAL 5 [facility] TIME INC INC WITH IMAGE COMPLETE RADIOLOGI 63101 [facility] FELIPELolis ZEPEDA C EXAM 5 MEDICAL CHEST 2 IMAGING VIEWS ASS FRONTAL&L ATERAL DUP-SCAN 39336 [facility] XTR VEINS [address] [place] [address] COMPLETE BILATERAL STUDY ECG 98595 [facility] MCCABE WILMER ROUTINE 5 [facility] ECG MEDICAL W/LEAST G 12 LDS W/I&R COMPUTER- 13950 [facility] [place] SCALF LET[place] AIDED 5 RADIOLOGY DETECTION SCREENING MAMMOGRAP HY SCREENING G0202 [facility] [place] SCAL[place] LETY 5 RADIOLOGY MAMMOGRAP HY GOKUL INCL CAD WHEN PERFORMD ARTHROCEN 05193 [facility] TESIS 5 PHYSICIAN FRANK ASPIR&/IN S GROUP J MAJOR JT/[place] [address] [facility], [facility], SURG 5 [facility] PATHOLOGY GROSS&MERARY ROSCOPIC EXAM GLUC BLD 44812 [facility] GLUC MNTR 5 N N DEV COMMUNTIY COMMUNTIY CLEARED HOSPITA HOSPITA FDA SPEC HOME USE ANES 33070 [place] TELLEZ LOWER 5 ANESTHESI MERARY INTESTINE A GROUP PS ENDOSCOPY DISTAL DUODENUM INJECTION J2704 [facility] PROPOFOL 5 N N 10 MG COMMUNTIY COMMUNTIY HOSPITA HOSPITA [place] 80535 GASTROENT CASE JUS PY 5 EROLOGY W/BIOPSY AND SINGLE/MU HEPATOL LTIPLE APPL 27151 [facility] MODALITY 5 [facility] 1/> AREAS INC INC ELEC STIMJ UNATTENDE D APPL 75061 [facility] MODALITY 5 [facility]OS[facility] 1/> AREAS INC INC VASOPNEUM ATIC DEVICES THERAPEUT 66648 [facility] IC PX 1/> 5 [facility]OS[facility] AREAS INC INC EACH 15 MIN EXERCISES RADIOLOGI 00898 [facility] C EXAM 5 [facility] KNEE INC INC COMPLETE 4/MORE VIEWS ARTHROCEN 35063 [facility] TESIS 5 PHYSICIAN JAM ASPIR&/IN S GROUP J MAJOR JT/BURSA W/O US INJ J0702 [facility] BETAMETHA 5 PHYSICIAN FRANK Titus GROUP ACETATE & PHOSPHATE 3 MG CYANOCOBA 76601 [facility] PJ 5 [facility] VITAMIN [place] [address] [place] [address] [facility] FOLIC 5 JEFF JEFF ACID [facility] SERUM GENERAL 70517 [facility] HEALTH 5 [facility] PANEL [facility] BLOOD 38744 [facility] COUNT 5 [facility]OS[facility] COMPLETE INC INC AUTO&AUTO DIFRNTL WBC OBSERVATI 29620 [facility] AND ON CARE 5 WILD HORSE DISCHARGE INTERNAL MED MANAGEMEN T UNCLASSIF J3490 [facility] IED DRUGS 5 [facility] INC INC BASIC 00982 [facility] METABOLIC 5 [facility] PANEL INC INC [facility] G0378 [facility] OBSERVATI 5 [facility] ON INC INC SERVICE PER HOUR COLLECTIO 46532 [facility] N VENOUS 5 [facility]OS[facility] BLOOD INC INC VENIPUNCT URE COMPREHEN 49310 [facility] SIVE 5 [facility]OS[facility] METABOLIC INC INC PANEL IADNA NOS 30138 [facility]PS 5 [facility] AMPLIFIED INC INC PROBE TQ EACH [facility] G0378 [facility] OBSERVATI 5 [facility]OS[facility] ON INC INC SERVICE PER HOUR INF AGENT 31816 [facility] DET 5 [facility]OS[facility] NUCLEIC INC [place] [address] [facility] ABDOMEN & 5 [facility] HOSP PELVIS [place] [address] [facility] INFUSION 5 [facility] THERAPY/P INC INC ROPHYLAXI S /DX 1ST TO 1 HR BLOOD 34582 [facility] COUNT 5 [facility] COMPLETE INC INC AUTO&AUTO DIFRNTL WBC INITIAL 50068 [facility] OBSERVATI 5 [facility] ON INTERNAL CARE/DAY MED 30 MINUTES COLLECTIO 18039 [facility] N VENOUS 5 [facility] BLOOD INC INC VENIPUNCT URE UNCLASSIF J3490 [facility] IED DRUGS 5 [facility]OS[facility] INC INC PHYSICAL 81590 [facility] THERAPY 5 [facility] EVALUATIO INC INC N POLYSOM 87872 [facility] 6/>YRS 5 N N SLEEP 4/> COMMUNTIY COMMUNTIY ADDL HOSPITA HOSPITA SAWYER ATTND INJ J0702 [facility] BETAMETHA 5 PHYSICIAN FRANK SONE S GROUP ACETATE & PHOSPHATE 3 MG ARTHROCEN 39401 [facility] TESIS 5 PHYSICIAN FRANK ASPIR&/IN S GROUP J MAJOR JT/BURSA W/O US MRI ANY 88710 [facility] JT LOWER 5 [facility] EXTREM INC INC W/O CONTRAST MATRL UNCLASSIF J3490 [facility] IED DRUGS 4 [facility] INC INC RADIOLOGI 00915 [facility] C 4 [facility] EXAMINATI INC INC ON KNEE 3 VIEWS CRTCHS E0114 [facility] UNDARM 4 TECHNOLOG TECHNOLOG OTH THAN IES INC IES INC WOOD PAIR PAD TIP&HNDGR IP RADEX 42298 [place] COL[place] ANKLE 4 MEDICAL SHAYNE COMPLETE IMAGING MINIMUM 3 ASS VIEWS UNCLASSIF J3490 [facility] IED DRUGS 4 [facility] INC INC APPL 02393 [facility] MODALITY 4 [facility] 1/> AREAS INC INC VASOPNEUM ATIC DEVICES APPL 70843 [facility] MODALITY 4 [facility] 1/> AREAS INC INC IONTOPHOR ESIS EA 15 MIN THERAPEUT 55695 [facility] IC PX 1/> 4 [facility]OSP AREAS INC INC EACH 15 MIN EXERCISES APPL 30942 [facility] MODALITY 4 [facility] 1/> AREAS INC INC ELEC STIMJ UNATTENDE D APPL 96474 [facility] MODALITY 4 [facility] 1/> AREAS INC INC ELEC STIMJ UNATTENDE D APPL 63584 [facility] MODALITY 4 [facility] 1/> AREAS INC INC IONTOPHOR ESIS EA 15 MIN THERAPEUT 83801 [facility] IC PX 1/> 4 [facility]OS[facility] AREAS INC INC EACH 15 MIN EXERCISES UNCLASSIF J3490 [facility] IED DRUGS 4 [facility] INC INC APPLICATI 59880 [facility] ON 4 [facility]OS[facility] MODALITY INC INC 1/> AREAS HOT/COLD PACKS APPLICATI 52176 [facility] ON 4 [facility]OS[facility] MODALITY INC INC 1/> AREAS HOT/COLD PACKS UNCLASSIF J3490 [facility] IED DRUGS 4 [facility] INC INC APPL 53209 [facility] MODALITY 4 [facility] 1/> AREAS INC INC IONTOPHOR ESIS EA 15 MIN THERAPEUT 46662 [facility] IC PX 1/> 4 [facility]OSP AREAS INC INC EACH 15 MIN EXERCISES APPL 64436 [facility] MODALITY 4 [facility] MEM [facility]OS[facility] 1/> AREAS INC INC ELEC STIMJ UNATTENDE D APPL 04329 [facility] MODALITY 4 [facility] 1/> AREAS INC INC ELEC STIMJ UNATTENDE D THERAPEUT 00269 [facility] IC PX 1/> 4 [facility]OS[facility] AREAS INC INC EACH 15 MIN EXERCISES APPLICATI 45317 [facility] ON 4 [facility] MODALITY INC INC 1/> AREAS HOT/COLD PACKS APPLICATI 75925 [facility] ON 4 [facility] MODALITY INC INC 1/> AREAS HOT/COLD PACKS UNCLASSIF J3490 [facility] IED DRUGS 4 [facility] INC INC APPL 63000 [facility] MODALITY 4 [facility] 1/> AREAS INC INC ELEC STIMJ UNATTENDE D APPL 37548 [facility] MODALITY 4 [facility] 1/> AREAS INC INC IONTOPHOR ESIS EA 15 MIN THERAPEUT 18495 [facility] IC PX 1/> 4 [facility]OS[facility] AREAS INC INC EACH 15 MIN EXERCISES APPL 32343 [facility] MODALITY 4 [facility] MEM HOS[facility] 1/> AREAS INC INC IONTOPHOR ESIS EA 15 MIN THERAPEUT 51476 [facility] IC PX 1/> 4 [facility]OS[facility] AREAS INC INC EACH 15 MIN EXERCISES APPL 24038 [facility] MODALITY 4 MEM [facility] MEM HOSP 1/> AREAS INC INC ELEC STIMJ UNATTENDE D UNCLASSIF J3490 [facility] IED DRUGS 4 [facility] INC INC APPLICATI 25753 [facility] ON 4 [facility]OS[facility] MODALITY INC INC 1/> AREAS HOT/COLD PACKS THERAPEUT 80844 [facility] IC PX 1/> 4 [facility] HOSP AREAS INC INC EACH 15 MIN EXERCISES PHYSICAL 87165 [facility] THERAPY 4 [facility] EVALUATIO INC INC N RADIOLOGI 66315 [place] COLTON C EXAM 4 MEDICAL SHAYNE CHEST 2 IMAGING VIEWS ASS FRONTAL&L ATERAL RADIOLOGI 43050 [facility] [place] JAMES C EXAM 4 RADIOLOGY RHO CHEST 2 VIEWS FRONTAL&[place] [address] [place] COLTON ABDOMEN & 4 MEDICAL SHAYNE PELVIS IMAGING W/O ASS CONTRAST MATERIAL GENERAL 78562 [facility] 4 DIAGNOSTI DIAGNOSTI PANEL CS CS HEMOGLOBI 79736 24Symbols N 4 DIAGNOSTI DIAGNOSTI GLYCOSYLA CS CS MARCO A1C LIPID 14979 24Symbols PANEL 4 DIAGNOSTI DIAGNOSTI CS CS GLUC BLD 86421 [facility] GLUC MNTR 4 N N DEV [facility] CLEARED HOSPITA HOSPITA FDA SPEC HOME USE INJECTION J3030 [facility] 4 N N SUMATRIPT [facility] AN HOSPITA HOSPITA SUCCINATE [address] IN[address] [facility] 4 N N KETOROLAC [facility] HOSPITA HOSPITA TROMETHAM INE PER [address] [facility] IC 4 N N PROPHYLAC [facility] TIC/DX HOSPITA HOSPITA INJECTION SUBQ/IM ECG 78714 [facility] MCCABE WILMER ROUTINE 4 [facility] ECG MEDICAL W/LEAST G 12 LDS W/I&R CREATININ [address] [place] [address] HY ABDOMEN W/CONTRAS T/[place] [address] HY CHEST W/CONTRAS T/NONCONT RAST LOCM Q9967 [facility] [phone] [place] [address] MG/ML IODINE CONCENTRA TION PER ML ECG 56115 [facility] MER[facility] ECG EMERGENCY W/LEAST PHYS 12 LDS I&R ONLY LIPID [address] MYOCARDIA [address] MULTIPLE STUDIES ECHO 08995 [facility] TTHRC R-T [address] [place] [address] 2D W/WOM-MOD E COMPL SPEC&COLR D GROUND A0425 [facility] MILEAGE 4 AMBULANCE AMBULANCE PER SERVICE SERVICE STATUTE MILE CV STRS [address] XERS&/OR RX CONT ECG TRCG ONLY INJECTION J[address] REG[place]EN[place] ON 0.1 MG AMB A0427 [facility] SERVICE 4 AMBULANCE AMBULANCE ALS SERVICE SERVICE EMERGENCY TRANSPORT LEVEL 1 UNCLASSIF J3490 [facility] IED DRUGS [address] [place] [address] TECHNETIU A9502 [facility] TC-99M [address] [place] [address] TETROFOSM IN DX PER STUDY DOSE CV STRS 46489 [facility] MCCABE WILMER TST 4 [facility] XERS&/OR MEDICAL RX CONT G ECG I&R ONLY GLUCOSE [address] REAGENT STRIP ECG 83356 [facility] R[facility]INE 4 CJ MERARY ECG EMERGENCY W/LEAST PHYS 12 LDS I&R ONLY CRITICAL 39609 [facility] 4 CJ MERARY ILL/INJUR EMERGENCY ED PHYS PATIENT INIT 30-74 MIN RADIOLOGI 74161 [facility] COLTON C 4 MEDICAL SHAYNE EXAMINATI IMAGING ON CHEST ASS SINGLE VIEW FRONTAL KNEE L1830 [facility] BREG INC. ORTHOSIS 4 IMMOBLIZE R CANVAS LONGTUDNL PREFAB RADEX 21582 [facility] PAREKHCOLTON ANKLE 4 MEDICAL SHAYNE COMPLETE IMAGING MINIMUM 3 ASS VIEWS RADIOLOGI 46865 [facility] COLTON C 4 MEDICAL SHAYNE EXAMINATI IMAGING ON FEMUR ASS 2 VIEWS RADIOLOGI 06177 [facility] COLTON C 4 MEDICAL SHAYNE EXAMINATI IMAGING ON KNEE 3 ASS VIEWS WALKER E0143 J & L J & L FOLDING 4 HOME HOME WHEELED MEDICAL MEDICAL ADJUSTABL EQUIPMENT EQUIPMENT E/FIXED HEIGHT SEAT E0156 J & L J & L ATTACHMEN 4 HOME HOME T WALKER MEDICAL MEDICAL EQUIPMENT EQUIPMENT HEMOGLOBI 64008 [facility] N 4 DIAGNOSTI DIAGNOSTI GLYCOSYLA CS CS MARCO A1C LIPID 71747 [facility] PANEL 4 [place] [address] [facility] THYROID 4 DIAGNOSTI DIAGNOSTI STIMULATI CS CS NG HORMONE TSH COMPREHEN 42839 [facility] SIVE 4 DIAGNOSTI DIAGNOSTI METABOLIC CS CS PANEL WRIST L3908 J & L J & L HAND 4 HOME HOME ORTHOSIS MEDICAL MEDICAL EXT EQUIPMENT EQUIPMENT CONTROL COCK-UP PREFAB NERVE 76540 [place] FEE DOM CONDUCTIO 4 MEDICAL N STUDIES SERV 9-10 FOUNDATIO STUDIES N NEEDLE 52941 [place] FEE DOM EMG EA 4 MEDICAL EXTREMTY SERV W/PARASPI FOUNDATIO NL AREA N COMPLETE RADEX ABD 28148 [facility] COL[facility]NO COMPL 4 MEDICAL SHAYNE AQT ABD IMAGING W/S/E/D ASS VIEWS 1 VIEW CH BONE 60203 [facility] &/JOINT 4 Y Y [facility] TOMOGRAPH IC SPECT TECHNETIU A9561 [facility] TC-99M 4 Y Y [facility] E DX UP TO 30 MCI RADEX 27024 [facility] SPINE 4 Y [facility]/3 VIEWS ECG 91735 [facility] ROUTINE 4 CJ III DUANE ECG EMERGENCY W/LEAST PHYS 12 LDS I&R ONLY MRI 90476 [facility] SPINAL 4 N N CANAL COMMUNTIY COMMUNTIY LUMBAR HOSPITA HOSPITA W/O CONTRAST MATERIAL INJECTION J1885 [facility] MARGARETTE 4 N FAMILY HEN KETOROLAC PRACTICE TROMETHAM INE PER 15 MG THERAPEUT 85560 [facility] MARGARETTE IC 4 N FAMILY HEN PROPHYLAC PRACTICE TIC/DX INJECTION SUBQ/IM KNEE L1810 [facility] ORTHOSIS 2 [place] ELASTIC ORTHOPAED [employer] [place] [address] [facility] BLOOD/URI 2 DIAGNOSTI DIAGNOSTI C ACID CS CS COLLECTIO 76488 [facility] N VENOUS 2 DIAGNOSTI DIAGNOSTI BLOOD CS CS VENIPUNCT URE RADIOLOGI 73581 [facility] [place] BAILEY MAT C 2 RADIOLOGY EXAMINATI ON KNEE 3 VIEWS GENERAL 54484 [facility] HEALTH 2 DIAGNOSTI DIAGNOSTI PANEL CS CS HEMOGLOBI 28977 [facility]ST N 2 DIAGNOSTI DIAGNOSTI GLYCOSYLA CS CS MARCO A1C LIPID 39554 [facility] PANEL 2 DIAGNOSTI DIAGNOSTI CS CS RADEX 09777 [facility] [place] [facility]MARINE [facility] SPINE 2 RADIOLOGY SHA LUMBOSACR AL 2/3 VIEWS RADEX 44610 [facility] [place] RENE ANKLE 2 RADIOLOGY III NORMA COMPLETE MINIMUM 3 VIEWS ECG 89358 CELLAROSI CELLAROSI ROUTINE 1 - YORBA - YORBA ECG PAT PAT W/LEAST 12 LDS I&R ONLY RADIOLOGI 05556 [facility] [place] ROME C C 1 RADIOLOGY EXAMINATI ON CHEST SINGLE VIEW FRONTAL RADEX 85452 [facility] EL[place]OW 2 1 [place] VIEWS ORTHOPAED [facility]CS [facility] URINALYSI 65177 [facility] NIHARIKA S 1 N FAMILY TOD MICROSCOP PHYS PSC IC ONLY SUSCEPTIB 32537 [facility] LTY STDY 1 [facility] ANTIMICRB IAL MICRO/AGA R DILUTJ IAADIADOO 36472 [facility] NIHARIKA 1 N FAMILY TOD INFLUENZA PHYS PSC CULTURE 15936 [facility] BCT 1 [facility] ISOL&PRSM PTV ID ISOLATE EA URINE CULTURE 97815 [facility] BACTERIAL 1 [facility] QUANTTATI VE COLONY COUNT URINE CUL BACT 59720 [facility] AEROBIC 1 [facility] ADDL [place] [address] [facility] THYROXINE 1 [facility] TOTAL HEMOGLOBI 03726 [facility] N 1 [facility] GLYCOSYLA MARCO A1C THYROID 68685 [facility] HORM 1 [facility] UPTK/THYR OID HORMONE BINDING RATIO LIPID 12492 [facility] PANEL 1 [facility] [address] [facility] THYROID 1 [facility] STIMULATI NG HORMONE TSH COMPREHEN 66345 [facility] SIVE 1 [facility] METABOLIC PANEL RADEX 86018 [facility] BRAD ELBOW 2 1 [place] VIEWS ORTHOPAED [facility] THERAPEUT 88374 [facility] IC PX 1/> 1 N N [facility] EACH 15 HOSPITA HOSPITA MIN EXERCISES THERAPEUT 37778 [facility] IC PX 1/> 1 N N [facility] EACH 15 HOSPITA HOSPITA MIN EXERCISES THERAPEUT 24068 [facility] IC PX 1/> 1 N N [facility] EACH 15 HOSPITA HOSPITA MIN EXERCISES PHYSICAL 36712 [facility] THERAPY 1 N N EVALUATIO [facility] N HOSPITA HOSPITA SLINGS A4565 [employer] 1 [place] [address] DORINDA FLORES RADIAL 1 EMERGENCY MEHTA HEAD/NECK SERVICES FX W/O MANIPULAT ION RADEX 99280 [facility] TEJAS ROME C ELBOW 1 RADIOLOGY COMPLETE MINIMUM [address] [facility] ON 0 N N SURFACE [facility] COMMUNITY NEUROSTIM HOSPITA HOSPITA ULATOR OPHTH 15213 SUSAN DAVIS MEDICAL 0 N DUANE N DUANE XM&EVAL COMPRE NEW PT 1/> VST SENSORMOT 94585 SUSAN DAVIS OR XM 0 N DUANE N DUANE W/VECTOR CONTROL SPECIALIST TIFFANIE OCULAR DEVIJ W/I&R SPX DETERMINA 43482 SUSAN DAVIS TION 0 N DUANE N DUANE REFRACTIV E STATE THERAPEUT 01537 [facility] IC PX 1/> 0 N N AREAS [facility] EACH 15 HOSPITA HOSPITA MIN EXERCISES PHYSICAL 12369 [facility] THERAPY 0 N N EVALUATIO [facility] COMMUNITY N HOSPITA HOSPITA APPL 14508 [facility] MODALITY 0 N N 1/> AREAS [facility] COMMUNITY ELEC HOSPITA HOSPITA STIMJ UNATTENDE D GENERAL 43816 [facility] HEALTH 0 [facility] PANEL HEMOGLOBI 67469 [facility] N 0 [facility] GLYCOSYLA MARCO A1C LIPID 98967 [facility] PANEL 0 [facility] HEMOGLOBI 66466 [facility] N 0 [facility] GLYCOSYLA MARCO A1C LIPID 11101 [facility] PANEL 0 [facility] [place] INC GENERAL 99705 [facility] 0 [facility] PANEL Encounters Encounter Start End Date Code Location Performer Type Date OFFICE 06907 [facility] OUTPATIEN 7 7 PHYSICIAN T VISIT S GROUP 15 MINUTES OFFICE 91869 [facility] OUTPATIEN 7 7 PHYSICIAN T VISIT S GROUP [address] [facility] 7 7 CJ VISIT EMERGENCY HIGH PHYS SEVERITY& THREAT [facility] [address] MOISE - 7 7 MEM HOSP OUTPATIEN INC T OFFICE 72313 [facility] 7 7 MEM [facility]OS[facility] T VISIT 5 INC MINUTES EMERGENCY 91929 [facility] 7 7 CJ DEPARTMEN EMERGENCY T VISIT PHYS HIGH/URGE NT SEVERITY HOSPITAL [facility] - 7 7 [facility] OUTPATIEN INC T OFFICE 71573 [facility] 7 7 PHYSICIAN T VISIT S GROUP [address] [facility] DEPT 7 7 CJ VISIT EMERGENCY HIGH PHYS SEVERITY& THREAT FUNJ OFFICE 32533 [facility] 7 7 PHYSICIAN T VISIT S GROUP 25 MINUTES EMERGENCY 58519 [facility] 7 7 CJ [facility] EMERGENCY T VISIT PHYS MODERATE SEVERITY EMERGENCY 64303 [facility] 6 6 CJ [facility] EMERGENCY T VISIT PHYS HIGH/URGE NT SEVERITY [facility] [place] - 6 6 [facility] EMERGENCY 10126 [facility] 6 6 [facility] T VISIT MODERATE SEVERITY OFFICE 66520 [facility] ELIOT WILMER OUTPATIEN 6 6 [facility] T VISIT MEDICAL 25 G MINUTES OFFICE 47766 [facility] 6 MD ELVIRA, T VISIT PSC 15 MINUTES OFFICE 07073 [facility] ELIOT WILMER OUTPATIEN 6 6 [facility] T VISIT MEDICAL 25 G MINUTES OFFICE 03468 [facility] 6 NURSE WILMER T VISIT PRACTITIO 15 NER GR MINUTES HOSPITAL [facility] - 6 6 [facility] MOISE - 6 6 MEM H[facility] OUTPATIEN INC T OFFICE 63081 [facility] 6 MD ELVIRA, T VISIT PSC 15 MINUTES [facility] [place] - 6 6 HOSPITAL OUTPATIEN T OFFICE 55083 [facility] OUTPATIEN 6 6 MEM [facility] T VISIT INC 10 MINUTES EMERGENCY 03589 BRITT[facility] CADENA 6 6 PHYSICIAN U NARINDER [facility] S, [facility] T VISIT HIGH/URGE NT SEVERITY OFFICE 72650 RAMIRO BOWIE OUTPATIEN 6 6 AMA T NEW 30 CHIROPRAC MINUTES TIC CENTE OFFICE 03419 [facility] OUTPATIEN 6 6 N T VISIT NEUROLOGY 25 MINUTES EMERGENCY 51986 BRITTANY ZIMMERMAN 6 6 PHYSICIAN [facility] S, [facility] T VISIT HIGH/URGE NT SEVERITY EMERGENCY 78242 BRITTANY ZIMMERMAN 6 6 PHYSICIAN [facility] S, [facility] T VISIT HIGH/URGE NT SEVERITY OFFICE 68467 [facility] OUTPATIEN 6 6 [facility] T VISIT HOSPITAL 15 MINUTES EMERGENCY 97898 [facility] 6 6 CJ [facility] EMERGENCY T VISIT PHYSI HIGH/URGE NT SEVERITY EMERGENCY 68980 BRITTANY ZIMMERMAN 6 6 PHYSICIAN [facility] T VISIT HIGH/URGE NT SEVERITY HOSPITAL [facility] - 6 6 [facility] INC T OFFICE 75159 [facility] [place] OUTPATIEN 6 6 PHYSICIAN EUG T VISIT S GROUP 15 MINUTES HOSP[facility] - 6 6 [facility] T [facility] - 6 6 [facility] INC T OFFICE 06883 [facility] 6 6 [facility] T VISIT INC 10 MINUTES OFFICE 82086 JOSE M DUTTON OUTPATIEN 6 6 MD ELVIRA, T VISIT PSC 15 MINUTES OFFICE 22258 S [facility] 6 6 NURSE WILMER FONG NEW/ESTAB NER GR PATIENT 60 MIN [facility] - 6 6 [facility] - 6 6 [facility] OFFICE 92660 JOSE M [facility]WER [facility] ELVIRA, T VISIT [facility] 15 MINUTES OFFICE 38054 [facility] OUTPATIEN 6 6 [facility] T VISIT INC 10 MINUTES EMERGENCY 11146 [facility]ANY [facility] DE[facility] 6 6 PHYSICIAN VISIT [facility] HIGH [facility]VERITY& THREAT [facility] - 6 6 [facility] OUTPATIEN [facility] MOISE - 6 6 [facility] OUTPATIEN [facility] OFFICE 07667 [facility] FRYMAN OUTPATIEN 6 6 [facility] T VISIT HOSPITAL 15 MINUTES OFFICE 19575 [facility] FRYMAN OUTPATIEN 6 6 [facility] T [facility]IT HOSPITAL 15 MINUTES OFFICE 15379 [facility] FR[facility] 10 MINUTES EMERGENCY 53937 BRITTANY COBIAN [facility] 6 6 PHYSICIAN DEPARTMEN [facility] T VISIT HIGH/URGE NT SEVERITY OFFICE 32260 [facility] BRAY [facility] 6 6 [facility] 15 MINUTES EMERGENCY 54760 BRITTANY ZIMMERMAN 6 6 PHYSICIAN MERARY DEPARTMEN [facility] T VISIT HIGH/URGE NT SEVERITY OFFICE 63233 NATIVIDADI ABIMAEL OUTPATI 6 6 [facility] T VISIT PODIATRY 15 MINUTES EMERGENCY 14890 [facility] 6 6 [facility]URGE NT SEVERITY [facility] - 6 6 [facility] T EMERGENCY 97860 BRITTANY LORENZO DEPT 6 6 PHYSICIAN CLARICE [facility]ISIT [facility] HIGH SEVERITY& THREAT FUNCJ OFFICE 78525 [facility]RAY OUTPATIEN 6 6 [facility] 15 MINUTES [facility] - 6 6 [facility] T [facility] - 6 6 [facility] INC T OFFICE 03359 [facility] OUTPATIEN 6 6 [facility] T VISIT INC 10 MINUTES OFFICE 72715 JOSE MBERNABE FERNANDES [facility] OUTPATIEN 6 6 MD ELVIRA, T NEW PSC MINUTES OFFICE 34106 PROGRESSI ABIMAEL OUTPATIEN 6 6 VE K[facility] T VISIT PODIATRY 15 MINUTES HOSPITAL [facility] - 6 6 [facility]PATI[facility] INC T OFFICE 10178 [facility] WILMER OUTPATIEN 6 6 [facility] V[facility] 25 G MINUTES HOSPITAL [facility] - 6 6 [facility] OUTPATI[facility] INC T OFFICE 46103 PROGRESSI ABIMAEL OUTPATIEN 6 6 VE KAYODE T NEW 30 PODIATRY MINUTES OFFICE 68558 [facility] CAMERONNORMAN OUTPATIEN 6 6 [facility] 15 MINUTES OFFICE 00998 [facility] CAMERONYMAN OUTPATIEN 6 6 [facility] 15 MINUTES OFFICE 37324 [facility] OUTPATI[facility] 6 6 [place] T NEW 30 ORTHOPAED MINUTES [facility] OFFICE 78336 [facility] FRYMAN OUTPATIEN 6 6 [facility] 15 MINUTES EMERGENCY 07563 BRITTANY TENORIO 5 5 PH[facility]URGE NT SEVERITY [facility] 5 5 [facility] T OFFICE 65852 [facility] NINO LIGHT 5 5 PHYSICIAN T NEW 30 S GROUP MINUTES [facility] 5 5 [facility] INC T EMERGENCY 05219 BRITTANY ZIMMERMAN 5 5 PHYSICIAN MERARY DEPARTMEN S, PLLC T VISIT MODERATE SEVERITY [facility]PITAL [facility] - 5 5 [facility] INC T [facility] 5 5 [facility] INC T EMERGENCY 69818 BRITTANY ROACH 5 5 PHYSICIAN FOR DEPARTMEN S, PLLC T VISIT LOW/MODER SEVERITY EMERGENCY 09866 BRITTANY OVERTON 5 5 [facility] T VISIT MODERATE SEVERITY OFFICE 65407 MO[facility] LIGHT 5 5 [facility] T VISIT HOSPITAL 15 MINUTES HOSPITAL [facility] - 5 5 [facility] T OFFICE 47256 [place] EL[place] WIL[facility]PATI[facility] 5 [facility] 15 G MINUTES HOSPITAL [facility] - 5 5 [facility] T EMERGENCY 99623 BRITTANY ZIMMERMAN 5 5 [facility] T VISIT MODERATE SEVERITY EMERGENCY 00970 BRITTANY OROURKE 5 5 [facility] T VISIT MODERATE SEVERITY EMERGENCY 61461 BRITTANY ZIMMERMAN 5 5 [facility] T VISIT MODERATE SEVERITY EMERGENCY 45521 BRITTANY MO 5 5 [facility] T VISIT HIGH/URGE NT SEVERITY OFFICE 57584 LIN MCCABE WILMER OUTPATIEN 5 5 [facility] 15 G MINUTES [facility] 5 5 HOSPITAL OUTPATIEN T EMERGENCY 78535 MOISE ZIMMERMAN 5 5 [facility] T VISIT P LOW/MODER SEVERITY OFFICE 51906 LIN MCCABE WILMER OUTPATIEN 5 5 [facility]ISIT MEDICAL 25 G MINUTES HOSPITAL [facility] - 5 5 N OUTPATIEN COMMUNTIY T HOSPITA EMERGENCY 59914 MOISE ZIMMERMAN 5 5 [facility] T VISIT P MODERATE SEVERITY [facility]OSP[facility] - 5 5 N OUTPATIEN COMMUNTIY T HOSPITA OFFICE 70291 [facility] NIHARIKA OUTPATIEN 5 5 N FAMILY TOD T VISIT PRACTICE 15 MINUTES OFFICE 36647 [facility] OUTPATIEN 5 5 PHYSICIAN JAM T VISIT S GROUP 15 MINUTES HOSPITAL [facility] - 5 5 [facility] - 5 5 [facility] INC T OFFICE 64819 [facility] NIHARIKA OUTPATIEN 5 5 N FAMILY TOD T VISIT PRACTICE 25 MINUTES HOSPITAL [facility] - 5 5 [facility]PATIEN INC T EMERGENCY 83933 [facility] 5 5 [facility] T VISIT HIGH/URGE NT SEVERITY HOSPITAL [facility] - 5 5 [facility] OUTPATIEN INC [facility] - 5 5 N OUTPATIEN COMMUNTIY T HOSPITA OFFICE 68097 [facility] OUTPATIEN 5 5 PHYSICIAN JAM T VISIT S GROUP 15 MINUTES HOSPITAL [facility] - 5 5 [facility]PATIEN INC T OFFICE 24888 [facility] OUTPATIEN 5 5 PHYSICIAN JAM T VISIT S GROUP 15 MINUTES HOSPITAL [facility] - 4 4 [facility] OUTPATIEN INC T EMERGENCY 82786 MO[facility] 4 4 [facility]PART[facility] INC T VISIT LOW/MODER SEVERITY OFFICE 24532 [facility] OUTPATIEN 4 4 N FAMILY HEN T VISIT PRACTICE 15 MINUTES HOSPITAL MOISE - 4 4 [facility] OUTPATIEN INC T EMERGENCY 33756 [facility] WANG 4 4 CJ MATI DEPARTMEN EMERGENCY T VISIT PHYS HIGH/URGE NT SEVERITY OFFICE 71381 [facility] NIHARIKA OUTPATIEN 4 4 N FAMILY TOD T VISIT PRACTICE 25 MINUTES OFFICE 50084 [facility] OUTPATIEN 4 4 PHYSICIAN JAM T NEW 30 S GROUP MINUTES EMERGENCY 05283 [facility] 4 4 N DEPARTMEN COMMUNITY T VISIT HOSPITA MODERATE SEVERITY EMERGENCY 59156 [facility] WANG 4 4 CJ MATI DEPARTMEN EMERGENCY T VISIT PHYS HIGH/URGE NT SEVERITY [facility]PITAL [facility] 4 [facility] [place] [id number] 4 [facility] OUTPATIEN T OFFICE 89929 LIN ELIOT WILMER OUTPATIEN 4 4 [facility] T VISIT MEDICAL 15 G MINUTES OFFICE 25369 [facility] NIHARIKA OUTPATIEN 4 4 N FAMILY TOD T VISIT PRACTICE 25 MINUTES EMERGENCY 82811 [facility] 4 4 CJ MERARY VISIT EMERGENCY HIGH PHYS SEVERITY& THREAT FUNCJ OFFICE 39600 LIN ELIOT WILMER OUTPATIEN 4 4 [facility] T NEW 60 MEDICAL MINUTES G [facility] [place] [address] 4 [facility] OUTPATIEN T EMERGENCY 11263 [facility] SHARONRIS 4 4 CJ [facility] DEPARTMEN EMERGENCY T VISIT PHYS MODERATE SEVERITY EMERGENCY 24219 [facility] 4 4 CJ DEPARTMEN EMERGENCY T VISIT PHYS MODERATE SEVERITY OFFICE 48878 [facility] BANUELOSNIHARIKA OUTPATIEN 4 4 N FAMILY TOD T VISIT PRACTICE 25 MINUTES OFFICE 09278 JAMIL MANZO CONSULTAT 4 4 N ION NEUROLOGY NEW/ESTAB PATIENT 60 MIN EMERGENCY 80482 [facility] 4 4 CJ DEPARTMEN EMERGENCY T VISIT PHYS HIGH/URGE NT SEVERITY OFFICE 39052 [place] NIHARIKA OUTPATIEN 4 4 N FAMILY TOD T VISIT PRACTICE 25 MINUTES OFFICE 94255 [place] SHANTECHMAN OUTPATIEN 4 4 N FAMILY JR RAY T VISIT PRACTICE 15 MINUTES OFFICE 87593 TEJAS HER OUTPATIEN 4 4 MEDICAL RYA T VISIT SERV 15 FOUNDATIO MINUTES EMERGENCY 91536 [facility] EMERGENCY T VISIT PHYS MODERATE SEVERITY OFFICE 16867 [facility] SANTOS OUTPATIEN 4 4 N FAMILY JR RAY T VISIT PRACTICE 15 MINUTES EMERGENCY 43125 [facility] 4 4 [facility] EMERGENCY T VISIT PHYS MODERATE SEVERITY HOSPITAL UNIVERSIT - 4 4 Y [facility] T EMERGENCY 94561 [facility]J BRO VISIT EMERGENCY HIGH PHYS SEVERITY& THREAT FUNCJ OFFICE 01664 [facility] NIHARIKA OUTPATIEN 4 4 N FAMILY TOD T VISIT PRACTICE 25 MINUTES EMERGENCY 86787 [facility] [address] [facility] PHYSI HIGH/URGE NT SEVERITY [facility]OSPITAL [facility]702 [facility] 4 4 MEDICAL RYA ION SERV NEW/ESTAB FOUNDATIO PATIENT 40 MIN [facility] 21211 [facility] DE[facility] 4 4 CJ III DUANE VISIT EMERGENCY HIGH PHYS SEVERITY& THREAT FUNCJ OFFICE 28491 [facility] N FAMILY TOD T VISIT PRACTICE 15 MINUTES HOSPITAL LALAW - 4 4 N OUTPATIEN COMMUNTIY T HOSPITA OFFICE 66414 [facility] NIHARIKA OUTPATIEN 4 4 N FAMILY TOD T VISIT PRACTICE 15 MINUTES OFFICE 72264 [facility] MARGARETTE OUTPATIEN 4 4 N FAMILY HEN T VISIT PRACTICE 15 MINUTES HOSPITAL [facility] - 4 4 [facility] OUTPATIEN INC T EMERGENCY 79941 [facility] 4 4 [facility] DEPARTMEN INC T VISIT LIMITED/M INOR PROB OFFICE 18867 BRAD SALINAS OUTPATIEN 2 2 ELIAS ELIAS T VISIT 15 MINUTES OFFICE 63764 [facility] NIHARIKA OUTPATIEN 2 2 TOD TOD T VISIT 15 MINUTES OFFICE 69369 BRAD SALINAS OUTPATIEN 2 2 ELIAS ELIAS T VISIT 15 MINUTES OFFICE 73633 MARGARETTE MARGARETTE OUTPATIEN 2 2 HEN HEN T VISIT 15 MINUTES EMERGENCY 68273 DORINDA DEL TORO 2 2 EMERGENCY MATI DEPARTMEN SERVICES T VISIT MODERATE SEVERITY EMERGENCY 49884 RECHTIN RECHTIN 2 2 DROP FORGE HAND DROP FORGE HAND DEPARTMEN T VISIT MODERATE SEVERITY OFFICE 53476 [facility] NIHARIKA OUTPATIEN 2 2 TOD TOD T VISIT 15 MINUTES OFFICE 62603 [facility] NIHARIKA OUTPATIEN 2 2 TOD TOD T VISIT 25 MINUTES OFFICE 56804 [facility] NIHARIKA OUTPATIEN 2 2 TOD TOD T VISIT 25 MINUTES OFFICE 56525 [facility] NIHARIKA OUTPATIEN 2 2 TOD TOD T VISIT 15 MINUTES EMERGENCY 94084 WANG PIÑA 2 2 MATI MATI DEPARTMEN T VISIT MODERATE SEVERITY OFFICE 27398 [facility] NIHARIKA OUTPATIEN 2 2 TOD TOD T VISIT 15 MINUTES EMERGENCY 21499 ANDREI FORBES 2 2 GAR GAR DEPARTMEN T VISIT MODERATE SEVERITY OFFICE 73358 [facility] NIHARIKA OUTPATIEN 2 2 TOD TOD T VISIT 25 MINUTES OFFICE 12203 [facility] NIHARIKA OUTPATIEN 1 1 TOD TOD T VISIT 15 MINUTES OFFICE 70617 [facility] NIHARIKA OUTPATIEN 1 1 TOD TOD T VISIT 15 MINUTES EMERGENCY 85220 CELLAROSI CELLAROSI DEPT 1 1 - YORBA - YORBA VISIT PAT PAT HIGH SEVERITY& THREAT FUNCJ OFFICE 06663 [facility] NIHARIKA OUTPATIEN 1 1 TOD TOD T VISIT 15 MINUTES OFFICE 54024 GEORGETOW NIHARIKA OUTPATIEN 1 1 N FAMILY TOD T VISIT PHYS PSC 25 MINUTES OFFICE 95321 [facility] NIHARIKA OUTPATIEN 1 1 N FAMILY TOD T VISIT PHYS PSC 15 MINUTES EMERGENCY 39655 DORINDA BROCK 1 1 EMERGENCY DEV DEPARTMEN SERVICES T VISIT MODERATE SEVERITY OFFICE 87710 GEOR[facility] MARGARETTE OUTPATIEN 1 1 N FAMILY HEN T VISIT PHYS PSC 15 MINUTES OFFICE 59616 [facility] NIHARIKA OUTPATIEN 1 1 N FAMILY TOD T VISIT PHYS PSC 15 MINUTES OFFICE 03798 [facility] NIHARIKA OUTPATIEN 1 1 N FAMILY TOD T VISIT PHYS PSC 15 MINUTES OFFICE 14622 [facility] NIHARIKA OUTPATIEN 1 1 N FAMILY TOD T VISIT PHYS PSC 25 MINUTES EMERGENCY 29648 DORINDA FLORES 1 1 EMERGENCY [facility] T VISIT MODERATE SEVERITY OFFICE 38526 [facility] NIHARIKA OUTPATIEN 1 1 N FAMILY TOD T VISIT PHYS PSC 15 MINUTES OFFICE 37916 [facility] NIHARIKA OUTPATIEN 1 1 N FAMILY TOD T VISIT PHYS PSC 15 MINUTES OFFICE 25064 [facility] OUTPATIEN 1 1 [place] ELIAS T VISIT ORTHOPAED 15 [facility] MINUTES OFFICE 74777 [facility] NIHARIKA OUTPATIEN 1 1 N FAMILY TOD T VISIT PHYS PSC 15 MINUTES OFFICE 68633 [facility] OUTPATI[facility] 1 1 [place] ELIAS T VISIT ORTHOPAED 15 [facility] MINUTES [facility] - 1 1 N OUTPATIEN COMMUNITY T HOSPITA OFFICE 09771 [facility] 1 1 [place] ELIAS ION ORTHOPAED NEW/ESTAB [facility] PATIENT 40 MIN OFFICE 73524 [place] NIHARIKA OUTPATIEN 1 1 N FAMILY TOD T VISIT PHYS PSC 15 MINUTES EMERGENCY 14248 DORINDA FLORES 1 1 [facility]ERGENCY [facility] T VISIT HIGH/URGE NT SEVERITY OFFICE 07475 [facility] OUTPATIEN 1 1 N FAMILY TOD T VISIT PHYS PSC 15 MINUTES OFFICE 38260 [facility]A OUTPATIEN 0 0 N FAMILY TOD T VISIT PHYS PSC 15 MINUTES OFFICE 10783 [facility] NIHARIKA OUTPATIEN 0 0 N FAMILY TOD T VISIT PHYS PSC 25 MINUTES OFFICE 42355 [facility] OUTPATIEN 0 0 N FAMILY TOD T VISIT PHYS PSC 15 MINUTES HOSPITAL [facility] - 0 0 N OUTPATIEN COMMUNITY T HOSPITA [facility] 59983 [facility] 0 0 N DEPARTMEN COMMUNITY [facility] MODERATE SEVERITY OFFICE 55649 [facility] NIHARIKA OUTPATIEN 0 0 N FAMILY TOD T VISIT PHYS PSC 25 MINUTES OFFICE 16530 [facility] NIHARIKA OUTPATIEN 0 0 N FAMILY TOD T VISIT PHYS PSC 15 MINUTES OFFICE 87691 [facility] NIHARIKA OUTPATIEN 0 0 N FAMILY TOD T VISIT PHYS PSC 25 MINUTES OFFICE 49126 [facility] NIHARIKA OUTPATIEN 0 0 N FAMILY TOD T VISIT PHYS PSC 25 MINUTES OFFICE 98699 [facility] NIHARIKA OUTPATIEN 0 0 N FAMILY TOD T VISIT PHYS PSC 15 MINUTES [facility]ICE 73978 [facility] N FAMILY TOD T NEW 30 PHYS PSC MINUTES
--- OUTSIDE RECORDS SUMMARY | 2017-01-27 16:49 | External Medical Summary Rpt ---
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 Unavailable Unavailable BRIDGES, BRIDGES Unavailable [facility]available [facility] Unavailable Unavailable SERVICE, [facility] Unavailable Unavailable SERVICE, [facility] ABIMAEL KAYODE, ABIMAEL Unavailable Unavailable KAYODE CASE JUS, CASE JUS Unavailable Unavailable TAINA RYA, TAINA Unavailable Unavailable RYA CELLAROSI - YORBA Unavailable Unavailable PAT, CELLAROSI - YORBA PAT CELLAROSI - YORBA Unavailable Unavailable PAT, CELLAROSI - YORBA [facility] Unavailable [facility] CHANDEL, CHANDEL Unavailable Unavailable LUTZ, LUTZ Unavailable Unavailable ONEILL, ONEILL Unavailable Unavailable [facility], Unavailable Unavailable [facility] COLTON SHAYNE, Unavailable Unavailable COLTON SHAYNE [facility] # [id number], Unavailable Unavailable [facility] # [id number] [place] Un[facility] [facility] [...] EUG ELSIE MERARY, ELSIE Unavailable Unavailable MERARY [facility] Unavailable Unavailable HOSPITA, [facility] Unavailable Unavailable HOSPITA, [facility] Unavailable Unavailable [facility], [facility] Unavailable Unavailable PRACTICE, [facility], Unavailable Unavailable [facility] GINGER, GINGER Unavailable Unavailable TELLEZ MERARY, TELLEZ Unavailable Unavailable MERARY JAMES, JAMES Unavailable Unavailable JAMES RHO, JAMES Unavailable Unavailable RHO GROVES MATI, GROVES Unavailable Unavailable MATI CARPIO, CARPIO Unavailable Unavailable FORBES GAR, FORBES Unavailable Unavailable GAR FORBES GAR, FORBES Unavailable Unavailable G[facility] Unavailable Unavailable INC, [facility] Unavailable [facility]available H[facility]PITAL, [facility] Unavailable Unavailable HOSPITAL P, [facility] P [facility], Unavailable Unavailable [facility] BOWIE AMA, BOWIE Unavailable Unavailable AMA ALDANA ROSALINA, ALDANA ROSALINA Unavailable Unavailable TEE TRA, TEE TRA Unavailable Unavailable [facility] Unavailable Unavailable [facility], [facility] RENE III NORMA, Unavailable Unavailable REEN III NORMA [facility] Unavailable GROUP PS, [facility] Un[facility] Unavailable [facility], [facility] Unavailable Unavailable MEDICAL G, [facility] MEDICAL G [facility] NURSE Unavailable Unavailable PRACTITIONER GR, [facility] PRACTITIONER GR KOSTELIC, KOSTELIC Unavailable Unavailable [...] [facility] [place] Unavailable Unavailable [facility], [facility] ELIOT WILMER, ELIOT WILMER Unavailable Unavailable TIAN GRUPO, TIAN Unavailable Unavailable GRUPO [facility], Unavailable Unavailable DORINDA GRE DORINDA [facility], Unavailable Unavailable DORINDA [facility] Unavailable Unavailable SERVICES, [facility] Unavailable [...] RADMANESH SHA, Unavailable Unavailable RADMANESH SHA RECHTIN CONCRETE BATCHER, RECHTIN Unavailable Unavailable CONCRETE BATCHER NIHARIKA TOD, Unavailable Unavailable NIHARIKA TOD NIHARIKA [...] Unavailable Unavailable [facility], [facility], Unavailable Unavailable [facility], Unavailable Unavailable [facility] MONTILLA, MONTILLA Unavailable Unavailable [facility], Unavailable Unavailable [facility], [facility]ERY AND Unavailable Unavailable LUKAS WILMER, LUKAS Unavailable Unavailable WIL[id number] # Unavailable Unavailable [id number], [id number] # [id number] WALKER FOR, WALKER Unavailable Unavailable FOR [place], CUNNINHGAM Unavailable Unavailable WECHMAN JR RAY, Unavailable Unavailable WECHMAN JR RAY WEHRMAN III DUANE, Unavailable Unavailable WEHRMAN III DUANE WELLS SHA, WELLS SHA Unavailable Unavailable BRAD ELIAS, BRAD Unavailable Unavailable ELIAS EM DUANE, EM DUANE Unavailable Unavailable BAILEY MAT, BAILEY MAT Unavailable Unavailable Purpose Continuity of Care Document - 03-05-2010 through 2016 Problems Code Diagnosis DOS Provider Status E039 HYPOTHYROID 12-25-2016 [facility] ISM PHYSICIANS UNSPECIFIED GROUP E119 TYPE 2 12-25-2016 [facility] DIABETES PHYSICIANS MELLITUS GROUP WITHOUT COMPLICATIO NS E785 HYPERLIPIDE 12-25-2016 [facility] REBECCA PHYSICIANS UNSPECIFIED GROUP G629 POLYNEUROPA 12-25-2016 [facility] THY PHYSICIANS UNSPECIFIED GROUP I10 ESSENTIAL 12-25-2016 [facility] PRIMARY PHYSICIANS HYPERTENSIO GROUP N I639 CEREBRAL 12-25-2016 [facility] INFARCTION PHYSICIANS UNSPECIFIED GROUP J449 CHRONIC 12-25-2016 [facility] OBSTRUCTIVE PHYSICIANS PULMONARY GROUP DISEASE UNS L239 ALLERGIC 12-25-2016 [facility] CONTACT PHYSICIANS DERMATITIS GROUP UNSPECIFIED CAUSE L602 ONYCHOGRYPH 11-27-2016 [facility] OSIS PHYSICIANS GROUP G459 TRANSIENT 11-23-2016 [facility] CEREBRAL [facility] ISCHEMIC MEDICAL G ATTACK UNSPECIFIED Z9282 S/P ADMN 11-23-2016 [facility] TPA DIFF HEALTH FACL LAST MEDICAL G 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 G8191 HEMIPLEGIA 11-22-2016 [facility] AFFECTING RIGHT DOMINANT SIDE R200 ANESTHESIA 11-22-2016 [facility] OF SKIN [facility] R4781 SLURRED 11-22-2016 [facility]ECH [facility] R531 WEAKNESS 11-22-2016 [facility] MEDICAL G Z8673 PERSONAL HX 11-22-2016 [facility] TIA & HEALTH CEREB MEDICAL G INFARCT NO RESID DEFICIT E1122 TYPE 2 11-21-2016 [facility] MELLITUS W/DIAB CHRON KIDNEY DZ E1142 TYPE 2 11-21-2016 [facility] MELLITUS W/DIAB POLYNEUROPA THY E1165 TYPE 2 11-21-2016 [facility] MELLITUS [place] HYPERGLYCEM [place] E6601 MORBID 11-21-2016 [facility] OBESITY DUE TO EXCESS CALORIES E871 HYPO-OSMOLA 11-21-2016 [facility] HYPONATREMI A M6281 MUSCLE 11-21-2016 [facility] WEAKNESS N EMERGENCY GENERALIZED PHYS 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 USE [facility] OF INSULIN INC E1121 TYPE 2 11-02-2016 [facility] DIABETES N EMERGENCY MELLITUS PHYS W/DIABETIC NEPHROPATHY E56384 PAIN IN 11-02-2016 [facility] RIGHT FOOT N EMERGENCY PHYS B16759 PAIN IN 11-02-2016 [facility] LEFT FOOT N EMERGENCY PHYS L600 INGROWING 09-09-2016 [facility] NAIL PHYSICIANS GROUP J9811 ATELECTASIS 08-30-2016 [facility] M940 CHONDROCOST 08-30-2016 [facility] AL JUNCTION N EMERGENCY SYNDROME PHYS TIETZE R079 CHEST PAIN 08-30-2016 [facility] UNSPECIFIED RADIOLOGY C19665 PAIN IN 08-07-2016 [facility] LEFT TOES N EMERGENCY PHYS J069 ACUTE UPPER 07-08-2016 [facility] N EMERGENCY RESPIRATORY PHYS INFECTION UNSPECIFIED R51 HEADACHE 07-08-2016 [facility] N EMERGENCY PHYS E079 DISORDER OF 07-05-2016 [facility] J209 ACUTE 07-05-2016 [facility] BRONCHITIS N EMERGENCY UNSPECIFIED PHYS K95403 OTHER LONG 07-05-[address] [facility] DRUG THERAPY Z881 ALLERGY 07-05-2016 [facility] STATUS TO [facility] OTHER HOSPITAL ANTIBIOTIC AGENTS STATUS I872 VENOUS 05-13-2016 [facility] CY CHRONIC MEDICAL G PERIPHERAL R609 EDEMA 05-13-2016 [facility] UNSPECIFIED HEALTH MEDICAL G S83044 SPONDYLOSIS 05-07-2016 JOSE M FELIX, W/O , PSC MYELOPATH/R ADICULOPATH Y LUMB RGN M5136 OTH 05-07-2016 ISADORA SELBY MD, PSC RAL DISC DEGEN LUMBAR REGION R0600 DYSPNEA 04-23-2016 [facility] UNSPECIFIED HEALTH MEDICAL G E1140 TYPE 2 DM 04-19-2016 [facility] NURSE WITH PRACTITIONE DIABETIC R GR NEUROPATHY UNSPECIFIED M5406 PANNICULITI 04-16-2016 [facility] S AFFCT [facility] REGIONS NCK INC BACK LUMB REGION I350 NONRHEUMATI 04-08-2016 [facility] VALVE STENOSIS I5189 OTHER 04-08-2016 [facility] HEART DISEASES M545 LOW BACK 04-08-2016 [facility] PAIN [facility] INC Q311 CONGENITAL 04-08-2016 [facility] STENOSIS M542 CERVICALGIA 04-05-2016 [facility], PLLC X76038 OTHER 04-05-2016 [facility] MUSCLE PHYSICIANS, SPASM PLLC M5417 RADICULOPAT 04-03-2016 [facility] VENEGAS CHIROPRACTI LUMBOSACRAL C CENTE REGION Y96197 MIGRAINE 03-26-2016 [facility] W/O AURA NEUROLOGY INTRACT W/O STAT MIGRAINOSUS [id number] CONTUSION 03-24-2016 [facility] OF RIGHT PHYSICIANS, FOREARM PLLC INITIAL ENCOUNTER N68503N CONTUSION 03-24-2016 [facility] OF RIGHT PHYSICIANS, WRIST PLLC INITIAL ENCOUNTER L52976 PAIN IN 03-21-2016 [facility]ICAL FOREARM IMAGING ASS N28347 PAIN IN 03-21-2016 [facility] HAND [facility]ICAL [facility] ASS R42 DIZZINESS 03-21-2016 [facility] AND MEDICAL GIDDINESS IMAGING ASS G62403E UNSPECIFIED 03-21-2016 [facility] INJURY [facility] RIGHT IMAGING ASS FOREARM INITIAL ENCNTR H5074FD UNSPECIFIED 03-21-2016 [place] INJURY RT MEDICAL WRIST HAND IMAGING ASS FINGERS INITIAL W80208 MIGRAINE 03-19-2016 [facility] INTRACT W/O HOSPITAL STATUS MIGRAINOSUS M4726 OTH 03-12-2016 [facility] SPONDYLOSIS [facility] INC W/RADICULOP ATHY LUMBAR REGION R202 PARESTHESIA 02-29-2016 [facility] OF SKIN MEDICAL IMAGING ASS M5126 OTH 02-27-2016 ISADORA SELBY MD, PSC RAL DISC DISPLACEMEN T LUMBAR RGN M5416 RADICULOPAT 02-27-2016 [facility] HY LUMBAR [facility] REGION INC Z0100 ENCOUNTER 02-23-2016 D[facility] EXAM EYES & GRE VISION W/O ABNORMAL FIND M5116 INTERVERTEB 02-02-2016 [facility] RAL DISC [facility] D/O INC W/RADICULOP ATHY LUMB RGN E876 HYPOKALEMIA 01-19-2016 [facility] PHYSICIANS GROUP E1065 TYPE 1 01-18-2016 [facility] DIABETES MEDICAL MELLITUS IMAGING ASS WITH HYPERGLYCEM IA E1100 TYPE 2 DM 01-18-2016 [facility] W/HYPEROSMO PHYSICIANS, LARDAVID [facility] I90513 TYPE 2 01-18-2016 [facility] HOSPITAL P W/HYPOGLYCE REBECCA W/O COMA Z1231 ENCOUNTER 01-17-2016 [facility] SCREENING MEDICAL MAMMO MALIG IMAGING ASS NEOPLASM BREAST E669 OBESITY 01-04-2016 [place] UNSPECIFIED [facility] L259 UNSPECIFIED 01-04-2016 [place] CONTACT [facility] [place] UNSPECIFIED CAUSE Z1239 ENCOUNTER 12-21-2015 [place] OTHER [facility] MALIG NEOPLASM BREAST H9209 OTALGIA 12-11-2015 [facility] E1151 TYPE 2 DM 12-07-2015 [facility] W/DIAB PODIATRY PERIPH ANGIOPATHY W/O GANGRENE M2570 OSTEOPHYTE 12-07-2015 [facility] UNSPECIFIED PODIATRY JOINT R05 COUGH 2015 [facility] R1084 GENERALIZED 2015 [facility] ABDOMINAL MEDICAL PAIN IMAGING ASS R109 UNSPECIFIED 2015 [facility] ABDOMINAL PHYSICIANS, PAIN PLLC R319 HEMATURIA 2015 [place] UNSPECIFIED MEDICAL IMAGING ASS R509 FEVER 2015 [place] UNSPECIFIED MEDICAL IMAGING ASS Z720 TOBACCO USE 2015 [facility] B370 CANDIDAL 11-30-2015 [place] STOMATITIS [facility] I739 PERIPHERAL 10-27-2015 [facility] DISEASE MEDICAL UNSPECIFIED EQUIPME M179 OSTEOARTHRI 08-11-2015 [place] TIS OF KNEE [facility] UNSPECIFIED M549 DORSALGIA 07-31-2015 [facility] M5127 OTH 07-07-2015 [place] INTERVERTEB MEDICAL RAL DISC IMAGING ASS DISPLACEMEN T LS REGION N764 ABSCESS OF 07-07-2015 [facility] VULVA PHYSICIANS GROUP P83002 CUTANEOUS 07-06-[address] [place] [address] [facility] TRUNK INC UNSPECIFIED W65990 CELLULITIS 07-04-2015 [facility] OF OTHER PHYSICIANS, SITES [facility] C95590 ENCOUNTER 06-19-2015 [facility] PRINT DESIGNER EXAM [facility] GENERAL RTN W/O ABNORMAL FIND M1612 UNILATERAL 06-13-2015 [facility] PRIMARY MEDICAL OSTEOARTHRI IMAGING ASS TIS LEFT HIP W68098 PAIN IN 06-13-2015 [facility] LEFT HIP MEDICAL IMAGING ASS L71164 HORDEOLUM 05-15-2015 [facility] EXTERNUM PHYSICIANS, RIGHT UPPER PLLC EYELID 462 ACUTE 04-12-2015 [facility] PHARYNGITIS PHYSICIANS, PLLC 7862 COUGH 04-12-2015 [facility] 72823 DIAB W/O 03-23-2015 [facility] COMP TYPE [facility] II/UNS NOT HOSPITAL STATED UNCNTRL 3559 MONONEURITI 03-23-2015 [facility] HOSPITAL SITE 97141 OTHER SIGN 03-09-2015 [facility] AND SYMPTOM MEM [facility] IN BREAST INC 2724 OTHER AND 02-28-2015 [facility] HEALTH MEDICAL G HYPERLIPIDE REBECCA 16535 MASTODYNIA 02-01-2015 [facility] 21787 LUMP OR 02-01-2015 [facility] MASS IN MEDICAL BREAST IMAGING ASS 86422 DIAB W/OTH 01-12-2015 [facility] MANIFESTS PHYSICIANS, TYPE II/UNS PLLC NOT UNCNTRL 03277 PRESSURE 01-12-2015 [facility] ULCER OTHER PHYSICIANS, SITE [facility] 6822 CELLULITIS 12-25-2014 [facility] AND ABSCESS PHYSICIANS, OF TRUNK PLL 4660 ACUTE 12-18-2014 [facility] BRONCHITIS PHYSICIANS, [facility] 7869 OTH 12-18-2014 [facility] SYMPTOMS MEDICAL INVOLVING IMAGING ASS RESPIRATORY SYSTEM&CHES T 00161 CHRONIC 11-23-2014 [facility] VENOUS HEALTH HYPERTENSIO MEDICAL G N WITHOUT COMPS 7823 EDEMA 11-23-2014 [facility] MEDICAL G 15560 OBESITY, 11-15-2014 [facility] 49017 CHRONIC 11-15-2014 [facility] VENOUS HEALTH HYPERTENSIO MEDICAL G N WITH INFLAMMATIO N 4019 UNSPECIFIED 11-11-2014 [facility] P N 53033 ASTHMA, 11-11-2014 [facility] P UNSPECIFIED STATUS 6110 INFLAMMATOR 11-11-2014 [place] Y DISEASE [facility] P 47696 SHORTNESS 11-04-2014 [facility] MEDICAL G 57075 OSTEOARTHRO 11-02-2014 [facility] SIS UNSPEC PHYSICIANS WHETHER GROUP GEN/LOC LOWER LEG V7612 OTHER 11-02-2014 [facility] SCREENING COMMUNTIY MAMMOGRAM HOSPITA 2768 HYPOPOTASSE 10-24-2014 [facility] P V5869 LONG-TERM 10-24-2014 [place] (CURRENT) [facility] USE OF HOSPITAL P OTHER MEDICATIONS 5693 HEMORRHAGE 10-17-2014 [facility] OF RECTUM COMMUNTIY AND ANUS HOSPITA 5789 UNSPECIFIED 10-17-2014 [facility] HEMORRHAGE ANESTHESIA OF GROUP PS GASTROINTES TINAL TRACT V7651 SPECIAL 10-17-2014 [facility], SCREENING LLC FOR MALIGNANT NEOPLASMS COLON 14067 PAIN IN 09-30-2014 [place] JOINT, MEDICAL LOWER LEG IMAGING ASS V571 OTHER 09-25-2014 [facility] PHYSICAL [facility] THERAPY INC 64874 OTHER 09-22-2014 [facility] FATIGUE PRACTICE 74259 MORBID 09-15-2014 [facility] INTERNAL MED 2449 UNSPECIFIED 09-14-2014 [facility] HYPOTHYROID INC ISM 496 CHRONIC 09-14-2014 [facility] AIRWAY [facility] OBSTRUCTION INC NEC 5718 OTHER 09-14-2014 [facility] CHRONIC MEDICAL NONALCOHOLI IMAGING ASS C LIVER DISEASE 68508 DIARRHEA 09-14-2014 [facility] 82831 ABDOMINAL 09-14-2014 [place] PAIN, MEDICAL UNSPECIFIED IMAGING ASS SITE 7891 HEPATOMEGAL 09-14-2014 [facility] Y MEDICAL IMAGING ASS V8542 BODY MASS 09-14-2014 [facility] 45.0-49.9 HOSPITAL P ADULT 16031 UNSPECIFIED 08-27-2014 [facility] SLEEP COMMUNTIY APNEA HOSPITA 7177 CHONDROMALA 08-19-2014 [facility] SHAY OF PHYSICIANS PATELLA GROUP 94874 OTHER 08-19-2014 [facility] SYNOVITIS PHYSICIANS AND GROUP TENOSYNOVIT IS V4589 OTHER 08-19-2014 [facility] POSTSURGICA PHYSICIANS L STATUS GROUP OTHER 47160 EFFUSION OF 08-12-2014 [facility] LOWER LEG MEDICAL JOINT IMAGING ASS 70213 PATELLAR 08-12-2014 [facility] TENDINITIS MEDICAL IMAGING ASS 8363 CLOSED 08-12-2014 [facility] DISLOCATION MEDICAL OF PATELLA IMAGING ASS 06675 PRIMARY 07-26-2014 [facility] LOCALIZED TECHNOLOGIE OSTEOARTHRO S INC SIS LOWER LEG 28732 EFFUSION OF 07-26-2014 [facility] JOINT, TECHNOLOGIE SITE S INC UNSPECIFIED 29087 SWELLING OF 07-20-2014 [facility] LIMB MEDICAL IMAGING ASS 73315 OTHER 06-28-2014 [facility] DISORDER OF MEM HOS[facility] MUSCLE INC LIGAMENT AND FASCIA 02519 HYPERSOMNIA 06-28-2014 [facility] UNSPECIFIED PRACTICE 87229 OTHER 06-24-2014 [facility] DISEASES OF MEDICAL LUNG NOT IMAGING ASS ELSEWHERE CLASSIFIED 486 PNEUMONIA, 06-22-2014 [facility] ORGANISM N EMERGENCY UNSPECIFIED PHYS 64399 ABDOMINAL 06-21-2014 [facility] PAIN OTHER MEDICAL SPECIFIED IMAGING ASS SITE 32814 MIGRAINE 06-16-2014 [facility] UNSP W/O DIAGNOSTICS INTRACT W/O STATUS MIGRAINOSUS 7079 CHRONIC 06-16-2014 [facility] ULCER OF FAMILY UNSPECIFIED PRACTICE SITE 2469 UNSPECIFIED 06-06-2014 [facility] DISORDER COMMUNITY OF THYROID HOSPITA 2720 PURE 06-06-2014 [facility] HYPERCHOLES [facility] TEROLEMIA HOSPITA 50705 OTHER ACUTE 06-06-2014 [facility] PAIN [facility] HOSPITA 7840 HEADACHE 06-06-2014 [facility] N EMERGENCY PHYS 10467 NAUSEA 06-06-2014 [facility] ALONE [facility] HOSPITA V5867 LONG-TERM 06-06-2014 [facility] USE OF [facility] INSULIN HOSPITA 4241 AORTIC 05-30-2014 [facility] VALVE HEALTH DISORDERS MEDICAL G 5180 PULMONARY 05-30-2014 [facility] 87323 DIAB 05-20-2014 [facility] W/NEURO FAMILY MANIFESTS PRACTICE TYPE II/UNS NOT UNCNTRL 48246 ESOPHAGEAL 05-20-2014 [facility] REFLUX FAMILY PRACTICE 66951 CHEST PAIN 04-30-2014 [facility] UNSPECIFIED N EMERGENCY PHYS 7464 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 [facility] CY OF AORTIC VALVE 62804 PRECORDIAL 04-26-2014 [facility] 4139 OTHER AND 04-25-2014 [facility] UNSPECIFIED N EMERGENCY ANGINA PHYS PECTORIS 75119 UNSPECIFIED 04-18-2014 [facility] N EMERGENCY CONJUNCTIVI PHYS TIS 13534 HORDEOLUM 04-16-2014 [facility] 4611 ACUTE 04-15-2014 [facility] FRONTAL [facility] SINUSITIS PRACTICE 7812 ABNORMALITY 04-05-2014 [facility] OF GAIT NEUROLOGY 31300 PAIN IN 03-28-2014 [place] JOINT, MEDICAL ANKLE AND IMAGING ASS FOOT 7295 PAIN IN 03-28-2014 [facility] SOFT MEDICAL TISSUES OF IMAGING ASS LIMB 8449 SPRAIN&STRA 03-28-2014 [facility] IN OF N EMERGENCY UNSPECIFIED PHYS SITE OF KNEE&LEG E9279 UNS 03-28-2014 [facility] OVEREXERT& N EMERGENCY STRENUOUS&R PHYS EPETITIVE MVMNTS/LOAD S 2722 MIXED 03-10-2014 [facility] HYPERLIPIDE DIAGNOSTICS REBECCA 4011 ESSENTIAL 03-10-2014 [facility] HYPERTENSIO [facility] N, BENIGN PRACTICE 7242 LUMBAGO 03-10-2014 [facility] 7213 LUMBOSACRAL 02-21-2014 [facility] SPONDYLOSIS FOUNDATIO WITHOUT MYELOPATHY 7292 UNSPECIFIED 02-21-2014 [facility] NEURALGIA SERV NEURITIS FOUNDATIO AND RADICULITIS 3572 POLYNEUROPA 02-20-2014 [facility] THY IN N EMERGENCY DIABETES PHYS 7820 DISTURBANCE 02-20-2014 [facility] OF SKIN N EMERGENCY SENSATION PHYS 3569 UNSPEC 02-08-2014 [facility] OPATHIC PERIPHERAL NEUROPATHY 66093 DEHYDRATION 01-12-2014 [facility] N EMERGENCY PHYS 5589 OTH&UNSPEC 01-12-2014 [facility] NONINFECTIO N EMERGENCY US PHYS GASTROENTER ITIS&COLITI S 7906 OTHER 01-12-2014 [facility] ABNORMAL N EMERGENCY BLOOD PHYS CHEMISTRY 2440 POSTSURGICA 01-11-2014 [facility] HYPOTHYROID PRACTICE ISM 74257 OTHER 12-29-2013 [facility] PAIN 7379 UNSPECIFIED 12-16-2013 [facility] 16659 DIAB W/O 11-18-2013 [facility] MENTION N EMERGENCY COMP TYPE PHYS II/UNS TYPE UNCNTRL 7804 DIZZINESS 11-18-2013 [facility] AND N EMERGENCY GIDDINESS PHYS 7245 UNSPECIFIED 11-17-2013 [facility] 7821 RASH AND 10-07-2013 [facility] NONSPECIFIC INC SKIN ERUPTION 4658 ACUTE URIS 12-04-2011 [facility] OF OTHER TOD MULTIPLE SITES 8472 LUMBAR 11-01-2011 [facility]I SPRAIN AND STRAIN E8889 UNSPECIFIED 11-01-2011 [facility] FALL 05522 UNSPECIFIED 08-09-2011 [facility] SITE OF ANKLE SPRAIN AND STRAIN 9597 INJURY 08-09-2011 [facility] [place] OTHER&UNSPE RADIOLOGY CIFIED KNEE LEG ANKLE&FOOT E9270 OVEREXERTIO 08-09-2011 [facility] N FROM SUDDEN STRENUOUS MOVEMENT 4619 ACUTE 08-08-2011 [facility] SINUSITIS, TOD UNSPECIFIED 62693 OTHER CHEST 06-01-2011 [facility] - PAIN YORBA PAT 43662 GENERALIZED 05-01-2011 [facility] ANXIETY FAMILY PHYS DISORDER PSC 7241 PAIN IN 05-01-2011 [facility] THORACIC FAM[facility] PHYS SPINE PSC 5259 UNSPECIFIED 02-19-2011 [facility]ORDER EMERGENCY TEETH&SUPPO SERVICES RTING STRUCTURES 79736 TOOTH 02-19-2011 [facility] BROKEN FX EMERGENCY DUE TO SERVICES TRAUMA W/O MENTION COMP 6926 CONTACT 02-14-2011 [facility] DERMATITIS& FAMILY PHYS OTHER PSC ECZEMA DUE TO PLANTS 6929 CONTACT 11-19-2010 [facility] DERMATITIS& FAMILY PHYS OTHER PSC ECZEMA DUE UNSPEC CAUSE 7291 UNSPECIFIED 11-19-2010 [facility] MYALGIA FAMILY PHYS AND PSC MYOSITIS 66692 UNSPECIFIED 10-10-2010 [facility] [place] [facility] S [facility] LOWER END FOREARM 58888 SLOWING OF 10-09-2010 [facility] URINARY [place] [facility] STREAM 2448 OTHER 10-05-2010 [facility] SPECIFIED [place] INC ACQUIRED HYPOTHYROID ISM 90220 CLOSED 09-10-2010 [facility] FRACTURE OF COMMUNITY HEAD OF HOSPITA RADIUS 58252 PAIN IN 08-27-2010 JILLIAN RAMOS JOINT, SHOULDER REGION 9249 CONTUSION 08-27-2010 [facility] OF FAMILY PHYS UNSPECIFIED PSC SITE E8881 FALL 08-25-2010 [facility] RESULTING EMERGENCY IN STRIKING SERVICES AGAINST OTHER OBJECT 8474 SPRAIN AND 07-06-2010 [facility] STRAIN OF FAMILY PHYS COCCYX PSC 3671 MYOPIA 05-10-2010 POST [facility] 81807 OTHER 05-10-2010 POST CHRONIC [facility] ALLERGIC CONJUNCTIVI TIS 86827 OPTIC NERVE 05-10-2010 POST HYPOPLASIA [facility] 85624 MONOCULAR 05-10-2010 POST EXOTROPIA [facility] 6959 UNSPECIFIED 05-04-2010 [facility] ERYTHEMATOU HOSPITA S CONDITION 9995 OTHER SERUM 05-04-2010 [facility] REACTION EMERGENCY NOT SERVICES ELSEWHERE CLASSIFIED V0382 NEED PROPH 05-03-2010 [facility] VACCINATION FAMILY PHYS AGAINST PSC STREP PNEUMONE 6278 OTHER SPEC 03-22-2010 [facility] MENOPAUSAL& FAMILY PHYS POSTMENOPAU PSC [place] DISORDER 79318 ACUT 03-19-2010 [facility] SUPPRATV FAMILY PHYS OTITIS PSC MEDIA W/O [...] PH AR MA CY #3 01 6 [place] 59 05 06 8. 30 00 [place] [...] 00 1- 3- 00 01 UC ve [place] 51 20 20 03 [place] 20 [...] PH AR [place] CY #3 01 6 [place] 59 05 05 8. 30 00 [place] [...] 00 3- 6- 00 01 UC ve [place] 51 20 20 02 [place] 20 [...] 80 3- 6- 00 01 [place] ve [place] 21 20 20 02 [place] 61 [...] ti NO 00 3- 01 UC ve [place] 51 20 20 01 [place] 20 [...] 80 1- 7- 00 00 [place] ve [place] 21 20 20 99 [place] 61 [...] 03 04 30 15 00 KE Ac NH 16 -1 -0 .0 00 NT ti [...] NO 00 2- 1- 00 UC ve [place] 51 20 20 99 [place] 20 [...] 03 03 30 15 00 KE Ac NH 16 -0 -2 .0 00 NT ti [...] 80 3- 0- 00 00 UC ve [place] 21 20 20 99 [place] 61 [...] 02 03 30 15 00 KE Ac NH 16 -0 -0 .0 00 NT ti [...] 00 2- 4- 00 00 UC ve [place] 51 20 20 99 [place] 20 [...] ve G 79 20 20 99 [place] 75 17 17 87 X 9 10 [...] 80 8- 0- 00 00 UC ve [place] 21 20 20 99 [place] 61 [...] 00 6- 3- 00 00 UC ve NH 51 20 20 99 [place] 20 [...] 91 G 4 IN ROBB LE R NH 00 12 01 15 5 00 KE [...] ve G 79 20 20 74 AI OH 75 16 17 56 D X 9 [...] AR RT ZA 11 11 11 MA NH 0 CY TO IN # DD E D 10 02 33 MG 2 TA BL ET CI 13 08 10 2 15 30 CV 52 RE Ac TA 66 -2 -2 .0 S 31 IN ti LO 80 2- 1- 00 PH 66 ROBB ve NH 01 20 20 AR RT AM 10 11 11 MA 5 CY TO HB # DD R D 40 02 33 MG 2 TA BL ET LI 68 09 10 2 30 30 CV 53 RE Ac SI 18 -1 -1 .0 S 21 IN ti NO 00 6- 8- 00 PH 11 ROBB ve NH 52 20 20 AR RT IL 00 11 11 MA -H [address] # DD Z D 20 02 -2 33 5 2 MG TA B NH 00 09 10 2 30 30 CV [...] MC 33 G 2 TA BL ET NH 00 10 10 2 30 30 CV [...] 9- 5- 00 PH 35 ROBB ve NH 01 20 20 AR RT AM 00 11 11 MA 5 CY TO HB # DD R D 20 02 33 MG 2 TA BL ET ME 59 10 10 0 21 6 CV 53 RE Ac TH 74 -0 -0 .0 S 92 IN ti YL 60 5- 5- 00 PH 24 ROBB ve NH 00 20 20 AR RT ED 10 11 11 MA NI 3 CY TO SO # DD LO D NE 02 4 33 2 MG DO SE PK AC 00 10 10 0 12 6 CV 53 RE Ac ET 09 -0 -0 .0 S 92 IN ti AM 30 5- 5- 00 PH 25 RBOB ve IN 15 20 20 AR RT [...] AR RT ZA 11 11 11 MA NH 0 CY TO IN # DD E D 10 02 33 MG 2 TA BL ET NH 00 07 09 2 30 30 CV [...] 6- 6- 00 PH 11 ROBB ve NH 52 20 20 AR RT IL 00 11 11 MA -H [address] # DD Z D 20 02 -2 33 5 2 MG TA B NH 00 09 09 2 30 30 CV [...] D 02 TA 33 BL 2 ET NH 00 07 08 2 30 30 CV [...] 2- 2- 00 PH 66 ROBB ve NH 01 20 20 AR RT AM 10 [...] 5- 5- 00 PH 11 ROBB ve NH 01 20 20 AR RT AM 00 11 11 MA 5 CY TO HB # DD R D 20 02 33 MG 2 TA BL ET LI 68 06 08 2 30 30 CV 50 RE Ac SI 18 -1 -1 .0 S 03 IN ti NO 00 3- 4- 00 PH 26 ROBB ve NH 52 20 20 AR RT IL 00 11 11 MA -H [address] # DD Z D 20 02 -2 33 5 2 MG TA B NH 00 06 08 2 30 30 CV [...] AR RT ZA 11 11 11 MA NH 0 CY TO IN # DD E [...] PE 20 8- 8- 00 PH 05 ORBB ve NT 22 20 20 0 AR [...] D 02 TA 33 BL 2 ET NH 00 07 07 2 30 30 CV [...] TO # DD D 02 33 2 NH 00 07 07 0 18 9 CV 51 NH Ac ED 59 -2 -2 .0 S [...] 3- 8- 00 PH 26 ROBB ve NH 52 20 20 AR RT IL 00 11 11 MA -H [address] # DD Z D 20 02 -2 33 5 2 MG TA B NH 00 06 07 2 30 30 CV [...] 0 60 30 CV 51 WE Ac NH 37 -1 -1 .0 S 13 CH [...] 02 #3 33 2 TA BL ET NH 00 06 06 0 18 9 CV [...] D 02 TA 33 BL 2 ET NH 00 04 06 2 30 30 CV [...] 3- 3- 00 PH 26 ROBB ve NH 52 20 20 AR RT IL 00 11 11 MA -H [address] # DD Z D 20 02 -2 33 5 2 MG TA B NH 00 06 06 2 30 30 CV [...] 2 60 30 CV 47 RE Ac NH 37 -0 -0 .0 S 67 IN [...] 02 33 CA 2 PS UL E NH 00 04 05 2 30 30 CV [...] 0- 5- 00 PH 68 ROBB ve NH 52 20 20 AR RT IL 00 10 11 MA -H [address] # DD Z D 20 02 -2 33 5 2 MG TA B NH 00 12 05 5 30 30 CV [...] 2 60 30 CV 47 RE Ac NH 37 -0 -0 .0 S 67 IN [...] OS ZA 11 11 11 MA I NH 0 CY - IN # YO E [...] TR TA IC BL K ET M NH 00 04 04 2 30 30 CV [...] 0- 8- 00 PH 68 ROBB ve NH 52 20 20 AR RT IL 00 10 11 MA -H [address] # DD Z D 20 02 -2 33 5 2 MG TA B NH 00 12 04 5 30 30 CV [...] 2 60 30 CV 47 RE Ac NH 37 -0 -0 .0 S 67 IN [...] 0- 2- 00 PH 68 ROBB ve NH 52 20 20 AR RT IL 00 10 11 MA -H [address] # DD Z D 20 02 -2 33 5 2 MG TA B NH 00 12 03 5 30 30 CV [...] MC 33 G 2 TA BL ET NH 00 01 03 2 30 30 CV [...] D TA 02 BL 33 ET 2 NH 00 03 03 0 10 5 CV [...] PE 25 2- 1- 00 PH 29 RBOB ve NT 02 20 20 AR RT [...] 2 60 30 CV 43 RE Ac NH 37 -0 -2 .0 S 13 IN [...] 0- 7- 00 PH 68 ROBB ve NH 52 20 20 AR RT IL 00 10 11 MA -H [address] # DD Z D 20 02 -2 33 5 2 MG TA B NH 00 12 02 5 30 30 CV [...] MC 33 G 2 TA BL ET NH 00 01 02 2 30 30 CV 44 RE Ac EM 04 -1 -1 .0 S 78 IN ti AR 61 8- 7- 00 PH 19 ROBB ve IN 10 20 20 AR RT 08 11 11 MA 0. 1 CY TO 3 # DD MG D 02 TA 33 BL 2 ET NH 00 02 02 0 15 4 CV [...] 02 33 CA 2 PS UL E NH 00 01 01 0 20 5 CV [...] 8- 8- 00 PH 78 ROBB ve NH 00 20 20 AR RT ED 10 [...] 0- 8- 00 PH 68 ROBB ve NH 52 20 20 AR RT IL 00 10 11 MA -H [address] # DD Z D 20 02 -2 33 5 2 MG TA B NH 00 12 01 5 30 30 CV [...] MC 33 G 2 TA BL ET NH 00 01 01 2 30 30 CV [...] 2 60 30 CV 43 RE Ac NH 37 -0 -2 .0 S 13 IN [...] D 02 TA 33 BL 2 ET NH 00 10 12 2 30 30 CV [...] 0- 0- 00 PH 68 ROBB ve NH 52 20 20 AR RT IL 00 10 10 MA -H [address] # DD Z D 20 02 -2 33 5 2 MG TA B NH 00 12 12 5 30 30 CV [...] 2 60 30 CV 43 RE Ac NH 37 -0 -0 .0 S 13 IN ti OP 83 1- 1- 00 PH 37 ROBB ve IO 41 20 20 AR RT N 20 10 10 MA HC 1 CY TO L # DD SR D 02 15 33 0 2 MG TA BL ET NH 00 10 11 2 30 30 CV [...] 6- 3- 00 PH 21 ROBB ve NH 52 20 20 AR RT IL 00 10 10 MA -H [address] # DD Z D 20 02 -2 33 5 2 MG TA B NH 00 08 11 3 30 30 CV [...] D 02 TA 33 BL 2 ET NH 00 10 10 2 30 30 CV [...] 6- 2- 00 PH 21 ROBB ve NH 52 20 20 AR RT IL 00 10 10 MA -H [address] # DD Z D 20 02 -2 33 5 2 MG TA B NH 00 08 10 3 30 30 CV [...] 8- 8- 00 PH 48 ROBB ve NH 00 20 20 AR RT ED 10 10 10 MA NI 3 CY TO SO # DD LO D NE 02 4 33 2 MG DO SE PK LI 68 08 09 3 30 30 CV 39 RE Ac SI 18 -2 -2 .0 S 76 IN ti NO 00 6- 5- 00 PH 21 ROBB ve NH 52 20 20 AR RT IL 00 10 10 MA -H [address] # DD Z D 20 02 -2 33 5 2 MG TA B NH 00 08 09 3 30 30 CV [...] MC 33 G 2 TA BL ET NH 00 08 09 1 30 30 CV [...] 4- 4- 00 PH 69 ROBB ve NH 00 20 20 AR RT ED 10 [...] 6- 6- 00 PH 21 ROBB ve NH 52 20 20 AR RT IL 00 10 10 MA -H [address] # DD Z D 20 02 -2 33 5 2 MG TA B NH 00 08 08 3 30 30 CV [...] MC 33 G 2 TA BL ET NH 00 08 08 1 30 30 CV [...] DOS Code Location Performer Comment INJECTION J1100 [facility] FRYMAN 7 PHYSICIAN DEXAMETHO S GROUP SONE SODIUM PHOSPHATE 1 MG THERAPEUT 74601 [facility] IC 7 PHYSICIAN PROPHYLAC S GROUP TIC/DX INJECTION SUBQ/IM SBSQ 13749 [facility] 7 [facility] C[facility]/[place] [place] [address] [facility] [place] ANGIOGRAP 7 RADIOLOGY HY NECK W/CONTRAS T/NONCONT RAST DUPLEX 07062 [facility] GINGER SCAN 7 NE [facility]ALTH EXTRACRAN MEDICAL [place] [address] [facility] [place] HEAD/BRAI 7 RADIOLOGY N W/O CONTRAST MATERIAL MRI BRAIN 51530 [facility] [place] CARPIO BRAIN 7 RADIOLOGY STEM W/[place] [address] [facility] [place] ANGIOGRAP 7 RADIOLOGY HY HEAD W/CONTRAS T/NONCONT RAST SBSQ 04920 [place] [address] [facility]/DAY MEDICAL 35 G MINUTES RADIOLOGI 90687 [facility] [place] KOSTELIC C 7 RADIOLOGY EXAMINATI ON [place] [address] [facility] [place] HEAD/BRAI 7 RADIOLOGY N W/O CONTRAST MATERIAL ECG 09458 [facility] ROUTINE 7 CJ ECG EMERGENCY W/LEAST PHYS 12 LDS I&R ONLY CRITICAL [address] HEALTH ILL/INJUR MEDICAL ED G PATIENT INIT 30-74 MIN SUSCEPTIB 24763 [facility] LTY STDY 7 [facility] ANTIMICRB INC INC IAL MICRO/AGA R DILUTJ URNLS DIP 44928 [facility] STICK/TAB INC INC LET RGNT AUTO W/O MICROSCOP Y CULTURE 89371 [facility] BACTERIAL 7 [facility] INC INC QUANTTATI VE COLONY COUNT URINE CULTURE 42622 [facility] BCT 7 [facility] ISOL&PRSM INC INC PTV ID ISOLATE EA URINE ALBUMIN 48926 [facility] URINE [address] [facility] MICROALBU INC INC MIN QUANTIATI VE IM ADM 49631 [facility] PRQ ID 7 PHYSICIAN SUBQ/IM S GROUP NJXS 1 VACCINE COLLECTIO 04537 [facility] N VENOUS 7 [facility] BLOOD INC INC VENIPUNCT URE COMPREHEN 55262 [facility] SIVE 7 [facility] METABOLIC INC INC PANEL CREATININ 72481 [facility] E OTHER 7 [facility] [place] [address] [facility] FREE 7 [facility] [place] [address] [facility] THYROID 7 [facility] STIMULATI INC INC NG HORMONE TSH LIPID 24257 [facility] PANEL 7 [facility] INC INC HEMOGLOBI 40665 [facility] N 7 [facility] GLYCOSYLA INC INC MARCO A1C BLOOD 70356 [facility] COUNT 7 [facility] COMPLETE INC INC AUTO&AUTO DIFRNTL WBC IIV3 99697 [facility] VACCINE 7 PHYSICIAN SPLIT S GROUP VIRUS 0.5 ML DOSAGE IM USE ECG 64386 [facility] ROUTINE 7 CJ ECG EMERGENCY W/LEAST PHYS 12 LDS I&R ONLY RADIOLOGI 90773 [facility] [place] RADKINGESH C EXAM 7 RADIOLOGY CHEST 2 VIEWS FRONTAL&L ATERAL CT THORAX 05513 [facility] [place] 7 RADIOLOGY W/CONTRAS T MATERIAL RADEX 79053 [facility] [place] JAMES FOOT 7 RADIOLOGY COMPLETE MINIMUM 3 VIEWS ECG 62351 [facility] ROUTINE 6 [facility] ECG MEDICAL W/LEAST G 12 LDS W/I&R ECG 24961 [facility] ROUTINE 6 [facility] ECG MEDICAL W/LEAST G 12 LDS W/I&R ALBUMIN 06204 [facility] URINE 6 Y Y [facility] MIN QUANTIATI VE CREATININ 31689 [facility] [address] [facility] HEMOGLOBI 17603 [facility] LUKAS N 6 NURSE [place] GLYCOSYLA PRACTITIO MAR[place] A1C [place] NJX [address] JOSE M BREWER DX/THER 6 MD ELVIRA, AGT PVRT PSC FACET JT LMBR/SAC 3+ LEVEL GLUC BLD 82129 [facility] GLUC MNTR 6 [facility] DEV INC INC CLEARED FDA SPEC [place] USE NJX [address]306 [facility] DX/THER 6 [facility] AGT PVRT INC INC FACET JT LMBR/SAC 1 LEVEL NJX 96727 [facility] DX/THER 6 [facility] AGT PVRT INC INC FACET JT LMBR/SAC 2ND LEVEL ECHO 98204 [facility] [address] [place] [address] 2D W/WOM-MOD E COMPL SPEC&COLR D INJECTION Q9957 [address] PERFLUTRE N LIPID MICROSPHE RES PER ML APPL 16846 RAMIRO BOWIE MODALITY 6 AMA 1/> AREAS CHIROPRAC TRACTION TIC CENTE MECHANICA L APPL 22660 RAMIRO HERNADEZELL MODALITY 6 AMA 1/> AREAS CHIROPRAC ELEC TIC CENTE STIMJ UNATTENDE D THERAPEUT 19872 RAMIRO BOWIE IC PX 1/> 6 AMA AREAS CHIROPRAC EACH 15 TIC CENTE MIN EXERCISES CHIROPRAC 02997 RAMIRO HERNADEZELL TIC 6 AMA MANIPULAT CHIROPRAC MATEO TX TIC CENTE SPINAL 3-4 REGIONS APPL 65369 RAMIRO BOWIE MODALITY 6 AMA 1/> AREAS CHIROPRAC TIC CENTE ULTRASOUN D EA 15 MIN MANUAL 71116 RAMIRO HERNADEZELL THERAPY 6 AMA TQS 1/> CHIROPRAC REGIONS TIC CENTE EACH 15 MINUTES RADEX 88485 RAMIRO HERNADEZELL SPINE 6 AMA LUMBOSACR CHIROPRAC AL 2/3 TIC CENTE VIEWS APPL 97813 [facility]ONGTHIDE[facility] BOWIE MODALITY 6 AMA 1/> AREAS CHIROPRAC TRACTION TIC CENTE MECHANICA L APPL 84959 H[place]THIDE[place]AH HERNADEZELL MODALITY 6 AMA 1/> AREAS CHIROPRAC ELEC TIC CENTE STIMJ UNATTENDE D CHIROPRAC 59944 RAMIRO BOWIE TIC 6 AMA MANIPULAT CHIROPRAC MATEO TX TIC CENTE SPINAL 3-4 REGIONS RADEX 37051 RAMIRO BOWIE SPINE 6 AMA CERVICAL CHIROPRAC 2 OR 3 TIC CENTE VIEWS APPL 64460 RAMIRO BOWIE MODALITY 6 AMA 1/> AREAS CHIROPRAC TIC CENTE ULTRASOUN D EA 15 MIN MANUAL 18783 RAMIRO BOWIE THERAPY 6 AMA TQS 1/> CHIROPRAC REGIONS TIC CENTE EACH 15 MINUTES RADEX 67171 [place] [facility] ALL HAND 2 6 MEDICAL VIEWS IMAGING ASS RADEX 98428 [place] ALL FOREARM 2 [address] [place] [address] [place] ALL HEAD/BRAI 6 MEDICAL N W/O IMAGING CONTRAST ASS MATERIAL INJECTION J1885 [facility] 6 [facility] INE PER 15 MG THERAPEUT 16705 [facility] IC 6 [facility] TIC/DX INJECTION SUBQ/IM UNCLASSIF J3490 [facility] IED DRUGS 6 [facility] INC INC NJX 65247 JOSE M DUFF DX/THER 6 MD ELVIRA, AGT PVRT PSC FACET JT LMBR/SAC 1 LEVEL NJX 28639 JOSE M DUFF DX/THER 6 MD ELVIRA, AGT PVRT PSC FACET JT LMBR/SAC 2ND LEVEL NJX 53329 JOSE M DUFF DX/THER 6 MD ELVIRA, AGT PVRT PSC FACET JT LMBR/SAC 3+ LEVEL DRUG TST G0477 [facility] PRESUMP;C [address] [facility] PBL BEING [place] [address] [place] H[place] ALL HEAD/BRAI 6 MEDICAL N W/O IMAGING CONTRAST ASS MATERIAL OPHTH 93513 [facility] 6 GRE GRE XM&EVAL COMPRHNSV ESTAB PT 1/> UNCLASSIF J3490 [facility] IED DRUGS 6 [facility] INC INC NJX 12697 JOSE M DENA CRI DX/THER 6 MD ELVIRA, SBST PSC EPIDURAL/ SUBARACH LUMBAR/SA CRAL OBSERVATI 58793 [facility] ELSIE ON/INPATI 6 PHYSICIAN MERARY ENT S [facility] 50 MINUTES ECG 91169 [facility]LEY ROUTINE 6 [facility] W/LEAST P 12 LDS I&R ONLY RADIOLOGI 87487 [place] 6 MEDICAL SHAYNE EXAMINATI IMAGING ON CHEST ASS SINGLE VIEW FRONTAL SCREENING 35683 [facility] [address] [facility] MAMMOGRAP INC INC HY BILATERAL SCREENING G0202 [place] 6 MEDICAL SHAYNE MAMMOGRAP IMAGING HY GOKUL ASS INCL CAD WHEN PERFORMD COMPUTER- 08750 [facility] AIDED [address] [facility] DETECTION INC [place] [address] [facility] THYROXINE 6 [facility] TOTAL INC INC COMPREHEN 07625 [facility] SIVE [address] [facility] [place] [address] [facility] THYROID [address] [facility] STIMULATI INC INC NG HORMONE TSH HEMOGLOBI 92858 [facility] N [address] [facility] GLYCOSYLA INC INC MARCO A1C BLOOD 57600 [facility] COUNT [address] [facility] COMPLETE INC INC AUTO&AUTO DIFRNTL WBC ALBUMIN 89110 [facility] URINE [address] [facility] MICROALBU INC INC MIN QUANTIATI VE UNCLASSIF J3490 [facility] IED DRUGS 6 [facility] INC INC INJECTION J2405 [facility] [address] [facility] ONDANSETR INC INC ON HCL PER 1 [place] [address] [facility] INFUSION [address] [facility] THERAPY/P INC INC ROPHYLAXI S /DX 1ST TO 1 HR GLUC BLD 85466 [facility] GLUC MNTR [address] [facility] DEV INC INC CLEARED FDA SPEC HOME USE THERAPEUT 83869 [facility] IC 6 [facility] INJECTION INC INC IV PUSH EACH NEW DRUG RADIOLOGI 56135 [facility] C EXAM 6 [facility] CHEST 2 INC INC VIEWS FRONTAL&L ATERAL URNLS DIP 80619 [facility] 6 [facility] STICK/TAB INC INC LET REAGENT AUTO MICROSCOP Y BLOOD 40057 [facility] COUNT 6 [facility] COMPLETE INC INC AUTO&AUTO DIFRNTL WBC COMPREHEN 27281 [facility] SIVE 6 [facility] METABOLIC INC INC PANEL IAADI 37135 MOISE MOISE INFLUENZA 6 [facility] B VIRUS INC INC IAADI 14000 [facility] INFFLUENZ 6 [facility] [place] [address] [facility] ABDOMEN & 6 [facility] PELVIS INC INC W/O CONTRAST MATERIAL RADIOLOGI 67901 [facility] 6 MEDICAL NARINDER EXAMINATI IMAGING ON CHEST ASS SINGLE VIEW FRONTAL LOCM Q9967 [facility] [phone] 6 [facility] MG/ML INC INC IODINE CONCENTRA TION [place] ML NJX 78020 [facility] DX/THER 6 [facility] SBST INC INC EPIDURAL/ SUBARACH LUMBAR/SA CRAL INJECTION J1030 [facility] 6 [facility] METHYLPRE INC INC DNISOLONE ACETATE 40 MG UNCLASSIF J3490 [facility] IED DRUGS 6 [facility] INC INC STANDARD K0001 ISHMAEL MARINO 6 HOME HOME R MEDICAL MEDICAL EQUIPME EQUIPME EXCISION 53507 PROGRESSI ABIMAEL NAIL 6 VE KAYODE MATRIX PODIATRY PERMANENT REMOVAL NON-INVAS 66112 [facility] MATEO 6 [facility] PHYSIOLOG INC INC IC STUDY EXTREMITY 3 LEVLS ECG 31834 [facility] ROUTINE 6 [facility] ECG MEDICAL [...] DIR EQUIPMENT EQUIPMENT FORMD PRFAB EA COLLECTIO 40925 [facility] N VENOUS 6 [facility] BLOOD INC INC VENIPUNCT URE COMPREHEN 53809 [facility] SIVE 6 [facility] METABOLIC INC INC PANEL HEMOGLOBI 05041 [facility] N 6 [facility] GLYCOSYLA INC INC MARCO A1C BLOOD 09958 [facility] COUNT 6 [facility] COMPLETE INC INC AUTO&AUTO DIFRNTL WBC ECG 50832 [facility] PERALTA JR ROUTINE 5 [facility] W/LEAST P 12 LDS I&R ONLY E-STIM G0283 [facility] 1/> AREAS 5 [facility] OTH THAN INC INC WND CARE PART TX PLAN THERAPEUT 04226 [facility] IC PX 1/> 5 [facility] AREAS INC INC EACH 15 MIN EXERCISES APPLICATI 09945 [facility] ON 5 [facility] MODALITY INC INC 1/> AREAS HOT/COLD PACKS APPLICATI 62154 [facility] ON 5 [facility] MODALITY INC INC 1/> AREAS HOT/COLD PACKS THERAPEUT 01504 [facility] IC PX 1/> 5 [facility] AREAS INC INC EACH 15 MIN EXERCISES E-STIM G0283 [facility] 1/> AREAS 5 [facility] OTH THAN INC INC WND CARE PART TX PLAN APPL 87496 [facility] MODALITY 5 [facility] 1/> AREAS INC INC TRACTION MECHANICA L E-STIM G0283 [facility] 1/> AREAS 5 [facility] OTH THAN INC INC WND CARE PART TX PLAN THERAPEUT 95640 [facility] IC PX 1/> 5 [facility] AREAS INC INC EACH 15 MIN EXERCISES MANUAL 71654 [facility] THERAPY 5 [facility] TQS 1/> INC INC REGIONS EACH 15 MINUTES APPLICATI 91679 [facility] ON 5 [facility] MODALITY INC INC 1/> AREAS HOT/COLD PACKS MRI 63270 [facility] SPINAL [address] [facility] CANAL INC INC LUMBAR W/O CONTRAST MATERIAL 3D 53481 [facility] RENDERING 5 [facility] W/INTERP INC INC & POSTPROCE SS SUPERVISI ON SUSCEPTIB 39983 [facility] LTY STDY [address] [facility] ANTIMICRB INC INC IAL MICRO/AGA R DILUTJ CUL BACT 75222 [facility] XCPT [address] [facility] URINE INC INC BLOOD/STO OL AEROBIC ISOL PHYSICAL 55273 [facility] THERAPY 5 [facility] EVALUATIO INC INC N CYTP C/V 60923 [facility], PICKLESIM AUTO THIN 5 LLC ER JR BARBARA LYR PREPJ SCR MNL RESCR PHYS RADEX HIP 83849 [facility] [address] [facility] UNILATERA INC INC L COMPLETE MINIMUM 2 VIEWS RADEX 60074 [facility] SPINE [facility] LUMBOSACR INC INC AL MINIMUM 4 VIEWS RADIOLOGI 73408 [place] HERN[place]NDE[place] ALL C EXAM 5 MEDICAL CHEST 2 IMAGING VIEWS ASS FRONTAL&L ATERAL SUSCEPTIB 64315 [facility] LTY STDY [address] [facility] ANTIMICRB INC INC IAL MICRO/AGA R DILUTJ CUL BACT 07823 [facility] XCPT 5 [facility] URINE INC INC BLOOD/STO OL AEROBIC ISOL CUL BACT 67734 [facility] AEROBIC 5 [facility] ADDL INC INC METHS DEFINITIV E EA ISOL ECG 39776 [facility] ROUTINE 5 [facility] ECG MEDICAL W/LEAST G 12 LDS W/I&R US BREAST 77492 [place] HERN[place]NDEZ ALL UNI REAL 5 MEDICAL TIME IMAGING WITH ASS IMAGE LIMITED US BREAST 94188 [facility] UNI REAL [address] [facility] TIME INC INC WITH IMAGE COMPLETE RADIOLOGI 36015 [facility] ZEPEDA C EXAM 5 MEDICAL CHEST 2 IMAGING VIEWS ASS FRONTAL&L ATERAL DUP-SCAN 45634 [facility] XTR VEINS [address] [place] [address] COMPLETE BILATERAL STUDY ECG 80084 [facility] ROUTINE 5 [facility] ECG MEDICAL W/LEAST G 12 LDS W/I&R COMPUTER- 14619 [facility] [place] AIDED 5 RADIOLOGY DETECTION SCREENING MAMMOGRAP HY SCREENING G0202 [facility] [place] LETY 5 RADIOLOGY MAMMOGRAP HY GOKUL INCL CAD WHEN PERFORMD ARTHROCEN 21065 [facility] PETTEY TESIS 5 PHYSICIAN FRANK ASPIR&/IN S GROUP J MAJOR JT/BUR[place] W/[place] [address] [facility], [facility], SURG 5 [facility] PATHOLOGY GROSS&MERARY ROSCOPIC EXAM GLUC BLD 30135 [facility] GLUC MNTR 5 N N DEV COMMUNTIY COMMUNTIY CLEARED HOSPITA HOSPITA FDA SPEC HOME USE ANES 89588 [place] [facility] LOWER 5 ANESTHESI MERARY INTESTINE A GROUP PS ENDOSCOPY DISTAL DUODENUM INJECTION J2704 [facility] PROPOFOL 5 N N 10 MG COMMUNTIY COMMUNTIY HOSPITA HOSPITA [place] 78513 GASTROENT CASE JUS PY 5 EROLOGY W/BIOPSY AND SINGLE/MU HEPATOL LTIPLE APPL 12746 [facility] MODALITY 5 [facility] 1/> AREAS INC INC ELEC STIMJ UNATTENDE D APPL 93047 [facility] MODALITY 5 [facility] 1/> AREAS INC INC VASOPNEUM ATIC DEVICES THERAPEUT 40868 [facility] IC PX 1/> 5 [facility] AREAS INC INC EACH 15 MIN EXERCISES RADIOLOGI 06030 [facility] C EXAM 5 [facility] KNEE INC INC COMPLETE 4/MORE VIEWS ARTHROCEN 19679 [facility] TESIS 5 PHYSICIAN JAM ASPIR&/IN S GROUP J MAJOR JT/BURSA W/O US INJ J0702 [facility] BETAMETHA 5 PHYSICIAN FRANK Titus GROUP ACETATE & PHOSPHATE 3 MG CYANOCOBA 45603 [facility] FOX PJ 5 [facility] VITAMIN [facility] [address] [place] [address] [facility] FOX FOLIC 5 JEFF JEFF ACID [facility] SERUM GENERAL 75491 [facility] FOX HEALTH 5 [facility] PANEL [facility] BLOOD 84973 [facility] COUNT 5 [facility] COMPLETE INC INC AUTO&AUTO DIFRNTL WBC OBSERVATI 88799 [facility] AND ON CARE 5 DENVER DISCHARGE INTERNAL MED MANAGEMEN T UNCLASSIF J3490 [facility] I[facility] DRUGS 5 [facility] INC INC BASIC 93765 [facility] METABOLIC 5 [facility] PANEL INC INC [facility] G0378 [facility] OBSERVATI 5 [facility] ON INC INC SERVICE PER HOUR COLLECTIO 85194 [facility] N VENOUS 5 [facility] BLOOD INC INC VENIPUNCT URE COMPREHEN 26078 [facility] SIVE 5 [facility] METABOLIC INC INC PANEL IADNA NOS 82994 [facility] AMPLIFIED INC INC PROBE TQ [facility] G0378 [facility] OBSERVATI 5 [facility] ON INC INC SERVICE PER HOUR INF AGENT 32058 [facility] DET 5 [facility] NUCLEIC INC [place] [address] [facility] ABDOMEN & 5 [facility] PELVIS [place] [address] [facility] INFUSION 5 [facility] THERAPY/P INC INC ROPHYLAXI S /DX 1ST TO 1 HR BLOOD 23813 [facility] COUNT 5 [facility] COMPLETE INC INC AUTO&AUTO DIFRNTL WBC INITIAL 70891 [facility] OBSERVATI 5 [facility] INTERNAL CARE/DAY MED 30 MINUTES COLLECTIO 23701 [facility] N VENOUS 5 [facility] BLOOD INC INC VENIPUNCT URE UNCLASSIF J3490 [facility] IED DRUGS 5 [facility] INC INC PHYSICAL 90231 [facility] THERAPY 5 [facility] EVALUATIO INC INC N POLYSOM 87392 [facility] 6/>YRS 5 N N SLEEP 4/> COMMUNTIY COMMUNTIY ADDL HOSPITA HOSPITA SAWYER ATTND INJ J0702 [facility] BETAMETHA 5 PHYSICIAN FRANK SONE S GROUP ACETATE & PHOSPHATE 3 MG ARTHROCEN 14618 [facility] TESIS 5 PHYSICIAN FRANK ASPIR&/IN S GROUP J MAJOR JT/BURSA W/O US MRI ANY 42362 [facility] JT LOWER 5 [facility] EXTREM INC INC W/O CONTRAST MATRL UNCLASSIF J3490 [facility] IED DRUGS 4 [facility] INC INC RADIOLOGI 27867 [facility] C 4 [facility] EXAMINATI INC INC ON KNEE 3 VIEWS CRTCHS E0114 ADV[facility]ED ADVANCED UNDARM 4 TECHNOLOG TECHNOLOG OTH THAN IES INC IES INC WOOD PAIR PAD TIP&HNDGR IP RADEX 15810 [place] ANKLE 4 MEDICAL SHAYNE COMPLETE IMAGING MINIMUM 3 ASS VIEWS UNCLASSIF J3490 [facility] I[facility] DRUGS 4 [facility] INC INC APPL 42231 [facility] MODALITY 4 [facility] 1/> AREAS INC INC VASOPNEUM ATIC DEVICES APPL 22479 [facility] MODALITY 4 [facility] 1/> AREAS INC INC IONTOPHOR ESIS EA 15 MIN THERAPEUT 81535 [facility] IC PX 1/> 4 [facility] AREAS INC INC EACH 15 MIN EXERCISES APPL 38609 [facility] MODALITY 4 [facility] 1/> AREAS INC INC ELEC STIMJ UNATTENDE D APPL 08530 [facility] MODALITY 4 [facility] 1/> AREAS INC INC ELEC STIMJ UNATTENDE D APPL 57040 [facility] MODALITY 4 [facility] 1/> AREAS INC INC IONTOPHOR ESIS EA 15 MIN THERAPEUT 25199 [facility] IC PX 1/> 4 [facility] AREAS INC INC EACH 15 MIN EXERCISES UNCLASSIF J3490 [facility] IED DRUGS 4 [facility] INC INC APPLICATI 52058 [facility] ON 4 [facility] MODALITY INC INC 1/> AREAS HOT/COLD PACKS APPLICATI 05959 [facility] ON 4 [facility] MODALITY INC INC 1/> AREAS HOT/COLD PACKS UNCLASSIF J3490 [facility] IED DRUGS 4 [facility] INC INC APPL 98839 [facility] MODALITY 4 [facility] 1/> AREAS INC INC IONTOPHOR ESIS EA 15 MIN THERAPEUT 12544 [facility] IC PX 1/> 4 [facility]OS[facility] AREAS INC INC EACH 15 MIN EXERCISES APPL 42919 [facility] MODALITY 4 [facility] 1/> AREAS INC INC ELEC STIMJ UNATTENDE D APPL 04399 [facility] MODALITY 4 [facility] 1/> AREAS INC INC ELEC STIMJ UNATTENDE D THERAPEUT 58520 [facility] IC PX 1/> 4 [facility] AREAS INC INC EACH 15 MIN EXERCISES APPLICATI 67599 [facility] ON 4 [facility] MODALITY INC INC 1/> AREAS HOT/COLD PACKS APPLICATI 22909 [facility] ON 4 [facility] MODALITY INC INC 1/> AREAS HOT/COLD PACKS UNCLASSIF J3490 [facility] IED DRUGS 4 [facility] INC INC APPL 75899 [facility] MODALITY 4 [facility] 1/> AREAS INC INC ELEC STIMJ UNATTENDE D APPL 22745 [facility] MODALITY 4 [facility] 1/> AREAS INC INC IONTOPHOR ESIS EA 15 MIN THERAPEUT 28169 [facility] IC PX 1/> 4 [facility] AREAS INC INC EACH 15 MIN EXERCISES APPL 71520 [facility] MODALITY 4 [facility] 1/> AREAS INC INC IONTOPHOR ESIS EA 15 MIN THERAPEUT 63873 [facility] IC PX 1/> 4 [facility] AREAS INC INC EACH 15 MIN EXERCISES APPL 57604 [facility] MODALITY 4 [facility] 1/> AREAS INC INC ELEC STIMJ UNATTENDE D UNCLASSIF J3490 [facility] IED DRUGS 4 [facility] INC INC APPLICATI 08824 [facility] ON 4 [facility] MODALITY INC INC 1/> AREAS HOT/COLD PACKS THERAPEUT 51016 [facility] IC PX 1/> 4 [facility] AREAS INC INC EACH 15 MIN EXERCISES PHYSICAL 42580 [facility] THERAPY [address] [facility] EVALUATIO INC INC N RADIOLOGI 76893 [place] C EXAM 4 MEDICAL SHAYNE CHEST 2 IMAGING VIEWS ASS FRONTAL&L ATERAL RADIOLOGI 79434 [facility] [place] JAMES C EXAM 4 RADIOLOGY RHO CHEST 2 VIEWS FRONTAL&[place] [address] [place] ABDOMEN & 4 MEDICAL SHAYNE PELVIS IMAGING W/O ASS CONTRAST MATERIAL GENERAL 48222 Clever[facility]ds 4 DIAGNOSTI DIAGNOSTI PANEL CS CS HEMOGLOBI 35662 Mersive N 4 DIAGNOSTI DIAGNOSTI GLYCOSYLA CS CS MARCO A1C LIPID 27559 Mersive PANEL 4 DIAGNOSTI DIAGNOSTI CS CS GLUC BLD 80033 [facility] GLUC MNTR 4 N N DEV [facility] CLEARED HOSPITA HOSPITA FDA SPEC HOME USE INJECTION J3030 [facility] 4 N N SUMATRIPT [facility] AN HOSPITA HOSPITA SUCCINATE 6 MG INJECTION J1885 [facility] 4 N N KETOROLAC [facility] HOSPITA HOSPITA TROMETHAM INE PER 15 MG THERAPEUT 60636 [facility] IC 4 N N PROPHYLAC [facility] TIC/DX HOSPITA HOSPITA INJECTION SUBQ/IM ECG 56219 LIN MCCABE WILMER ROUTINE 4 [facility] ECG MEDICAL W/LEAST G 12 LDS W/I&R CREATININ [address] [place] [address] HY ABDOMEN W/CONTRAS T/[place] [address] HY CHEST W/CONTRAS T/NONCONT RAST LOCM Q9967 [facility] [phone] [place] [address] MG/ML IODINE CONCENTRA TION PER ML ECG 10064 [facility] ROUTINE 4 CJ MERARY ECG EMERGENCY W/LEAST PHYS 12 LDS I&R ONLY LIPID [address] MYOCARDIA [address] MULTIPLE STUDIES ECHO 60345 [facility] TTHRC R-T [address] [place] [address] 2D W/WOM-MOD E COMPL SPEC&COLR D GROUND A0425 [facility] MILEAGE 4 AMBULANCE AMBULANCE PER SERVICE SERVICE STATUTE MILE CV STRS [address] XERS&/OR RX CONT ECG TRCG ONLY INJECTION J[address] REGADENOS ON 0.1 MG AMB A0427 [facility] SERVICE 4 AMBULANCE AMBULANCE ALS SERVICE SERVICE EMERGENCY TRANSPORT LEVEL 1 UNCLASSIF J3490 [facility] IED DRUGS [address] [place] [address] [facility] TC-99M [address] [place] [address] TETROFOSM IN DX PER STUDY DOSE CV STRS 48665 LIN MCCABE WILMER TST 4 [facility] XERS&/OR MEDICAL RX CONT G ECG I&R ONLY GLUCOSE [address] REAGENT STRIP ECG 29492 [facility] ROUTINE 4 CJ MERARY ECG EMERGENCY W/LEAST PHYS 12 LDS I&R ONLY CRITICAL 56947 [facility] CARE 4 CJ MERARY ILL/INJUR EMERGENCY ED PHYS PATIENT INIT 30-74 MIN RADIOLOGI 78850 [facility] C 4 MEDICAL SHAYNE EXAMINATI IMAGING ON CHEST ASS SINGLE VIEW FRONTAL KNEE L1830 BREG INC. BREG INC. ORTHOSIS 4 IMMOBLIZE R CANVAS LONGTUDNL PREFAB RADEX 33642 [facility] PAREKHCOLTON ANKLE 4 MEDICAL SHAYNE COMPLETE IMAGING MINIMUM 3 ASS VIEWS RADIOLOGI 65208 [facility] C 4 MEDICAL SHAYNE EXAMINATI IMAGING ON FEMUR ASS 2 VIEWS RADIOLOGI 52275 [facility] C 4 MEDICAL SHAYNE EXAMINATI IMAGING ON KNEE 3 ASS VIEWS WALKER E0143 J & L J & L FOLDING 4 HOME HOME WHEELED MEDICAL MEDICAL ADJUSTABL EQUIPMENT EQUIPMENT E/FIXED HEIGHT SEAT E0156 J & L J & L ATTACHMEN 4 HOME HOME T WALKER MEDICAL MEDICAL EQUIPMENT EQUIPMENT HEMOGLOBI 64106 [facility] QUEST N 4 DIAGNOSTI DIAGNOSTI GLYCOSYLA CS CS MARCO A1C LIPID 11884 [facility] PANEL 4 [place] [address] [facility] THYROID 4 DIAGNOSTI DIAGNOSTI STIMULATI CS CS NG HORMONE TSH COMPREHEN 32643 [facility] SIVE 4 DIAGNOSTI DIAGNOSTI METABOLIC CS CS PANEL WRIST L3908 J & L J & L HAND 4 HOME HOME ORTHOSIS MEDICAL MEDICAL EXT EQUIPMENT EQUIPMENT CONTROL COCK-UP PREFAB NERVE 04228 [place] FEE DOM CONDUCTIO 4 MEDICAL N STUDIES SERV 9-10 FOUNDATIO STUDIES N NEEDLE 77470 [place] FEE DOM EMG EA 4 MEDICAL EXTREMTY SERV W/PARASPI FOUNDATIO NL AREA N COMPLETE RADEX ABD 39878 [facility] COMPL 4 MEDICAL SHAYNE AQT ABD IMAGING W/S/E/D ASS VIEWS 1 VIEW CH BONE 22544 [facility] &/JOINT 4 Y Y [facility] TOMOGRAPH IC SPECT TECHNETIU A9561 [facility] TC-99M 4 Y Y [facility] E DX UP TO 30 MCI RADEX 75744 [facility] SPINE 4 Y Y [facility]/3 VIEWS ECG 10205 [facility] ROUTINE 4 CJ III DUANE ECG EMERGENCY W/LEAST PHYS 12 LDS I&R ONLY MRI 61605 [facility] SPINAL 4 N N CANAL COMMUNTIY COMMUNTIY LUMBAR HOSPITA HOSPITA W/O CONTRAST MATERIAL INJECTION J1885 [facility] MARGARETTE 4 N FAMILY HEN KETOROLAC PRACTICE TROMETHAM INE PER 15 MG THERAPEUT 63082 [facility] MARGARETTE IC 4 N FAMILY HEN PROPHYLAC PRACTICE TIC/DX INJECTION SUBQ/IM KNEE L1810 [facility]ENTR[facility] ORTHOSIS 2 ELIAS [place] ELASTIC ORTHOPAED [employer] [place] [address] [facility] BLOOD/URI 2 DIAGNOSTI DIAGNOSTI C ACID CS CS COLLECTIO 14355 [facility] N VENOUS 2 DIAGNOSTI DIAGNOSTI BLOOD CS CS VENIPUNCT URE RADIOLOGI 67092 [facility] [place] BAILEY MAT C 2 RADIOLOGY EXAMINATI ON KNEE 3 VIEWS GENERAL 99228 [facility]ALTH 2 DIAGNOSTI DIAGNOSTI PANEL CS CS HEMOGLOBI 84752 [facility] N 2 DIAGNOSTI DIAGNOSTI GLYCOSYLA CS CS MARCO A1C LIPID 24793 [facility] PANEL 2 DIAGNOSTI DIAGNOSTI CS CS RADEX 91516 [facility] [place] RADPLYM[place]TH MEETINGESH SPINE 2 RADIOLOGY SHA LUMBOSACR AL 2/3 VIEWS RADEX 46757 [facility] [place] RENE ANKLE 2 RADIOLOGY III NORMA COMPLETE MINIMUM 3 VIEWS ECG 95937 CELLAROSI CELLAROSI ROUTINE 1 - YORBA - YORBA ECG PAT PAT W/LEAST 12 LDS I&R ONLY RADIOLOGI 34595 [facility] [place] ROME C C 1 RADIOLOGY EXAMINATI ON CHEST SINGLE VIEW FRONTAL RADEX 19608 [facility] [place]OW 2 1 [place] ELI[place] VIEWS ORTHOPAED ICS PLC URINALYSI 94114 [facility] NIHARIKA S 1 N FAMILY TOD MICROSCOP PHYS PSC IC ONLY SUSCEPTIB 49963 [facility] LTY STDY 1 [facility] ANTIMICRB IAL MICRO/AGA R DILUTJ IAADIADOO 62380 [facility] NIHARIKA 1 N FAMILY TOD INFLUENZA PHYS PSC CULTURE 08286 [facility] BCT 1 [facility] ISOL&PRSM PTV ID ISOLATE EA URINE CULTURE 17824 [facility] BACTERIAL 1 [facility] QUANTTATI VE COLONY COUNT URINE CUL BACT 26573 [facility] AEROBIC 1 [facility] ADDL [place] [address] [facility] THYROXINE 1 [facility] TOTAL HEMOGLOBI 23032 [facility] N 1 [facility] GLYCOSYLA MARCO A1C THYROID 41139 [facility] HORM 1 [facility] UPTK/THYR OID HORMONE BINDING RATIO LIPID 75749 [facility] PANEL 1 [facility] [place] [address] [facility] THYROID 1 [facility] STIMULATI NG HORMONE TSH COMPREHEN 25403 [facility] SIVE 1 [facility] METABOLIC PANEL RADEX 32214 [facility] [place] 2 1 [place] VIEWS ORTHOPAED [facility]CS [facility] THERAPEUT 28285 [facility] IC PX 1/> 1 N N [place] EACH 15 HOSPITA HOSPITA MIN EXERCISES THERAPEUT 19717 [facility] IC PX 1/> 1 N N [place] EACH 15 HOSPITA HOSPITA MIN EXERCISES THERAPEUT 23997 [facility] IC PX 1/> 1 N N [place] EACH 15 HOSPITA HOSPITA MIN EXERCISES PHYSICAL 60406 [facility] THERAPY 1 N N EVALUATIO [facility] N HOSPITA HOSPITA SLINGS A4565 [employer] [place] [address] [place] [address] DORINDA FLORES RADIAL 1 EMERGENCY MEHTA HEAD/NECK SERVICES FX W/O MANIPULAT ION RADEX 73650 [facility] TEJAS ROME C ELBOW 1 RADIOLOGY COMPLETE MINIMUM 3 VIEWS APPLICATI 92079 [facility] ON 0 N N SURFACE [facility] NEUROSTIM HOSPITA HOSPITA ULATOR OPHTH 53443 SUSAN DAVIS MEDICAL 0 N DUANE N DUANE XM&EVAL COMPRE NEW PT 1/> VST SENSORMOT 16544 SUSAN DAVIS OR XM 0 N DUANE N DUANE W/SALES SUPPORT COORDINATOR TIFFANIE OCULAR DEVIJ W/I&R SPX DETERMINA 04987 SUSAN DAVIS TION 0 N DUANE N DUANE REFRACTIV E STATE THERAPEUT 86854 [facility] IC PX 1/> 0 N N AREAS [facility] EACH 15 HOSPITA HOSPITA MIN EXERCISES PHYSICAL 25961 [facility] THERAPY 0 N N EVALUATIO [facility] N HOSPITA HOSPITA APPL 18873 [facility] MODALITY 0 N N 1/> AREAS [facility] ELEC HOSPITA HOSPITA STIMJ UNATTENDE D GENERAL 05625 [facility] 0 [facility] PANEL HEMOGLOBI 24168 [facility] N 0 [facility] GLYCOSYLA MARCO A1C LIPID 73522 [facility] PANEL 0 [facility] [place] [facility] HEMOGLOBI 30684 [facility] N 0 [facility] GLYCOSYLA MARCO A1C LIPID 27201 [facility] PANEL 0 [facility] [place] INC GENERAL 37580 [facility] 0 [facility] PANEL Encounters Encounter Start End Date Code Location Performer Type Date OFFICE 02976 [facility] KAT[facility] OUTPATIEN 7 7 PHYSICIAN T VISIT S GROUP 15 MINUTES OFFICE 32888 [facility] OUTPATIEN 7 7 PHYSICIAN T VISIT S GROUP 25 MINUTES EMERGENCY 61192 [facility] 7 7 CJ VISIT EMERGENCY HIGH PHYS SEVERITY& THREAT [facility] [address] MOISE - 7 7 MEM HOS[facility] OUTPATIEN INC T OFFICE 45282 [facility] 7 7 MEM [facility]OS[facility] T VISIT 5 INC MINUTES EMERGENCY 49946 [facility] 7 7 CJ DEPARTMEN EMERGENCY T VISIT PHYS HIGH/URGE NT SEVERITY HOSPITAL [facility] - 7 7 [facility] OUTPATIEN INC T OFFICE 69226 [facility] 7 7 PHYSICIAN T VISIT S GROUP 25 MINUTES EMERGENCY 34637 [facility] DEPT 7 7 CJ VISIT EMERGENCY HIGH PHYS SEVERITY& THREAT FUNJ OFFICE 82310 [facility] 7 7 PHYSICIAN T VISIT S GROUP 25 MINUTES EMERGENCY 30056 [facility] 7 7 CJ [facility] EMERGENCY T VISIT PHYS MODERATE SEVERITY EMERGENCY 01918 [facility] 6 6 CJ [facility] EMERGENCY T VISIT PHYS HIGH/URGE NT SEVERITY [facility]OSP[facility] [place] - 6 6 [facility] EMERGENCY 99902 [facility] 6 6 [facility] T VISIT MODERATE SEVERITY OFFICE 88640 [facility] ELIOT WILMER OUTPATIEN 6 6 [facility] T VISIT MEDICAL 25 G MINUTES OFFICE 50518 [facility] MD ELVIRA, T VISIT PSC 15 MINUTES OFFICE 69771 [facility] ELIOT WILMER OUTPATIEN 6 6 [facility] T VISIT MEDICAL 25 G MINUTES OFFICE 87233 [facility] 6 6 NURSE WILMER T VISIT PRACTITIO 15 NER GR MINUTES HOSPITAL [facility] - 6 6 [facility] MOISE - 6 6 [facility] OUTPATIEN INC T OFFICE 08439 [facility] MD ELVIRA, T VISIT PSC 15 MINUTES HOSPITAL [facility] - 6 6 HOSPITAL OUTPATIEN T OFFICE 14436 [facility] 6 6 [facility] T VISIT INC 10 MINUTES EMERGENCY 09466 BR[facility] CADENA 6 6 PHYSICIAN U NARINDER [facility], [facility] T VISIT HIGH/URGE NT SEVERITY OFFICE 86190 [facility] BOWIE OUTPATIEN 6 6 AMA T NEW 30 CHIROPRAC MINUTES TIC CENTE OFFICE 13722 [facility] OUT[facility] 6 6 N T VISIT NEUROLOGY 25 MINUTES EMERGENCY 94564 BRITTANY ZIMMERMAN 6 6 PHYSICIAN [facility], [facility] T VISIT HIGH/URGE NT SEVERITY EMERGENCY 86587 [facility] ZIMMERMAN 6 6 PHYSICIAN [facility], [facility] T VISIT HIGH/URGE NT SEVERITY OFFICE 54166 [facility] OUTPATIEN 6 6 [facility] T VISIT HOSPITAL 15 MINUTES EMERGENCY 16999 [facility] 6 6 CJ [facility] EMERGENCY T VISIT PHYSI HIGH/URGE NT SEVERITY EMERGENCY 60114 BRITTANY ZIMMERMAN 6 6 PHYSICIAN [facility] T VISIT HIGH/URGE NT SEVERITY HOSPITAL [facility] - 6 6 [facility] OUTPATIEN INC T OFFICE 25695 [facility] KATARINA OUTPATIEN 6 6 PHYSICIAN EUG T VISIT S GROUP 15 MINUTES HOSPITAL [facility] - 6 6 [facility] OUTPATIEN INC T HOSPITAL [facility] - 6 6 [facility] OUTPATIEN INC T OFFICE 81911 [facility] 6 6 [facility] T VISIT INC 10 MINUTES OFFICE 11139 JOSE M DUTTON OUTPATIEN 6 6 MD ELVIRA, T VISIT PSC 15 MINUTES OFFICE 84772 [facility] 6 6 NURSE WILMER FONG NEW/ESTAB NER GR PATIENT 60 MIN HOSPITAL [facility] - [address] [facility]IEN [facility] MOISE - 6 6 [facility] OUTPATIEN [facility] OFFICE 74866 JOSE M BREWER [facility] 6 6 MD ELVIRA, T VISIT [facility] 15 MINUTES OFFICE 48948 [facility] OUTPATIEN [address] [facility] T VISIT INC 10 MINUTES EMERGENCY 43035 BRITTANY ALDANA [facility] DE[facility] 6 6 PHYSICIAN VISIT [facility] HIGH SEVERITY& THREAT [facility] MOISE - 6 6 [facility] OUTPATIEN [facility] MOISE - 6 6 [facility] OUTPATIEN [facility] OFFICE 55449 [facility] FRYMAN OUTPATIEN 6 6 [facility] T VISIT HOSPITAL 15 MINUTES OFFICE 33841 [facility] FRYMAN OUTPATIEN 6 6 [facility] T VISIT HOSP[facility] 15 MINUTES OFFICE 13645 [facility] FRYMAN OUTPATIEN 6 6 [facility] 10 MINUTES EMERGENCY [address] [facility] 6 6 PHYSICIAN DEPARTMEN [facility] T VISIT HIGH/URGE NT SEVERITY OFFICE 25495 [facility]RAY OUTPATIEN 6 6 [facility] 15 MINUTES EMERGENCY 29634 BRITTANY ZIMMERMAN 6 6 PHYSICIAN MERARY DEPARTMEN [facility] T VISIT HIGH/URGE NT SEVERITY OFFICE 09954 NATIVIDADI ABIMAEL OUTPATI 6 6 [facility] T VISIT PODIATRY 15 MINUTES EMERGENCY 45459 [facility] 6 6 [facility] HIGH/URGE NT SEVERITY [facility]OSPITAL [facility] - 6 6 [facility] OUTPATIEN INC T EMERGENCY 54681 BRITTANY LORENZO DEPT 6 6 PHYSICIAN CLARICE VISIT S, PLLC HIGH SEVERITY& THREAT FUNCJ OFFICE 94788 [facility]RAY OUTPATIEN 6 6 [facility] 15 MINUTES HOSPITAL [facility] - 6 6 [facility] OUTPATIEN INC T HOSPITAL [facility] - 6 6 [facility] OUTPATIEN INC T OFFICE 27526 [facility] OUTPATIEN 6 6 [facility] T VISIT INC 10 MINUTES OFFICE 27836 JOSE MBERNABE FERNANDES CRI OUTPATIEN 6 6 MD ELVIRA, T NEW PSC MINUTES OFFICE 73818 PROGRESSI ABIMAEL OUTPATIEN 6 6 VE KAY[facility] T VISIT PODIATRY 15 MINUTES HOSPITAL [facility] - 6 6 [facility] OUTPATIEN INC T OFFICE 67959 [facility] WILMER OUTPATIEN 6 6 [facility] VISIT MEDICAL 25 G MINUTES HOSPITAL [facility] - 6 6 [facility] OUTPATIEN INC T OFFICE 69885 PROGRESSI ABIMAEL OUTPATIEN 6 6 VE KAYODE T NEW 30 PODIATRY MINUTES OFFICE 30625 [facility] CAMERONNORMAN OUTPATIEN 6 6 [facility] 15 MINUTES OFFICE 70153 [facility] CAMERONYMAN OUTPATIEN 6 6 [facility] 15 MINUTES OFFICE 73165 [facility] OUT[facility] 6 6 [place] T NEW 30 ORTHOPAED MINUTES [facility]CS [facility] OFFICE 80327 [facility] FRYMAN OUTPATIEN 6 6 [facility] 15 MINUTES EMERGENCY 20167 BR[facility] TENORIO 5 5 PHYSICIAN WILLIE GAGE S, [facility] T VIS[facility] HIGH/URGE NT SEVERITY [facility]OSPITAL [facility] - 5 5 [facility] OUTPATIEN INC T OFFICE 03344 [facility] NINO LIGHT 5 5 PHYSICIAN T NEW 30 S GROUP MINUTES HOSPITAL [facility] [address] [facility] OUTPATIEN INC T EMERGENCY 48595 BR[facility] ZIMMERMAN 5 5 PHYSICIAN MERARY DEPARTMEN S, PLLC T VISIT MODERATE SEVERITY [facility]OSP[facility] [address] [facility] OUTPATIEN INC T HOSPITAL [facility] - [address] [facility] OUTPATIEN INC T EMERGENCY 79267 BRITTANY ROACH 5 5 PHYSICIAN FOR DEPARTMEN S, PLLC T VISIT LOW/MODER SEVERITY EMERGENCY 91550 BRITTANY OVERTON 5 5 PHYSICIAN GRUPO DEPARTMEN S, PLLC T VISIT MODERATE SEVERITY OFFICE 83272 [facility] LIGHT 5 5 [facility] T VISIT HOSPITAL 15 MINUTES HOSPITAL [facility] - [address] [facility] OUTPATIEN INC T OFFICE 42198 [place] ELIOT WILMER OUTPATIEN 5 5 [facility] T VISIT MEDICAL 15 G MINUTES HOSPITAL [facility] [address] [facility] OUTPATIEN INC T EMERGENCY 37272 BRITTANY ZIMMERMAN 5 5 PHYSICIAN MERARY DEPARTMEN S, PLLC T VISIT MODERATE SEVERITY EMERGENCY 33469 BRITTANY OROURKE 5 5 PHYSICIAN DEPARTMEN S, PLLC T VISIT MODERATE SEVERITY EMERGENCY 17296 BRITTANY ZIMMERMAN 5 5 PHYSICIAN MERARY DEPARTMEN S, PLLC T VISIT MODERATE SEVERITY EMERGENCY 97738 BRITT[place] 5 5 PHYSICIAN [place] DEPARTMEN S[facility] PLLC T VISIT HIGH/URGE NT SEVERITY OFFICE 86213 LIN MCCABE WILMER OUTPATIEN 5 5 [facility] T VISIT MEDICAL 15 G MINUTES HOSPITAL [facility] 5 5 HOSPITAL OUTPATIEN T EMERGENCY 10204 [facility] ZIMMERMAN 5 5 [facility] T VISIT P LOW/MODER SEVERITY OFFICE 87659 [facility]AB[facility] WIMLER OUTPATIEN 5 5 [facility] T VISIT MEDICAL 25 G MINUTES [facility] - 5 5 N OUTPATIEN COMMUNTIY T HOSPITA EMERGENCY 34156 [facility] ZIMMERMAN 5 5 [facility] T VISIT P MODERATE SEVERITY [facility] - 5 5 N OUTPATIEN COMMUNTIY T HOSPITA OFFICE 76715 [facility]ARIKA OUTPATIEN 5 5 N FAMILY TOD T VISIT PRACTICE 15 MINUTES OFFICE 58796 [facility] OUTPATIEN 5 5 PHYSICIAN JAM T VISIT S GROUP 15 MINUTES [facility] - 5 5 [facility] - 5 5 [facility] T OFFICE 33325 [facility] OUTPATIEN 5 5 N FAMILY TOD T VISIT PRACTICE 25 MINUTES [facility] - 5 5 [facility] OUTPATI[facility] INC T EMERGENCY [address] [address] [facility] T VISIT HIGH/URGE NT SEVERITY [facility] - 5 5 [facility] - 5 5 N OUTPATIEN COMMUNTIY T HOSPITA OFFICE 38221 [facility] OUTPATIEN 5 5 PHYSICIAN JAM T VISIT S GROUP 15 MINUTES [facility] - 5 5 [facility] T OFFICE 20764 [facility] OUTPATIEN 5 5 PHYSICIAN JAM T VISIT S GROUP 15 MINUTES [facility] - 4 4 [facility] OUTPATIEN INC T EMERGENCY 30814 [facility] 4 4 [facility] DEPARTMEN INC T VISIT LOW/MODER SEVERITY OFFICE 12083 [facility] OUTPATIEN 4 4 N FAMILY HEN T VISIT PRACTICE 15 MINUTES [facility]OSPITAL [facility] - 4 4 [facility] OUTPATIEN INC T EMERGENCY 76081 [facility] WANG 4 4 CJ MATI DEPARTMEN EMERGENCY T VISIT PHYS HIGH/URGE NT SEVERITY OFFICE 27143 [facility] OUTPATIEN 4 4 N FAMILY TOD T VISIT PRACTICE 25 MINUTES OFFICE 51493 [facility] OUTPATIEN 4 4 PHYSICIAN JAM T NEW 30 S GROUP MINUTES EMERGENCY 40197 [facility] 4 4 N DEPARTMEN COMMUNITY T VISIT HOSPITA MODERATE SEVERITY EMERGENCY 71450 [facility] WANG 4 4 CJ MATI DEPARTMEN EMERGENCY T VISIT PHYS HIGH/URGE NT SEVERITY [facility] [place] [address] 4 [facility] OUTPATIEN T OFFICE 57016 [facility] ELI[facility] WILMER OUTPATIEN 4 4 [facility] T VISIT MEDICAL 15 G MINUTES OFFICE 60906 [facility] OUTPATIEN 4 4 N FAMILY TOD T VISIT PRACTICE 25 MINUTES EMERGENCY 76743 [facility] 4 4 CJ MERARY VISIT EMERGENCY HIGH PHYS SEVERITY& THREAT FUNCJ OFFICE 71051 [facility] OUTPATIEN 4 4 [facility] T NEW 60 MEDICAL MINUTES G [facility] [place] [address] 4 [facility] OUTPATI[facility] T EMERGENCY 96847 [facility] SHARONRIS [address] [facility] EMERGENCY T VISIT PHYS MODERATE SEVERITY EMERGENCY 11322 [facility] 4 4 CJ DEPARTMEN EMERGENCY T VISIT PHYS MODERATE SEVERITY OFFICE 87141 [facility] BANUELOSNIHARIKA OUTPATIEN 4 4 N FAMILY TOD T VISIT PRACTICE 25 MINUTES OFFICE 28281 JAMIL MANZO CONSULTAT 4 4 N ION NEUROLOGY NEW/ESTAB PATIENT 60 MIN EMERGENCY 32998 [facility] 4 4 CJ DEPARTMEN EMERGENCY T VISIT PHYS HIGH/URGE NT SEVERITY OFFICE 77395 [facility] OUTPATIEN 4 4 N FAMILY TOD T VISIT PRACTICE 25 MINUTES OFFICE 82244 [place] SHANTECHMAN OUTPATIEN 4 4 N FAMILY JR RAY T VISIT PRACTICE 15 MINUTES OFFICE 11470 [facility] HER OUTPATIEN 4 4 MEDICAL RYA T VISIT SERV 15 FOUNDATIO MINUTES EMERGENCY 08094 [facility] EMERGENC[facility] T VISIT PHYS MODERATE SEVERITY OFFICE 59992 [facility] OUTPATIEN 4 4 N FAMILY JR RAY T VISIT PRACTICE 15 MINUTES EMERGENCY 89829 [facility] 4 4 [facility] EMERGENCY T VISIT PHYS MODERATE SEVERITY HOSPITAL UNIVERSIT - 4 4 Y [facility] T EMERGENCY 83842 [facility] 4 CJ BRO VISIT EMERGENCY HIGH PHYS SEVERITY& THREAT FUNCJ OFFICE 15560 [facility] NIHARIKA OUTPATIEN 4 4 N FAMILY TOD T VISIT PRACTICE 25 MINUTES EMERGENCY 30626 [facility] 4 4 [facility] PHYSI HIGH/URGE NT SEVERITY HOSPITAL [facility] - 4 4 [facility] 95020 TEJAS HER [facility]AT 4 4 MEDICAL RYA ION SERV NEW/ESTAB FOUNDATIO PATIENT 40 MIN HOSPITAL UNIVERSIT - 4 4 [facility] 89818 [facility] DEPT 4 4 CJ III DUANE VISIT EMERGENCY HIGH PHYS SEVERITY& THREAT FUNCJ OFFICE 31228 [facility] NIH[facility] OUTPATIEN 4 4 N FAMILY TOD T VISIT PRACTICE 15 MINUTES HOSP[facility] - 4 4 N OUTPATIEN COMMUNTIY T HOSPITA OFFICE 60575 [facility] NIHARIKA OUTPATIEN 4 4 N FAMILY TOD T VISIT PRACTICE 15 MINUTES OFFICE 30776 [facility] MARGARETTE OUTPATIEN 4 4 N FAMILY HEN T VISIT PRACTICE 15 MINUTES HOSPITAL [facility] - 4 4 [facility] OUTPATIEN INC T EMERGENCY 57856 [facility] 4 4 [facility] DEPARTMEN INC T VISIT LIMITED/M INOR PROB OFFICE 69078 BRAD SALINAS OUTPATIEN 2 2 ELIAS ELIAS T VISIT 15 MINUTES OFFICE 92970 [facility] NIHARIKA OUTPATIEN 2 2 TOD TOD T VISIT 15 MINUTES OFFICE 99715 BRAD SALINAS OUTPATIEN 2 2 ELIAS ELIAS T VISIT 15 MINUTES OFFICE 09033 [facility] [facility] OUTPATIEN 2 2 HEN HEN T VISIT 15 MINUTES EMERGENCY 21694 DORINDA DEL TORO 2 2 EMERGENCY MATI DEPARTMEN SERVICES T VISIT MODERATE SEVERITY EMERGENCY 37361 RECHTIN RECHTIN 2 2 CONCRETE BATCHER CONCRETE BATCHER DEPARTMEN T VISIT MODERATE SEVERITY OFFICE 93069 [facility] NIHARIKA OUTPATIEN 2 2 TOD TOD T VISIT 15 MINUTES OFFICE 80823 [facility] NIHARIKA OUTPATIEN 2 2 TOD TOD T VISIT 25 MINUTES OFFICE 65985 [facility] NIHARIKA OUTPATIEN 2 2 TOD TOD T VISIT 25 MINUTES OFFICE 65016 [facility] NIHARIKA OUTPATIEN 2 2 TOD TOD T VISIT 15 MINUTES EMERGENCY 01600 WANG PIÑA 2 2 MATI MATI DEPARTMEN T VISIT MODERATE SEVERITY OFFICE 75912 [facility] NIHARIKA OUTPATIEN 2 2 TOD TOD T VISIT 15 MINUTES EMERGENCY 50323 ANDREI FORBES 2 2 GAR GAR DEPARTMEN T VISIT MODERATE SEVERITY OFFICE 22656 [facility] NIHARIKA OUTPATIEN 2 2 TOD TOD T VISIT 25 MINUTES OFFICE 64664 [facility] NIHARIKA OUTPATIEN 1 1 TOD TOD T VISIT 15 MINUTES OFFICE 61566 [facility] NIHARIKA OUTPATIEN 1 1 TOD TOD T VISIT 15 MINUTES EMERGENCY 58734 CELLAROSI CELLAROSI DEPT 1 1 - YORBA - YORBA VISIT PAT PAT HIGH SEVERITY& THREAT FUNCJ OFFICE 05870 [facility] NIHARIKA OUTPATIEN 1 1 TOD TOD T VISIT 15 MINUTES OFFICE 63658 GEORGETOW NIHARIKA OUTPATIEN 1 1 N FAMILY TOD T VISIT PHYS PSC 25 MINUTES OFFICE 68833 GEORGETOW NIHARIKA OUTPATIEN 1 1 N FAMILY TOD T VISIT PHYS PSC 15 MINUTES EMERGENCY 26823 DORINDA BROCK 1 1 EMERGENCY DEV DEPARTMEN SERVICES T VISIT MODERATE SEVERITY OFFICE 73467 GEORGETOW MARGARETTE OUTPATIEN 1 1 N FAMILY HEN T VISIT PHYS PSC 15 MINUTES OFFICE 92777 GEORGET[facility] NIHARIKA OUTPATIEN 1 1 N FAMILY TOD T VISIT PHYS PSC 15 MINUTES OFFICE 09046 GEORGETOW NIHARIKA OUTPATIEN 1 1 N FAMILY TOD T VISIT PHYS PSC 15 MINUTES OFFICE 22193 GEORGET[facility] NIHARIKA OUTPATIEN 1 1 N FAMILY TOD T VISIT PHYS PSC 25 MINUTES EMERGENCY 77711 DORINDA FLORES 1 1 EMERGENCY [facility] SERVICES T VISIT MODERATE SEVERITY OFFICE 99184 GEORGETOW NIHARIKA OUTPATIEN 1 1 N FAMILY TOD T VISIT PHYS PSC 15 MINUTES OFFICE 35056 GEORGETOW NIHARIKA OUTPATIEN 1 1 N FAMILY TOD T VISIT PHYS PSC 15 MINUTES OFFICE 24822 [facility] OUTPATIEN 1 1 [place] ELIAS T VISIT ORTHOPAED 15 [facility] MINUTES OFFICE 38957 GEORGETOW NIHARIKA OUTPATIEN 1 1 N FAMILY TOD T VISIT PHYS PSC 15 MINUTES OFFICE 66156 [facility] OUTPATIEN 1 1 [place] ELIAS T VISIT ORTHOPAED 15 [facility] MINUTES [facility]OSPITAL [facility] - 1 1 N OUTPATIEN COMMUNITY T HOSPITA OFFICE 66000 [facility] 1 1 [place] ELIAS ION ORTHOPAED NEW/ESTAB [facility] PATIENT 40 MIN OFFICE 20736 [place] NIHARIKA OUTPATIEN 1 1 N FAMILY TOD T VISIT PHYS PSC 15 MINUTES EMERGENCY 25050 DORINDA FLORES 1 1 EMERGENCY [facility] SERVICES T VISIT HIGH/URGE NT SEVERITY OFFICE 91505 [facility] NIHARIKA OUTPATIEN 1 1 N FAMILY TOD T VISIT PHYS PSC 15 MINUTES OFFICE 71083 GE[facility] NIHARIKA OUTPATIEN 0 0 N FAMILY TOD T VISIT PHYS PSC 15 MINUTES OFFICE 40774 GE[facility]GET[place] NIHARIKA OUTPATIEN 0 0 N FAMILY TOD T VISIT PHYS PSC 25 MINUTES OFFICE 47305 [place] NIHARIKA OUTPATIEN 0 0 N FAMILY TOD T VISIT PHYS PSC 15 MINUTES HOSPITAL [facility] - 0 0 N OUTPATIEN COMMUNITY T HOSPITA [facility] 0 0 N [facility] 54632 [facility] 0 0 N DEPARTMEN COMMUNITY T VISIT [facility] MODERATE SEVERITY OFFICE 51154 [place] NIHARIKA OUTPATIEN 0 0 N FAMILY TOD T VISIT PHYS PSC 25 MINUTES OFFICE 27348 [facility] NIHARIKA OUTPATIEN 0 0 N FAMILY TOD T VISIT PHYS PSC 15 MINUTES OFFICE 02546 [facility] NIHARIKA OUTPATIEN 0 0 N FAMILY TOD T VISIT PHYS PSC 25 MINUTES OFFICE 96716 [facility] NIHARIKA OUTPATIEN 0 0 N FAMILY TOD T VISIT PHYS PSC 25 MINUTES OFFICE 27507 [facility] NIHARIKA OUTPATIEN 0 0 N FAMILY TOD T VISIT PHYS PSC 15 MINUTES OFFICE 73623 [facility] OUTPATIEN 0 0 N FAMILY TOD T NEW 30 PHYS PSC MINUTES
--- OUTSIDE RECORDS SUMMARY | 2017-01-27 16:52 | External Medical Summary Rpt ---
Demographics Preferred Language Surinamese Marital Status Unknown Presybeterian Affiliation Unknown Race Unknown Ethnic Group Unknown Author Author , Organization [employer] Address Unknown Phone Unavailable Purpose Continuity of Care Document - through 2016 Immunization No patient found.
--- OUTSIDE RECORDS SUMMARY | 2017-01-27 16:52 | External Medical Summary Rpt ---
Demographics Preferred Language Libyan Marital Status Unknown Advent Affiliation Unknown Race Unknown Ethnic Group Unknown Author Author , Organization [employer] Address Unknown Phone Unavailable Purpose Continuity of Care Document - through 2016 Immunization No patient found.
--- OUTSIDE RECORDS SUMMARY | 2017-01-27 16:53 | External Medical Summary Rpt ---
Author Author [employer], [employer] Organization [employer] Address Unknown Phone Unavailable Results Comprehensive metabolic 2000 panel in Serum or Plasma Observa Value Referen Units Interpr Notes Date tion ce etation Range Albumin/G 1.1 - 1.8 No Normal No Dec 16 lobulin informati informati 2017 7:04 [Mass on in on in AM ratio] in source source Serum or data data Plasma Albumin 3.4 - 5.0 gm/dL Low No Dec 16 [Mass/vol informati 2017 7:04 ume] in on in AM Serum or source Plasma data Alkaline 46 - 116 U/L High No Dec 16 phosphata informati 2017 7:04 se on in AM [Enzymati source c data activity/ volume] in Serum or Plasma Bilirubin 0.2 - 1.0 mg/dL Normal No Dec 16 .total informati 2017 7:04 [Mass/vol on in AM ume] in source Serum or data Plasma Urea 7 - 18 mg/dL Low No Dec 16 nitrogen informati 2017 7:04 [Mass/vol on in AM ume] in source Serum or data Plasma Calcium 8.5 - mg/dL Normal No Dec 16 [Mass/vol 10.1 informati 2017 7:04 ume] in on in AM Serum or source Plasma data Chloride 98 - 107 mmoL/L Normal No Dec 16 [Moles/vo informati 2017 7:04 lume] in on in AM Serum or source Plasma data Carbon 21.0 - mmoL/L Normal No Dec 16 dioxide, 32.0 informati 2017 7:04 total on in AM [Moles/vo source lume] in data Serum or Plasma Creatinin 0.55 - mg/dL Normal No Dec 16 e 1.02 informati 2017 7:04 [Mass/vol on in AM ume] in source Serum or data Plasma Estimated 59- ML/MIN No REFERENCE Julian 16 informati RANGE: 2017 7:04 glomerula on in >60 AM r source ML/MIN/1. filtratio data 73 SQUARE n rate METERSIf (GF this patient is -A merican, then multiply theresult by 1.210. Globulin 1.3 - 3.2 gm/dL Normal No Jan 10 [Mass/vol informati 2016 7:04 ume] in on in AM Serum source data Glucose 74 - 106 mg/dL High Jan 10 [Mass/vol 2016 7:04 ume] in CRITICAL AM Serum or RESULTS Plasma RESU LTS CALLED TO: NETTA Pool 01/10/17 0956 López,Rich natalie Potassium 3.5 - 5.1 mmoL/L Normal No Jan 10 informati 2016 7:04 [Moles/vo on in AM lume] in source Serum or data Plasma Sodium 136 - 145 mmoL/L Normal No Jan 10 [Moles/vo informati 2016 7:04 lume] in on in AM Serum or source Plasma data Aspartate 15 - 37 U/L Low No Jan 10 informati 2016 7:04 aminotran on in AM sferase source [Enzymati data c activity/ volume] in Serum or Plasma Alanine 12 - 78 U/L Normal No Jan 10 aminotran informati 2016 7:04 sferase on in AM [Enzymati source c data activity/ volume] in Serum or Plasma Protein 6.4 - 8.2 gm/dL Normal No Jan 10 [Mass/vol informati 2016 7:04 ume] in on in AM Serum or source Plasma data Thyroxine (T4) free [Mass/volume] in Serum or Plasma Observa Value Referen Units Interpr Notes Date tion ce etation Range Thyroxine 0.76 - ng/dL High No Jan 10 (T4) 1.46 informati 2016 7:04 free on in AM [Mass/vol source ume] in data Serum or Plasma Lipid 1996 panel in Serum or Plasma Observa Value Referen Units Interpr Notes Date tion ce etation Range Cholester < 200 mg/dL No No Jan 10 ol informati informati 2016 7:04 [Moles/vo on in on in AM lume] in source source Unspecifi data data ed specimen Cholester 40 - 60 MG/DL Low No Jan 10 ol in HDL informati 2016 7:04 on in AM [Mass/vol source ume] in data Serum or Plasma Cholester 0 - 130 mg/dL Normal No Jan 10 ol in LDL inform2016 7:04 on in AM [Mass/vol source ume] in data Serum or Plasma by calculati on Triglycer 30 - 200 mg/dL High No Jan 10 cm inform2016 7:04 [Moles/vo on in AM lume] in source Serum or data Plasma Cholester 0 - 40 No High No Jan 10 ol in informati informati 2016 7:04 VLDL on in on in AM [Mass/vol source source ume] in data data Serum or Plasma Thyrotropin [Units/volume] in Serum or Plasma Observa Value Referen Units Interpr Notes Date tion ce etation Range Thyrotrop 0.358 - uIU/ml Low No Jan 10 in 3.740 informati 2016 7:04 [Units/vo on in AM lume] in source Serum or data Plasma Hemoglobin A1c in Blood Observa Value Referen Units Interpr Notes Date tion ce etation Range Hemoglo 11.1 0.0 - % High < 6% Jan 10 bin A1c 7.0 NON-LENORE 2017 in BETIC 7:04 AM Blood LEVEL< 7% CONTROL LED DIABETI C LEVEL> 8% POORLY CONTROL LED DIABETI C LEVEL CBC W Auto Differential panel in Blood Observa Value Referen Units Interpr Notes Date tion ce etation Range Basophils 0 - 0.2 K/MM3 Normal No Jan 10 inform2016 7:04 [#/volume on in AM ] in source Blood by data Automated count Basophils 0.1 - 2.0 % Normal No Dec 16 / informati 2016 7:04 leukocyte on in AM s in source Blood by data Automated count Eosinophi 0.0 - 0.4 K/mm3 Normal No Jan 10 ls informati 2016 7:04 [#/volume on in AM ] in source Blood by data Automated count Eosinophi 0.1 - % Normal No Jan 10 ls/100 12.0 informati 2016 7:04 leukocyte on in AM s in source Blood by data Automated count Granulocy 1.8 - 7.8 K/mm3 Normal No Jan 10 sosa informati 2016 7:04 [#/volume on in AM ] in source Blood by data Automated count Granulocy 37.0 - % Normal No Jan 10 sosa/100 80.0 informati 2016 7:04 leukocyte on in AM s in source Blood by data Automated count Hematocri 37.0 - % Normal No Dec 16 t [Volume 47.0 informati 2017 7:04 on in AM Fraction] source of Blood data Hemoglobi 12.2 - g/dL Normal No Dec 16 n 16.2 informati 2017 7:04 [Mass/vol on in AM ume] in source Blood data Lymphocyt 0.7 - 4.5 K/mm3 Normal No Dec 16 es informati 2017 7:04 [#/volume on in AM ] in source Unspecifi data ed specimen by Automated count Lymphocyt 10 - 50.0 % Normal No Dec 16 es informati 2017 7:04 [#/volume on in AM ] in source Unspecifi data ed specimen by Automated count Erythrocy 27 - 31.2 pg High No Dec 16 te mean informati 2017 7:04 corpuscul on in AM ar source hemoglobi data n [Entitic mass] Erythrocy 31.8 - g/dl Normal No Dec 16 te mean 35.4 informati 2017 7:04 corpuscul on in AM ar source hemoglobi data n concentra tion [Mass/vol ume] by Automated count Erythrocy 82.2 - fl Normal No Dec 16 te mean 97.8 informati 2017 7:04 corpuscul on in AM ar volume source [Entitic data volume] by Automated count Monocytes 0.1 - 1.0 K/mm3 Normal No Dec 16 informati 2017 7:04 [#/volume on in AM ] in source Blood by data Automated count Monocytes 1.7 - 9.3 % Normal No Dec 16 /100 informati 2017 7:04 leukocyte on in AM s in source Blood by data Automated count Platelet 7.4 - fl High No Dec 16 mean 10.4 informati 2017 7:04 volume on in AM [Entitic source volume] data in Blood by Automated count Platelets 142 - 424 K/mm3 Normal No Dec 16 informati 2017 7:04 [#/volume on in AM ] in source Blood data Erythrocy 4.2 - 5.4 M/mm3 Normal No Dec 16 sosa informati 2017 7:04 [#/volume on in AM ] in source Amniotic data fluid Erythrocy 11.5 - % Normal No Dec 16 te 17.5 informati 2017 7:04 distribut on in AM ion width source [Entitic data volume] by Automated count Leukocyte 4.8 - K/MM3 Normal No Dec 16 s 10.8 informati 2017 7:04 [#/volume on in AM ] in source Blood data
[2017-01-27] MEDS ORDERED: NAPROXEN SODIU500 MG PO (17:03)
[2017-01-27] MEDS ORDERED: LEVAQUIN500 MG PO (17:03)
--- NOTE | 2017-01-27 17:05 | Emergency Room Report ---
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 N Clinical Suspician of Infection? N Mental Status: 1 - Regular (Normal Baseline) Sepsis Risk:Possible Sepsis Risk Have you (or family members/close friends) recently traveled outside the [place]? N If Yes, where/when: Have you had exposure to infectious disease within the past month? N TB? Other? Specify: Patient recently on Zithromax, penicillin, and Bactrim for suppurative cyst, right axilla. States no longer draining but still a little tender. No fever or vomiting. Is diabetic. ALLERGIES Coded Allergies: cephalexin (From KEFLEX) (Intermediate, I-HIVES 04/05/16) erythromycin base (Intermediate, I-HIVES 04/05/16) butorphanol (From STADOL) (11/08/16) metformin (NA-DIARRHEA 04/05/16) Home Medications Active Scripts SULFAMETHOXAZOLE W/TRIMETHOPRI (Bactrim Ds Tab) 1 TABLET PO BID 10 Days Prov: 01/18/17 Penicillin V Potassium 500 MG PO QID #40 TAB Prov: 01/20/17 HYDROCODONE 5MG/APAP 325MG (Hydrocodon-Acetaminophen 5-325) 1 TAB PO Q6HP PRN pain #16 TAB Prov: 01/20/17 Pantoprazole Sodium (Protonix 40MG TAB) 40 MG PO DAILY #30 TAB Prov: 04/30/14 Cyclobenzaprine Hcl (Flexeril) 10 MG PO TID #30 TAB Prov: 04/05/16 Phenazopyridine HCl (Pyridium) 200 MG PO TIDP PRN dysuria #6 TAB Prov: 11/08/16 Discontinued Scripts Naproxen (Naproxen 250MG Tablet) 250 MG PO BIDP PRN BREAKTHROUGH MILD PAIN 3 Days Prov: 01/18/17 DC: 01/22/17 0000 Reported Medications DULOXETINE HCL (Cymbalta 30MG) 60 MG PO QHS POTASSIUM CHL (Potassium Chloride) 20 MEQ PO DAILY Hydroxyzine Pamoate (Vistaril) 50 MG PO QHSP PRN ANXIETY Atorvastatin Calcium (Lipitor 20MG) 20 MG PO DAILY Levothyroxine Sodium (Levothyroxine 0.125MG) 0.125 MG PO DAILY Amitriptyline Hcl (Amitriptyline) 25 MG PO QHS Furosemide (Lasix) 40 MG PO DAILYP PRN FLUID Gabapentin (Gabapentin 300MG) 600 MG PO TID INSULIN NPL/INSULIN LISPRO (Humalog Mix 75-25 Kwikpen) 79 UNITS SC AC History Medical History General CAD? No Angina: No OR: No Hypertension? Yes Hyperlipidemia? Yes CHF? No DVT? No PE? No COPD? No Asthma? Yes Anemia? No GERD? Yes Gastric ulcers? No GI Bleed? No Hernia? No Thyroid Problems? Yes Hypothyroidism? Yes CVA? No Seizures? No Diabetes? Yes Insulin Dependent: Yes Insulin Pump: No Home FSBS? Yes Renal Insuffiency? No End Stage Renal Disease? No UTI? Yes Stones? No BPH? No GB Disease: Yes Nephritic Syndrome? No Asplenia? No Hepatitis? No Sickle Cell Disease? No Arthritis? Yes Migraines? No Cataracts? No Glaucoma? No MRSA? Yes HIV? No TB? No Anxiety? Yes Depression? Yes Cancer? No More? 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 13 Months Or More Family History Family Hx Diabetes Yes CAD Yes Hypertension Yes Hyperlipidemia Yes Cancer Yes TB No Social History Smoking Hx Smoker: Current Every Day Smoker Tobacco: Yes Type Cigarettes Packs/day 1 1/2 - 2 Packs Alcohol Alcohol: No Review of Systems All Other Systems Reviewed and Negative Skin see HPI Physical Exam Vital Signs Vital Signs Date Time Temp Pulse Resp B/P Pulse O2 O2 Flow FiO2 Ox Delivery Rate 01/27 1536 98.8 94 20 116/93 98 General Appearance normal appearance, WD/WN, no apparent distress Eye Exam - bilateral eye normal exam, bilateral eye PERRL, bilateral eye EOMI Neck full range of motion Respiratory Status No: respiratory distress. Cardiovascular no peripheral edema Extremities normal range of motion Strength 5 Upper Ext (L), 5 Upper Ext (R) Neurologic alert, normal exam Skin slightly erythematous area to central right axilla with no fluctuance, no palpable abscess, no streaks. No drainage or fluctuance. Is somewhat indurated. Medical Decision Making LABS/Meds/Orders Pt receiving controlled substance in ED? No Results/Orders Current Medication Orders Sig/Jeanie Start time Last Medication Dose Route Stop Time Status Admin Diphtheria/Pertussis/ 0 .STK-MED ONE 01/27 1659 DC Tetanus Vacc IM Departure Departure Time of Disposition 1700 Disposition DC Home or Self Care(routine) Clinical Impression Primary Impression: Hidradenitis suppurativa of right axilla Condition STABLE Referrals Sagrario WRAY,Justin Jimenez (Family) Patient Instructions Hidradenitis Suppurativa Additional Instructions Follow up with your family doctor in three to five days. Rx Levaquin. Naproxen. Discharge Counseling Counseled pt/family regarding diagnosis, medications/RX, home care, follow up needs Prescriptions Current Visit Scripts NAPROXEN (NAPROXEN 500MG TAB) 500 MG PO BIDP PRN pain #20 TAB Levofloxacin (Levaquin 500MG) 500 MG PO DAILY #7 TAB ED Critical Care Critical Care No at 1705
[2017-01-27 17:10] VITALS: BP 116/81
== END 2017-01-27 17:11 | disposition home or self-care (01) ==
LOC: ER 15:31
DX: L73.2 Hidradenitis suppurativa (principal); I10 Essential (primary) hypertension; Z72.0 Tobacco use; K21.9 Gastro-esophageal reflux disease without esophagitis

== ENCOUNTER → 2017-05-09 | Outpatient (CLI) | payer MEDICAID ==
[~2017-05-09] MED LIST changes: +LEVAQUIN500 MG PO; +LEVOTHYROXINE0.15 M1 PO; +NAPROXEN SODIU500 MG PO
[2017-05-09 17:11] LABS: AMPHETAMINES/METAMPHETAMINES NEGATIVE ng/mL (<1000)
== END ==
LOC: LAB 16:23
PROVIDERS: Nurse Practitioner Family
DX: M54.5 Low back pain (principal); Z79.899 Other long term (current) drug therapy